=== PATIENT | female | born 1935 | race Hispanic/Latino ===

== ENCOUNTER 2017-01-28 17:11 | Inpatient (IN) | payer MEDICARE, BC ==
--- NOTE | 2017-01-28 17:25 | ED PDOC ---
Arrival/HPI - General Historian: Patient - History of Present Illness Time/Duration: Prior to Arrival Symptom Onset: Sudden Symptom Course: Unchanged Context: Home <Ramsey Najera - Last Filed: 01/28/17 18:55> <Chet Mercado - Last Filed: 01/29/17 00:44> - General Time Seen by Provider: 01/28/17 17:11 - History of Present Illness Narrative History of Present Illness (Text): 01/28/17 17:22 A 81 year old female, whose past medical history includes carotid stenosis and hypertension and copd, comes in with code stroke activated by EMS. Per family, patient was last seen normal at approximately 11:30. Patient at baseline mildly confused. Patient was found on the floor AMS and slurred speech by daughter just priot to arrival Also, it is mentioned patient has "had cold" for last few days. at bedside, pt mildly altered, oriented x 2, unable to provide further history, but denies any complaints of pain, cough. 01/28/17 17:52 (Ramsey Najera) Past Medical History - Provider Review Nursing Documentation Reviewed: Yes <Ramsey Najera - Last Filed: 01/28/17 18:55> Family/Social History - Physician Review Nursing Documentation Reviewed: Yes Family/Social History: No Known Family HX <Ramsey Najera - Last Filed: 01/28/17 18:55> Allergies/Home Meds <Ramsey Najera - Last Filed: 01/28/17 18:55> <Chet Mercado - Last Filed: 01/29/17 00:44> Allergies/Adverse Reactions: Allergies amoxicillin [From Augmentin] Allergy (Verified 01/28/17 17:35) VOMITING clavulanic acid [From Augmentin] Allergy (Verified 01/28/17 17:35) VOMITING methylprednisolone [From Medrol] Allergy (Verified 01/28/17 17:35) .unknown olmesartan [From Benicar] Allergy (Verified 01/28/17 17:35) .unknown Home Medications: Home Meds Medication Instructions Recorded Confirmed Ascorbate Calcium/B5/Quercetin 1 tab PO DAILY 01/28/17 01/28/17 [Anti-Allergy Formula Tablet] Ascorbic Acid [Vitamin C 500 mg 1 tab PO DAILY 01/28/17 01/28/17 Tab] Aspirin [Aspirin Chewable] 81 mg PO DAILY 01/28/17 01/28/17 Atorvastatin [Lipitor] 20 mg PO DAILY 01/28/17 01/28/17 Ecommerce Analyst Broom 470 mg PO DAILY 01/28/17 01/28/17 Calcium Carbonate/Vitamin D3 1 tab PO DAILY MDD 1200mg/1000IU 01/28/17 01/28/17 [Calcium 500-Vit D3 600 [place]] Cholecalciferol (Vitamin D3) 5,000 units PO DAILY 01/28/17 01/28/17 [Vitamin D3] Cinnamon Bark [Cinnamon] 1,000 mg PO DAILY 01/28/17 01/28/17 Clopidogrel [Plavix] 75 mg PO DAILY 01/28/17 01/28/17 Cyanocobalamin [Vitamin B12] 500 mcg PO DAILY 01/28/17 01/28/17 Diclofenac [Diclofenac] 75 mg PO DAILY 01/28/17 01/28/17 Fluticasone Nasal [Flonase] 1 spr IN DAILY 01/28/17 01/28/17 Fluticasone Propionate [Flovent 1 inh INH BID 01/28/17 01/28/17 Diskus] Folic Acid [Folic Acid] 400 mcg PO DAILY 01/28/17 01/28/17 Irbesartan [Irbesartan] 300 mg PO DAILY 01/28/17 01/28/17 Kyolic 600 mg PO DAILY 01/28/17 01/28/17 Magnesium Citrate [Magnesium 250 mg PO DAILY 01/28/17 01/28/17 Citrate] Multivitamin/Iron/Folic Acid 1 tab PO DAILY 01/28/17 01/28/17 [Centrum Adults Tablet] [place]-3 Fatty Acids/Fish Oil 1 tab PO DAILY 01/28/17 01/28/17 [[place] 3 Fish Oil Softgel] Pyridoxine [Vitamin B6 50 mg Tab] 1 tab PO DAILY 01/28/17 01/28/17 Tiotropium Br/Olodaterol HCl 2 inh INH DAILY 01/28/17 01/28/17 [Stiolto Respimat Inhal [place]] Ubidecarenone [Coenzyme Q-10] 100 mg PO DAILY 01/28/17 01/28/17 Vitamin E [Vitamin E] 100 units PO DAILY 01/28/17 01/28/17 Review of Systems - Review of Systems Systems not reviewed;Unavailable: Altered Mental Status Neurological: Other (slurred speech) <Ramsey Najera - Last Filed: 01/28/17 18:55> Physical Exam Temperature: Febrile Blood Pressure: Normal Pulse: Tachycardic Respiratory Rate: Normal Appearance: Positive for: Other (elderly female, awake, alert, oriented x 2, answering some questions appropriately, responds to commands) Pain Distress: None Mental Status: Positive for: Confused (oriented x 2, neg time) - Systems Exam Head: Present: Atraumatic, Normocephalic Pupils: Present: PERRL Extroacular Muscles: Present: EOMI Conjunctiva: Present: Normal Respiratory/Chest: Present: Clear to Auscultation, Decreased Breath Sounds (mild , symmetric) Cardiovascular: Present: Tachycardic Abdomen: No: Tenderness, Distention Lower Extremity: Present: Tenderness, Swelling ((+)ecchymosis, right lower leg) Neurological: Present: GCS=15, CN II-XII Intact, Other (moving all extremities, no pronator drift, 5/5 muscle strenght, normal sensation) <Ramsey Najera - Last Filed: 01/28/17 18:55> Vital Signs Temp Pulse Resp BP Pulse Ox 01/29/17 00:10 100.1 F H 137 H 28 H 151/86 H 96 01/28/17 23:08 103 H 20 108/74 97 01/28/17 22:02 97 H 18 95/44 L 93 L 01/28/17 20:07 107 H 20 122/56 L 94 L 01/28/17 19:44 95 H 16 104/53 L 95 01/28/17 19:34 99.1 F 01/28/17 18:54 100.4 F H 97 H 30 H 98/47 L 96 01/28/17 18:09 104.5 F H 94 H 26 H 90/45 L 99 01/28/17 17:57 104 F H 01/28/17 17:13 100.4 F H 96 H 25 H 112/46 L 100 Medical Decision Making <Ramsey Najera - Last Filed: 01/28/17 18:55> - Critical Care Critical Care Minutes: 45 minutes <Chet Mercado - Last Filed: 01/29/17 00:44> ED Course and Treatment: 01/28/17 17:27 Impression: 81 year old female with comes in with code stroke. pt with generalized ams. initially called code stroke, as unclear onset, however daughter later states last ssen normal at 1130. upon arrival pt found to be febile, suspect sepsis Differential Diagnosis included but are not limited to: stroke, sepsis, metabolic, intracranial. Plan: -- EKG -- Head CT -- Chest X-ray -- Labs -- Blood Gas -- Urinalysis -- Reassess and disposition Progress Notes: 01/28/2017 17:11 Code stroke called in the ER. 01/28/17 17:30 EKG: Ordered, reviewed, and independently interpreted the EKG. Rate : 121 BPM Rhythm : Sinus tachycardia Interpretation : No ST-segment elevations or depressions, no T-wave inversions, normal intervals. Comparison : No previous EKG for comparison. 01/28/2017 17:[address] FINDINGS: HEMORRHAGE: No intracranial hemorrhage. BRAIN: There are mild chronic microangiopathic changes. There is no mass, mass effect or abnormal extra-axial fluid collection. There is no territorial infarction.There are coarse atherosclerotic calcifications in the cavernous carotid and vertebral arteries. VENTRICLES: There is mild age-related global parenchymal volume loss and proportionate enlargement of the ventricles and cortical sulci. CALVARIUM: The skull base and calvarium are normal. PARANASAL SINUSES: Predominantly clear. MASTOID AIR CELLS: The right mastoid air cells are clear. There is complete opacification of the left mastoid air cells and soft tissue in the left middle ear cavity. OTHER FINDINGS: None. IMPRESSION: 1. No acute intracranial abnormality. If there is a persistent focal neurologic deficit and an ongoing clinical concern for acute infarction, an MRI of the brain without intravenous contrast would be a more sensitive modality for evaluation of hyperacute/acute ischemic infarction. 2. Mild age-related involutional changes. 3. Acute and/ chronic left mastoiditis and otitis media. Clinical follow-up is advised. Findings were discussed with Dr. Ramsey Najera on 01/28/2017 at 5:25 p.m.. Dictator: Tena Moralez MD 01/28/2017 17:31 Chest X-ray FINDINGS: LUNGS: The lungs are hyperinflated and there is peribronchial thickening with chronic changes in both lungs. No focal consolidation. PLEURA: No significant pleural effusion identified, no pneumothorax apparent. CARDIOVASCULAR: Normal. OSSEOUS STRUCTURES: No significant abnormalities. VISUALIZED UPPER ABDOMEN: Normal. OTHER FINDINGS: None. IMPRESSION: No active pulmonary disease. COPD. Dictator: Tena Moralez MD 01/28/17 17:[address] choi. as pt last seen normal 1130, with generalized AMS , not tpa candidate. case discussed with dr vela, pt pmd, advises pt can be admitted to medical service. 01/28/17 18:06 Code sepsis called for patient in the ER. 01/28/17 18:21 pt now reports she had "banged an ironing board agaist right leg", with noted ecchymosis. xr added. ct abd/pelvis also added as pt reports right flank pain. 01/28/17 18:35 pt less altered, now responding to questions appropriately. 01/28/17 18:55 icu paged, pending callback. case endorsed to [facility], pending icu eval, ct, xr imaging, and final dispo. (Ramsey Najera) CT Abdomen and Pelvis Without Intravenous Contrast IMPRESSION: Moderate right-sided hydroureteronephrosis secondary to a 5 mm stone in the distal right ureter. Dictated and Authenticated by: Apurva Dailey MD 01/28/2017 9:24 PM Eastern Time ([place] & Aide) 01/28/17 21:50 Case discussed with ICU [facility] urologist Dr. William for emergent ureteral stent. Patient is hemodynamically stable. Patient had received Lovenox for presumed nonstemi, however given the new findings we may need to reverse it. Discussed with Dr. Snyder as well. She was given protamine to reverse the Lovenox to minimize risk of bleeding while doing the procedure. She was taken the OR emergently at approxmiately 11pm given additional fluid bolus for a soft blood pressure. Dr. William did not want any further antibiotics at that time. She was sent to the ICU status post procedure the ICU attending was informed of the case 01/29/17 00:41 (Chet Mercado) - Critical Care Narrative Critical Care (Text): 01/28/17 20:50 A sepsis order was called and the patient by Dr. Gonzalez want any was given she was given antibiotics and fluid bolus resuscitation. A repeat EKG showed some mild but persistent ST depression in V3 V4 and V5 given that she has a slight troponin bump I'm concerned about underlying cardiac disease. We will give one dose of Lovenox as anticoagulation. She was evaluated by the ICU team and cleared for telemetry. She'll be admitted to Dr. Busch. After her CT scan of the abdomen and pelvis came back and showed a 5 mm stone in the right distal ureter with hydronephrosis. 01/29/17 00:40 (Chet Mercado) - Lab Interpretations Lab Results: 01/28/17 17:25 01/28/17 17:25 Lab Results 01/28/17 20:00: Blood Type Confirm O POSITIVE 01/28/17 19:00: Influenza Typ A,B (EIA) Negative for flu a/b 01/28/17 18:20: Urine Color Yellow, Urine Appearance Turbid, Urine pH 6.0, Ur Specific [place] 1.015, Urine Protein 100 H, Urine Glucose (UA) Negative, Urine Ketones 15 H, Urine Blood Moderate H, Urine Nitrate Positive H, Urine Bilirubin Negative, Urine Urobilinogen 0.2, Ur Leukocyte Esterase Trace H, Urine RBC 10 - 15, Urine WBC 5 - 10, Urine Bacteria Many 01/28/17 18:15: Blood Type O POSITIVE, Antibody Screen Negative, BBK History Checked No verified bt 01/28/17 17:25: Sodium 138, Chloride 103, Potassium 4.3, Carbon Dioxide 21, Anion Gap 18, BUN 28 H, Creatinine 1.2, Est GFR ( Amer) 52, Est GFR (Non- Af Amer) 43, Random Glucose 172 H, Calcium 9.4, Magnesium 1.7, Total Bilirubin 0.8, AST 69 H, ALT 41, Alkaline Phosphatase 156 H, Lactate Dehydrogenase 592, Total Creatine Kinase 854 H, CK-MB (CK-2) 2.2, CK-MB (CK-2) % Cancelled, Troponin I 0.25 H*, Total Protein 7.1, Albumin 4.1, Globulin 3.0, Albumin/ Globulin Ratio 1.4, Triglycerides 74, Cholesterol 138, LDL Cholesterol Direct 61 , HDL Cholesterol 50 01/28/17 17:25: PT 12.6 H, INR 1.17 H, APTT 28.0 01/28/17 17:25: WBC 5.2, RBC 4.45, Hgb 13.7, Hct 40.3, MCV 90.6, MCH 30.8, MCHC 34.0, RDW 14.8 H, Plt Count 170, MPV 9.0, Gran % 86.1 H, Lymph % (Auto) 8.3 L, Leon % (Auto) 2.9, Eos % (Auto) 0.2 L, Baso % (Auto) 2.5, Gran # 4.43, Lymph # 0.4 L, Leon # 0.2, Eos # 0.0, Baso # 0.13 01/28/17 17:25: pO2 157 H, VBG pH 7.44 H, VBG pCO2 32.0 L, VBG HCO3 21.7, VBG Total CO2 22.7, VBG O2 Sat (Calc) 100.0 H, VBG Base Excess -1.6 L, VBG Potassium 4.3, Sodium 136.0, Chloride 103.0, Glucose 183 H, Lactate 2.8 H, FiO2 21.0, Venous Blood Potassium 4.3 - RAD Interpretation Radiology Orders: 01/28/17 17:12 CHEST PORTABLE [RAD] Stat 01/28/17 17:13 HEAD W/O (CODE STROKE) [CT] Stat 01/28/17 18:18 ABDOMEN & PELVIS [ABD & PELVIS W/O PO OR IV CONT] [CT] Stat 01/28/17 18:19 ANKLE RIGHT 3 VIEWS ROUTINE [RAD] Stat TIBIA FIBULA RIGHT [RAD] Stat - Medication Orders Current Medication Orders: Acetaminophen (Tylenol 325mg Tab) 650 mg PO Q6H PRN PRN Reason: Fever >100.4 F Aspirin (Aspirin Chewable) 81 mg PO DAILY [facility] Atorvastatin Calcium (Lipitor) 20 mg PO DAILY [facility] Clopidogrel Bisulfate (Plavix) 75 mg PO DAILY [facility] Fentanyl (Fentanyl) 25 mcg IV Q5M PRN PRN Reason: Pain, moderate (4-7) Fluticasone Propionate (Flonase) 1 actuation NS DAILY [facility] Sodium Chloride (Sodium Chloride 0.9%) 1,000 mls @ 150 mls/hr IV .Q6H40M STA Stop: 01/29/17 02:29 Last Admin: 01/28/17 20:00 Dose: 150 mls/hr eMAR Start Stop Document 01/28/17 20:00 EKEOO (Rec: 01/28/17 22:28 CESILIA [email or web address]) Intravenous Solution Start Date 01/28/17 Start Time 20:00 Levofloxacin/Dextrose (Levaquin 750mg) 750 mg in 150 mls @ 100 mls/hr IVPB DAILY NO Meperidine HCl (Demerol) 12.5 mg IVP Q10M PRN PRN Reason: shivering Stop: 01/29/17 01:14 Metoprolol Succinate (Toprol Xl) 25 mg PO BRK NO Folic Acid [Folic Acid] 400 Mcg (Home Med) 400 mcg PO DAILY NO Tiotropium Br/Olodaterol Hcl [ Stiolto Respimat Inhal [place]] 2 In -- (Home Med) 2 inh INH DAILY NO Discontinued Medications Acetaminophen (Tylenol 325mg Tab) 60 mg PO STAT STA Stop: 01/28/17 22:10 Last Admin: 01/28/17 23:06 Dose: Aspirin (Aspirin) 325 mg PO STAT STA Stop: 01/28/17 18:29 Last Admin: 01/28/17 18:55 Dose: 325 mg Enoxaparin Sodium (Lovenox) 60 mg SC STAT STA PRN Reason: Protocol Stop: 01/28/17 20:53 Last Admin: 01/28/17 21:18 Dose: 60 mg Subcutaneous Administrations Document 01/28/17 21:18 CESILIA (Rec: 01/28/17 21:18 CESILIA [email or web address]) Injection Site MAR Injection Site Left Deltoid Charges for Administration # of Subcutaneous Administrations 1 Sodium Chloride (Sodium Chloride 0.9%) 1,000 mls @ 999 mls/hr IV .Q1H1M STA Stop: 01/28/17 18:39 Last Admin: 01/28/17 17:57 Dose: 999 mls/hr eMAR Start Stop Document 01/28/17 17:57 AB (Rec: 01/28/17 17:57 AB [id number]) Intravenous Solution Start Date 01/28/17 Start Time 17:57 End Date 01/28/17 End time 18:57 Total Infusion Time 60 Sodium Chloride (Sodium Chloride 0.9%) 1,000 mls @ 999 mls/hr IV .Q1H1M STA Stop: 01/28/17 18:39 Last Admin: 01/28/17 18:43 Dose: 999 mls/hr eMAR Start Stop Document 01/28/17 18:43 AB (Rec: 01/28/17 18:43 AB [id number]) Intravenous Solution Start Date 01/28/17 Start Time 18:43 End Date 01/28/17 End time 19:43 Total Infusion Time 60 Ciprofloxacin (Cipro 400mg/200ml Dsw) 400 mg in 200 mls @ 133.3 mls/hr IVPB STAT STA PRN Reason: Protocol Stop: 01/28/17 19:12 Last Admin: 01/28/17 21:18 Dose: 133.3 mls/hr eMAR Start Stop Document 01/28/17 21:18 EKEOO (Rec: 01/28/17 21:18 EKEPAO [id number]) Intravenous Solution Start Date 01/28/17 Start Time 21:18 Vancomycin HCl (Vancomycin 1gm) 1 gm in 250 mls @ 167 mls/hr IVPB STAT STA PRN Reason: Protocol Stop: 01/28/17 19:11 Last Admin: 01/28/17 18:41 Dose: 167 mls/hr eMAR Start Stop Document 01/28/17 18:41 AB (Rec: 01/28/17 18:42 AB [id number]) Intravenous Solution Start Date 01/28/17 Start Time 18:42 End Date 01/28/17 Levofloxacin/Dextrose (Levaquin 500mg) 500 mg in 100 mls @ 100 mls/hr IVPB ONCE ONE Stop: 01/29/17 10:59 Levofloxacin/Dextrose (Levaquin 750mg) 750 mg in 150 mls @ 100 mls/hr IVPB Q48H NO Ketorolac Tromethamine (Toradol) 30 mg IVP ONCE ONE Stop: 01/29/17 00:15 Morphine Sulfate (Morphine) 2 mg IVP STAT STA Stop: 01/28/17 23:05 Last Admin: 01/28/17 23:43 Dose: Protamine Sulfate (Protamine) 50 mg IV ONCE ONE Stop: 01/28/17 21:55 Last Admin: 01/28/17 23:05 Dose: Protamine Sulfate (Protamine) 10 mg IV ONCE ONE Stop: 01/28/17 22:08 Last Admin: 01/28/17 22:22 Dose: 10 mg eMAR Start Stop Document 01/28/17 22:22 EKEOO (Rec: 01/28/17 23:06 EKLEATHA [id number]) Intravenous Solution Start Date 01/28/17 Start Time 22:22 - Scribe Statement The provider has reviewed the documentation as recorded by the Scribe <Ramsey Najera - Last Filed: 01/28/17 18:55> <Chet Mercado - Last Filed: 01/29/17 00:44> - Scribe Statement Keely Dyer Provider Scribe Attestation: All medical record entries made by the Scribe were at my direction and personally dictated by me. I have reviewed the chart and agree that the record accurately reflects my personal performance of the history, physical exam, medical decision making, and the department course for this patient. I have also personally directed, reviewed, and agree with the discharge instructions and disposition. (Ramsey Najera) Disposition/Present on Arrival <Ramsey Najera - Last Filed: 01/28/17 18:55> - Present on Arrival Any Indicators Present on Arrival: No History of DVT/PE: No History of Uncontrolled Diabetes: No Urinary Catheter: No History of Decub. Ulcer: No - Disposition Have Diagnosis and Disposition been Completed?: Yes Disposition Time: 23:00 Patient Plan: ICU <Chet Mercado - Last Filed: 01/29/17 00:44> - Disposition Diagnosis: Sepsis, Ureteral calculus, right, NSTEMI (non-ST elevated myocardial infarction ) Disposition: HOSPITALIZED Condition: CRITICAL
--- NOTE | 2017-01-28 17:31 | CT ---
PROCEDURE: CT HEAD WITHOUT CONTRAST. HISTORY: Code Stroke COMPARISON: None available. TECHNIQUE: Axial computed tomography images were obtained through the head/brain without intravenous contrast. Radiation dose: Total exam DLP = 792.29 mGy-cm. This CT exam was performed using one or more of the following dose reduction techniques: Automated exposure control, adjustment of the mA and/or kV according to patient size, and/or use of iterative reconstruction technique. FINDINGS: HEMORRHAGE: No intracranial hemorrhage. BRAIN: There are mild chronic microangiopathic changes. There is no mass, mass effect or abnormal extra-axial fluid collection. There is no territorial infarction.There are coarse atherosclerotic calcifications in the cavernous carotid and vertebral arteries. VENTRICLES: There is mild age-related global parenchymal volume loss and proportionate enlargement of the ventricles and cortical sulci. CALVARIUM: The skull base and calvarium are normal. PARANASAL SINUSES: Predominantly clear. MASTOID AIR CELLS: The right mastoid air cells are clear. There is complete opacification of the left mastoid air cells and soft tissue in the left middle ear cavity. OTHER FINDINGS: None. IMPRESSION: 1. No acute intracranial abnormality. If there is a persistent focal neurologic deficit and an ongoing clinical concern for acute infarction, an MRI of the brain without intravenous contrast would be a more sensitive modality for evaluation of hyperacute/acute ischemic infarction. 2. Mild age-related involutional changes. 3. Acute and/ chronic left mastoiditis and otitis media. Clinical follow-up is advised. Findings were discussed with Dr. Ramsey Najera on 01/28/2017 at 5:25 p.m..
--- NOTE | 2017-01-28 17:32 | RAD ---
HISTORY: Code stroke COMPARISON: 07/05/2016. FINDINGS: LUNGS: The lungs are hyperinflated and there is peribronchial thickening with chronic changes in both lungs. No focal consolidation. PLEURA: No significant pleural effusion identified, no pneumothorax apparent. CARDIOVASCULAR: Normal. OSSEOUS STRUCTURES: No significant abnormalities. VISUALIZED UPPER ABDOMEN: Normal. OTHER FINDINGS: None. IMPRESSION: No active pulmonary disease. COPD.
[2017-01-28] MEDS ORDERED: Sodium Chloride 0.9% 1,000 ML IV STA ×3 (17:39→19:50)
[2017-01-28] MEDS ORDERED: Vancomycin 1gm in NS 250ml 1 GM/250 ML BAG IVPB STA (17:42)
[2017-01-28] MEDS ORDERED: Ciprofloxacin 400mg/200ml D5W 400 MG/200 ML BAG IVPB STA (17:42)
[2017-01-28 18:01] LABS: BASO # 0.13 K/mm3 (0.0-2.0); BASO % 2.5 % (0.0-3.0); EOS % 0.2 % (1.5-5.0); GRAN # 4.43 (1.4-6.5); GRAN % 86.1 % (50.0-68.0); HEMATOCRIT 40.3 % (36.0-48.0); LYMPH # 0.4 (1.2-3.4); LYMPH % 8.3 % (22.0-35.0); MEAN CELL VOLUME 90.6 fl (80.0-105.0); MEAN CORPUSCULAR HEMOGLOBIN 30.8 pg (25.0-35.0); MONO # 0.2 (0.1-0.6); MONO % 2.9 % (1.0-6.0); RED CELL DISTRIBUTION WIDTH 14.8 % (11.5-14.5); WHITE BLOOD COUNT 5.2 10^3/ul (4.5-11.0)
[2017-01-28 18:04] LABS: VENOUS BLOOD GAS BASE EXCESS -1.6 mmol/L (0.0-2.0); VENOUS BLOOD PH 7.44 (7.32-7.43)
[2017-01-28 18:08] LABS: ALB/GLOB RATIO 1.4 (1.1-1.8); BILIRUBIN,TOTAL 0.8 mg/dL (0.2-1.3); CALCIUM 9.4 mg/dL (8.4-10.5); INR 1.17 (0.93-1.08); MAGNESIUM 1.7 mg/dL (1.7-2.2); POTASSIUM 4.3 mmol/L (3.6-5.0); TOTAL PROTEIN 7.1 g/dL (5.8-8.3)
[2017-01-28 18:24] LABS: TROPONIN I 0.25 ng/mL
[2017-01-28 18:57] LABS: URINE BILIRUBIN NEGATIVE (NEGATIVE); URINE BLOOD MODERATE (NEGATIVE); URINE GLUCOSE (UA) NEGATIVE (NEGATIVE); URINE KETONE 15 mg/dL (NEGATIVE); URINE LEUKOCYTE ESTERASE TRACE Leu/uL (NEGATIVE); URINE PROTEIN 100 mg/dL (<30 mg/dL); URINE UROBILINOGEN 0.2 E.U./dL (<1 E.U./dL)
[2017-01-28 19:01] LABS: URINE APPEARANCE TURBID (CLEAR); URINE COLOR YELLOW (YELLOW)
[2017-01-28 19:04] LABS: URINE BACTERIA MANY (NEG)
[2017-01-28] MEDS ORDERED: Enoxaparin 60 mg Syringe SC STA (20:52)
--- NOTE | 2017-01-28 21:18 | CP.PCM.CON ---
<Nathanael Palomino - Last Filed: 01/29/17 01:03> History of Present Illness - History of Present Illness History of Present Illness: ICU Consult Note for Dr. 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 Patient was reported as altered on arrival, CODE STROKE was called, but head CT was negative for acute findings, and she was AAOx4 (self, location, year, president) at time of exam. Patient has no recall of the events leading to this admission. As per the patient, she was trying to put her ironing board away 2 days ago, but it fell down and struck the medial aspect of her right lower leg, superior to the medial maleolus. Since that time, she has been complaining of persisting pain at the site, as per family at bedside and per patient. Patient also admits to sensation of general malaise and aches x2 days, but thought she had come down with a cold. Family reports that patient called today and stated she was going to drive to her chiropracter to see if he could do anything to help her leg pain , around 1pm today. Last seen by a family member ambulating and yesterday evening at ~10pm. Family reports that patient's baseline is ambulatory at home without assistance, takes care of most IADLs/ADLs with some help from family, but they have noticed a mild general decline and intermittent confusion within the last few months. Family reports not having heard from patient after the 1pm call, so members living on the floor below her went up to check, and found her on her back on the ground, apparently having slipped down from the bed when attempting to stand, still holding her blanket from the bed. Family reported that she was found on her back, eyes wide open, mouthing words but not speaking and not initially responsive to patient. No tonic-clonic seizure activity, tongue biting, or bowel/bladder incontinence reported as per family. Patient rapidly became alert and responsive as per family, and then EMS was called and she was brought to the ED. Patient admits she has had minimal PO food and fluid intake in the last 48 hours , and as per family she has poor PO fluid intake at baseline. Also admits to prior orthostatic syncopal episode 2 years prior. Denies any current symptoms except for back pain and pain in left leg at site of bruising. Denies room- spinning, lightheadness, fevers/chills, shortness of breath, nausea/emesis, abd pain, constipation, dysuria, hematuria, focal weakness/parethesia, or acute vision changes. Admits to diarrhea 2 days prior, no episodes yesterday or today. All other ROS in 12-point system review negative. PMH: As above PSH: Denies any surgeries in past FHx: pt unsure SHx: Admits to prior tobacco use (cigarettes, 1ppd x 50 yrs, quit ~10 yrs prior) , denies alcohol/illicits/IVDA PMD: Dr. Corrales Review of Systems - Review of Systems All systems: reviewed and no additional remarkable complaints except (as per HPI ) Past Patient History - Past Social History Smoking Status: Former Smoker - CARDIAC Hx Cardiac Disorders: Yes Hx Hypercholesterolemia: Yes Hx Hypertension: Yes - PULMONARY Hx Respiratory Disorders: Yes Hx Chronic Obstructive Pulmonary Disease (COPD): Yes - NEUROLOGICAL Hx Neurological Disorder: No - HEENT Hx HEENT Problems: No - RENAL Hx Chronic Kidney Disease: No - ENDOCRINE/METABOLIC Hx Endocrine Disorders: No - HEMATOLOGICAL/ONCOLOGICAL Hx Blood Disorders: No - INTEGUMENTARY Hx Dermatological Problems: No - MUSCULOSKELETAL/RHEUMATOLOGICAL Hx Musculoskeletal Disorders: No - GASTROINTESTINAL Hx Gastrointestinal Disorders: No - GENITOURINARY/GYNECOLOGICAL Hx Genitourinary Disorders: No - PSYCHIATRIC Hx Psychophysiologic Disorder: No Hx Substance Use: No - SURGICAL HISTORY Hx Surgeries: Yes (ear surgery) Meds Allergies/Adverse Reactions: Allergies Allergy/AdvReac Type Severity Reaction Status Date / Time amoxicillin [From Augmentin] Allergy VOMITING Verified 01/28/17 17:35 clavulanic acid Allergy VOMITING Verified 01/28/17 17:35 [From Augmentin] methylprednisolone Allergy .unknown Verified 01/28/17 17:35 [From Medrol] olmesartan [From Benicar] Allergy .unknown Verified 01/28/17 17:35 - Medications Medications: Current Medications Sodium Chloride (Sodium Chloride 0.9%) 1,000 mls @ 150 mls/hr IV .Q6H40M STA Stop: 01/29/17 02:29 Physical Exam - Constitutional Appears: Well, Non-toxic, No Acute Distress - Head Exam Head Exam: ATRAUMATIC, NORMAL INSPECTION, NORMOCEPHALIC - Eye Exam Eye Exam: EOMI, Normal appearance, PERRL. absent: Conjunctival injection, Scleral icterus Pupil Exam: NORMAL ACCOMODATION, PERRL. absent: Fixed, Irregular, Unequal - ENT Exam ENT Exam: Mucous Membranes Dry - Neck Exam Neck exam: Positive for: Full Rom. Negative for: Lymphadenopathy, Thyromegaly - Respiratory Exam Respiratory Exam: Clear to Auscultation Bilateral, NORMAL BREATHING PATTERN. absent: Accessory Muscle Use, Chest Wall Tenderness, Decreased Breath Sounds, Prolonged Expiratory Phase, Rales, Rhonchi, Wheezes, Respiratory Distress, Stridor - Cardiovascular Exam Cardiovascular Exam: Tachycardia, REGULAR RHYTHM, +S1, +S2. absent: Bradycardia , Clicks, Diastolic murmur, Irregular Rhythm, JVD, +S4, Systolic Murmur - GI/Abdominal Exam GI & Abdominal Exam: Normal Bowel Sounds, Soft. absent: Diminished Bowel Sounds , Distended, Firm, Guarding, Hyperactive Bowel Sounds, Hypoactive Bowel Sounds, Rigid, Tenderness - Extremities Exam Extremities exam: Positive for: tenderness (tenderness at site of R medial lower leg bruise; bruising without surrounding erythema/edema/fluctuance, no ssx consistent with cellulitis at trauma site or hematoma), pedal pulses present (+2 radials and +1 dorsalis pedis bilaterally). Negative for: calf tenderness - Back Exam Back exam: vertebral tenderness (midline back pain, worse with palpation along lumbosacral region). absent: CVA tenderness (L), CVA tenderness (R) - Neurological Exam Neurological exam: Alert, CN II-XII Intact, Oriented x3 (oriented x4 (self, location, year, president)) - Psychiatric Exam Psychiatric exam: Normal Affect, Normal Mood - Skin Skin Exam: Dry, Intact, Normal Color (except as documented in extremities exam) , Warm Additional comments: large oval bruise along medial aspect of RLE superior to medial maleolus, ~ 3-4 cm diameter without overt breaks in skin/bleeding/oozing Results - Vital Signs Recent Vital Signs: Last Vital Signs Temp 99.1 F 01/28/17 19:34 Pulse 107 H 01/28/17 20:07 Resp 20 01/28/17 20:07 BP 122/56 L 01/28/17 20:07 Pulse Ox 94 L 01/28/17 20:07 - Labs Result Diagrams: 01/28/17 17:25 01/28/17 17:25 Labs: Laboratory Results - last 24 hr 01/28/17 01/28/17 01/28/17 17:25 17:25 17:25 WBC 5.2 RBC 4.45 Hgb 13.7 Hct 40.3 MCV 90.6 MCH 30.8 MCHC 34.0 RDW 14.8 H Plt Count 170 MPV 9.0 Gran % 86.1 H Lymph % (Auto) 8.3 L Winkler % (Auto) 2.9 Eos % (Auto) 0.2 L Baso % (Auto) 2.5 Gran # 4.43 Lymph # 0.4 L Winkler # 0.2 Eos # 0.0 Baso # 0.13 PT 12.6 H INR 1.17 H APTT 28.0 pO2 157 H VBG pH 7.44 H VBG pCO2 32.0 L VBG HCO3 21.7 VBG Total CO2 22.7 VBG O2 Sat (Calc) 100.0 H VBG Base Excess -1.6 L VBG Potassium 4.3 Sodium 136.0 Chloride 103.0 Glucose 183 H Lactate 2.8 H FiO2 21.0 Potassium Carbon Dioxide Anion Gap BUN Creatinine Est GFR ( Amer) Est GFR (Non-Af Amer) Random Glucose Calcium Magnesium Total Bilirubin AST ALT Alkaline Phosphatase Lactate Dehydrogenase Total Creatine Kinase CK-MB (CK-2) CK-MB (CK-2) % Troponin I Total Protein Albumin Globulin Albumin/Globulin Ratio Triglycerides Cholesterol LDL Cholesterol Direct HDL Cholesterol Venous Blood Potassium 4.3 Urine Color Urine Appearance Urine pH Ur Specific [place] Urine Protein Urine Glucose (UA) Urine Ketones Urine Blood Urine Nitrate Urine Bilirubin Urine Urobilinogen Ur Leukocyte Esterase Urine RBC Urine WBC Urine Bacteria Influenza Typ A,B (EIA) BBK History Checked 01/28/17 01/28/17 01/28/17 17:25 18:15 18:20 WBC RBC Hgb Hct MCV MCH MCHC RDW Plt Count MPV Gran % Lymph % (Auto) Winkler % (Auto) Eos % (Auto) Baso % (Auto) Gran # Lymph # Winkler # Eos # Baso # PT INR APTT pO2 VBG pH VBG pCO2 VBG HCO3 VBG Total CO2 VBG O2 Sat (Calc) VBG Base Excess VBG Potassium Sodium 138 Chloride 103 Glucose Lactate FiO2 Potassium 4.3 Carbon Dioxide 21 Anion Gap 18 BUN 28 H Creatinine 1.2 Est GFR ( Amer) 52 Est GFR (Non-Af Amer) 43 Random Glucose 172 H Calcium 9.4 Magnesium 1.7 Total Bilirubin 0.8 AST 69 H ALT 41 Alkaline Phosphatase 156 H Lactate Dehydrogenase 592 Total Creatine Kinase 854 H CK-MB (CK-2) 2.2 CK-MB (CK-2) % Cancelled Troponin I 0.25 H* Total Protein 7.1 Albumin 4.1 Globulin 3.0 Albumin/Globulin Ratio 1.4 Triglycerides 74 Cholesterol 138 LDL Cholesterol Direct 61 HDL Cholesterol 50 Venous Blood Potassium Urine Color Yellow Urine Appearance Turbid Urine pH 6.0 Ur Specific [place] 1.015 Urine Protein 100 H Urine Glucose (UA) Negative Urine Ketones 15 H Urine Blood Moderate H Urine Nitrate Positive H Urine Bilirubin Negative Urine Urobilinogen 0.2 Ur Leukocyte Esterase Trace H Urine RBC 10 - 15 Urine WBC 5 - 10 Urine Bacteria Many Influenza Typ A,B (EIA) BBK History Checked No verified bt 01/28/17 19:00 WBC RBC Hgb Hct MCV MCH MCHC RDW Plt Count MPV Gran % Lymph % (Auto) Winkler % (Auto) Eos % (Auto) Baso % (Auto) Gran # Lymph # Winkler # Eos # Baso # PT INR APTT pO2 VBG pH VBG pCO2 VBG HCO3 VBG Total CO2 VBG O2 Sat (Calc) VBG Base Excess VBG Potassium Sodium Chloride Glucose Lactate FiO2 Potassium Carbon Dioxide Anion Gap BUN Creatinine Est GFR ( Amer) Est GFR (Non-Af Amer) Random Glucose Calcium Magnesium Total Bilirubin AST ALT Alkaline Phosphatase Lactate Dehydrogenase Total Creatine Kinase CK-MB (CK-2) CK-MB (CK-2) % Troponin I Total Protein Albumin Globulin Albumin/Globulin Ratio Triglycerides Cholesterol LDL Cholesterol Direct HDL Cholesterol Venous Blood Potassium Urine Color Urine Appearance Urine pH Ur Specific [place] Urine Protein Urine Glucose (UA) Urine Ketones Urine Blood Urine Nitrate Urine Bilirubin Urine Urobilinogen Ur Leukocyte Esterase Urine RBC Urine WBC Urine Bacteria Influenza Typ A,B (EIA) Negative for flu a/b BBK History Checked Assessment & Plan - Assessment and Plan (Free Text) Assessment: This is an 81 yo F with PMH of HTN, HLD, 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 She was determined to be in urosepsis, and was found on CT abd to have a 5mm R-ureteral stone with R hydronephrosis. Urology consulted, aware, pt pending removal of stone by Urology. Plan: Neuro: -AAOx4, following all commands -no sided neurological deficit or sensory abnormality on exam, CT head negative for acute findings -maintain normothermia, Tmax in ED 104.5; Tylenol PRN for fevers, 99.1F on last check -Syncopal episode prior to presentation, likely 2/2 hypotension 2/2 urosepsis -High fall risk protocol Pulm: -Hx COPD, likely 2/2 prolonged tobacco abuse -Satting well in the ED on 2L NC, Maintain SaO2 > 90% for COPD pt, avoid persistently elevated SaO2 to prevent suppression of respiratory drive -Continue home Flovent and Tiotropium -CXR on admission negative for active pulmonary disease, only notable for COPD with hyperinflated lungs Cardio: -hemodynamically stable at time of exam, SBP 90's-120s after receiving 2L NS bolus, receiving 3rd at time of exam, continue aggressive fluid replacement and hold home antihypertensives -continue to monitor, target MAP >= 65, no pressor support indicated at this time -aggressive fluid rehydration in setting of sepsis, also patient likely dehydrated 2/2 sepsis and poor PO fluid intake as per family -NS 150cc/hr -Trop elevated at 0.25, mild ST depressions (~1mm) on intially EKG, but improved on repeat EKG after fluid rehydrated with 2L NS wide open, most likely demand ischemia from hypotensive episode 2/2 urosepsis, trend trops q8 x2 and f/ u -Continue home ASA/Plavix/Statin given hx of R ICA 100% stenosis/20-30% stenosis of L-ICA as per family and patient -Tachycardic on presentation, improved with fluid rehydration, supportive of suspicion that patient is dehydrated GI: -Heart-healthy, but currently NPO pending possible procedure by Urology -Protonix for GI ppx -CT abd negative for acute findings Renal: -Cr. 1.2, BUN 28 -likely ALEX 2/2 dehydration vs hypoperfusion 2/2 hypotension from urosepsis -CT pelvis notable for 5mm stone in R ureter with R hydroureteronephrosis -Urology consulted, patient to go to OR for stone removal -Monitor and replete electrolytes as necessary -Maintain euglycemia (BG 140-180), aggressive fluid repletion in setting of likely sepsis with ALEX -Received Vanco and Levoflox in the ED x1, now on Levofloxacin 750mg daily ID: -no leukocytosis, but febrile in ED; maintain normothermia, Tmax in ED 104.5; Tylenol PRN for fevers, 99.1F on last check -Received vanco and levofloxacin in the ED. Continue Levoflox for possible pyelonephritis Heme: -Hgb 13.7, f/u in AM -Continue to monitor Dispo: IN ED, pending OR with Urology for ureter stone removal, then to ICU for overnight eval and monitoring, IVF and IV abx FEN: NPO procedure, NS 150cc/hr Access: Peripheral IV Consults: Urology Ppx: Protonix for GI, Heparin SC q12 for DVT ppx when cleared by Urology ( holding AC now due to pending procedure, avoid SCDs due to RLE injury Patient seen, reviewed, and case discussed with attending, Dr. Mccann. <Robbie Mccann Q - Last Filed: 01/29/17 06:19> Meds - Medications Medications: Current Medications Acetaminophen (Tylenol 325mg Tab) 650 mg PO Q6H PRN PRN Reason: Fever >100.4 F Aspirin (Aspirin Chewable) 81 mg PO DAILY NO Atorvastatin Calcium (Lipitor) 20 mg PO DAILY NO Clopidogrel Bisulfate (Plavix) 75 mg PO DAILY NO Fentanyl (Fentanyl) 25 mcg IV Q5M PRN PRN Reason: Pain, moderate (4-7) Fluticasone Propionate (Flonase) 1 actuation NS DAILY NO Hydromorphone HCl (Dilaudid) 0.5 mg IVP Q3H PRN PRN Reason: Pain, moderate (4-7) Levofloxacin/Dextrose (Levaquin 750mg) 750 mg in 150 mls @ 100 mls/hr IVPB DAILY NO NOREPINEPHRINE BIT/0.9 % NACL (Levophed 4 Mg/ 250 Ml Ns Premixed) 4 mg in 250 mls @ 15 mls/hr IV .[id number] PRN; Protocol; 4 MCG/MIN PRN Reason: TITRATE PER MD ORDER Sodium Chloride (Sodium Chloride 0.9%) 1,000 mls @ 100 mls/hr IV .Q10H NO Last Admin: 01/29/17 04:30 Dose: 100 mls/hr Folic Acid [Folic Acid] 400 Mcg (Home Med) 400 mcg PO DAILY NO Tiotropium Br/Olodaterol Hcl [ Stiolto Respimat Inhal [place]] 2 In -- (Home Med) 2 inh INH DAILY NO Results - Vital Signs Recent Vital Signs: Last Vital Signs Temp 100.1 F H 01/29/17 01:24 Pulse 130 H 01/29/17 01:24 Resp 32 H 01/29/17 01:24 BP 134/96 H 01/29/17 01:24 Pulse Ox 93 L 01/29/17 01:20 - Labs Result Diagrams: 01/28/17 17:25 01/28/17 17:25 Labs: Laboratory Results - last 24 hr 01/28/17 01/29/17 01/29/17 22:00 01:34 05:30 pCO2 25 L pO2 42 45 62.0 L HCO3 12.0 L ABG pH 7.29 L ABG Total CO2 12.8 L ABG O2 Saturation 94.8 L ABG Base Excess -12.8 L ABG Potassium 3.4 L VBG pH 7.09 L* 7.21 L VBG pCO2 38.0 L 42.0 VBG HCO3 11.5 L 16.8 L VBG Total CO2 12.7 L 18.1 L VBG O2 Sat (Calc) 76.8 H 78.2 H VBG Base Excess -17.6 L -10.7 L VBG Potassium 2.0 L* 3.7 Sodium < 100.0 L* 138.0 139.0 Chloride 72.0 L 113.0 H 118.0 H Glucose > 750 H* D 103 100 Lactate 2.3 H 3.8 H 2.2 H FiO2 21.0 21.0 100.0 Arterial Blood Potassium 3.4 L Venous Blood Potassium 2.0 L* 3.7 Attending/Attestation - Attestation I have personally seen and examined this patient.: Yes I have fully participated in the care of the patient.: Yes I have reviewed all pertinent clinical information: Yes Notes (Text): 01/29/17 06:12 I agree with the above mentioned note and exam as mentioned above by the resident with the addition/exception of the followin81 y/o female with PMHx COPD, CAD, HTN, R carotid stenosis was brought in to the ED and found to have urosepsis initially. She was taken to the OR and had a cystoscopy with stone retrieval performed by Urology. Throughout the night the patient developed septic shock, failing to respond to approximately 5L IVF hydration. Right IJ Central line placed by the surgical instrument repair specialist (CXR reviewed showing proper placement, no Ptx) and she was started on Levophed. She also developed hypoxia, likely secondary to increased IVF administration, so she is now on High flow oxygen. Will diurese her to improve oxygenation. She appears comfortable and despite hypoxia on ABG, she is not offering any complaints of respiratory distress at this time. Septic shock secondary to pyelonephritis Case discussed at length with Dr. Mercado in the ED all labs and imaging available to myself thus far have been reviewed Total time of care: 50 minutes
--- NOTE | 2017-01-28 21:24 | CT ---
EXAM: CT Abdomen and Pelvis Without Intravenous Contrast CLINICAL HISTORY: 81 years old, female; Signs and symptoms; Fever and other: Sepsis; Additional info: Sepsis/fever TECHNIQUE: Axial computed tomography images of the abdomen and pelvis without intravenous contrast. All CT scans at this facility use one or more dose reduction techniques, viz.: automated exposure control; ma/kV adjustment per patient size (including targeted exams where dose is matched to indication; i.e. head); or iterative reconstruction technique. Coronal and sagittal reformatted images were created and reviewed. COMPARISON: No relevant prior studies available. FINDINGS: Lower thorax: Small bilateral pleural effusions, with adjacent compressive atelectasis. ABDOMEN: Liver: No acute findings Gallbladder and bile ducts: No acute finding. No calcified stones. No intra-extrahepatic biliary ductal dilation. Pancreas: Limited evaluation secondary to the lack of intravenous contrast. Spleen: No acute findings. Adrenals: No acute findings. Kidneys and ureters: Moderate right-sided hydroureteronephrosis extending to the distal right ureter where a 5 mm stone is identified. The left kidney is unremarkable. PELVIS: Bladder: Decompressed with a Rush catheter, limiting its evaluation. Reproductive: No acute findings. ABDOMEN and PELVIS: Stomach and bowel: No acute findings. Peritoneum: No acute findings. Lymph nodes: Limited evaluation without intravenous contrast. Vasculature: No aortic aneurysm. Calcified atherosclerotic disease. Bones: No acute fracture. IMPRESSION: Moderate right-sided hydroureteronephrosis secondary to a 5 mm stone in the distal right ureter.
[2017-01-28] MEDS ORDERED: Protamine 50mg/5mL Inj IV ONE ×4 (21:54→22:07)
[2017-01-28 22:12] LABS: VENOUS BLOOD GAS BASE EXCESS -17.6 mmol/L (0.0-2.0)
[2017-01-28 22:40] LABS: VENOUS BLOOD PH 7.09 (7.32-7.43)
[2017-01-28] MEDS: Morphine 2 mg/ml ISec IVP STA ×2 (23:12→23:43)
[2017-01-28] MEDS ORDERED: Lidocaine 2% Inj (20ml) ONE (23:42)
[2017-01-28] MEDS ORDERED: Etomidate 20 mg/10ml Inj IV ONE (23:42)
[2017-01-28] MEDS ORDERED: Iohexol 240 (50 ml) ONE (23:46)
[2017-01-28] MEDS ORDERED: Esmolol 100 mg/10ml Inj IV ONE (23:54)
[2017-01-29] MEDS ORDERED: Phenylephrine 10 mg/ml Inj ONE (00:01)
--- NOTE | 2017-01-29 00:18 | CARD ---
APPROVED REPORT EKG Measurement Heart [id number] [id number] <Conclusion> Sinus tachycardia with occasional premature ventricular complexes and fusion complexes Cannot rule out Anterior infarct, age undetermined Abnormal ECG
[2017-01-29] MEDS ORDERED: HYDROmorphone 0.5 mg/0.5 ml ISec IVP PRN (01:07)
--- NOTE | 2017-01-29 01:10 | PCM.SEPTIC ---
Sepsis Progress Note - Reassessment Type Date of Evaluation: 01/29/17 Time of Evaluation: 00:30 Reassessment Type: Non-invasive reassessment - Non Invasive Reassessment Were the most recent vital sign reviewed: Yes Vital Sign (Latest): Temp Pulse Resp BP Pulse Ox 100.1 F H 131 H 19 139/68 96 01/29/17 00:40 01/29/17 00:40 01/29/17 00:40 01/29/17 00:40 01/29/17 00:40 Cardiovascular: Yes: Chest Non Tender, Tachycardia (s/p Cysto for R-ureter stone removal). No: Regular Rate, Rhythm, JVD, Bradycardia, Irregularly Irregular Respiratory: Yes: Normal Breath Sounds. No: Decreased Breath Sounds, Crackles, Rales, Rhonchi, Wheezing Capillary Refill: Normal (Less than 2 sec) Pulses: Normal Radial, Decreased Dorsalis Pedis, Absent Posterior Tibialis ( unable to palpate) Skin: Normal Color, Warm, Dry
[2017-01-29 01:47] LABS: VENOUS BLOOD GAS BASE EXCESS -10.7 mmol/L (0.0-2.0); VENOUS BLOOD PH 7.21 (7.32-7.43)
[2017-01-29] MEDS ORDERED: Sodium Chloride 0.9% 1,000 ML IV STA ×2 (03:25→08:54)
[2017-01-29] MEDS ORDERED: Sodium Chloride 0.9% 1,000 ML IV SCH ×2 (03:30→05:01)
--- NOTE | 2017-01-29 04:22 | HP ---
HISTORY OF PRESENT ILLNESS: The patient is an 81-year-old female who is according to daughter, who is very independent. She usually drives. This morning, she went to see chiropractor for her back and knee and her sister spoke to her last around 1 o'clock when they came home after school. They found her on the floor and she was somewhat confused, so they called ambulance and she was brought to emergency room. According to daughter, Ashia, she was warm to touch and felt like she had high fever, so she was brought to emergency room for further evaluation. Denies any nausea or vomiting. Did have fever. No hemoptysis. No hematemesis. No cough. No congestion. She does admit some increase in frequency of urination. PAST MEDICAL HISTORY: Significant for: 1. Hypertension. 2. History of COPD. 3. Hyperlipidemia. 4. Recently diagnosed carotid stenosis. 5. History of heart attack in the remote past, but she never had angioplasty or cath done. PAST SURGICAL HISTORY: Significant for some cyst removed in her ear, but she is not sure, which procedure was done. ALLERGIES: SHE IS ALLERGIC TO AMOXYCILLIN, CLAVULANIC ACID, METHYLENPREDNISOLONE, AND OLMESARTAN. MEDICATIONS AT HOME: She is on bunch of multivitamins including calcium, folic acid, magnesium, fish oil, cinnamon bark, ascorbic acid, CoQ10, vitamin E, vitamin D, pyridoxine, and B12. She takes Avapro 300 daily and diclofenac 75 mg daily. She is on ipratropium and she takes Flovent, aspirin 81 daily, Plavix 75 daily, and Lipitor 10 mg daily. SOCIAL HISTORY: She lives with her daughter who lives upstairs and she lives downstairs. She used to be heavy smoker in the past. REVIEW OF SYSTEMS: When the patient was brought to the ER, she was somewhat confused, but seems to be doing lot better after she was given antibiotics and bolus of IV fluid. PHYSICAL EXAMINATION: GENERAL: She is awake and alert, able to communicate, able to answer simple questions. VITAL SIGNS: Upon arrival, her temperature was 104.5, pulse 94, respirations 26, and blood pressure 90/45. She was given Tylenol. Followup blood pressure around 7:30, temperature 99.1, pulse 95, respirations 16, and blood pressure 104/53. LUNGS: Bilateral fair airflow. No rhonchi or crackle. HEART: S1 and S2 audible. ABDOMEN: Soft and nontender. No rebound. No guarding. NEUROLOGIC: The patient is awake and alert and able to communicate. She has significant kyphoscoliosis and neurologically she is little forgetful, but awake and alert. No focal deficits. LABORATORY DATA: WBC is 5.2, hemoglobin 13.7, hematocrit 40.3, and platelets 170. PT 12.6 and INR 1.17. Chemistry: Sodium 138, potassium 4.3, chloride 103, CO2 of 21, BUN 28, creatinine 1.2, blood sugar of 172, AST 69, ALT 41, alkaline phosphatase is 156. CPK is 854, LDL is 592, troponin 0.25. LFTs are within normal limits. Urine shows positive nitrites and blood. She has a leukocyte and wbc is 5-10. Flu test is negative. CT scan of the abdomen and pelvis is pending. CT scan of the head, no acute intracranial abnormality, acute and chronic mastoiditis and otitis media. ASSESSMENT: 1. Altered mental status. 2. Probably urine resource. 3. Kyphoscoliosis. 4. Hypertension. 5. History of carotid stenosis. PLAN: The patient was given Cipro. We will continue her on Levaquin. Follow up her x-rays. Follow up CT scan of the abdomen and pelvis. ID evaluation by Dr. Dobbins will be requested. Follow up her serial troponin. Restart her on Plavix and aspirin. Follow up blood culture and urine culture and we will reevaluate the patient in a.m. Magali Snyder MD
[2017-01-29 04:49] VITALS: BMI 25.6
[2017-01-29] MEDS ORDERED: NOREPINEPHRINE BIT/0.9 % NACL 4 MG/250 ML BAG IV ONE (04:55)
[2017-01-29] MEDS ORDERED: NOREPINEPHRINE BIT/0.9 % NACL 4 MG/250 ML BAG IV PRN (05:00)
--- NOTE | 2017-01-29 05:14 | PCM.PROC ---
Procedures Attestation:: I certify that I have explained the specified Operation(s) or Procedure(s), risks, benefits and reasonable alternatives to the Patient and/or other person responsible. The opportunity was given to ask questions and all questions answered - Central Line Placement Right Internal Jugular Triple Lumen Catheter Aseptic technique was employed throughout the procedure: Full sterile barriers ( mask, hair cover, sterile gown, sterile gloves), Chloraprep Antiseptic: 30 second prep for IJ or SC sites CVP Time Out Performed: Yes Pt. Placed on Pulse Ox Monitor: Yes Central Line Prep: Chlorhexidine-Alcohol Combination Local Anesthesia Used: Lidocaine 1% Amount of Anesthesia Used (mls): 10 Ultrasound Used for Placement: Yes Central Line Lumen Inserted: triple Central Line Length: 20 cm Post Procedure: Sutured in Place, Good Blood Return, All Ports Aspirated, Flushed, Capped, Sterile Dressing Applied Secured by: Suture Post procedure dressing: Gauze, Clear vapor permeable, Chlorhexidine disc ( Biopatch) Post Procedure X-Ray: Yes Patient Tolerated Procedure: Well Immediate Complications: None
[2017-01-29 05:46] LABS: ARTERIAL BLOOD GAS PH 7.29 (7.35-7.45)
[2017-01-29 06:31] LABS: INR 1.42 (0.93-1.08); PARTIAL THROMBOPLASTIN TIME 37.3 Seconds (23.7-30.8)
[2017-01-29 06:34] LABS: BILIRUBIN,TOTAL 0.6 mg/dL (0.2-1.3); MAGNESIUM 1.6 mg/dL (1.7-2.2); PHOSPHOROUS 2.6 mg/dL (2.5-4.5); POTASSIUM 3.5 mmol/L (3.6-5.0)
[2017-01-29 06:44] LABS: BASO # 0.01 K/mm3 (0.0-2.0); BASO % 0.1 % (0.0-3.0); EOS % 0.1 % (1.5-5.0); GRAN # 12.92 (1.4-6.5); GRAN % 90.2 % (50.0-68.0); HEMATOCRIT 35.5 % (36.0-48.0); LYMPH # 0.7 (1.2-3.4); LYMPH % 4.5 % (22.0-35.0); MEAN CELL VOLUME 93.9 fl (80.0-105.0); MEAN CORPUSCULAR HEMOGLOBIN 30.2 pg (25.0-35.0); MEAN CORPUSCULAR HGB CONC 32.1 g/dl (31.0-37.0); MEAN PLATELET VOLUME 9.5 fl (7.0-11.0); MONO # 0.7 (0.1-0.6); MONO % 5.1 % (1.0-6.0); PLATELET COUNT 112 10^3/uL (120.0-450.0); RED CELL DISTRIBUTION WIDTH 15.5 % (11.5-14.5); WHITE BLOOD COUNT 14.3 10^3/ul (4.5-11.0)
[2017-01-29 06:48] LABS: FREE T4 1.77 ng/dL (0.78-2.19)
[2017-01-29 07:02] LABS: THYROID STIMULATING HORMONE 0.54 mIU/mL (0.46-4.68)
[2017-01-29 07:22] LABS: TROPONIN I 1.26 ng/mL
[2017-01-29] MEDS ORDERED: Albuterol-Ipratrop 3 mg / 0.5 (3 ml) UD IH PRN (07:22)
[2017-01-29] MEDS ORDERED: Propofol 10 mg/ml 1,000 MG/100 ML VIAL IV PRN (07:35)
[2017-01-29] MEDS ORDERED: Propofol 10 mg/ml Inj (20 ML) IVP ONE (07:35)
--- NOTE | 2017-01-29 07:37 | OP ---
PROCEDURE DATE: 01/28/2017 PREOPERATIVE DIAGNOSES: Obstructing right ureteral calculus and urosepsis. POSTOPERATIVE DIAGNOSES: Obstructing right ureteral calculus and urosepsis. PROCEDURES: Cystoscopy and insertion of a right ureteral stent. SURGEON: J Carlos William MD TYPE OF ANESTHESIA: General. COMPLICATIONS: There were none. SPECIMEN: None. DRAINS: A 6 x 24 right ureteral stent and a 16-Chilean Rush catheter. DESCRIPTION OF PROCEDURE: After informed consent was obtained, patient was taken to the operating room and placed supine on the operating table. Anesthesia was administered. The patient was placed in dorsal lithotomy position and prepped and draped in the usual sterile fashion. A 21-Chilean cystoscope was passed into the patient's bladder and a full survey inspection was performed. There were no stones, tumors or foreign bodies of the bladder noted. Both ureteral orifices were identified and appeared within normal limits. At this point, a 5-Chilean open-ended ureteral catheter was advanced into the cystoscope and guided into the right ureteral orifice. When inside the orifice, contrast was instilled into the system during real-time fluoroscopy. There appeared to be an obstructing filling defect in the distal ureter. The ureter above this point was markedly dilated. There was evidence of hydronephrosis. At this point, a sensor wire was obtained. The sensor wire was passed through the open-ended ureteral catheter into the ureter and advanced up to the ureter under fluoroscopic guidance until it coiled in the upper collecting system. The open-ended catheter was then removed and a 6 x 24 ureteral stent was obtained. This stent was passed over the guidewire through the cystoscope and into the right ureter. This stent was advanced proximally under direct and fluoroscopic guidance until it was in the appropriate position. When the stent was in proper position, the guidewire was removed. A coil was seen in renal pelvis on fluoroscopy. A coil was seen in the bladder on cystoscopy. There was large amount of concentrated, purulent-looking urine draining through and around the stent. At this point, the procedure was completed, the bladder was drained, cystoscope was removed. A 16-Chilean 2-way Rush catheter was passed and placed to straight bladder drainage. The patient tolerated the procedure well. She was taken to the recovery room awake and in stable condition. J Carlos William MD
[2017-01-29] MEDS ORDERED: Propofol 10 mg/ml Inj (20 ML) ONE (07:41)
[2017-01-29] MEDS ORDERED: Propofol 10 mg/ml 1,000 MG/100 ML VIAL ONE (07:42)
[2017-01-29] MEDS ORDERED: Metoprolol Succinate 25 mg XL Tab PO SCH (08:00)
[2017-01-29] MEDS: Budesonide 0.5 mg/2 ml Inhal Susp UD IH SCH ×2 (08:06→21:09)
[2017-01-29] MEDS: Albuterol-Ipratrop 3 mg / 0.5 (3 ml) UD IH SCH ×3 (08:06→21:09)
--- NOTE | 2017-01-29 08:55 | RAD ---
PROCEDURE: Retrograde pyelogram HISTORY: STONES COMPARISON: TECHNIQUE: Fluoroscopy was provided in the operating room. 23 seconds of fluoro time were used. Two images were submitted FINDINGS: The study shows placement of a right ureteral stent. The proximal pigtail is in the right renal pelvis. The distal portion was not visualize IMPRESSION: As above
--- NOTE | 2017-01-29 09:08 | RAD ---
HISTORY: ETT placement COMPARISON: Earlier same day FINDINGS: LUNGS: The endotracheal tube is in satisfactory position. PLEURA: All bilateral pleural effusions CARDIOVASCULAR: There is moderate vascular in interstitial congestion and bilateral pleural effusions OSSEOUS STRUCTURES: No significant abnormalities. VISUALIZED UPPER ABDOMEN: Normal. OTHER FINDINGS: None. IMPRESSION: Endotracheal tube in satisfactory position
--- NOTE | 2017-01-29 09:09 | RAD ---
HISTORY: TLC COMPARISON: 01/28/2017 FINDINGS: LUNGS: There is vascular and interstitial congestion consistent with CHF. There is a right internal jugular catheter that terminates in the right atrium. There is no pneumothorax PLEURA: No significant pleural effusion identified, no pneumothorax apparent. CARDIOVASCULAR: Normal. OSSEOUS STRUCTURES: No significant abnormalities. VISUALIZED UPPER ABDOMEN: Normal. OTHER FINDINGS: None. IMPRESSION: There is vascular and interstitial congestion consistent with CHF. There is a right internal jugular catheter that terminates in the right atrium. There is no pneumothorax
[2017-01-29] MEDS ORDERED: Fentanyl 1000mcg/100ml NS 1,000 MCG/100 ML BAG IV PRN (09:25)
[2017-01-29 09:35] LABS: ABG MECHANICAL RATE 26; ATERIAL BLOOD GAS PEEP 5
[2017-01-29 09:36] LABS: NEUTROPHIL 89 % (50.0-70.0)
[2017-01-29 09:37] LABS: ARTERIAL BLOOD GAS HCO3 7.8 mmol/L (21-28); ARTERIAL BLOOD GAS PH 7.16 (7.35-7.45)
[2017-01-29 09:37] LABS: ANISOCYTOSIS 1+; BAND 6 % (0-2); HYPOCHROMIA 1+; PLATELET ESTIMATE SL. DEC (NORMAL); TOXIC GRANULATION SLIGHT
[2017-01-29] MEDS: FOLIC ACID 400 MCG PO SCH (09:37)
[2017-01-29] MEDS: Fluticasone Nasal 50 mcg/Spray NS SCH (09:37)
[2017-01-29] MEDS ORDERED: Sodium Bicarbonate (8.4%) 50 Meq Syringe IVP STA (09:40)
[2017-01-29] MEDS ORDERED: Sodium Bicarbonate (8.4%) 50 Meq Syringe IVP ONE (09:41)
[2017-01-29] MEDS ORDERED: levoFLOXacin 500 mg in D5W 500 MG/100 ML BAG IVPB ONE (10:00)
[2017-01-29] MEDS ORDERED: FLUTICASONE PROPIONATE INH SCH (10:00)
[2017-01-29] MEDS ORDERED: TIOTROPIUM BR INH SCH (10:00)
[2017-01-29] MEDS ORDERED: OLODATEROL HCL INH SCH (10:00)
[2017-01-29] MEDS ORDERED: levoFLOXacin 750 mg in D5W 750 MG/150 ML BAG IVPB SCH (10:00)
[2017-01-29] MEDS ORDERED: Vancomycin 1gm in NS 250ml 1 GM/250 ML BAG IVPB SCH (10:00)
--- NOTE | 2017-01-29 10:09 | CP.CCUPN ---
CCU Subjective - Physician Review Events Since Last Encounter (Free Text): 01/29/17 10:02 81 y/o F w/ septic shock . Overnight became more hypoxic and this morning was intubated. CCU Objective - Vital Signs / Intake & Output Vital Signs (Last 4 hours): Vital Signs Pulse Resp BP Pulse Ox 01/29/17 08:46 103 H 01/29/17 08:35 35 H 100 01/29/17 07:49 90 24 45/31 L 65 L 01/29/17 07:48 87 29 H 30/17 L 87 L 01/29/17 07:45 90 20 130/73 75 L 01/29/17 07:40 105 H 35 H 94/31 L 86 L 01/29/17 07:35 107 H 34 H 105/56 L 92 L 01/29/17 07:32 110 H 39 H 01/29/17 07:31 109 H 18 01/29/17 07:30 97/61 L 01/29/17 07:29 109 H 38 H 01/29/17 07:28 107 H 36 H 01/29/17 07:27 106 H 38 H 102/60 01/29/17 07:26 105 H 37 H 01/29/17 07:20 82/52 L 01/29/17 07:19 102 H 34 H 93 L 01/29/17 07:17 107 H 36 H 01/29/17 07:16 108 H 35 H 01/29/17 07:14 109 H 37 H 01/29/17 07:11 109 H 28 H 01/29/17 07:10 28 H 113/59 L 01/29/17 07:09 109 H 38 H 89 L 01/29/17 07:05 111 H 38 H 118/49 L 87 L 01/29/17 07:00 108 H 36 H 88 L 01/29/17 06:56 111 H 78/44 L 75 L 01/29/17 06:51 114 H 27 H 01/29/17 06:50 113 H 33 H 156/104 H 76 L 01/29/17 06:47 113 H 17 01/29/17 06:46 113 H 133/76 86 L 01/29/17 06:45 112 H 29 H 01/29/17 06:44 114 H 36 H 01/29/17 06:21 28 H Intake and Output (Last 8hrs): Intake & Output 01/28/17 01/29/17 01/29/17 22:59 06:59 14:59 Intake Total 5800 50 Output Total 310 Balance 5490 50 Weight 149 lb 8 oz Intake: IV 5800 50 Left Wrist 0 Right Forearm 5800 Oral 0 Output: Urine 310 2-way Urethral 310 Other: Voiding Method Indwelling Catheter # Bowel Movements 0 - Physical Exam Physical Exam Limitations: Positive for: Altered Mental Status Head: Positive for: Atraumatic, Normocephalic Pupils: Positive for: PERRL Extroacular Muscles: Positive for: EOMI Conjunctiva: Positive for: Normal Mouth: Positive for: Moist Mucous Membranes, Other (ett) Pharnyx: Positive for: Normal Nose (Internal): Positive for: Normal Inspection Neck: Positive for: Normal Range of Motion Respiratory/Chest: Positive for: Clear to Auscultation, Respiratory Distress, Decreased Breath Sounds (mild, symmetric) Cardiovascular: Positive for: Tachycardic Abdomen: Negative for: Tenderness, Distention Upper Extremity: Positive for: Normal Inspection Lower Extremity: Positive for: Normal Inspection, Tenderness, Swelling ((+) ecchymosis, right lower leg) Neurological: Positive for: GCS=15, CN II-XII Intact, Other (moving all extremities, no pronator drift, 5/5 muscle strenght, normal sensation) Psychiatric: Positive for: Alert - Medications Active Medications: Active Medications Generic Name Dose Route Start Last Admin Trade Name Freq PRN Reason Stop Dose Admin Acetaminophen 650 mg 01/28/17 21:29 Tylenol 325mg Tab PO Q6H PRN Fever >100.4 F Albuterol/Ipratropium 3 ml 01/29/17 08:00 01/29/17 08:06 Duoneb 3 Mg/0.5 Mg (3 Ml) Ud IH 3 ml [id number] NO Administration Albuterol/Ipratropium 3 ml 01/29/17 07:22 Duoneb 3 Mg/0.5 Mg (3 Ml) Ud IH Q2H PRN Shortness of Breath Aspirin 81 mg 01/29/17 10:00 01/29/17 09:36 Aspirin Chewable PO Not Given DAILY NO Atorvastatin Calcium 20 mg 01/29/17 10:00 01/29/17 09:37 Lipitor PO Not Given DAILY NO Budesonide 0.5 mg 01/29/17 08:00 01/29/17 08:06 Pulmicort Respules IH 0.5 mg [id number] NO Administration Clopidogrel Bisulfate 75 mg 01/29/17 10:00 01/29/17 09:37 Plavix PO Not Given DAILY NO Fentanyl 100 mcg 01/29/17 08:20 01/29/17 08:31 Fentanyl IVP 100 mcg Q3 PRN Administration Pain, severe (8-10) Fluticasone Propionate 1 actuation 01/29/17 10:00 01/29/17 09:37 Flonase NS Not Given DAILY NO Levofloxacin/Dextrose 750 mg in 150 mls @ 100 mls/hr 01/29/17 10:00 01/29/17 09:40 Levaquin 750mg IVPB 100 mls/hr DAILY NO Administration NOREPINEPHRINE BIT/0.9 % NACL 4 mg in 250 mls @ 15 mls/hr 01/29/17 05:00 09/10 09:56 Levophed 4 Mg/ 250 Ml Ns Premixed IV 30 mcg/min .[id number] PRN 112.5 mls/hr TITRATE PER MD ORDER Titration Protocol 4 MCG/MIN Sodium Chloride 1,000 mls @ 100 mls/hr 01/29/17 05:01 01/29/17 04:30 Sodium Chloride 0.9% IV 100 mls/hr .Q10H NO Administration Propofol 1,000 mg in 100 mls @ 2.034 mls/hr 01/29/17 07:35 01/29/17 08:27 Diprivan IV 40 mcg/kg/min .Q24H PRN 16.275 mls/hr TITRATE PER MD ORDER Administration Protocol 5 MCG/KG/MIN Vancomycin HCl 1 gm in 250 mls @ 167 mls/hr 01/29/17 10:00 01/29/17 09:40 Vancomycin 1gm IVPB 167 mls/hr DAILY NO Administration Protocol Fentanyl Citrate 1,000 mcg in 100 mls @ 2 mls/hr 01/29/17 09:25 Fentanyl Citrate/Sodium Chloride 1 Mg/100 Ml IV .Q24H PRN TITRATE PER MD ORDER Protocol 20 MCG/HR Folic Acid [Folic 400 mcg 01/29/17 10:00 01/29/17 09:37 Acid] 400 Mcg (Home PO Not Given Med) DAILY NO - Patient Studies Lab Studies: Lab Studies 01/29/17 01/29/17 01/29/17 Range/Units 09:30 05:30 05:30 WBC (4.5-11.0) 10^3/ul RBC (3.5-6.1) 10^6/uL Hgb (12.0-16.0) g/dL Hct (36.0-48.0) % MCV (80.0-105.0) fl MCH (25.0-35.0) pg MCHC (31.0-37.0) g/dl RDW (11.5-14.5) % Plt Count (120.0-450.0) 10^3/uL MPV (7.0-11.0) fl Gran % (50.0-68.0) % Lymph % (Auto) (22.0-35.0) % [place] % (Auto) (1.0-6.0) % Eos % (Auto) (1.5-5.0) % Baso % (Auto) (0.0-3.0) % Gran # (1.4-6.5) Lymph # (1.2-3.4) [place] # (0.1-0.6) Eos # (0.0-0.7) Baso # (0.0-2.0) K/mm3 Neutrophils % (Manual) (50.0-70.0) % Band Neutrophils % (0-2) % Lymphocytes % (Manual) (22.0-35.0) % Monocytes % (Manual) (1.0-6.0) % Toxic Granulation Platelet Evaluation (NORMAL) Hypochromasia Anisocytosis (manual) PT 15.3 H (9.9-11.8) Seconds INR 1.42 H (0.93-1.08) APTT 37.3 H (23.7-30.8) Seconds pCO2 22 L (35-45) mm/Hg pO2 140.0 H (30-55) mm/Hg HCO3 7.8 L* (21-28) mmol/L ABG pH 7.16 L* (7.35-7.45) ABG Total CO2 8.5 L (22-28) mmol.L ABG O2 Saturation 100.2 H (95-98) % ABG Base Excess -19.0 L (-2.0-3.0) mmol/L ABG Potassium 2.4 L* (3.6-5.2) mmol/L VBG pH (7.32-7.43) VBG pCO2 (40-60) VBG HCO3 (21-28) mmol/l VBG Total CO2 (22-28) mmol.L VBG O2 Sat (Calc) (40-65) % VBG Base Excess (0.0-2.0) mmol/L VBG Potassium (3.6-5.2) mmol/L Sodium 148.0 (132-148) mmol/L Chloride 127.0 H (98-107) mmol/L Glucose 66 (65-105) mg/dl Lactate 1.7 (0.7-2.1) mmol/L Mechanical Rate 26 FiO2 100.0 % Tidal Volume 350 PEEP 5 Potassium (3.6-5.0) mmol/L Carbon Dioxide (21-33) mmol/L Anion Gap (10-20) BUN (7-21) mg/dL Creatinine (0.7-1.2) mg/dL Est GFR ( Amer) Est GFR (Non-Af Amer) Random Glucose (70-110) mg/dL Lactic Acid 3.9 H (0.7-2.1) mmol/L Calcium (8.4-10.5) mg/dL Phosphorus (2.5-4.5) mg/dL Magnesium (1.7-2.2) mg/dL Total Bilirubin (0.2-1.3) mg/dL AST (14-36) U/L ALT (7-56) U/L Alkaline Phosphatase (38-126) U/L Troponin I ng/mL Total Protein (5.8-8.3) g/dL Albumin (3.0-4.8) g/dL Globulin gm/dL Albumin/Globulin Ratio (1.1-1.8) Triglycerides (35-160) mg/dL Cholesterol (130-200) mg/dL LDL Cholesterol Direct (0-129) mg/dL HDL Cholesterol (29-60) mg/dL Lipase (23-300) U/L Free T4 (0.78-2.19) ng/dL TSH 3rd Generation (0.46-4.68) mIU/mL Arterial Blood Potassium 2.4 L* (3.6-5.2) mmol/L Venous Blood Potassium (3.6-5.2) mmol/L 01/29/17 01/29/17 01/29/17 Range/Units 05:30 05:30 05:30 WBC 14.3 H D (4.5-11.0) 10^3/ul RBC 3.78 (3.5-6.1) 10^6/uL Hgb 11.4 L D (12.0-16.0) g/dL Hct 35.5 L (36.0-48.0) % MCV 93.9 D (80.0-105.0) fl MCH 30.2 (25.0-35.0) pg MCHC 32.1 (31.0-37.0) g/dl RDW 15.5 H (11.5-14.5) % Plt Count 112 L (120.0-450.0) 10^3/uL MPV 9.5 (7.0-11.0) fl Gran % 90.2 H (50.0-68.0) % Lymph % (Auto) 4.5 L (22.0-35.0) % [place] % (Auto) 5.1 (1.0-6.0) % Eos % (Auto) 0.1 L (1.5-5.0) % Baso % (Auto) 0.1 (0.0-3.0) % Gran # 12.92 H (1.4-6.5) Lymph # 0.7 L (1.2-3.4) [place] # 0.7 H (0.1-0.6) Eos # 0.0 (0.0-0.7) Baso # 0.01 (0.0-2.0) K/mm3 Neutrophils % (Manual) 89 H (50.0-70.0) % Band Neutrophils % 6 H (0-2) % Lymphocytes % (Manual) 3 L (22.0-35.0) % Monocytes % (Manual) 2 (1.0-6.0) % Toxic Granulation Slight Platelet Evaluation Sl. dec (NORMAL) Hypochromasia 1+ Anisocytosis (manual) 1+ PT (9.9-11.8) Seconds INR (0.93-1.08) APTT (23.7-30.8) Seconds pCO2 25 L (35-45) mm/Hg pO2 62.0 L (30-55) mm/Hg HCO3 12.0 L (21-28) mmol/L ABG pH 7.29 L (7.35-7.45) ABG Total CO2 12.8 L (22-28) mmol.L ABG O2 Saturation 94.8 L (95-98) % ABG Base Excess -12.8 L (-2.0-3.0) mmol/L ABG Potassium 3.4 L (3.6-5.2) mmol/L VBG pH (7.32-7.43) VBG pCO2 (40-60) VBG HCO3 (21-28) mmol/l VBG Total CO2 (22-28) mmol.L VBG O2 Sat (Calc) (40-65) % VBG Base Excess (0.0-2.0) mmol/L VBG Potassium (3.6-5.2) mmol/L Sodium 139.0 142 (132-148) mmol/L Chloride 118.0 H 115 H (98-107) mmol/L Glucose 100 (65-105) mg/dl Lactate 2.2 H (0.7-2.1) mmol/L Mechanical Rate FiO2 100.0 % Tidal Volume PEEP Potassium 3.5 L (3.6-5.0) mmol/L Carbon Dioxide 16 L (21-33) mmol/L Anion Gap 15 (10-20) BUN 22 H (7-21) mg/dL Creatinine 1.2 (0.7-1.2) mg/dL Est GFR ( Amer) 52 Est GFR (Non-Af Amer) 43 Random Glucose 89 (70-110) mg/dL Lactic Acid (0.7-2.1) mmol/L Calcium 7.0 L (8.4-10.5) mg/dL Phosphorus 2.6 (2.5-4.5) mg/dL Magnesium 1.6 L (1.7-2.2) mg/dL Total Bilirubin 0.6 (0.2-1.3) mg/dL AST 134 H D (14-36) U/L ALT 57 H (7-56) U/L Alkaline Phosphatase 104 (38-126) U/L Troponin I 1.26 H* D ng/mL Total Protein 5.0 L (5.8-8.3) g/dL Albumin 2.6 L (3.0-4.8) g/dL Globulin 2.5 gm/dL Albumin/Globulin Ratio 1.0 L (1.1-1.8) Triglycerides 114 (35-160) mg/dL Cholesterol 76 L (130-200) mg/dL LDL Cholesterol Direct 30 (0-129) mg/dL HDL Cholesterol 30 (29-60) mg/dL Lipase 15 L (23-300) U/L Free T4 (0.78-2.19) ng/dL TSH 3rd Generation (0.46-4.68) mIU/mL Arterial Blood Potassium 3.4 L (3.6-5.2) mmol/L Venous Blood Potassium (3.6-5.2) mmol/L 01/29/17 01/29/17 01/28/17 Range/Units 05:30 01:34 22:00 WBC (4.5-11.0) 10^3/ul RBC (3.5-6.1) 10^6/uL Hgb (12.0-16.0) g/dL Hct (36.0-48.0) % MCV (80.0-105.0) fl MCH (25.0-35.0) pg MCHC (31.0-37.0) g/dl RDW (11.5-14.5) % Plt Count (120.0-450.0) 10^3/uL MPV (7.0-11.0) fl Gran % (50.0-68.0) % Lymph % (Auto) (22.0-35.0) % [place] % (Auto) (1.0-6.0) % Eos % (Auto) (1.5-5.0) % Baso % (Auto) (0.0-3.0) % Gran # (1.4-6.5) Lymph # (1.2-3.4) [place] # (0.1-0.6) Eos # (0.0-0.7) Baso # (0.0-2.0) K/mm3 Neutrophils % (Manual) (50.0-70.0) % Band Neutrophils % (0-2) % Lymphocytes % (Manual) (22.0-35.0) % Monocytes % (Manual) (1.0-6.0) % Toxic Granulation Platelet Evaluation (NORMAL) Hypochromasia Anisocytosis (manual) PT (9.9-11.8) Seconds INR (0.93-1.08) APTT (23.7-30.8) Seconds pCO2 (35-45) mm/Hg pO2 45 42 (30-55) mm/Hg HCO3 (21-28) mmol/L ABG pH (7.35-7.45) ABG Total CO2 (22-28) mmol.L ABG O2 Saturation (95-98) % ABG Base Excess (-2.0-3.0) mmol/L ABG Potassium (3.6-5.2) mmol/L VBG pH 7.21 L 7.09 L* (7.32-7.43) VBG pCO2 42.0 38.0 L (40-60) VBG HCO3 16.8 L 11.5 L (21-28) mmol/l VBG Total CO2 18.1 L 12.7 L (22-28) mmol.L VBG O2 Sat (Calc) 78.2 H 76.8 H (40-65) % VBG Base Excess -10.7 L -17.6 L (0.0-2.0) mmol/L VBG Potassium 3.7 2.0 L* (3.6-5.2) mmol/L Sodium 138.0 < 100.0 L* (132-148) mmol/L Chloride 113.0 H 72.0 L (98-107) mmol/L Glucose 103 > 750 H* D (65-105) mg/dl Lactate 3.8 H 2.3 H (0.7-2.1) mmol/L Mechanical Rate FiO2 21.0 21.0 % Tidal Volume PEEP Potassium (3.6-5.0) mmol/L Carbon Dioxide (21-33) mmol/L Anion Gap (10-20) BUN (7-21) mg/dL Creatinine (0.7-1.2) mg/dL Est GFR ( Amer) Est GFR (Non-Af Amer) Random Glucose (70-110) mg/dL Lactic Acid (0.7-2.1) mmol/L Calcium (8.4-10.5) mg/dL Phosphorus (2.5-4.5) mg/dL Magnesium (1.7-2.2) mg/dL Total Bilirubin (0.2-1.3) mg/dL AST (14-36) U/L ALT (7-56) U/L Alkaline Phosphatase (38-126) U/L Troponin I ng/mL Total Protein (5.8-8.3) g/dL Albumin (3.0-4.8) g/dL Globulin gm/dL Albumin/Globulin Ratio (1.1-1.8) Triglycerides (35-160) mg/dL Cholesterol (130-200) mg/dL LDL Cholesterol Direct (0-129) mg/dL HDL Cholesterol (29-60) mg/dL Lipase (23-300) U/L Free T4 1.77 (0.78-2.19) ng/dL TSH 3rd Generation 0.54 (0.46-4.68) mIU/mL Arterial Blood Potassium (3.6-5.2) mmol/L Venous Blood Potassium 3.7 2.0 L* (3.6-5.2) mmol/L Laboratory Results - last 24 hr 01/28/17 01/29/17 01/29/17 22:00 01:34 05:30 WBC RBC Hgb Hct MCV MCH MCHC RDW Plt Count MPV Gran % Lymph % (Auto) [place] % (Auto) Eos % (Auto) Baso % (Auto) Gran # Lymph # [place] # Eos # Baso # Neutrophils % (Manual) Band Neutrophils % Lymphocytes % (Manual) Monocytes % (Manual) Toxic Granulation Platelet Evaluation Hypochromasia Anisocytosis (manual) PT INR APTT pCO2 pO2 42 45 HCO3 ABG pH ABG Total CO2 ABG O2 Saturation ABG Base Excess ABG Potassium VBG pH 7.09 L* 7.21 L VBG pCO2 38.0 L 42.0 VBG HCO3 11.5 L 16.8 L VBG Total CO2 12.7 L 18.1 L VBG O2 Sat (Calc) 76.8 H 78.2 H VBG Base Excess -17.6 L -10.7 L VBG Potassium 2.0 L* 3.7 Sodium < 100.0 L* 138.0 Chloride 72.0 L 113.0 H Glucose > 750 H* D 103 Lactate 2.3 H 3.8 H Mechanical Rate FiO2 21.0 21.0 Tidal Volume PEEP Potassium Carbon Dioxide Anion Gap BUN Creatinine Est GFR ( Amer) Est GFR (Non-Af Amer) Random Glucose Lactic Acid Calcium Phosphorus Magnesium Total Bilirubin AST ALT Alkaline Phosphatase Troponin I Total Protein Albumin Globulin Albumin/Globulin Ratio Triglycerides Cholesterol LDL Cholesterol Direct HDL Cholesterol Lipase Free T4 1.77 TSH 3rd Generation 0.54 Arterial Blood Potassium Venous Blood Potassium 2.0 L* 3.7 01/29/17 01/29/17 01/29/17 05:30 05:30 05:30 WBC 14.3 H D RBC 3.78 Hgb 11.4 L D Hct 35.5 L MCV 93.9 D MCH 30.2 MCHC 32.1 RDW 15.5 H Plt Count 112 L MPV 9.5 Gran % 90.2 H Lymph % (Auto) 4.5 L [place] % (Auto) 5.1 Eos % (Auto) 0.1 L Baso % (Auto) 0.1 Gran # 12.92 H Lymph # 0.7 L [place] # 0.7 H Eos # 0.0 Baso # 0.01 Neutrophils % (Manual) 89 H Band Neutrophils % 6 H Lymphocytes % (Manual) 3 L Monocytes % (Manual) 2 Toxic Granulation Slight Platelet Evaluation Sl. dec Hypochromasia 1+ Anisocytosis (manual) 1+ PT INR APTT pCO2 25 L pO2 62.0 L HCO3 12.0 L ABG pH 7.29 L ABG Total CO2 12.8 L ABG O2 Saturation 94.8 L ABG Base Excess -12.8 L ABG Potassium 3.4 L VBG pH VBG pCO2 VBG HCO3 VBG Total CO2 VBG O2 Sat (Calc) VBG Base Excess VBG Potassium Sodium 142 139.0 Chloride 115 H 118.0 H Glucose 100 Lactate 2.2 H Mechanical Rate FiO2 100.0 Tidal Volume PEEP Potassium 3.5 L Carbon Dioxide 16 L Anion Gap 15 BUN 22 H Creatinine 1.2 Est GFR ( Amer) 52 Est GFR (Non-Af Amer) 43 Random Glucose 89 Lactic Acid Calcium 7.0 L Phosphorus 2.6 Magnesium 1.6 L Total Bilirubin 0.6 AST 134 H D ALT 57 H Alkaline Phosphatase 104 Troponin I 1.26 H* D Total Protein 5.0 L Albumin 2.6 L Globulin 2.5 Albumin/Globulin Ratio 1.0 L Triglycerides 114 Cholesterol 76 L LDL Cholesterol Direct 30 HDL Cholesterol 30 Lipase 15 L Free T4 TSH 3rd Generation Arterial Blood Potassium 3.4 L Venous Blood Potassium 01/29/17 01/29/17 01/29/17 05:30 05:30 09:30 WBC RBC Hgb Hct MCV MCH MCHC RDW Plt Count MPV Gran % Lymph % (Auto) [place] % (Auto) Eos % (Auto) Baso % (Auto) Gran # Lymph # [place] # Eos # Baso # Neutrophils % (Manual) Band Neutrophils % Lymphocytes % (Manual) Monocytes % (Manual) Toxic Granulation Platelet Evaluation Hypochromasia Anisocytosis (manual) PT 15.3 H INR 1.42 H APTT 37.3 H pCO2 22 L pO2 140.0 H HCO3 7.8 L* ABG pH 7.16 L* ABG Total CO2 8.5 L ABG O2 Saturation 100.2 H ABG Base Excess -19.0 L ABG Potassium 2.4 L* VBG pH VBG pCO2 VBG HCO3 VBG Total CO2 VBG O2 Sat (Calc) VBG Base Excess VBG Potassium Sodium 148.0 Chloride 127.0 H Glucose 66 Lactate 1.7 Mechanical Rate 26 FiO2 100.0 Tidal Volume 350 PEEP 5 Potassium Carbon Dioxide Anion Gap BUN Creatinine Est GFR ( Amer) Est GFR (Non-Af Amer) Random Glucose Lactic Acid 3.9 H Calcium Phosphorus Magnesium Total Bilirubin AST ALT Alkaline Phosphatase Troponin I Total Protein Albumin Globulin Albumin/Globulin Ratio Triglycerides Cholesterol LDL Cholesterol Direct HDL Cholesterol Lipase Free T4 TSH 3rd Generation Arterial Blood Potassium 2.4 L* Venous Blood Potassium Fingerstick Blood Sugar Results: 174 Review of Systems - Review of Systems Systems not reviewed;Unavailable: Altered Mental Status Critical Care Progress Note - Ventilator Checklist Head of Bed 30 Degrees: Yes Daily Sedation Vacation: Yes Daily Assessment of Readiness to Wean: Yes Daily Spontaneous Breathing Trial: Yes PUD Prophalyxis: Yes DVT Prophylaxis: Yes Oral Care with Chlorhexidine Gluconate {CHG}: Yes Assessment/Plan - Assessment and Plan (Free Text) Assessment: 81 y/o F admitted to the ICu w/ hypoxemic respiratory failure with Septic shock. Intubated on ac/vc . Keep PH> 7.3 , Pao2> 60. AG MEtabolic acidosis noted. Bicarbonate low, 2 amps bicarb given. Continue broad spectrum abx, likely urinary source. Blood cx x 2 ordered. Gram + cocci x bottle. Calculi noted, urology following s/p cystoscopy . High likelyhood for renal failure. On levophed to keep MAP > 60, IV fluids continued despite hypoxia. Sedation w/ propofol and Fentanyl drip. Electrolytes and cbc drawn q6 hrs. ECHo ordered for gram + cocci in blood. dvt P ppi cc time 75 min Intubation
[2017-01-29 10:23] LABS: BASO # 0.02 K/mm3 (0.0-2.0); BASO % 0.1 % (0.0-3.0); GRAN # 20.71 (1.4-6.5); GRAN % 90.7 % (50.0-68.0); HEMATOCRIT 33.5 % (36.0-48.0); LYMPH # 0.9 (1.2-3.4); MEAN CELL VOLUME 93.8 fl (80.0-105.0); MEAN CORPUSCULAR HEMOGLOBIN 30.5 pg (25.0-35.0); MEAN CORPUSCULAR HGB CONC 32.5 g/dl (31.0-37.0); MEAN PLATELET VOLUME 9.5 fl (7.0-11.0); MONO # 1.2 (0.1-0.6); MONO % 5.2 % (1.0-6.0); RED CELL DISTRIBUTION WIDTH 15.6 % (11.5-14.5); WHITE BLOOD COUNT 22.8 10^3/ul (4.5-11.0)
[2017-01-29 10:27] LABS: VENOUS BLOOD GAS BASE EXCESS -16.3 mmol/L (0.0-2.0); VENOUS BLOOD PH 7.17 (7.32-7.43)
[2017-01-29 10:31] LABS: BILIRUBIN,TOTAL 0.6 mg/dL (0.2-1.3); POTASSIUM 3.7 mmol/L (3.6-5.0); TOTAL PROTEIN 4.8 g/dL (5.8-8.3)
[2017-01-29] MEDS: Enoxaparin 60 mg Syringe SC SCH ×2 (10:32→21:39)
[2017-01-29 10:39] LABS: CALCIUM 6.1 mg/dL (8.4-10.5)
--- NOTE | 2017-01-29 11:05 | CON ---
PULMONARY CONSULTATION DATE: 01/29/2017 REFERRING PHYSICIAN: Magali Snyder MD REASON FOR CONSULTATION: Oxygen desaturation. HISTORY OF PRESENT ILLNESS: History is obtained via extensive discussion with the medical residents and nurse. I have also reviewed the chart at length, and discussed the case with the patient at length. The patient is an 81-year-old female, with past medical history significant for advanced chronic obstructive pulmonary disease, carotid stenosis, hypertension, who presented to [facility] yesterday - after the family found her confused at home. Apparently, she was found on the floor (by the daughter)-- confused and with slurred speech. The patient was then brought to [facility] for additional evaluation and treatment. In the emergency room, the patient was noted to be febrile. She was thus admitted for additional evaluation and treatment. Again, I did discuss the case with the night nurse at length. Apparently, earlier this morning, the patient began to experience shortness of breath with oxygen desaturation. The patient also states to a minimal cough with no sputum production. There is no history of chest pain, coughing up of blood, or chest pain - made worse with deep respirations. As above, the patient did present with fevers. No history of chills or infectious exposure. No history of night sweats, weight loss or appetite change prior to the above events. No history of calf pains. No history of syncope or diaphoresis. No history of recent travel or trauma. REVIEW OF SYSTEMS: There is a history of urinary frequency. No history of nausea, vomiting or diarrhea. No new musculoskeletal complaints. Rest of the review of systems is negative. ALLERGIES: AUGMENTIN AND MEDROL. SOCIAL HISTORY: Positive for tobacco and negative for alcohol. FAMILY HISTORY: No inheritable diseases. HOME MEDICATIONS: Include calcium, folate, omega-3 free fatty acids, Stiolto Respimat, aspirin, Flovent, Plavix, Lipitor, and Flonase. PHYSICAL EXAMINATION: GENERAL: The patient is moderately short of breath at the present time. She is not in acute distress. VITAL SIGNS: Less temperature recorded in the chart 100.1. Pulse on the monitor is 96, respiratory rate 24/26, last blood pressure recorded in the chart 134/96. Oxygen saturation on high-flow delivery is 94%. HEENT: Normocephalic, atraumatic. No JVD. CARDIOVASCULAR: Systolic ejection murmur at the lower left sternal border. Questionable S3 gallop. LUNGS: Crackles at both bases. Minimal bilateral rhonchi. No wheezing. EXTREMITIES: Mild edema. No cyanosis, no clubbing. Calves are nontender to palpation. GI: Abdomen is soft, nontender and nondistended. Bowel sounds are positive. SKIN: No acute rash. NEUROLOGIC: Exam limited at the present time. PERTINENT LABORATORY DATA: Chest x-ray was done this morning and reviewed. Compared to the film done yesterday, there is a significant increase in pulmonary venous congestion. There is also minimal atelectasis at the right base. An arterial blood gas was done on high-flow delivery. Results are: PH 7.29, pCO2 25, pO2 of 62. Complete metabolic profile: Potassium 3.5, chloride 115, carbon dioxide 16, BUN 22, calcium 7.0, magnesium 1.6, AST 134, ALT 57, troponin 1.26, total protein 5.0, albumin 2.6. Rest of the metabolic profile is within normal limits. Abdominal and pelvic CT scan was done yesterday. There is a moderate right hydronephrosis seen secondary to a 5 mm stone in the distal right ureter. IMPRESSION: 1. Urosepsis. 2. Status post ureteral stent for obstructive stone. 3. Volume overload. 4. Oxygen desaturation. 5. Chronic obstructive pulmonary disease. 6. Rule out non-ST elevation myocardial infarction. PLAN: Again, I did discuss the case with the medical residents and nurse at length. I have also reviewed the chart at length and discussed the case with the patient at length. The patient presented to [facility] yesterday with increasing confusion and fevers. Subsequent evaluation revealed probable urosepsis. As above, the CAT scan of the abdomen and pelvis revealed a right-sided hydronephrosis secondary to an obstructive stone. The patient did get a ureteral stent by Dr. William last night. Postoperatively, the patient was hypotensive and received over 5 liters of intravenous fluids. Her blood pressure is much more improved this morning. I did review the chest x-ray as above. The chest x-ray is consistent with acute volume overload. I have also reviewed the arterial blood gas. The arterial blood gases is consistent with a metabolic acidosis, with a significant alveolar-arterial gradient. The patient was given a stat dose of intravenous Lasix earlier this morning. I would continue with the antibiotic coverage as per infectious disease. Input by Dr. Dobbins is noted. The temperatures are decreasing. I would continue with the postoperative care as per Dr. William. Cardiology evaluation with Dr. Childers has been ordered. Again, the peak troponin over the past 24 hours is 1.26. The patient is critically ill at this point in time with very guarded prognosis. Depending on how the morning goes and her oxygenation status, the patient may need to be intubated. I will discuss the above with the entire ICU team in the next few moments. I will also discuss the above with Dr. Snyder later this morning. Thank you very much for this pulmonary consultation. Shalom Guerin MD MTDD
--- NOTE | 2017-01-29 11:29 | CON ---
REASON FOR CONSULTATION: Positive troponin, rule out non-STEMI, status post intubated, sepsis, hypotension. BRIEF CLINICAL HISTORY: An 81-year-old female morning was being seen yesterday by chiropractor for back pain, later on found to have history of renal colic, status post obstruction of right ureter, status post stent placed. Post stent, the patient became short of breath requiring this morning intubation, hypotension and troponin positive at 1.26 this morning, so cardiology consult was called. The patient is intubated, unable to give any history. Information obtained from the nursing staff taking care and also from the house staff taking care of the patient. The patient at home was found to be on the floor and possibly admitted with urosepsis. PAST MEDICAL HISTORY: Significant for COPD; hypertension; hyperlipidemia; history of [place], but no coronary stent in the past; history of peripheral arterial disease, status post right carotid artery occlusion. CURRENT MEDICATIONS: The patient at home was taking calcium, vitamin E, antihypertensive medication, diclofenac, aspirin, Plavix, atorvastatin. PREVIOUS CARDIAC WORKUP FOLLOWS: The patient had a myocardial perfusion study on 08/09/2014, showed normal myocardial perfusion study, ejection fraction 80%, done in [facility], dated 08/09/2014. EKG on 01/28/2017 showed normal sinus, significant ST-T changes. Repeat EKG showed normal sinus, resolution of ST-T changes noted. REVIEW OF SYSTEMS: As per HPI. PHYSICAL EXAMINATION: As follows. VITAL SIGNS: Temperature 100, heart rate 109, and blood pressure 97/61. HEENT: PERRLA, intact. NECK: Supple. No carotid bruits. No thyromegaly. CHEST: Clear to auscultation. HEART: S1 and S2, regular. ABDOMEN: Soft. EXTREMITIES: Clubbing and cyanosis negative. The patient is being intubated. LABORATORY DATA: WBC 14.3, hemoglobin 11.5, hematocrit 35.5, platelet count 112. Chemistry shows sodium 140, potassium of 3.5, chloride of 105, carbon dioxide 16, anion gap of 15, BUN 22, creatinine 1.2. Troponin first on admission was 0.25, repeat troponin was 1.26. The pH is 7.16, bicarb is 7.8. IMPRESSION: Acidosis, sepsis, urosepsis, status post stent in right ureter; history of coronary artery disease, history of myocardial infarction in the past; abnormal EKG, positive troponin and positive [id number] myocardial infarction; hypotension, blood pressure 70/60, on Levophed; acidotic, pH is 7.16; history of peripheral arterial disease; history of occlusion of right carotid artery; hypertension; hyperlipidemia. RECOMMENDATIONS: Cole culture, broad-spectrum antibiotic, vent management, IV fluid. Echo to asses LV function. We will give 1 dose of Lovenox and monitor the renal function closely, aggressively resuscitate with fluid as needed as well as vasopressors. Probably this positive troponin is secondary to underlying hemodynamic instability, pressure was 76 and urosepsis. We will follow closely, though the patient may have underlying coronary artery disease, significant because of occlusion of the right carotid artery and history of [place]. We will follow with you. Overall, the patient's condition is critical and prognosis is guarded. We will get lipid profile, TSH, hemoglobin A1c, get echo to assess LV function. We will start either rectal suppository or NG tube in general, put aspirin through the NG tube. We will follow with you. Thank you doctor for providing me the opportunity in taking care of the patient. Moraima Childers MD
[2017-01-29 11:50] LABS: TROPONIN I 1.21 ng/mL
[2017-01-29] MEDS ORDERED: Meropenem 1g/NS 100mL IVPB 1 GM/100 ML PIGGYBACK IVPB SCH (12:15)
[2017-01-29] MEDS: Fentanyl 1000mcg/100ml NS 1,000 MCG/100 ML BAG IV PRN ×2 (12:22→17:05)
[2017-01-29] MEDS: Dexmedetomidine HCl 4mcg/ml 400 MCG/100 ML BOTTLE IV PRN ×2 (12:28→20:08)
--- NOTE | 2017-01-29 14:44 | CP.PCM.CON ---
History of Present Illness - History of Present Illness History of Present Illness: Palliative consult requested by Dr Susanna Snyder ReasoN: Gaols of care/advance care palnning 81 year old female with history of HTN,COPD and carotid stenosis who had been to the chiropractor earlier in the day and was then later found on the floor by her daughter. Daughter states that patient was confused and felt warm to touch. She was febrile on protestation to ED. She also complained in frequency of urination. She denied nausea, vomiting,chills. Daughter reports that she has chronic low back pain. Chest xray negative for active disease, COPD. CT of head no acute findings. CT of abdomen showed moderate right sided hydroreteronephrosis secondary to a 5 mm stone in the distal right ureter. She was subsequently taken to OR for right ureteral stent placement. During the night she became hypoxic and was intubated. PMHx: HTN,COPD,DLD,carotid stenosis, [place],chronic low back pain. Social History: Former heavy smoker, no alcohol or drug misuse. Lives independently in the same home with her daughter. Family History: Non contributory Advance Care Planning: The patient does not have an Advanced Directive. Review of Systems: As per HPI, patient is intubated unable to obtain. Past Patient History - Past Social History Smoking Status: Former Smoker - CARDIAC Hx Cardiac Disorders: Yes Hx Hypercholesterolemia: Yes - PULMONARY Hx Respiratory Disorders: Yes Hx Chronic Obstructive Pulmonary Disease (COPD): Yes - NEUROLOGICAL Hx Dementia: Yes - HEENT Hx HEENT Problems: No - RENAL Hx Chronic Kidney Disease: No - ENDOCRINE/METABOLIC Hx Endocrine Disorders: No - HEMATOLOGICAL/ONCOLOGICAL Hx Blood Disorders: No - INTEGUMENTARY Hx Dermatological Problems: No - MUSCULOSKELETAL/RHEUMATOLOGICAL Hx Falls: Yes - GASTROINTESTINAL Hx Gastrointestinal Disorders: No - GENITOURINARY/GYNECOLOGICAL Hx Urinary Tract Infection: Yes - PSYCHIATRIC Hx Psychophysiologic Disorder: No Hx Substance Use: No - SURGICAL HISTORY Hx Surgeries: Yes Meds Allergies/Adverse Reactions: Allergies Allergy/AdvReac Type Severity Reaction Status Date / Time amoxicillin [From Augmentin] Allergy VOMITING Verified 01/28/17 17:35 clavulanic acid Allergy VOMITING Verified 01/28/17 17:35 [From Augmentin] methylprednisolone Allergy .unknown Verified 01/28/17 17:35 [From Medrol] olmesartan [From Benicar] Allergy .unknown Verified 01/28/17 17:35 - Medications Medications: Current Medications Acetaminophen (Tylenol 325mg Tab) 650 mg PO Q6H PRN PRN Reason: Fever >100.4 F Albuterol/Ipratropium (Duoneb 3 Mg/0.5 Mg (3 Ml) Ud) 3 ml IH [id number] [facility] Last Admin: 01/29/17 13:05 Dose: 3 ml Albuterol/Ipratropium (Duoneb 3 Mg/0.5 Mg (3 Ml) Ud) 3 ml IH Q2H PRN PRN Reason: Shortness of Breath Aspirin (Aspirin Chewable) 81 mg PO DAILY [facility] Last Admin: 01/29/17 09:36 Dose: Not Given Atorvastatin Calcium (Lipitor) 20 mg PO DAILY [facility] Last Admin: 01/29/17 09:37 Dose: Not Given Budesonide (Pulmicort Respules) 0.5 mg IH [id number] [facility] Last Admin: 01/29/17 08:06 Dose: 0.5 mg Clopidogrel Bisulfate (Plavix) 75 mg PO DAILY [facility] Last Admin: 01/29/17 09:37 Dose: Not Given Enoxaparin Sodium (Lovenox) 60 mg SC Q12H [facility] PRN Reason: Protocol Last Admin: 01/29/17 10:32 Dose: 60 mg Fluticasone Propionate (Flonase) 1 actuation NS DAILY [facility] Last Admin: 01/29/17 09:37 Dose: Not Given Sodium Chloride (Sodium Chloride 0.9%) 1,000 mls @ 100 mls/hr IV .Q10H [facility] Last Admin: 01/29/17 04:30 Dose: 100 mls/hr Propofol (Diprivan) 1,000 mg in 100 mls @ 2.034 mls/hr IV .Q24H PRN; Protocol; 5 MCG/KG/MIN PRN Reason: TITRATE PER MD ORDER Last Titration: 01/29/17 12:43 Dose: 0 mcg/kg/min, 0 mls/hr Vancomycin HCl (Vancomycin 1gm) 1 gm in 250 mls @ 167 mls/hr IVPB DAILY [facility] PRN Reason: Protocol Last Admin: 01/29/17 09:40 Dose: 167 mls/hr Fentanyl Citrate (Fentanyl Citrate/Sodium Chloride 1 Mg/100 Ml) 1,000 mcg in 100 mls @ 2 mls/hr IV .Q24H PRN; Protocol; 20 MCG/HR PRN Reason: TITRATE PER MD ORDER Last Titration: 01/29/17 12:35 Dose: 150 mcg/hr, 15 mls/hr Norepinephrine Bitartrate 8 mg (/ Sodium Chloride) 258 mls @ 77.4 mls/hr IV .Q3H20M NO; 40 MCG/MIN PRN Reason: Protocol Dexmedetomidine HCl (Precedex 4 Mcg/Ml (100 Ml)) 400 mcg in 100 mls @ 3.391 mls /hr IV .Q24H PRN; Protocol; 0.2 MCG/KG/HR PRN Reason: Anxiety Last Titration: 01/29/17 12:44 Dose: 0.4 mcg/kg/hr, 6.781 mls/hr Sodium Bicarbonate 100 meq/ (Sodium Chloride) 1,100 mls @ 100 mls/hr IV .Q11H NO Folic Acid [Folic Acid] 400 Mcg (Home Med) 400 mcg PO DAILY NO Last Admin: 01/29/17 09:37 Dose: Not Given Physical Exam - Constitutional Appears: No Acute Distress - Head Exam Head Exam: NORMOCEPHALIC - Eye Exam Eye Exam: Normal appearance, PERRL - ENT Exam ENT Exam: Mucous Membranes Moist - Respiratory Exam Respiratory Exam: Decreased Breath Sounds, NORMAL BREATHING PATTERN - Cardiovascular Exam Cardiovascular Exam: Tachycardia, +S1, +S2 - GI/Abdominal Exam GI & Abdominal Exam: Normal Bowel Sounds, Soft - Exam Additional comments: oliguria - Extremities Exam Extremities exam: Positive for: normal inspection, pedal pulses present Additional comments: ecchymotic area right lower extremity - Skin Skin Exam: Dry, Warm - Additional Findings Additional findings: Palliative performance scale rating 30% Results - Vital Signs Recent Vital Signs: Last Vital Signs Temp 98.6 F 01/29/17 06:00 Pulse 103 H 01/29/17 08:46 Resp 35 H 01/29/17 08:35 BP 45/31 L 01/29/17 07:49 Pulse Ox 100 01/29/17 08:35 - Labs Result Diagrams: 01/30/17 00:30 01/30/17 00:05 Labs: Laboratory Results - last 24 hr 01/28/17 01/29/17 01/29/17 22:00 01:34 05:30 WBC RBC Hgb Hct MCV MCH MCHC RDW Plt Count MPV Gran % Lymph % (Auto) [place] % (Auto) Eos % (Auto) Baso % (Auto) Gran # Lymph # [place] # Eos # Baso # Neutrophils % (Manual) Band Neutrophils % Lymphocytes % (Manual) Monocytes % (Manual) Toxic Granulation Platelet Evaluation Hypochromasia Anisocytosis (manual) PT INR APTT pCO2 pO2 42 45 HCO3 ABG pH ABG Total CO2 ABG O2 Saturation ABG Base Excess ABG Potassium VBG pH 7.09 L* 7.21 L VBG pCO2 38.0 L 42.0 VBG HCO3 11.5 L 16.8 L VBG Total CO2 12.7 L 18.1 L VBG O2 Sat (Calc) 76.8 H 78.2 H VBG Base Excess -17.6 L -10.7 L VBG Potassium 2.0 L* 3.7 Sodium < 100.0 L* 138.0 Chloride 72.0 L 113.0 H Glucose > 750 H* D 103 Lactate 2.3 H 3.8 H Mechanical Rate FiO2 21.0 21.0 Tidal Volume PEEP Potassium Carbon Dioxide Anion Gap BUN Creatinine Est GFR ( Amer) Est GFR (Non-Af Amer) Random Glucose Lactic Acid Calcium Phosphorus Magnesium Total Bilirubin AST ALT Alkaline Phosphatase Lactate Dehydrogenase Total Creatine Kinase CK-MB (CK-2) CK-MB (CK-2) % Troponin I Total Protein Albumin Globulin Albumin/Globulin Ratio Triglycerides Cholesterol LDL Cholesterol Direct HDL Cholesterol Lipase Free T4 1.77 TSH 3rd Generation 0.54 Arterial Blood Potassium Venous Blood Potassium 2.0 L* 3.7 01/29/17 01/29/17 01/29/17 05:30 05:30 05:30 WBC 14.3 H D RBC 3.78 Hgb 11.4 L D Hct 35.5 L MCV 93.9 D MCH 30.2 MCHC 32.1 RDW 15.5 H Plt Count 112 L MPV 9.5 Gran % 90.2 H Lymph % (Auto) 4.5 L [place] % (Auto) 5.1 Eos % (Auto) 0.1 L Baso % (Auto) 0.1 Gran # 12.92 H Lymph # 0.7 L [place] # 0.7 H Eos # 0.0 Baso # 0.01 Neutrophils % (Manual) 89 H Band Neutrophils % 6 H Lymphocytes % (Manual) 3 L Monocytes % (Manual) 2 Toxic Granulation Slight Platelet Evaluation Sl. dec Hypochromasia 1+ Anisocytosis (manual) 1+ PT INR APTT pCO2 25 L pO2 62.0 L HCO3 12.0 L ABG pH 7.29 L ABG Total CO2 12.8 L ABG O2 Saturation 94.8 L ABG Base Excess -12.8 L ABG Potassium 3.4 L VBG pH VBG pCO2 VBG HCO3 VBG Total CO2 VBG O2 Sat (Calc) VBG Base Excess VBG Potassium Sodium 142 139.0 Chloride 115 H 118.0 H Glucose 100 Lactate 2.2 H Mechanical Rate FiO2 100.0 Tidal Volume PEEP Potassium 3.5 L Carbon Dioxide 16 L Anion Gap 15 BUN 22 H Creatinine 1.2 Est GFR ( Amer) 52 Est GFR (Non-Af Amer) 43 Random Glucose 89 Lactic Acid Calcium 7.0 L Phosphorus 2.6 Magnesium 1.6 L Total Bilirubin 0.6 AST 134 H D ALT 57 H Alkaline Phosphatase 104 Lactate Dehydrogenase Total Creatine Kinase CK-MB (CK-2) CK-MB (CK-2) % Troponin I 1.26 H* D Total Protein 5.0 L Albumin 2.6 L Globulin 2.5 Albumin/Globulin Ratio 1.0 L Triglycerides 114 Cholesterol 76 L LDL Cholesterol Direct 30 HDL Cholesterol 30 Lipase 15 L Free T4 TSH 3rd Generation Arterial Blood Potassium 3.4 L Venous Blood Potassium 01/29/17 01/29/17 01/29/17 05:30 05:30 09:30 WBC RBC Hgb Hct MCV MCH MCHC RDW Plt Count MPV Gran % Lymph % (Auto) [place] % (Auto) Eos % (Auto) Baso % (Auto) Gran # Lymph # [place] # Eos # Baso # Neutrophils % (Manual) Band Neutrophils % Lymphocytes % (Manual) Monocytes % (Manual) Toxic Granulation Platelet Evaluation Hypochromasia Anisocytosis (manual) PT 15.3 H INR 1.42 H APTT 37.3 H pCO2 22 L pO2 140.0 H HCO3 7.8 L* ABG pH 7.16 L* ABG Total CO2 8.5 L ABG O2 Saturation 100.2 H ABG Base Excess -19.0 L ABG Potassium 2.4 L* VBG pH VBG pCO2 VBG HCO3 VBG Total CO2 VBG O2 Sat (Calc) VBG Base Excess VBG Potassium Sodium 148.0 Chloride 127.0 H Glucose 66 Lactate 1.7 Mechanical Rate 26 FiO2 100.0 Tidal Volume 350 PEEP 5 Potassium Carbon Dioxide Anion Gap BUN Creatinine Est GFR ( Amer) Est GFR (Non-Af Amer) Random Glucose Lactic Acid 3.9 H Calcium Phosphorus Magnesium Total Bilirubin AST ALT Alkaline Phosphatase Lactate Dehydrogenase Total Creatine Kinase CK-MB (CK-2) CK-MB (CK-2) % Troponin I Total Protein Albumin Globulin Albumin/Globulin Ratio Triglycerides Cholesterol LDL Cholesterol Direct HDL Cholesterol Lipase Free T4 TSH 3rd Generation Arterial Blood Potassium 2.4 L* Venous Blood Potassium 01/29/17 01/29/17 01/29/17 10:15 10:15 10:15 WBC 22.8 H D RBC 3.57 Hgb 10.9 L Hct 33.5 L MCV 93.8 MCH 30.5 MCHC 32.5 RDW 15.6 H Plt Count 118 L MPV 9.5 Gran % 90.7 H Lymph % (Auto) 4.0 L [place] % (Auto) 5.2 Eos % (Auto) 0.0 L Baso % (Auto) 0.1 Gran # 20.71 H Lymph # 0.9 L [place] # 1.2 H Eos # 0.0 Baso # 0.02 Neutrophils % (Manual) Band Neutrophils % Lymphocytes % (Manual) Monocytes % (Manual) Toxic Granulation Platelet Evaluation Hypochromasia Anisocytosis (manual) PT INR APTT pCO2 pO2 58 H HCO3 ABG pH ABG Total CO2 ABG O2 Saturation ABG Base Excess ABG Potassium VBG pH 7.17 L* VBG pCO2 30.0 L VBG HCO3 10.9 L VBG Total CO2 11.8 L VBG O2 Sat (Calc) 91.6 H VBG Base Excess -16.3 L VBG Potassium 3.7 Sodium 140.0 142 Chloride 116.0 H 118 H Glucose 99 Lactate 2.4 H Mechanical Rate FiO2 21.0 Tidal Volume PEEP Potassium 3.7 Carbon Dioxide 12 L Anion Gap 16 BUN 22 H Creatinine 1.3 H Est GFR ( Amer) 48 Est GFR (Non-Af Amer) 39 Random Glucose 96 Lactic Acid Calcium 6.1 L* Phosphorus Magnesium Total Bilirubin 0.6 AST 153 H ALT 69 H Alkaline Phosphatase 82 Lactate Dehydrogenase 898 H Total Creatine Kinase 6733 H CK-MB (CK-2) 15.1 H CK-MB (CK-2) % 0.2 L Troponin I 1.21 H* Total Protein 4.8 L Albumin 2.4 L Globulin 2.5 Albumin/Globulin Ratio 1.0 L Triglycerides Cholesterol LDL Cholesterol Direct HDL Cholesterol Lipase Free T4 TSH 3rd Generation Arterial Blood Potassium Venous Blood Potassium 3.7 Assessment & Plan - Assessment and Plan (Free Text) Assessment: 81 year old female with history of HTM COPD who was admitted with sepsis, ALEX, right urertal stone, hypoxia,hypotnension. The patient is intubated. The patients daughter at bedside. Palliative support services explained. Daughter understands that patients condition is critical and that it could continue to deteriorate despite medical interventions. When asked, daughter states that the patient does not have an advanced directive. Benefits and burdens of aggressive CPR/ intubation explained. Questions answered. Encouraged to discuss resuscitation status with her sister. Family considering DNR. Psychosocial support given. Time spent in goals of care discussion and counseling, 20 minutes Plan: Palliatives support , will assist family in establishing goals of care and advance care planning
[2017-01-29] MEDS ORDERED: DAPTOmycin 500 mg Inj (Cubicin) IV SCH (15:00)
--- NOTE | 2017-01-29 15:16 | PN ---
SUBJECTIVE: The patient is 81 years old who is very functional, drove yesterday to chiropractor, but when she came home according to daughter she was by herself. When they came home and they found her on the floor with altered mental status. They brought her to emergency room. She was found to have temperature of 104. She was treated for urosepsis. Her CT scan of the abdomen and pelvis was done that showed moderate right-sided hydronephrosis secondary to 5 mm stone in the distal right ureter, so Dr. William was consulted. The patient underwent stent placement last night. Since she was septic, she became hypotensive, tachycardiac and was hypoxic and short of breath, so she end up getting intubated this morning. PHYSICAL EXAMINATION GENERAL: She is sedated on vent. VITAL SIGNS: She is afebrile. Pulse 103, respiration 30, blood pressure 45/31. LUNGS: Bilateral fair airflow. HEART: S1 and S2 audible. Tachycardiac. ABDOMEN: Soft, nontender. No rebound, no guarding. NEUROLOGIC: She is sedated and not responding. EXTREMITIES: Bilateral leg no edema. LABORATORY DATA: WBC is 22.8, hemoglobin 10.9, hematocrit 33.5, and platelets of 118. Chemistry, sodium 142, potassium 3.7, chloride 118, CO2 of 12, BUN 22, and creatinine 1.3, blood sugar of 89, calcium 6.1. AST 153, ALT 69, LDH is 898. CPK is 6733. Her troponin is 1.21. ASSESSMENT: 1. Urosepsis. 2. Septic shock. 3. Respiratory failure. 4. History of hypertension. 5. Demand ischemia. 6. History of coronary artery disease, but the patient never had angioplasty in the past. 7. History of carotid stenosis. 8. Blood culture positive for Gram-positive cocci. PLAN: The patient is currently on vent support. She is getting nebulizer treatment. She is on Levaquin. Discussed with Dr. Dobbins. We will start the patient on meropenem since E. coli has some resistance to Levaquin as per Dr. Dobbins. Followup CBC, electrolyte in a.m. Magali Snyder MD
[2017-01-29] MEDS: Meropenem 1g/NS 100mL IVPB 1 GM/100 ML PIGGYBACK IVPB SCH (15:56)
[2017-01-29 16:03] LABS: ARTERIAL BLOOD GAS HCO3 10.3 mmol/L (21-28); ARTERIAL BLOOD GAS O2 CAPACITY 17.5 mL/dl (16-24); ARTERIAL BLOOD GAS O2 CONTENT 17.3 ML/dl (15-23); ARTERIAL BLOOD HGB O2 SAT 96.1 % (95.0-98.0); CARBOXYHEMOGLOBIN 1.7 % (0.5-1.5); HHB 1.1 % (0-5); METHEMOGLOBIN 1.1 % (0.0-3.0)
[2017-01-29] MEDS ORDERED: Dextrose 50% SYRINGE Inj (50 ml) IVP ONE ×2 (16:13→22:44)
[2017-01-29 16:18] LABS: ARTERIAL BLOOD GAS PH 7.16 (7.35-7.45)
--- NOTE | 2017-01-29 17:43 | CARD ---
APPROVED REPORT EXAM: Two-dimensional and M-mode echocardiogram with Doppler and color Doppler. INDICATION Non STEMI SEPSIS/LVFX 2D DIMENSIONS IVSd1.0 (0.7-1.1cm)LVDd4.0 (3.9-5.9cm) PWd1.0 (0.7-1.1cm) M-Mode DIMENSIONS Aortic Root2.90 (2.2-3.7cm)Aortic Cusp Exc.1.50 (1.5-2.0cm) Aortic Valve AoV Peak Noqjulth545.0cm/Bruce Peak GR.8mmHgLVOT Peak Foborfsq130.0cm/s LVOT VTI21.30cmAI P 1/2 [id number] Mitral Valve MV E Hgflvaqp39.6cm/sMV A Dtrzlfmi19.8cm/sE/A ratio1.3 TDI Lateral E' Peak V7.02cm/sMedial E' Peak V8.19cm/sE/Lateral E'10.3 E/Medial E'8.9 Pulmonary Valve PV Peak Bweamocp27.9cm/sPV Peak Grad.1mmHg Tricuspid Valve TR Peak Pwyhvbpu575iz/sRAP [id number] Peak Gr.49mmHg [id number] LEFT VENTRICLE The left ventricle is normal size. There is mild concentric left ventricular hypertrophy. The left ventricular function is normal. EF-55% There is mild hypokinesis in the basal inferolateral wall. Transmitral Doppler flow pattern is Grade II-pseudonormal filling dynamics. No left ventricle thrombus noted on this study. There is no ventricular septal defect visualized. There is no left ventricular aneurysm. There is no mass noted in the left ventricle. RIGHT VENTRICLE The right ventricle is moderately dilated. There is normal right ventricular wall thickness. Systolic function of RV is mildly to moderately reduced. ATRIA The left atrium is mildly dilated. The right atrium is mildly dilated. The interatrial septum is intact with no evidence for an atrial septal defect. AORTIC VALVE The aortic valve is thickened but opens well. There is trace to mild aortic regurgitation. There is no aortic valvular stenosis. There is no aortic valvular vegetation. MITRAL VALVE The mitral valve is thickened but opens well. Mitral regurgitation is mild to moderate. There is no mitral valve stenosis. There is no evidence of mitral valve prolapse. TRICUSPID VALVE The tricuspid valve leaflets are thickened , but open well. There is moderate to severe tricuspid regurgitation.RVSP-59 mmogf Hg. There is no tricuspid valve stenosis. There is no tricuspid valve prolapse or vegetation. PULMONIC VALVE The pulmonic valve is borderline thickened. There is trace pulmonic valvular regurgitation. There is no pulmonic valvular stenosis. GREAT VESSELS The aortic root is normal in size. The ascending aorta is normal in size. The pulmonary artery is normal. The IVC is normal in size and collapses >50% with inspiration. PERICARDIAL EFFUSION There is no pleural effusion. There is a trace pericardial effusion. <Conclusion> The left ventricle is normal size. There is mild concentric left ventricular hypertrophy. The left ventricular function is normal. EF-55% The right ventricle is moderately dilated. Systolic function of RV is mildly to moderately reduced. There is trace to mild aortic regurgitation. Mitral regurgitation is mild to moderate. There is moderate to severe tricuspid regurgitation.RVSP-59 mmogf Hg. There is a trace pericardial effusion. The IVC is normal in size and collapses >50% with inspirationNo Vegetation or thrombus noted TDS: Pt was supine and vented at the time of Echo.
--- NOTE | 2017-01-29 21:17 | CON ---
DATE: 01/29/2017 The patient is seen in TCU. The patient is in respiratory failure, intubated and on a ventilator x1 day. CHIEF COMPLAINT AND HISTORY OF PRESENT ILLNESS: This is an 81-year-old female with past medical history significant for chronic obstructive lung disease which is advanced and carotid stenosis, hypertension who was admitted to the emergency room with a diagnosis of urosepsis. The patient also had hyperlipidemia and coronary artery disease with history of myocardial infraction who was admitted and was taken to the OR yesterday, had a urological procedure and cystoscopy with insertion of a right ureteral stent with an obstructing right ureteral stone, and this morning, she is intubated on a ventilator and infectious disease consultation requested for antibiotics. REVIEW OF SYSTEMS: Reveals the patient did have a temperature up to 104 and now was intubated on the ventilator and no chest pain was noted. The patient was seen in the emergency room by Dr. Ramsey Najera, and the patient had complained a sudden onset of baseline confusion and was found on the floor with acute mental status and slurred speech by daughter. In the emergency room, the patient had a temperature of 104 and code stroke was called. PAST MEDICAL HISTORY: Significant for advanced chronic obstructive lung disease, carotid stenosis, hypertension, coronary artery disease, myocardial infraction and hyperlipidemia. PAST SURGICAL HISTORY: Noncontributory. ALLERGIES: THE PATIENT IS ALLERGIC TO AMOXICILLIN, CLAVULANIC ACID, METHYLPREDNISOLONE AND OLMESARTAN. PHYSICAL EXAMINATION GENERAL: The patient is in bed, intubated on the ventilator. He was seen in the ICU with a temperature of 100.1, T-max is 104, respiratory rate on a vent and a heart rate of 103, blood pressure is 130/70. The patient is on suppressors. HEENT: Reveals the E tube to be placed. NECK: Supple. LUNGS: Decreased breath sounds. HEART: Normal S1 and S2. ABDOMEN: Soft, nontender. LABORATORY DATA: Reveals the patient to have white count of 14,300, it has gone up to 22,00; hemoglobin of 10; platelets of 118. Coagulation is noted, and axis are reviewed. Chemistries reveals the BUN 22, creatinine 1.3, troponins are elevated at 1.26 and 1.22. Urinalysis reveals 5 to 10 wbc's, many bacteria and influenza is negative. Dr. Garcia's progress note is reviewed. The patient had a chest x-ray and the blood cultures are reported to be a gram-positive cocci. Repeat blood cultures are ordered. ASSESSMENT AND PLAN: This is an 81-year-old female with chronic obstructive lung disease, carotid disease, hypertension, coronary artery disease, myocardial infraction, hyperlipidemia, who was admitted now with septic shock, status post right ureteral stent, obstruction of a right ureteral stone and gram-positive cocci bacteremia, must rule out endocarditis. We will treat the patient vancomycin and meropenem. The patient does have a creatinine of 1.3 with renal insufficiency. We will give a dose of daptomycin at this time and also start meropenem 1 g q. 12. Repeat blood cultures x2. Check on the identification and sensitivity with a gram-positive cocci and a repeat urinalysis. I will make further recommendation. We will discontinue the Cipro. Should have an echo. The patient has already received the dose of vancomycin. A chest x-ray, congestion consistent with congestive heart failure. They will repeat a urinalysis and urine culture stat. We will make further recommendations. An echo has been ordered by Dr. Childers. We will follow with you. The patient's condition is poor. Richard Dobbins MD
--- NOTE | 2017-01-29 21:23 | PN ---
DATE: 01/29/2017 SUBJECTIVE: The patient is seen in her bed in the ICU. The patient has been intubated. The patient remains hypotensive and tachycardic. She is now on pressure support with Levophed. PHYSICAL EXAMINATION GENERAL: Rush catheter is in place. It is draining blood tinged urine. ASSESSMENT AND PLAN: Discussed the patient's care with the critical care attending. From a urologic standpoint, the patient appears to have urosepsis. She did have an obstructing ureteral stone and a stent was placed emergently. Her blood cultures did grow Gram-positive cocci. The patient appears to have persistent sepsis. She is being seen by ID who is managing her antibiotic coverage. Urologically, not much to add at this point. The patient is critically ill and requiring pressor support. She is ventilated and her condition is extremely grim at this point. Hopefully, the patient will respond to pressor support, antibiotics and continued medical treatment. If the patient continues to appear septic and not responding to antibiotics, I would consider a repeat CT scan of the abdomen and pelvis; however, the stent was in place and the kidney was draining well after the procedure and this all appears to be underlying vascular heart disease as well as sepsis on top of that. J Carlos William MD
--- NOTE | 2017-01-29 21:38 | CARD ---
APPROVED REPORT EKG Measurement Heart [id number] VT [id number] <Conclusion> Normal sinus rhythm Normal ECG
[2017-01-29] MEDS ORDERED: Meropenem 1g/NS 100mL IVPB 1 GM/100 ML PIGGYBACK IVPB STA (21:53)
[2017-01-30 00:35] LABS: MAGNESIUM 1.5 mg/dL (1.7-2.2); POTASSIUM 4.4 mmol/L (3.6-5.0)
[2017-01-30 00:50] LABS: CALCIUM 5.4 mg/dL (8.4-10.5)
[2017-01-30 00:51] LABS: TROPONIN I 1.59 ng/mL
[2017-01-30] MEDS ORDERED: Magnesium Sulfate 2 GM in Sodium Chloride 0.9% 100 ML IVPB ONE (00:58)
[2017-01-30 01:01] LABS: HEMATOCRIT 31.2 % (36.0-48.0); MEAN CELL VOLUME 92.9 fl (80.0-105.0); MEAN CORPUSCULAR HEMOGLOBIN 30.7 pg (25.0-35.0); WHITE BLOOD COUNT 21.5 10^3/ul (4.5-11.0)
[2017-01-30] MEDS: Albuterol-Ipratrop 3 mg / 0.5 (3 ml) UD IH SCH ×4 (01:37→20:20)
[2017-01-30] MEDS: Dexmedetomidine HCl 4mcg/ml 400 MCG/100 ML BOTTLE IV PRN ×3 (02:56→21:05)
[2017-01-30] MEDS ORDERED: Dextrose 50% SYRINGE Inj (50 ml) IVP ONE (04:13)
[2017-01-30] MEDS: Fentanyl 1000mcg/100ml NS 1,000 MCG/100 ML BAG IV PRN (05:12)
[2017-01-30 06:09] LABS: ARTERIAL BLOOD GAS HCO3 11.9 mmol/L (21-28); ARTERIAL BLOOD GAS O2 CAPACITY 17.1 mL/dl (16-24); ARTERIAL BLOOD GAS PH 7.27 (7.35-7.45); ARTERIAL BLOOD HGB O2 SAT 97.2 % (95.0-98.0); CARBOXYHEMOGLOBIN 1.4 % (0.5-1.5); HHB 0.3 % (0-5); METHEMOGLOBIN 1.2 % (0.0-3.0)
[2017-01-30 06:59] LABS: MAGNESIUM 2.1 mg/dL (1.7-2.2)
[2017-01-30] MEDS: Budesonide 0.5 mg/2 ml Inhal Susp UD IH SCH ×2 (07:04→20:20)
--- NOTE | 2017-01-30 08:05 | PN ---
DATE: 01/30/2017(600am--650am) PULMONARY PROGRESS NOTE SUBJECTIVE: The patient is currently on the ventilator. She is sedated. PHYSICAL EXAMINATION: VITAL SIGNS: Temperature is 98.0, pulse is 80, respiratory rate is 22/22, and blood pressure is 104/62. HEENT: Normocephalic and atraumatic. NECK: No JVD. CARDIOVASCULAR: Systolic ejection murmur at the lower left sternal border. Questionable S3 gallop. LUNGS: Crackles at both bases. Minimal bilateral rhonchi. No wheezing. EXTREMITIES: Mild edema. There is peripheral cyanosis. No clubbing. GASTROINTESTINAL: Abdomen is soft and nondistended. Bowel sounds are positive. SKIN: No acute rash. NEUROLOGIC: Exam is limited at the present time. PERTINENT LABORATORY DATA: Chest x-ray was done this morning and reviewed. The chest x-ray is mildly improved this morning --with decreased pulmonary venous congestion. There is a small right pleural effusion noted. Arterial blood gas was done on assist control 22, tidal volume 350, FIO2 of 80%, and PEEP of 8. Results are: PH of 7.27, pCO2 of 26, and pO2 of 131. IMPRESSION 1. Respiratory failure. 2. Urosepsis. 3. Status post ureteral stent for obstructive stone. 4. Volume overload. 5. Chronic obstructive pulmonary disease. 6. Non-ST elevation myocardial infarction. PLAN: The patient remains in the ICU. She is currently ventilated. I did discuss the case with the night nurse at length. I also discussed the case with the ICU team late yesterday morning. Apparently, as the morning went on, the patient's respiratory status decompensated further. She was then intubated for ventilation and oxygenation. I did review the chest x-ray as above. The x-ray is somewhat improved with decreased pulmonary vascular congestive changes. I have also reviewed the arterial blood gas. The arterial blood gas is also improved-- with a decrease in the acidosis and a decrease in the alveolar-arterial gradient. We probably can decrease the FIO2 further this morning. I will discuss that with the ICU team. I would continue with the antibiotic coverage as per infectious disease. Input by Dr. Dobbins is noted. I would continue with the cardiology evaluation. Input by Dr. Childers is noted. Peak troponin is 1.59. Additional a.m. laboratories are also pending. The patient remains critically ill with very guarded prognosis. I will discuss the above with the entire ICU team again this morning. I will discuss the above with the attending physician. Shalom Guerin MD MTDRufino
[2017-01-30 08:07] LABS: TROPONIN I 1.95 ng/mL
[2017-01-30 09:24] LABS: ARTERIAL BLOOD GAS HCO3 13.2 mmol/L (21-28); ARTERIAL BLOOD GAS O2 CAPACITY 13.8 mL/dl (16-24); ARTERIAL BLOOD GAS O2 CONTENT 13.7 ML/dl (15-23); ARTERIAL BLOOD GAS PH 7.28 (7.35-7.45); CARBOXYHEMOGLOBIN 1.8 % (0.5-1.5); HHB 0.5 % (0-5); METHEMOGLOBIN 1.7 % (0.0-3.0)
--- NOTE | 2017-01-30 09:29 | RAD ---
HISTORY: f/u COMPARISON: 01/29/2017 FINDINGS: LUNGS: Endotracheal tube in satisfactory position. Right internal jugular line in the right atrium. Chronic interstitial infiltrate PLEURA: Small right pleural effusion CARDIOVASCULAR: Normal. OSSEOUS STRUCTURES: No significant abnormalities. VISUALIZED UPPER ABDOMEN: Normal. OTHER FINDINGS: None. IMPRESSION: Endotracheal tube in satisfactory position. Right internal jugular line in the right atrium. Chronic interstitial infiltrate
[2017-01-30] MEDS ORDERED: levoFLOXacin 250 mg in D5W 250 MG/50 ML BAG IVPB SCH (10:00)
--- NOTE | 2017-01-30 10:01 | CP.PCM.PN ---
Subjective - Date & Time of Evaluation Date of Evaluation: 01/30/17 Time of Evaluation: 09:50 - Subjective Subjective: Continues to be on the ventilator, on vasopressors, still running low grade temperatures but not outright fever. On sedation as well. Objective - Vital Signs/Intake and Output Vital Signs (last 24 hours): Temp Pulse Resp BP Pulse Ox 98 F 80 29 H 104/62 99 01/30/17 04:00 01/30/17 06:09 01/30/17 07:18 01/30/17 05:00 01/30/17 07:18 Intake and Output: 01/30/17 01/30/17 06:59 18:59 Intake Total 3305 0 Output Total 600 Balance 2705 0 - Medications Medications: Current Medications Acetaminophen (Tylenol 325mg Tab) 650 mg PO Q6H PRN PRN Reason: Fever >100.4 F Albuterol/Ipratropium (Duoneb 3 Mg/0.5 Mg (3 Ml) Ud) 3 ml IH [id number] [facility] Last Admin: 01/30/17 07:04 Dose: 3 ml Albuterol/Ipratropium (Duoneb 3 Mg/0.5 Mg (3 Ml) Ud) 3 ml IH Q2H PRN PRN Reason: Shortness of Breath Aspirin (Aspirin Chewable) 81 mg PO DAILY [facility] Last Admin: 01/29/17 09:36 Dose: Not Given Atorvastatin Calcium (Lipitor) 20 mg PO DAILY [facility] Last Admin: 01/29/17 09:37 Dose: Not Given Budesonide (Pulmicort Respules) 0.5 mg IH [id number] [facility] Last Admin: 01/30/17 07:04 Dose: 0.5 mg Clopidogrel Bisulfate (Plavix) 75 mg PO DAILY [facility] Last Admin: 01/29/17 09:37 Dose: Not Given Enoxaparin Sodium (Lovenox) 60 mg SC Q12H [facility] PRN Reason: Protocol Last Admin: 01/29/17 21:39 Dose: 60 mg Fluticasone Propionate (Flonase) 1 actuation NS DAILY [facility] Last Admin: 01/29/17 09:37 Dose: Not Given Propofol (Diprivan) 1,000 mg in 100 mls @ 2.034 mls/hr IV .Q24H PRN; Protocol; 5 MCG/KG/MIN PRN Reason: TITRATE PER MD ORDER Last Titration: 01/29/17 12:43 Dose: 0 mcg/kg/min, 0 mls/hr Fentanyl Citrate (Fentanyl Citrate/Sodium Chloride 1 Mg/100 Ml) 1,000 mcg in 100 mls @ 2 mls/hr IV .Q24H PRN; Protocol; 20 MCG/HR PRN Reason: TITRATE PER MD ORDER Last Titration: 01/30/17 06:00 Dose: 60 mcg/hr, 6 mls/hr Norepinephrine Bitartrate 8 mg (/ Sodium Chloride) 258 mls @ 77.4 mls/hr IV .Q3H20M NO; 40 MCG/MIN PRN Reason: Protocol Last Titration: 01/30/17 07:57 Dose: 23 mcg/min, 44.5 mls/hr Dexmedetomidine HCl (Precedex 4 Mcg/Ml (100 Ml)) 400 mcg in 100 mls @ 3.391 mls /hr IV .Q24H PRN; Protocol; 0.2 MCG/KG/HR PRN Reason: Anxiety Last Admin: 01/30/17 02:56 Dose: 1 mcg/kg/hr, 16.953 mls/hr Sodium Bicarbonate 100 meq/ (Sodium Chloride) 1,100 mls @ 100 mls/hr IV .Q11H NO Last Admin: 01/30/17 02:05 Dose: 100 mls/hr Meropenem 1g/NS 100mL IVPB (Meropenem 1g/Ns 100ml Ivpb) 1 gm in 100 mls @ 100 mls/hr IVPB Q12 NO PRN Reason: Protocol Stop: 02/07/17 15:01 Last Admin: 01/29/17 15:56 Dose: Not Given Dextrose (Dextrose 10% In Water) 500 mls @ 30 mls/hr IV .[id number] NO Last Admin: 01/30/17 05:49 Dose: 30 mls/hr Vancomycin HCl 1.5 gm/ Sodium (Chloride) 250 mls @ 167 mls/hr IVPB ONCE ONE PRN Reason: Protocol Stop: 01/30/17 09:52 Folic Acid [Folic Acid] 400 Mcg (Home Med) 400 mcg PO DAILY NO Last Admin: 01/29/17 09:37 Dose: Not Given Pantoprazole Sodium (Protonix Inj) 40 mg IVP DAILY NO - Labs Labs: 01/30/17 00:30 01/30/17 00:05 PT 15.3 Seconds (9.9-11.8) H 01/29/17 05:30 INR 1.42 (0.93-1.08) H 01/29/17 05:30 APTT 37.3 Seconds (23.7-30.8) H 01/29/17 05:30 - Constitutional Appears: Other (intubated,sedated, on vasopressors) - Head Exam Head Exam: NORMAL INSPECTION - ENT Exam Additional comments: ET tube in place - Neck Exam Additional comments: right IJ central venous catheter in place - Respiratory Exam Respiratory Exam: Decreased Breath Sounds - Cardiovascular Exam Cardiovascular Exam: Tachycardia, +S1, +S2 - GI/Abdominal Exam GI & Abdominal Exam: Soft. absent: Tenderness Assessment and Plan - Assessment and Plan (Free Text) Plan: Assessment Severe sepsis / shock (septic or cardiogenic or both) with acute renal failure due to gram negative bacilli and gram positive cocci in clusters bacteremia, probably due to obstructing right ureteral stone with pyelonephritis S/P ureteral stent placement COPD CAD, consider acute coronary syndrome currently dyslipidemia carotid stenosis acute rhabdomyolysis Plan Continue Merrem and will give a dose of IV amikacin pending identification and sensitivities of the gram negative bacilli in the blood and urine; follow up identification and sensitivities of the gram positive in the blood - has been given a dose of IV Daptoymcin but we will discontinue since CK levels are more than 5000 - will give a dose of IV Vancomycin instead 2D echo does not show vegetations will repeat blood cx today will monitor clinically prognosis is poor
[2017-01-30] MEDS: Meropenem 1g/NS 100mL IVPB 1 GM/100 ML PIGGYBACK IVPB SCH ×2 (10:20→21:30)
[2017-01-30] MEDS: Enoxaparin 60 mg Syringe SC SCH ×2 (10:29→21:30)
[2017-01-30] MEDS: FOLIC ACID 400 MCG PO SCH (10:30)
[2017-01-30 10:35] LABS: BASO # 0.01 K/mm3 (0.0-2.0); GRAN # 19.96 (1.4-6.5); GRAN % 91.2 % (50.0-68.0); HEMATOCRIT 29.8 % (36.0-48.0); LYMPH # 1.1 (1.2-3.4); LYMPH % 5.2 % (22.0-35.0); MEAN CELL VOLUME 91.1 fl (80.0-105.0); MEAN CORPUSCULAR HEMOGLOBIN 30.6 pg (25.0-35.0); MEAN CORPUSCULAR HGB CONC 33.6 g/dl (31.0-37.0); MEAN PLATELET VOLUME 9.8 fl (7.0-11.0); MONO # 0.8 (0.1-0.6); MONO % 3.6 % (1.0-6.0); RED CELL DISTRIBUTION WIDTH 15.7 % (11.5-14.5); WHITE BLOOD COUNT 21.9 10^3/ul (4.5-11.0)
[2017-01-30 10:45] LABS: BILIRUBIN,TOTAL 0.6 mg/dL (0.2-1.3); TOTAL PROTEIN 4.5 g/dL (5.8-8.3)
[2017-01-30] MEDS: Fluticasone Nasal 50 mcg/Spray NS SCH (10:52)
[2017-01-30 11:01] LABS: CALCIUM 5.3 mg/dL (8.4-10.5)
[2017-01-30 12:39] LABS: URINE BILIRUBIN NEGATIVE (NEGATIVE); URINE BLOOD LARGE (NEGATIVE); URINE GLUCOSE (UA) NEGATIVE (NEGATIVE); URINE KETONE NEGATIVE (NEGATIVE); URINE LEUKOCYTE ESTERASE TRACE Leu/uL (NEGATIVE); URINE PROTEIN 100 mg/dL (<30 mg/dL)
[2017-01-30 12:40] LABS: URINE APPEARANCE CLOUDY (CLEAR); URINE COLOR LIGHT RED (YELLOW)
[2017-01-30 12:52] LABS: URINE BACTERIA FEW (NEG); URINE RBC TNTC /hpf (0-2)
--- NOTE | 2017-01-30 13:14 | PN ---
REASON FOR CONSULTATION: Follow up positive troponin, [id number] myocardial infarction, status post intubated, sepsis, hypotension, on maximum dose of Levophed. SUBJECTIVE: The patient intubated, sedated on vent, acidotic. OBJECTIVE: GENERAL: On Levophed, multiple drips, sedated on vent. VITAL SIGNS: Temperature is afebrile, heart rate of 80, blood pressure is 104/41, on 25 mcg of Levophed. HEENT: PERRLA, intact. NECK: Supple. No carotid bruits. No thyromegaly. CHEST: Clear to auscultation. Good air entry. ABDOMEN: Soft. EXTREMITIES: Clubbing and cyanosis negative. LABORATORY DATA: Blood workup as follows; WBC 21.5, hemoglobin 10.3, hematocrit 31.2, platelet count 85. Chemistry showed sodium 140, potassium 4.1, chloride 109, carbon dioxide 12, anion gap of 16, BUN 25, creatinine 1.2. Troponin 0.25, then 1.26 and 1.21 and now is 1.59 with CPK of 5541 and MB fraction 0.3. IMPRESSION: Acute rhabdomyolysis, positive troponin secondary to rhabdomyolysis, MB fraction was less, I doubt it is myocardial infarction, but cannot say for sure because of underlying coronary artery disease as well as hemodynamic instability; acidotic; sepsis; urosepsis; respiratory failure, intubated, septic shock; history of carotid artery stenosis; history of coronary artery disease, history of stent, history of percutaneous transluminal coronary angioplasty in the past as per old medical record, details not available; history of myocardial infarction, but no stent; sepsis, leukocytosis, thrombocytopenia. Last stress test of 08/09/2014 shows normal myocardial perfusion study, ejection fraction 80%, done in [facility], dated 08/09/2014. The patient yesterday underwent echocardiography, ejection fraction 55%; systolic function, RV is mild to moderately reduced; [id number] aortic regurgitation; tyes-av-ghqgrtyr mitral regurgitation; [id number]-yh-[id number] tricuspid regurgitation; RV systolic pressure of 59. RECOMMENDATION: Continue Levophed, wean off the vent as tolerated. Continue p.r.n. Lasix. Continue IV fluids. The patient has recurrent hypoglycemia, getting 10% glucose infusion. Continue Lovenox. Continue Plavix and aspirin. Overall, the patient's cardiac and long-term prognosis is extremely guarded, multiorgan dysfunction, though the patient had troponin positive, but most likely MB fraction is low. Interm, continue Lovenox and monitor platelet. If the platelet count goes below, we can hold the Lovenox. We will follow with you. Thank you doctor for providing me the opportunity in taking care of the patient. Moraima Childers MD
--- NOTE | 2017-01-30 13:36 | PN ---
DATE: SUBJECTIVE: The patient is 81 years old female, seen and examined. She remains intubated. Blood pressure is still fluctuating. Currently on Levophed. PHYSICAL EXAMINATION: VITAL SIGNS: She is afebrile, pulse is 79, respirations are 16 and blood pressure is 142/60. LUNGS: Bilateral fair airflow. HEART: S1 and S2 audible. ABDOMEN: Soft and nontender. No rebound. No guarding. NEUROLOGICAL: She is sedated on ventilator. LABORATORY DATA: WBC is 21.9, hemoglobin is 10, hematocrit is 29.8 and platelets of 60. Chemistry: Sodium of 146, potassium of 4.0, chloride of 116, CO2 of 16, BUN of 29, and creatinine of 1.3. Blood sugar of 113. ALT of 3083 and AST of 3343. ASSESSMENT AND PLAN: 1. Sepsis. 2. Respiratory failure. 3. Septic shock and hypotension. 4. Mild renal insufficiency. PLAN: She has episode of hypoglycemia, so she was given 50% of dextrose. She is receiving meropenem. She is on saline at 100 mL. We will increase the IV fluid to 125. Monitor her CBC and CMP in a.m. Magali Snyder MD
--- NOTE | 2017-01-30 18:35 | CP.CCUPN ---
CCU Subjective - Physician Review Events Since Last Encounter (Free Text): 01/30/17 18:23 81 y/o F w/ septic shock likely from urinary source. Remains intubated but BP improving. CCU Objective - Vital Signs / Intake & Output Vital Signs (Last 4 hours): Vital Signs Temp Pulse Pulse Ox 01/30/17 18:00 76 01/30/17 17:00 98.4 F 01/30/17 14:30 76 100 Intake and Output (Last 8hrs): Intake & Output 01/30/17 01/30/17 01/30/17 06:59 14:59 22:59 Intake Total 2957 140 5 Output Total 600 Balance 2357 140 5 Intake: IV 2957 140 5 Left Wrist 1800 Output: Urine 600 2-way Urethral 600 - Physical Exam Physical Exam Limitations: Positive for: Altered Mental Status Head: Positive for: Atraumatic, Normocephalic Pupils: Positive for: PERRL, Sluggish Extroacular Muscles: Positive for: EOMI Conjunctiva: Positive for: Normal Mouth: Positive for: Moist Mucous Membranes, Other (ett) Pharnyx: Positive for: Normal Nose (Internal): Positive for: Normal Inspection Neck: Positive for: Normal Range of Motion Respiratory/Chest: Positive for: Clear to Auscultation, Respiratory Distress, Decreased Breath Sounds (mild, symmetric) Cardiovascular: Positive for: Tachycardic Abdomen: Negative for: Tenderness, Distention Upper Extremity: Positive for: Normal Inspection Lower Extremity: Positive for: Normal Inspection, Tenderness, Swelling ((+) ecchymosis, right lower leg) Neurological: Positive for: GCS=15, CN II-XII Intact, Other (moving all extremities, no pronator drift, 5/5 muscle strenght, normal sensation) Psychiatric: Positive for: Alert - Medications Active Medications: Active Medications Generic Name Dose Route Start Last Admin Trade Name Freq PRN Reason Stop Dose Admin Acetaminophen 650 mg 01/28/17 21:29 Tylenol 325mg Tab PO Q6H PRN Fever >100.4 F Albuterol/Ipratropium 3 ml 01/29/17 08:00 01/30/17 13:17 Duoneb 3 Mg/0.5 Mg (3 Ml) Ud IH 3 ml [id number] NO Administration Albuterol/Ipratropium 3 ml 01/29/17 07:22 Duoneb 3 Mg/0.5 Mg (3 Ml) Ud IH Q2H PRN Shortness of Breath Aspirin 81 mg 01/29/17 10:00 01/30/17 10:30 Aspirin Chewable PO Not Given DAILY [facility] Atorvastatin Calcium 20 mg 01/29/17 10:00 01/30/17 10:30 Lipitor PO Not Given DAILY NO Budesonide 0.5 mg 01/29/17 08:00 01/30/17 07:04 Pulmicort Respules IH 0.5 mg [id number] NO Administration Chlorhexidine Gluconate 15 ml 01/30/17 15:30 Peridex PO Q4H [facility] Clopidogrel Bisulfate 75 mg 01/29/17 10:00 01/30/17 10:29 Plavix PO Not Given DAILY [facility] Enoxaparin Sodium 60 mg 01/29/17 10:15 01/30/17 10:29 Lovenox SC 60 mg Q12H NO Administration Protocol Fluticasone Propionate 1 actuation 01/29/17 10:00 01/30/17 10:52 Flonase NS Not Given DAILY [facility] Hydrocortisone Sodium Succinate 100 mg 01/30/17 09:30 01/30/17 14:20 Solu-Cortef IVP 100 mg Q8 [facility] Administration Propofol 1,000 mg in 100 mls @ 2.034 mls/hr 01/29/17 07:35 01/29/17 12:43 Diprivan IV 0 mcg/kg/min .Q24H PRN 0 mls/hr TITRATE PER MD ORDER Titration Protocol 5 MCG/KG/MIN Fentanyl Citrate 1,000 mcg in 100 mls @ 2 mls/hr 01/29/17 11:58 01/30/17 13: 37 Fentanyl Citrate/Sodium Chloride 1 Mg/100 Ml IV 40 mcg/hr .Q24H PRN 4 mls/hr TITRATE PER MD ORDER Titration Protocol 20 MCG/HR Norepinephrine Bitartrate 8 mg 258 mls @ 77.4 mls/hr 01/29/17 12:02 01/30/17 15:05 / Sodium Chloride IV 14 mcg/min .Q3H20M NO 27.09 mls/hr Protocol Titration 40 MCG/MIN Dexmedetomidine HCl 400 mcg in 100 mls @ 3.391 mls/hr 01/29/17 12:01 09:43 Precedex 4 Mcg/Ml (100 Ml) IV 1 mcg/kg/hr .Q24H PRN 16.953 mls/hr Anxiety Administration Protocol 0.2 MCG/KG/HR Meropenem 1g/NS 100mL IVPB 1 gm in 100 mls @ 100 mls/hr 01/29/17 15:00 10:20 Meropenem 1g/Ns 100ml Ivpb IVPB 02/07/17 15:01 100 mls/hr Q12 NO Administration Protocol Dextrose 500 mls @ 30 mls/hr 01/30/17 05:30 01/30/17 05:49 Dextrose 10% In Water IV 30 mls/hr .[id number] NO Administration Sodium Bicarbonate 100 meq/ 1,100 mls @ 150 mls/hr 01/30/17 12:44 Sodium Chloride IV .Q7H20M NO Folic Acid [Folic 400 mcg 01/29/17 10:00 01/30/17 10:30 Acid] 400 Mcg (Home PO Not Given Med) DAILY NO Pantoprazole Sodium 40 mg 01/30/17 10:00 01/30/17 10:23 Protonix Inj IVP 40 mg DAILY NO Administration - Patient Studies Lab Studies: Microbiology Studies 01/29/17 01:40 MRSA Culture (Admit) - Final Nose MRSA NOT DETECTED Lab Studies 01/30/17 01/30/17 01/30/17 Range/Units 15:48 13:44 12:35 WBC (4.5-11.0) 10^3/ul RBC (3.5-6.1) 10^6/uL Hgb (12.0-16.0) g/dL Hct (36.0-48.0) % MCV (80.0-105.0) fl MCH (25.0-35.0) pg MCHC (31.0-37.0) g/dl RDW (11.5-14.5) % Plt Count (120.0-450.0) 10^3/uL MPV (7.0-11.0) fl Gran % (50.0-68.0) % Lymph % (Auto) (22.0-35.0) % [place] % (Auto) (1.0-6.0) % Eos % (Auto) (1.5-5.0) % Baso % (Auto) (0.0-3.0) % Gran # (1.4-6.5) Lymph # (1.2-3.4) [place] # (0.1-0.6) Eos # (0.0-0.7) Baso # (0.0-2.0) K/mm3 pCO2 (35-45) mm/Hg pO2 (80-100) mm/Hg HCO3 (21-28) mmol/L ABG pH (7.35-7.45) ABG Total CO2 (22-28) mmol.L ABG O2 Saturation (95-98) % ABG O2 Content (15-23) ML/dl ABG Base Excess (-2.0-3.0) mmol/L ABG Hemoglobin (11.7-17.4) g/dL ABG Carboxyhemoglobin (0.5-1.5) % POC ABG HHb (Measured) (0-5) % ABG Methemoglobin (0.0-3.0) % ABG O2 Capacity (16-24) mL/dl Hgb O2 Saturation (95.0-98.0) % FiO2 % Sodium (132-148) mmol/L Potassium (3.6-5.0) mmol/L Chloride (98-107) mmol/L Carbon Dioxide (21-33) mmol/L Anion Gap (10-20) BUN (7-21) mg/dL Creatinine (0.7-1.2) mg/dL Est GFR ( Amer) Est GFR (Non-Af Amer) POC Glucose (mg/dL) 176 H 104 (65-110) mg/dL Random Glucose (70-110) mg/dL Lactic Acid (0.7-2.1) mmol/L Calcium (8.4-10.5) mg/dL Phosphorus (2.5-4.5) mg/dL Magnesium (1.7-2.2) mg/dL Total Bilirubin (0.2-1.3) mg/dL AST (14-36) U/L ALT (7-56) U/L Alkaline Phosphatase (38-126) U/L Lactate Dehydrogenase (333-699) U/L Total Creatine Kinase (35-230) U/L CK-MB (CK-2) (0.0-3.6) ng/mL CK-MB (CK-2) % (2.5-3.0) % Troponin I ng/mL Total Protein (5.8-8.3) g/dL Albumin (3.0-4.8) g/dL Globulin gm/dL Albumin/Globulin Ratio (1.1-1.8) Urine Color Light red (YELLOW) Urine Appearance Cloudy (CLEAR) Urine pH 5.0 (4.7-8.0) Ur Specific [place] 1.025 (1.005-1.035) Urine Protein 100 H (<30 mg/dL) mg/dL Urine Glucose (UA) Negative (NEGATIVE) mg/dL Urine Ketones Negative (NEGATIVE) mg/dL Urine Blood Large H (NEGATIVE) Urine Nitrate Negative (NEGATIVE) Urine Bilirubin Negative (NEGATIVE) Urine Urobilinogen 1.0 H (<1 E.U./dL) E.U./dL Ur Leukocyte Esterase Trace H (NEGATIVE) Taco/uL Urine RBC Tntc (0-2) /hpf Urine WBC 1 - 3 (0-6) /hpf Urine Bacteria Few (NEG) Coarse Granular Casts Trace H (0-2) /hpf 01/30/17 01/30/17 01/30/17 Range/Units 11:34 10:31 10:31 WBC 21.9 H (4.5-11.0) 10^3/ul RBC 3.27 L (3.5-6.1) 10^6/uL Hgb 10.0 L (12.0-16.0) g/dL Hct 29.8 L (36.0-48.0) % MCV 91.1 (80.0-105.0) fl MCH 30.6 (25.0-35.0) pg MCHC 33.6 (31.0-37.0) g/dl RDW 15.7 H (11.5-14.5) % Plt Count 60 L (120.0-450.0) 10^3/uL MPV 9.8 (7.0-11.0) fl Gran % 91.2 H (50.0-68.0) % Lymph % (Auto) 5.2 L (22.0-35.0) % Ralls % (Auto) 3.6 (1.0-6.0) % Eos % (Auto) 0.0 L (1.5-5.0) % Baso % (Auto) 0.0 (0.0-3.0) % Gran # 19.96 H (1.4-6.5) Lymph # 1.1 L (1.2-3.4) Ralls # 0.8 H (0.1-0.6) Eos # 0.0 (0.0-0.7) Baso # 0.01 (0.0-2.0) K/mm3 pCO2 (35-45) mm/Hg pO2 (80-100) mm/Hg HCO3 (21-28) mmol/L ABG pH (7.35-7.45) ABG Total CO2 (22-28) mmol.L ABG O2 Saturation (95-98) % ABG O2 Content (15-23) ML/dl ABG Base Excess (-2.0-3.0) mmol/L ABG Hemoglobin (11.7-17.4) g/dL ABG Carboxyhemoglobin (0.5-1.5) % POC ABG HHb (Measured) (0-5) % ABG Methemoglobin (0.0-3.0) % ABG O2 Capacity (16-24) mL/dl Hgb O2 Saturation (95.0-98.0) % FiO2 % Sodium 146 (132-148) mmol/L Potassium 4.0 (3.6-5.0) mmol/L Chloride 116 H (98-107) mmol/L Carbon Dioxide 16 L (21-33) mmol/L Anion Gap 18 (10-20) BUN 29 H (7-21) mg/dL Creatinine 1.3 H (0.7-1.2) mg/dL Est GFR ( Amer) 48 Est GFR (Non-Af Amer) 39 POC Glucose (mg/dL) 113 H (65-110) mg/dL Random Glucose 144 H (70-110) mg/dL Lactic Acid (0.7-2.1) mmol/L Calcium 5.3 L* (8.4-10.5) mg/dL Phosphorus (2.5-4.5) mg/dL Magnesium (1.7-2.2) mg/dL Total Bilirubin 0.6 (0.2-1.3) mg/dL AST 3343 H (14-36) U/L ALT 3083 H (7-56) U/L Alkaline Phosphatase 90 (38-126) U/L Lactate Dehydrogenase (333-699) U/L Total Creatine Kinase (35-230) U/L CK-MB (CK-2) (0.0-3.6) ng/mL CK-MB (CK-2) % (2.5-3.0) % Troponin I ng/mL Total Protein 4.5 L (5.8-8.3) g/dL Albumin 2.2 L (3.0-4.8) g/dL Globulin 2.3 gm/dL Albumin/Globulin Ratio 1.0 L (1.1-1.8) Urine Color (YELLOW) Urine Appearance (CLEAR) Urine pH (4.7-8.0) Ur Specific [place] (1.005-1.035) Urine Protein (<30 mg/dL) mg/dL Urine Glucose (UA) (NEGATIVE) mg/dL Urine Ketones (NEGATIVE) mg/dL Urine Blood (NEGATIVE) Urine Nitrate (NEGATIVE) Urine Bilirubin (NEGATIVE) Urine Urobilinogen (<1 E.U./dL) E.U./dL Ur Leukocyte Esterase (NEGATIVE) Taco/uL Urine RBC (0-2) /hpf Urine WBC (0-6) /hpf Urine Bacteria (NEG) Coarse Granular Casts (0-2) /hpf 01/30/17 01/30/17 01/30/17 Range/Units 10:31 09:42 09:20 WBC (4.5-11.0) 10^3/ul RBC (3.5-6.1) 10^6/uL Hgb (12.0-16.0) g/dL Hct (36.0-48.0) % MCV (80.0-105.0) fl MCH (25.0-35.0) pg MCHC (31.0-37.0) g/dl RDW (11.5-14.5) % Plt Count (120.0-450.0) 10^3/uL MPV (7.0-11.0) fl Gran % (50.0-68.0) % Lymph % (Auto) (22.0-35.0) % Ralls % (Auto) (1.0-6.0) % Eos % (Auto) (1.5-5.0) % Baso % (Auto) (0.0-3.0) % Gran # (1.4-6.5) Lymph # (1.2-3.4) Ralls # (0.1-0.6) Eos # (0.0-0.7) Baso # (0.0-2.0) K/mm3 pCO2 28 L (35-45) mm/Hg pO2 115.0 H (80-100) mm/Hg HCO3 13.2 L (21-28) mmol/L ABG pH 7.28 L (7.35-7.45) ABG Total CO2 14.1 L (22-28) mmol.L ABG O2 Saturation 99.5 H (95-98) % ABG O2 Content 13.7 L (15-23) ML/dl ABG Base Excess -12.2 L (-2.0-3.0) mmol/L ABG Hemoglobin 10.0 L (11.7-17.4) g/dL ABG Carboxyhemoglobin 1.8 H (0.5-1.5) % POC ABG HHb (Measured) 0.5 (0-5) % ABG Methemoglobin 1.7 (0.0-3.0) % ABG O2 Capacity 13.8 L (16-24) mL/dl Hgb O2 Saturation 96.0 (95.0-98.0) % FiO2 70.0 % Sodium (132-148) mmol/L Potassium (3.6-5.0) mmol/L Chloride (98-107) mmol/L Carbon Dioxide (21-33) mmol/L Anion Gap (10-20) BUN (7-21) mg/dL Creatinine (0.7-1.2) mg/dL Est GFR ( Amer) Est GFR (Non-Af Amer) POC Glucose (mg/dL) 61 L (65-110) mg/dL Random Glucose (70-110) mg/dL Lactic Acid 5.4 H* (0.7-2.1) mmol/L Calcium (8.4-10.5) mg/dL Phosphorus (2.5-4.5) mg/dL Magnesium (1.7-2.2) mg/dL Total Bilirubin (0.2-1.3) mg/dL AST (14-36) U/L ALT (7-56) U/L Alkaline Phosphatase (38-126) U/L Lactate Dehydrogenase (333-699) U/L Total Creatine Kinase (35-230) U/L CK-MB (CK-2) (0.0-3.6) ng/mL CK-MB (CK-2) % (2.5-3.0) % Troponin I ng/mL Total Protein (5.8-8.3) g/dL Albumin (3.0-4.8) g/dL Globulin gm/dL Albumin/Globulin Ratio (1.1-1.8) Urine Color (YELLOW) Urine Appearance (CLEAR) Urine pH (4.7-8.0) Ur Specific [place] (1.005-1.035) Urine Protein (<30 mg/dL) mg/dL Urine Glucose (UA) (NEGATIVE) mg/dL Urine Ketones (NEGATIVE) mg/dL Urine Blood (NEGATIVE) Urine Nitrate (NEGATIVE) Urine Bilirubin (NEGATIVE) Urine Urobilinogen (<1 E.U./dL) E.U./dL Ur Leukocyte Esterase (NEGATIVE) Taco/uL Urine RBC (0-2) /hpf Urine WBC (0-6) /hpf Urine Bacteria (NEG) Coarse Granular Casts (0-2) /hpf 01/30/17 01/30/17 01/30/17 Range/Units 08:01 06:05 05:52 WBC (4.5-11.0) 10^3/ul RBC (3.5-6.1) 10^6/uL Hgb (12.0-16.0) g/dL Hct (36.0-48.0) % MCV (80.0-105.0) fl MCH (25.0-35.0) pg MCHC (31.0-37.0) g/dl RDW (11.5-14.5) % Plt Count (120.0-450.0) 10^3/uL MPV (7.0-11.0) fl Gran % (50.0-68.0) % Lymph % (Auto) (22.0-35.0) % [place] % (Auto) (1.0-6.0) % Eos % (Auto) (1.5-5.0) % Baso % (Auto) (0.0-3.0) % Gran # (1.4-6.5) Lymph # (1.2-3.4) [place] # (0.1-0.6) Eos # (0.0-0.7) Baso # (0.0-2.0) K/mm3 pCO2 26 L (35-45) mm/Hg pO2 131.0 H (80-100) mm/Hg HCO3 11.9 L (21-28) mmol/L ABG pH 7.27 L (7.35-7.45) ABG Total CO2 12.7 L (22-28) mmol.L ABG O2 Saturation 99.7 H (95-98) % ABG O2 Content 17.0 (15-23) ML/dl ABG Base Excess -13.4 L (-2.0-3.0) mmol/L ABG Hemoglobin 12.3 (11.7-17.4) g/dL ABG Carboxyhemoglobin 1.4 (0.5-1.5) % POC ABG HHb (Measured) 0.3 (0-5) % ABG Methemoglobin 1.2 (0.0-3.0) % ABG O2 Capacity 17.1 (16-24) mL/dl Hgb O2 Saturation 97.2 (95.0-98.0) % FiO2 80.0 % Sodium (132-148) mmol/L Potassium (3.6-5.0) mmol/L Chloride (98-107) mmol/L Carbon Dioxide (21-33) mmol/L Anion Gap (10-20) BUN (7-21) mg/dL Creatinine (0.7-1.2) mg/dL Est GFR ( Amer) Est GFR (Non-Af Amer) POC Glucose (mg/dL) 56 L 163 H (65-110) mg/dL Random Glucose (70-110) mg/dL Lactic Acid (0.7-2.1) mmol/L Calcium (8.4-10.5) mg/dL Phosphorus (2.5-4.5) mg/dL Magnesium (1.7-2.2) mg/dL Total Bilirubin (0.2-1.3) mg/dL AST (14-36) U/L ALT (7-56) U/L Alkaline Phosphatase (38-126) U/L Lactate Dehydrogenase (333-699) U/L Total Creatine Kinase (35-230) U/L CK-MB (CK-2) (0.0-3.6) ng/mL CK-MB (CK-2) % (2.5-3.0) % Troponin I ng/mL Total Protein (5.8-8.3) g/dL Albumin (3.0-4.8) g/dL Globulin gm/dL Albumin/Globulin Ratio (1.1-1.8) Urine Color (YELLOW) Urine Appearance (CLEAR) Urine pH (4.7-8.0) Ur Specific [place] (1.005-1.035) Urine Protein (<30 mg/dL) mg/dL Urine Glucose (UA) (NEGATIVE) mg/dL Urine Ketones (NEGATIVE) mg/dL Urine Blood (NEGATIVE) Urine Nitrate (NEGATIVE) Urine Bilirubin (NEGATIVE) Urine Urobilinogen (<1 E.U./dL) E.U./dL Ur Leukocyte Esterase (NEGATIVE) Taco/uL Urine RBC (0-2) /hpf Urine WBC (0-6) /hpf Urine Bacteria (NEG) Coarse Granular Casts (0-2) /hpf 01/30/17 01/30/17 01/30/17 Range/Units 05:30 04:02 01:00 WBC (4.5-11.0) 10^3/ul RBC (3.5-6.1) 10^6/uL Hgb (12.0-16.0) g/dL Hct (36.0-48.0) % MCV (80.0-105.0) fl MCH (25.0-35.0) pg MCHC (31.0-37.0) g/dl RDW (11.5-14.5) % Plt Count (120.0-450.0) 10^3/uL MPV (7.0-11.0) fl Gran % (50.0-68.0) % Lymph % (Auto) (22.0-35.0) % [place] % (Auto) (1.0-6.0) % Eos % (Auto) (1.5-5.0) % Baso % (Auto) (0.0-3.0) % Gran # (1.4-6.5) Lymph # (1.2-3.4) [place] # (0.1-0.6) Eos # (0.0-0.7) Baso # (0.0-2.0) K/mm3 pCO2 (35-45) mm/Hg pO2 (80-100) mm/Hg HCO3 (21-28) mmol/L ABG pH (7.35-7.45) ABG Total CO2 (22-28) mmol.L ABG O2 Saturation (95-98) % ABG O2 Content (15-23) ML/dl ABG Base Excess (-2.0-3.0) mmol/L ABG Hemoglobin (11.7-17.4) g/dL ABG Carboxyhemoglobin (0.5-1.5) % POC ABG HHb (Measured) (0-5) % ABG Methemoglobin (0.0-3.0) % ABG O2 Capacity (16-24) mL/dl Hgb O2 Saturation (95.0-98.0) % FiO2 % Sodium (132-148) mmol/L Potassium (3.6-5.0) mmol/L Chloride (98-107) mmol/L Carbon Dioxide (21-33) mmol/L Anion Gap (10-20) BUN (7-21) mg/dL Creatinine (0.7-1.2) mg/dL Est GFR ( Amer) Est GFR (Non-Af Amer) POC Glucose (mg/dL) 42 L 97 (65-110) mg/dL Random Glucose (70-110) mg/dL Lactic Acid (0.7-2.1) mmol/L Calcium (8.4-10.5) mg/dL Phosphorus 4.0 (2.5-4.5) mg/dL Magnesium 2.1 (1.7-2.2) mg/dL Total Bilirubin (0.2-1.3) mg/dL AST (14-36) U/L ALT (7-56) U/L Alkaline Phosphatase (38-126) U/L Lactate Dehydrogenase 68510 H (333-699) U/L Total Creatine Kinase 5520 H (35-230) U/L CK-MB (CK-2) 15.4 H (0.0-3.6) ng/mL CK-MB (CK-2) % 0.3 L (2.5-3.0) % Troponin I 1.95 H* D ng/mL Total Protein (5.8-8.3) g/dL Albumin (3.0-4.8) g/dL Globulin gm/dL Albumin/Globulin Ratio (1.1-1.8) Urine Color (YELLOW) Urine Appearance (CLEAR) Urine pH (4.7-8.0) Ur Specific [place] (1.005-1.035) Urine Protein (<30 mg/dL) mg/dL Urine Glucose (UA) (NEGATIVE) mg/dL Urine Ketones (NEGATIVE) mg/dL Urine Blood (NEGATIVE) Urine Nitrate (NEGATIVE) Urine Bilirubin (NEGATIVE) Urine Urobilinogen (<1 E.U./dL) E.U./dL Ur Leukocyte Esterase (NEGATIVE) Taco/uL Urine RBC (0-2) /hpf Urine WBC (0-6) /hpf Urine Bacteria (NEG) Coarse Granular Casts (0-2) /hpf 01/30/17 01/30/17 01/29/17 Range/Units 00:30 00:05 22:42 WBC 21.5 H (4.5-11.0) 10^3/ul RBC 3.36 L (3.5-6.1) 10^6/uL Hgb 10.3 L (12.0-16.0) g/dL Hct 31.2 L (36.0-48.0) % MCV 92.9 (80.0-105.0) fl MCH 30.7 (25.0-35.0) pg MCHC 33.0 (31.0-37.0) g/dl RDW 16.0 H (11.5-14.5) % Plt Count 85 L (120.0-450.0) 10^3/uL MPV 10.0 (7.0-11.0) fl Gran % (50.0-68.0) % Lymph % (Auto) (22.0-35.0) % [place] % (Auto) (1.0-6.0) % Eos % (Auto) (1.5-5.0) % Baso % (Auto) (0.0-3.0) % Gran # (1.4-6.5) Lymph # (1.2-3.4) [place] # (0.1-0.6) Eos # (0.0-0.7) Baso # (0.0-2.0) K/mm3 pCO2 (35-45) mm/Hg pO2 (80-100) mm/Hg HCO3 (21-28) mmol/L ABG pH (7.35-7.45) ABG Total CO2 (22-28) mmol.L ABG O2 Saturation (95-98) % ABG O2 Content (15-23) ML/dl ABG Base Excess (-2.0-3.0) mmol/L ABG Hemoglobin (11.7-17.4) g/dL ABG Carboxyhemoglobin (0.5-1.5) % POC ABG HHb (Measured) (0-5) % ABG Methemoglobin (0.0-3.0) % ABG O2 Capacity (16-24) mL/dl Hgb O2 Saturation (95.0-98.0) % FiO2 % Sodium 143 (132-148) mmol/L Potassium 4.4 (3.6-5.0) mmol/L Chloride 119 H (98-107) mmol/L Carbon Dioxide 12 L (21-33) mmol/L Anion Gap 16 (10-20) BUN 25 H (7-21) mg/dL Creatinine 1.2 (0.7-1.2) mg/dL Est GFR ( Amer) 52 Est GFR (Non-Af Amer) 43 POC Glucose (mg/dL) 53 L (65-110) mg/dL Random Glucose 165 H (70-110) mg/dL Lactic Acid (0.7-2.1) mmol/L Calcium 5.4 L* (8.4-10.5) mg/dL Phosphorus (2.5-4.5) mg/dL Magnesium 1.5 L (1.7-2.2) mg/dL Total Bilirubin (0.2-1.3) mg/dL AST (14-36) U/L ALT (7-56) U/L Alkaline Phosphatase (38-126) U/L Lactate Dehydrogenase 5516 H (333-699) U/L Total Creatine Kinase 5544 H (35-230) U/L CK-MB (CK-2) 16.2 H (0.0-3.6) ng/mL CK-MB (CK-2) % 0.3 L (2.5-3.0) % Troponin I 1.59 H* D ng/mL Total Protein (5.8-8.3) g/dL Albumin (3.0-4.8) g/dL Globulin gm/dL Albumin/Globulin Ratio (1.1-1.8) Urine Color (YELLOW) Urine Appearance (CLEAR) Urine pH (4.7-8.0) Ur Specific [place] (1.005-1.035) Urine Protein (<30 mg/dL) mg/dL Urine Glucose (UA) (NEGATIVE) mg/dL Urine Ketones (NEGATIVE) mg/dL Urine Blood (NEGATIVE) Urine Nitrate (NEGATIVE) Urine Bilirubin (NEGATIVE) Urine Urobilinogen (<1 E.U./dL) E.U./dL Ur Leukocyte Esterase (NEGATIVE) Taco/uL Urine RBC (0-2) /hpf Urine WBC (0-6) /hpf Urine Bacteria (NEG) Coarse Granular Casts (0-2) /hpf 01/29/ Range/Units 21:55 WBC (4.5-11.0) 10^3/ul RBC (3.5-6.1) 10^6/uL Hgb (12.0-16.0) g/dL Hct (36.0-48.0) % MCV (80.0-105.0) fl MCH (25.0-35.0) pg MCHC (31.0-37.0) g/dl RDW (11.5-14.5) % Plt Count (120.0-450.0) 10^3/uL MPV (7.0-11.0) fl Gran % (50.0-68.0) % Lymph % (Auto) (22.0-35.0) % Ralls % (Auto) (1.0-6.0) % Eos % (Auto) (1.5-5.0) % Baso % (Auto) (0.0-3.0) % Gran # (1.4-6.5) Lymph # (1.2-3.4) Ralls # (0.1-0.6) Eos # (0.0-0.7) Baso # (0.0-2.0) K/mm3 pCO2 (35-45) mm/Hg pO2 (80-100) mm/Hg HCO3 (21-28) mmol/L ABG pH (7.35-7.45) ABG Total CO2 (22-28) mmol.L ABG O2 Saturation (95-98) % ABG O2 Content (15-23) ML/dl ABG Base Excess (-2.0-3.0) mmol/L ABG Hemoglobin (11.7-17.4) g/dL ABG Carboxyhemoglobin (0.5-1.5) % POC ABG HHb (Measured) (0-5) % ABG Methemoglobin (0.0-3.0) % ABG O2 Capacity (16-24) mL/dl Hgb O2 Saturation (95.0-98.0) % FiO2 % Sodium (132-148) mmol/L Potassium (3.6-5.0) mmol/L Chloride (98-107) mmol/L Carbon Dioxide (21-33) mmol/L Anion Gap (10-20) BUN (7-21) mg/dL Creatinine (0.7-1.2) mg/dL Est GFR ( Amer) Est GFR (Non-Af Amer) POC Glucose (mg/dL) 80 (65-110) mg/dL Random Glucose (70-110) mg/dL Lactic Acid (0.7-2.1) mmol/L Calcium (8.4-10.5) mg/dL Phosphorus (2.5-4.5) mg/dL Magnesium (1.7-2.2) mg/dL Total Bilirubin (0.2-1.3) mg/dL AST (14-36) U/L ALT (7-56) U/L Alkaline Phosphatase (38-126) U/L Lactate Dehydrogenase (333-699) U/L Total Creatine Kinase (35-230) U/L CK-MB (CK-2) (0.0-3.6) ng/mL CK-MB (CK-2) % (2.5-3.0) % Troponin I ng/mL Total Protein (5.8-8.3) g/dL Albumin (3.0-4.8) g/dL Globulin gm/dL Albumin/Globulin Ratio (1.1-1.8) Urine Color (YELLOW) Urine Appearance (CLEAR) Urine pH (4.7-8.0) Ur Specific [place] (1.005-1.035) Urine Protein (<30 mg/dL) mg/dL Urine Glucose (UA) (NEGATIVE) mg/dL Urine Ketones (NEGATIVE) mg/dL Urine Blood (NEGATIVE) Urine Nitrate (NEGATIVE) Urine Bilirubin (NEGATIVE) Urine Urobilinogen (<1 E.U./dL) E.U./dL Ur Leukocyte Esterase (NEGATIVE) Taco/uL Urine RBC (0-2) /hpf Urine WBC (0-6) /hpf Urine Bacteria (NEG) Coarse Granular Casts (0-2) /hpf Laboratory Results - last 24 hr 01/29/17 01/29/17 01/30/17 21:55 22:42 00:05 WBC RBC Hgb Hct MCV MCH MCHC RDW Plt Count MPV Gran % Lymph % (Auto) Ralls % (Auto) Eos % (Auto) Baso % (Auto) Gran # Lymph # Ralls # Eos # Baso # pCO2 pO2 HCO3 ABG pH ABG Total CO2 ABG O2 Saturation ABG O2 Content ABG Base Excess ABG Hemoglobin ABG Carboxyhemoglobin POC ABG HHb (Measured) ABG Methemoglobin ABG O2 Capacity Hgb O2 Saturation FiO2 Sodium 143 Potassium 4.4 Chloride 119 H Carbon Dioxide 12 L Anion Gap 16 BUN 25 H Creatinine 1.2 Est GFR ( Amer) 52 Est GFR (Non-Af Amer) 43 POC Glucose (mg/dL) 80 53 L Random Glucose 165 H Lactic Acid Calcium 5.4 L* Phosphorus Magnesium 1.5 L Total Bilirubin AST ALT Alkaline Phosphatase Lactate Dehydrogenase 5516 H Total Creatine Kinase 5544 H CK-MB (CK-2) 16.2 H CK-MB (CK-2) % 0.3 L Troponin I 1.59 H* D Total Protein Albumin Globulin Albumin/Globulin Ratio Urine Color Urine Appearance Urine pH Ur Specific [place] Urine Protein Urine Glucose (UA) Urine Ketones Urine Blood Urine Nitrate Urine Bilirubin Urine Urobilinogen Ur Leukocyte Esterase Urine RBC Urine WBC Urine Bacteria Coarse Granular Casts 01/30/17 01/30/17 01/30/17 00:30 01:00 04:02 WBC 21.5 H RBC 3.36 L Hgb 10.3 L Hct 31.2 L MCV 92.9 MCH 30.7 MCHC 33.0 RDW 16.0 H Plt Count 85 L MPV 10.0 Gran % Lymph % (Auto) Ralls % (Auto) Eos % (Auto) Baso % (Auto) Gran # Lymph # R[place] # Eos # Baso # pCO2 pO2 HCO3 ABG pH ABG Total CO2 ABG O2 Saturation ABG O2 Content ABG Base Excess ABG Hemoglobin ABG Carboxyhemoglobin POC ABG HHb (Measured) ABG Methemoglobin ABG O2 Capacity Hgb O2 Saturation FiO2 Sodium Potassium Chloride Carbon Dioxide Anion Gap BUN Creatinine Est GFR ( Amer) Est GFR (Non-Af Amer) POC Glucose (mg/dL) 97 42 L Random Glucose Lactic Acid Calcium Phosphorus Magnesium Total Bilirubin AST ALT Alkaline Phosphatase Lactate Dehydrogenase Total Creatine Kinase CK-MB (CK-2) CK-MB (CK-2) % Troponin I Total Protein Albumin Globulin Albumin/Globulin Ratio Urine Color Urine Appearance Urine pH Ur Specific [place] Urine Protein Urine Glucose (UA) Urine Ketones Urine Blood Urine Nitrate Urine Bilirubin Urine Urobilinogen Ur Leukocyte Esterase Urine RBC Urine WBC Urine Bacteria Coarse Granular Casts 01/30/17 01/30/17 01/30/17 05:30 05:52 06:05 WBC RBC Hgb Hct MCV MCH MCHC RDW Plt Count MPV Gran % Lymph % (Auto) R[place] % (Auto) Eos % (Auto) Baso % (Auto) Gran # Lymph # R[place] # Eos # Baso # pCO2 26 L pO2 131.0 H HCO3 11.9 L ABG pH 7.27 L ABG Total CO2 12.7 L ABG O2 Saturation 99.7 H ABG O2 Content 17.0 ABG Base Excess -13.4 L ABG Hemoglobin 12.3 ABG Carboxyhemoglobin 1.4 POC ABG HHb (Measured) 0.3 ABG Methemoglobin 1.2 ABG O2 Capacity 17.1 Hgb O2 Saturation 97.2 FiO2 80.0 Sodium Potassium Chloride Carbon Dioxide Anion Gap BUN Creatinine Est GFR ( Amer) Est GFR (Non-Af Amer) POC Glucose (mg/dL) 163 H Random Glucose Lactic Acid Calcium Phosphorus 4.0 Magnesium 2.1 Total Bilirubin AST ALT Alkaline Phosphatase Lactate Dehydrogenase 00921 H Total Creatine Kinase 5520 H CK-MB (CK-2) 15.4 H CK-MB (CK-2) % 0.3 L Troponin I 1.95 H* D Total Protein Albumin Globulin Albumin/Globulin Ratio Urine Color Urine Appearance Urine pH Ur Specific [place] Urine Protein Urine Glucose (UA) Urine Ketones Urine Blood Urine Nitrate Urine Bilirubin Urine Urobilinogen Ur Leukocyte Esterase Urine RBC Urine WBC Urine Bacteria Coarse Granular Casts 01/30/17 01/30/17 01/30/17 08:01 09:20 09:42 WBC RBC Hgb Hct MCV MCH MCHC RDW Plt Count MPV Gran % Lymph % (Auto) R[place] % (Auto) Eos % (Auto) Baso % (Auto) Gran # Lymph # [place] # Eos # Baso # pCO2 28 L pO2 115.0 H HCO3 13.2 L ABG pH 7.28 L ABG Total CO2 14.1 L ABG O2 Saturation 99.5 H ABG O2 Content 13.7 L ABG Base Excess -12.2 L ABG Hemoglobin 10.0 L ABG Carboxyhemoglobin 1.8 H POC ABG HHb (Measured) 0.5 ABG Methemoglobin 1.7 ABG O2 Capacity 13.8 L Hgb O2 Saturation 96.0 FiO2 70.0 Sodium Potassium Chloride Carbon Dioxide Anion Gap BUN Creatinine Est GFR ( Amer) Est GFR (Non-Af Amer) POC Glucose (mg/dL) 56 L 61 L Random Glucose Lactic Acid Calcium Phosphorus Magnesium Total Bilirubin AST ALT Alkaline Phosphatase Lactate Dehydrogenase Total Creatine Kinase CK-MB (CK-2) CK-MB (CK-2) % Troponin I Total Protein Albumin Globulin Albumin/Globulin Ratio Urine Color Urine Appearance Urine pH Ur Specific [place] Urine Protein Urine Glucose (UA) Urine Ketones Urine Blood Urine Nitrate Urine Bilirubin Urine Urobilinogen Ur Leukocyte Esterase Urine RBC Urine WBC Urine Bacteria Coarse Granular Casts 01/30/17 01/30/17 01/30/17 10:31 10:31 10:31 WBC 21.9 H RBC 3.27 L Hgb 10.0 L Hct 29.8 L MCV 91.1 MCH 30.6 MCHC 33.6 RDW 15.7 H Plt Count 60 L MPV 9.8 Gran % 91.2 H Lymph % (Auto) 5.2 L Ralls % (Auto) 3.6 Eos % (Auto) 0.0 L Baso % (Auto) 0.0 Gran # 19.96 H Lymph # 1.1 L Ralls # 0.8 H Eos # 0.0 Baso # 0.01 pCO2 pO2 HCO3 ABG pH ABG Total CO2 ABG O2 Saturation ABG O2 Content ABG Base Excess ABG Hemoglobin ABG Carboxyhemoglobin POC ABG HHb (Measured) ABG Methemoglobin ABG O2 Capacity Hgb O2 Saturation FiO2 Sodium 146 Potassium 4.0 Chloride 116 H Carbon Dioxide 16 L Anion Gap 18 BUN 29 H Creatinine 1.3 H Est GFR ( Amer) 48 Est GFR (Non-Af Amer) 39 POC Glucose (mg/dL) Random Glucose 144 H Lactic Acid 5.4 H* Calcium 5.3 L* Phosphorus Magnesium Total Bilirubin 0.6 AST 3343 H ALT 3083 H Alkaline Phosphatase 90 Lactate Dehydrogenase Total Creatine Kinase CK-MB (CK-2) CK-MB (CK-2) % Troponin I Total Protein 4.5 L Albumin 2.2 L Globulin 2.3 Albumin/Globulin Ratio 1.0 L Urine Color Urine Appearance Urine pH Ur Specific [place] Urine Protein Urine Glucose (UA) Urine Ketones Urine Blood Urine Nitrate Urine Bilirubin Urine Urobilinogen Ur Leukocyte Esterase Urine RBC Urine WBC Urine Bacteria Coarse Granular Casts 01/30/17 01/30/17 01/30/17 11:34 12:35 13:44 WBC RBC Hgb Hct MCV MCH MCHC RDW Plt Count MPV Gran % Lymph % (Auto) Ralls % (Auto) Eos % (Auto) Baso % (Auto) Gran # Lymph # Ralls # Eos # Baso # pCO2 pO2 HCO3 ABG pH ABG Total CO2 ABG O2 Saturation ABG O2 Content ABG Base Excess ABG Hemoglobin ABG Carboxyhemoglobin POC ABG HHb (Measured) ABG Methemoglobin ABG O2 Capacity Hgb O2 Saturation FiO2 Sodium Potassium Chloride Carbon Dioxide Anion Gap BUN Creatinine Est GFR ( Amer) Est GFR (Non-Af Amer) POC Glucose (mg/dL) 113 H 104 Random Glucose Lactic Acid Calcium Phosphorus Magnesium Total Bilirubin AST ALT Alkaline Phosphatase Lactate Dehydrogenase Total Creatine Kinase CK-MB (CK-2) CK-MB (CK-2) % Troponin I Total Protein Albumin Globulin Albumin/Globulin Ratio Urine Color Light red Urine Appearance Cloudy Urine pH 5.0 Ur Specific [place] 1.025 Urine Protein 100 H Urine Glucose (UA) Negative Urine Ketones Negative Urine Blood Large H Urine Nitrate Negative Urine Bilirubin Negative Urine Urobilinogen 1.0 H Ur Leukocyte Esterase Trace H Urine RBC Tntc Urine WBC 1 - 3 Urine Bacteria Few Coarse Granular Casts Trace H 01/30/17 15:48 WBC RBC Hgb Hct MCV MCH MCHC RDW Plt Count MPV Gran % Lymph % (Auto) Ralls % (Auto) Eos % (Auto) Baso % (Auto) Gran # Lymph # Ralls # Eos # Baso # pCO2 pO2 HCO3 ABG pH ABG Total CO2 ABG O2 Saturation ABG O2 Content ABG Base Excess ABG Hemoglobin ABG Carboxyhemoglobin POC ABG HHb (Measured) ABG Methemoglobin ABG O2 Capacity Hgb O2 Saturation FiO2 Sodium Potassium Chloride Carbon Dioxide Anion Gap BUN Creatinine Est GFR ( Amer) Est GFR (Non-Af Amer) POC Glucose (mg/dL) 176 H Random Glucose Lactic Acid Calcium Phosphorus Magnesium Total Bilirubin AST ALT Alkaline Phosphatase Lactate Dehydrogenase Total Creatine Kinase CK-MB (CK-2) CK-MB (CK-2) % Troponin I Total Protein Albumin Globulin Albumin/Globulin Ratio Urine Color Urine Appearance Urine pH Ur Specific [place] Urine Protein Urine Glucose (UA) Urine Ketones Urine Blood Urine Nitrate Urine Bilirubin Urine Urobilinogen Ur Leukocyte Esterase Urine RBC Urine WBC Urine Bacteria Coarse Granular Casts Fingerstick Blood Sugar Results: 61 Review of Systems - Review of Systems Systems not reviewed;Unavailable: Altered Mental Status Critical Care Progress Note - Ventilator Checklist Daily Assessment of Readiness to Wean: Yes Daily Spontaneous Breathing Trial: Yes PUD Prophalyxis: Yes DVT Prophylaxis: Yes Oral Care with Chlorhexidine Gluconate {CHG}: Yes Assessment/Plan - Assessment and Plan (Free Text) Assessment: 81 y/o F w/ Acute respiratory failure Intubated and sedated. ARDSnet protocol. Keep PH > 7.3 , PAO2. 60 . Septic shock on levophed 12-15mcg to keep MAP>60. On empiric abx cx pending. Resolving ards. PF ratio improving . Acute renal stone w/ Pyelonephritis . Urology following closely. Urine output not improving, may be a candidate for HD.Nephrology following closely . Family updated. dvt p cc time 45 min
[2017-01-30] MEDS: Chlorhexidine 0.12% Oral Sol 480 ml Bot PO SCH ×2 (19:30→23:46)
[2017-01-31] MEDS: Albuterol-Ipratrop 3 mg / 0.5 (3 ml) UD IH SCH ×4 (02:35→19:54)
[2017-01-31] MEDS: Dexmedetomidine HCl 4mcg/ml 400 MCG/100 ML BOTTLE IV PRN ×4 (03:19→22:57)
[2017-01-31] MEDS: Chlorhexidine 0.12% Oral Sol 480 ml Bot PO SCH ×5 (03:44→23:37)
[2017-01-31] MEDS: Fentanyl 1000mcg/100ml NS 1,000 MCG/100 ML BAG IV PRN (05:05)
[2017-01-31 06:06] LABS: BASO # 0.01 K/mm3 (0.0-2.0); GRAN # 25.15 (1.4-6.5); GRAN % 92.5 % (50.0-68.0); HEMATOCRIT 29.4 % (36.0-48.0); LYMPH % 3.6 % (22.0-35.0); MEAN CORPUSCULAR HEMOGLOBIN 30.2 pg (25.0-35.0); MEAN CORPUSCULAR HGB CONC 34.4 g/dl (31.0-37.0); MEAN PLATELET VOLUME 10.9 fl (7.0-11.0); MONO # 1.1 (0.1-0.6); MONO % 3.9 % (1.0-6.0); RED CELL DISTRIBUTION WIDTH 15.3 % (11.5-14.5)
[2017-01-31 06:13] LABS: ALKALINE PHOSPHATASE 138 U/L (38-126); BILIRUBIN,TOTAL 0.6 mg/dL (0.2-1.3); BLOOD UREA NITROGEN 32 mg/dL (7-21); CARBON DIOXIDE 22 mmol/L (21-33); CHLORIDE 114 mmol/L (98-107); GFR AFRICAN-AMERICAN > 60; GLUCOSE,RANDOM 205 mg/dL (70-110); POTASSIUM 3.3 mmol/L (3.6-5.0); SODIUM 146 mmol/L (132-148); TOTAL PROTEIN 4.7 g/dL (5.8-8.3)
[2017-01-31 06:20] LABS: ARTERIAL BLOOD GAS HCO3 19.9 mmol/L (21-28); ARTERIAL BLOOD GAS PH 7.43 (7.35-7.45); ARTERIAL BLOOD HGB O2 SAT 97.8 % (95.0-98.0); CARBOXYHEMOGLOBIN 1.4 % (0.5-1.5); HHB -0.1 % (0-5); METHEMOGLOBIN 0.9 % (0.0-3.0)
[2017-01-31 06:27] LABS: WHITE BLOOD COUNT 27.2 10^3/ul (4.5-11.0)
[2017-01-31 06:55] LABS: ALT/SGPT 3761 U/L (7-56); AST/SGOT 2595 U/L (14-36); CALCIUM 5.8 mg/dL (8.4-10.5); TROPONIN I 0.48 ng/mL
[2017-01-31] MEDS: Budesonide 0.5 mg/2 ml Inhal Susp UD IH SCH ×2 (07:51→19:54)
--- NOTE | 2017-01-31 09:46 | PN ---
DATE: 01/31/2017(640am--730am) PULMONARY NOTE SUBJECTIVE: The patient remains on the ventilator. She remains sedated. OBJECTIVE: VITAL SIGNS: Temperature is 98.0, pulse 76, respirations 22/22, blood pressure 148/81. HEENT: Normocephalic, atraumatic. NECK: No JVD. CARDIOVASCULAR: Systolic ejection murmur at the lower left sternal border. Questionable S3 gallop. LUNGS: Crackles at both bases. Less rhonchi. No wheezing. EXTREMITIES: Mild edema. Less peripheral cyanosis. No clubbing. GASTROINTESTINAL: Abdomen is soft, nondistended. Bowel sounds are positive. SKIN: No acute rash. NEUROLOGIC: Limited at the present time. PERTINENT LABORATORY DATA: Chest x-ray was done this morning and reviewed. The chest x-ray is significantly improved-- with decreased pulmonary vascular congestive changes, and decreased pleural effusions. Arterial blood gas was done on assist control 22, tidal volume 350, FIO2 of 60%, PEEP of 8. Results are: PH 7.43, pCO2 of 30, pO2 of 167. IMPRESSION: 1. Respiratory failure. 2. Urosepsis. 3. Status post ureteral stent for obstructive stone. 4. Volume overload. 5. Chronic obstructive pulmonary disease. 6. Non-ST elevation myocardial infarction. PLAN: The patient remains in the ICU. She remains on the ventilator and sedated. I did discuss the case with the night nurse at length. The night nurse stated that the patient is doing well overall. The Levophed dosage has been decreased significantly. The blood pressure is certainly improved. I did review the chest x-ray as above. The chest x-ray shows significant improvement - compared to the initial films. I have also reviewed the arterial blood gas. The arterial blood gas has also significantly improved - with normalization of the PH and a significant decrease in the alveolar-arterial gradient. I would continue weaning down the FIO2 and PEEP. On physical exam, there is certainly less bronchospasm noted. I will continue the current nebulizer treatments and inhaled steroids for now. Inputs by Cardiology and Infectious Disease are also noted. Clinical status of the patient remains very guarded, but is certainly improved compared to a few days ago. I will discuss the above with the entire ICU team in the next few moments. I will also discuss the above with the attending physician later this morning. Shalom Guerin MD [facility] # [id number] JAZMÍN
[2017-01-31] MEDS: FOLIC ACID 400 MCG PO SCH (10:00)
--- NOTE | 2017-01-31 10:27 | RAD ---
HISTORY: Follow-up. COMPARISON: Multiple serial examinations preceding the most recent study: January 30, 2017. FINDINGS: LUNGS: Improved aeration of the lungs. PLEURA: Decrease in pleural effusions particularly on the right. CARDIOVASCULAR: No radiographic findings to suggest acute or significant cardiovascular disease. OSSEOUS STRUCTURES: No significant abnormalities. VISUALIZED UPPER ABDOMEN: Normal. OTHER FINDINGS: Stable position of support apparatus including right IJ catheter and endotracheal tube. IMPRESSION: Decrease in pleural effusions, improved aeration of the lungs.
--- NOTE | 2017-01-31 11:46 | PN ---
DATE: 01/31/2017 [employer] NOTE SUBJECTIVE: The patient is on the ventilator, sedated, requiring Levophed for blood pressure support. The patient is being sedated with Precedex and fentanyl and requires a bicarb drip at this time as well. With the pressors and ventilator support with FiO2 of 60%, the patient's hemodynamics is stable. PHYSICAL EXAMINATION: VITAL SIGNS: Her temperature is 98. Her pulse is 76, respirations are 22 and BP is 148/81. SKIN: Warm and dry. HEENT: Head atraumatic and normocephalic. Eyes are reactive to light. Ears, nose and throat seemed to be within normal limits. NECK: Supple. No JVD. No thyroid enlargement. No lymph nodes. HEART: Has a regular rate and rhythm. Normal S1 and S2. LUNGS: Reveal mild rhonchi bilaterally. ABDOMEN: Soft. Decreased bowel sounds. GENITALIA: Deferred. RECTAL: Deferred. MUSCULOSKELETAL: No joint deformities. EXTREMITIES: Reveal trace lower extremity edema. NEUROLOGICAL: The patient is sedated on the ventilator. LABORATORY DATA: As far as her laboratories are concerned, her white count is 27.2, hemoglobin is 10.1, hematocrit 29.4 with platelets of 51,000. Arterial blood gas reveals pH of 7.43, pCO2 of 30, and pO2 of 167. Sodium is 146, potassium 3.3, chloride 114, CO2 of 22, BUN of 32, creatinine of 0.9, and glucose of 121. Note that the patient's troponin is 0.48, which is elevated. As far as her chest x-ray, it is pending. IMPRESSION: This patient has septic shock with renal stone with urosepsis. The patient also has acute renal failure. She has respiratory failure requiring ventilator support and a history of coronary artery disease and myocardial infarction. She has thrombocytopenia and a small right pleural effusion, anemia and chronic pulmonary infiltrates. PLAN: We will continue with ventilator support and decreased the FiO2 as tolerated. The patient will continue with antibiotics. She is on sodium bicarb drip for metabolic acidosis as well as fentanyl, Precedex and Levophed. The patient will continue to get pulmonary toilet and bronchodilators. We will follow closely and treat aggressively along with the other consultants and the primary care doctor. Robbie Ward MD [facility] # [id number]
--- NOTE | 2017-01-31 12:01 | CP.PCM.PN ---
Subjective - Date & Time of Evaluation Date of Evaluation: 01/31/17 Time of Evaluation: 10:30 - Subjective Subjective: Continues to be on ventilator support and vasopressor support. Minimally responsive. No fevers overnight. Objective - Vital Signs/Intake and Output Vital Signs (last 24 hours): Temp Pulse Resp BP Pulse Ox 98 F 76 22 148/81 99 01/31/17 04:00 01/31/17 06:00 01/31/17 04:00 01/31/17 06:00 01/31/17 05:00 Intake and Output: 01/31/17 01/31/17 06:59 18:59 Intake Total 2088 Output Total 400 Balance 1688 - Medications Medications: Current Medications Acetaminophen (Tylenol 325mg Tab) 650 mg PO Q6H PRN PRN Reason: Fever >100.4 F Albuterol/Ipratropium (Duoneb 3 Mg/0.5 Mg (3 Ml) Ud) 3 ml IH [id number] [facility] Last Admin: 01/31/17 02:35 Dose: 3 ml Albuterol/Ipratropium (Duoneb 3 Mg/0.5 Mg (3 Ml) Ud) 3 ml IH Q2H PRN PRN Reason: Shortness of Breath Aspirin (Aspirin Chewable) 81 mg PO DAILY [facility] Last Admin: 01/30/17 10:30 Dose: Not Given Atorvastatin Calcium (Lipitor) 20 mg PO DAILY [facility] Last Admin: 01/30/17 10:30 Dose: Not Given Budesonide (Pulmicort Respules) 0.5 mg IH [id number] [facility] Last Admin: 01/30/17 20:20 Dose: 0.5 mg Chlorhexidine Gluconate (Peridex) 15 ml PO Q4H [facility] Last Admin: 01/31/17 03:44 Dose: 1 applic Clopidogrel Bisulfate (Plavix) 75 mg PO DAILY [facility] Last Admin: 01/30/17 10:29 Dose: Not Given Enoxaparin Sodium (Lovenox) 60 mg SC Q12H NO PRN Reason: Protocol Last Admin: 01/30/17 21:30 Dose: 60 mg Fluticasone Propionate (Flonase) 1 actuation NS DAILY [facility] Last Admin: 01/30/17 10:52 Dose: Not Given Hydrocortisone Sodium Succinate (Solu-Cortef) 100 mg IVP Q8 [facility] Last Admin: 01/31/17 05:19 Dose: 100 mg Propofol (Diprivan) 1,000 mg in 100 mls @ 2.034 mls/hr IV .Q24H PRN; Protocol; 5 MCG/KG/MIN PRN Reason: TITRATE PER MD ORDER Last Titration: 01/29/17 12:43 Dose: 0 mcg/kg/min, 0 mls/hr Fentanyl Citrate (Fentanyl Citrate/Sodium Chloride 1 Mg/100 Ml) 1,000 mcg in 100 mls @ 2 mls/hr IV .Q24H PRN; Protocol; 20 MCG/HR PRN Reason: TITRATE PER MD ORDER Last Admin: 01/31/17 05:05 Dose: 40 mcg/hr, 4 mls/hr Norepinephrine Bitartrate 8 mg (/ Sodium Chloride) 258 mls @ 77.4 mls/hr IV .Q3H20M NO; 40 MCG/MIN PRN Reason: Protocol Last Titration: 01/31/17 06:43 Dose: 8 mcg/min, 15.48 mls/hr Dexmedetomidine HCl (Precedex 4 Mcg/Ml (100 Ml)) 400 mcg in 100 mls @ 3.391 mls /hr IV .Q24H PRN; Protocol; 0.2 MCG/KG/HR PRN Reason: Anxiety Last Admin: 01/31/17 03:19 Dose: 1 mcg/kg/hr, 16.953 mls/hr Dextrose (Dextrose 10% In Water) 500 mls @ 30 mls/hr IV .[id number] [facility] Last Admin: 01/30/17 21:29 Dose: 30 mls/hr Sodium Bicarbonate 100 meq/ (Sodium Chloride) 1,100 mls @ 150 mls/hr IV .Q7H20M [facility] Last Admin: 01/30/17 23:45 Dose: 150 mls/hr Meropenem 1g/NS 100mL IVPB (Meropenem 1g/Ns 100ml Ivpb) 1 gm in 100 mls @ 100 mls/hr IVPB Q8 NO PRN Reason: Protocol Stop: 02/09/17 14:01 Folic Acid [Folic Acid] 400 Mcg (Home Med) 400 mcg PO DAILY [facility] Last Admin: 01/30/17 10:30 Dose: Not Given Pantoprazole Sodium (Protonix Inj) 40 mg IVP DAILY [facility] Last Admin: 01/30/17 10:23 Dose: 40 mg - Labs Labs: 01/31/17 05:45 01/31/17 05:45 PT 15.3 Seconds (9.9-11.8) H 01/29/17 05:30 INR 1.42 (0.93-1.08) H 01/29/17 05:30 APTT 37.3 Seconds (23.7-30.8) H 01/29/17 05:30 - Constitutional Appears: Other (intubated, sedated, on vasopressors) - Head Exam Head Exam: NORMAL INSPECTION - ENT Exam Additional comments: ET tube in place - Neck Exam Neck Exam: absent: Meningismus - Respiratory Exam Respiratory Exam: Decreased Breath Sounds - Cardiovascular Exam Cardiovascular Exam: +S1, +S2 - GI/Abdominal Exam GI & Abdominal Exam: Soft. absent: Tenderness Assessment and Plan - Assessment and Plan (Free Text) Plan: Assessment Severe sepsis / shock (septic or cardiogenic or both) with acute renal failure and probable shock liver due to E. coli bacteremia probably due to obstructing right ureteral stone with pyelonephritis S/P ureteral stent placement - initially gram positive cocci in clusters was found but did not grow eventually COPD CAD, consider acute coronary syndrome currently dyslipidemia carotid stenosis acute rhabdomyolysis Plan Continue Merrem and we have given a dose of IV amikacin; corrected blood cx result now not showing gram positive cocci in the blood - has been given a dose of IV Daptoymcin but we have discontinued since CK levels are more than 5000 - we gave a dose of IV Vancomycin instead 2D echo does not show vegetations follow up repeat blood cx from yesterday will continue monitor clinically overall prognosis is poor
--- NOTE | 2017-01-31 12:36 | RAD ---
HISTORY: OGT PLACEMENT COMPARISON: Chest x-ray performed 01/31/17 at 501 hours TECHNIQUE: Chest, one view. FINDINGS: Orogastric tube extends expected location of the stomach. Right central venous catheter extends to the cavoatrial junction. Endotracheal tube terminates approximately 3.3 cm above the poorly visualized merry. LUNGS: Small to moderate right and trace left pleural effusions and associated atelectasis/infiltrates. The lung apices are excluded from view. No definite pneumothorax. Numerous external wires and leads obscure evaluation of the underlying parenchyma. CARDIOVASCULAR: Heart size appears within normal limits. OSSEOUS STRUCTURES: Degenerative changes. Osseous demineralization. VISUALIZED UPPER ABDOMEN: Partially imaged right ureteral stent. OTHER FINDINGS: None. IMPRESSION: Support lines and tubes as above. Small to moderate right and trace left pleural effusions and associated atelectasis/ infiltrates.
[2017-01-31] MEDS: Meropenem 1g/NS 100mL IVPB 1 GM/100 ML PIGGYBACK IVPB SCH ×2 (13:11→23:00)
[2017-01-31] MEDS: Fluticasone Nasal 50 mcg/Spray NS SCH (14:27)
--- NOTE | 2017-01-31 14:35 | PN ---
DATE: COVERING FOR: Dr. Childers. SUBJECTIVE: I was asked to reevaluate Ms. Rosenbaum because of worsening thrombocytopenia as well as elevated troponin. At this time, the patient is lethargic. She is hypotensive, on Levophed infusion. PHYSICAL EXAMINATION: VITAL SIGNS: Blood pressure 79/48, heart rate 80 and temperature 98. HEENT: Pale conjunctivae. CHEST: Diminished breath sounds. HEART: S1 and S2 regular. ABDOMEN: Soft. EXTREMITIES: 1+ pitting edema. LABORATORY DATA: Hemoglobin and hematocrit 10.1 and 29.4, white count 27.2 and platelet count 51,000 which is a decline of about 9000 compared to yesterday. SMA-7; sodium 146, potassium 3.3, chloride 114, CO2 22, glucose 105, BUN 32 and creatinine 0.9. Calcium is within normal limits, 5.8. Troponin today is 0.48 and 0.45. AST and ALT are 2595 and 3761 respectively. Alkaline phosphatase is 138. Chest x-ray; possible right lower lobe infiltrate and/or effusion. echocardiography study revealed normal left ventricular size with mild concentric LVH and normal ejection fraction, moderately dilated right ventricle with moderately reduced right ventricular systolic function, moderate to interior wall assembler tricuspid regurgitation and mild to moderate mitral insufficiency. Today's EKG revealed junctional rhythm at a rate of 80 and nonspecific intraventricular conduction delay. EKG done three days ago revealed normal sinus rhythm at a rate of 97. ASSESSMENT: 1. Hypotension, rule out underlying sepsis. 2. Borderline troponin elevation. 3. Rule out [id number] myocardial infarction. 4. Gram-negative bacteremia. 5. History of coronary artery disease, status post coronary balloon angioplasty in the past but no stent placement. 6. Moderate pulmonary hypertension and depressed right ventricular systolic pressure. RECOMMENDATIONS: Continue current Levophed infusion and IV meropenem. Optimize potassium replacement. Subcutaneous Lovenox was discontinued. Obtain venous Doppler of lower extremities at the bedside and if positive, proceed with CT angiography of the chest. Jani Ceron MD
--- NOTE | 2017-01-31 17:29 | PN ---
SUBJECTIVE: The patient is 81 years old, seen and examined, remain on vent, sedated, currently in the process of tapering down Levophed. She seems to be holding her blood pressure at current dose. Daughters were at the bedside. I had a long discussion with the patient's daughter, Ashia. PHYSICAL EXAMINATION: VITAL SIGNS: She is afebrile, pulse 80, respiration 20, blood pressure 79/48. LUNGS: Bilateral fair airflow. No rhonchi or crackle. HEART: S1 and S2 audible. ABDOMEN: Soft, nontender. No rebound, no guarding. NEUROLOGIC: She is sedated, unable to assess. EXTREMITIES: Bilateral leg, +2 edema. She has bruise on her right coffey according to daughter, she dropped the ironing board and had a bruise on that. LABORATORY DATA: WBC is 27.2, hemoglobin 10, hematocrit 29, platelet of 51. Chemistry: Sodium 146, potassium 3.3, chloride 114, CO2 of 22, BUN 32, creatinine 0.9, blood sugar of 186. AST 2595, ALT 3061, alk phos 131, LDH is 7340. Today, troponin is 0.45. X-ray chest shows increasing pleural effusion, improved aeration of the lungs. Echocardiogram shows left ventricle is normal in size, mild concentric LVH, ejection fraction is 55%. ASSESSMENT AND PLAN: 1. Sepsis secondary to urinary source. 2. Nephrolithiasis, status post stent placement. 3. Escherichia coli bacteremia. Repeat cultures are negative. 4. Septic shock, and currently, the patient is hypotensive and still on Levophed. 5. Non-ST elevation myocardial infarction. 6. Thrombocytopenia, rule out fits. PLAN: We will hold her Lovenox. We will continue to give her aspirin. She is currently on IV fluids at 150 mL/hour, we will continue that. She is on meropenem. We will continue to monitor her electrolyte and CBC. I will supplement her potassium. Discussed with the patient's daughter, Ashia, at length. They expect at least that her mother does not want to get CPR; however, she wants optimal medical treatment. She is already intubated. I discussed with them about possibility of extubating, but they do not want to extubate for now. They want to watch till Thursday or Thursday. If she continues to improve, they will keep her intubated, but if her condition decline, they might consider extubating her. We will have Dobhoff tube placed today and we will start feeding her with Ensure. We will start with 30 mL/hour. Magali Snyder MD
--- NOTE | 2017-01-31 22:05 | CARD ---
APPROVED REPORT EKG Measurement Heart [id number] <Conclusion> Jnctional rhythm Left axis deviation Left bundle branch block Abnormal ECG
[2017-02-01] MEDS: Albuterol-Ipratrop 3 mg / 0.5 (3 ml) UD IH SCH ×4 (01:30→20:00)
[2017-02-01] MEDS: Dexmedetomidine HCl 4mcg/ml 400 MCG/100 ML BOTTLE IV PRN ×4 (04:11→22:04)
[2017-02-01] MEDS: Chlorhexidine 0.12% Oral Sol 480 ml Bot PO SCH ×5 (04:30→21:30)
[2017-02-01 05:28] LABS: ARTERIAL BLOOD GAS HCO3 27.8 mmol/L (21-28); ARTERIAL BLOOD GAS O2 CAPACITY 15.3 mL/dl (16-24); ARTERIAL BLOOD GAS O2 CONTENT 15.3 ML/dl (15-23); ARTERIAL BLOOD GAS PH 7.52 (7.35-7.45); ARTERIAL BLOOD HGB O2 SAT 97.2 % (95.0-98.0); CARBOXYHEMOGLOBIN 1.7 % (0.5-1.5); HHB 0.2 % (0-5); METHEMOGLOBIN 0.8 % (0.0-3.0)
[2017-02-01 06:45] LABS: BASO # 0.03 K/mm3 (0.0-2.0); BASO % 0.1 % (0.0-3.0); GRAN # 20.67 (1.4-6.5); HEMATOCRIT 30.2 % (36.0-48.0); LYMPH # 1.1 (1.2-3.4); LYMPH % 4.8 % (22.0-35.0); MEAN CELL VOLUME 88.8 fl (80.0-105.0); MEAN CORPUSCULAR HGB CONC 33.8 g/dl (31.0-37.0); MONO # 1.7 (0.1-0.6); MONO % 7.1 % (1.0-6.0); PLATELET COUNT 55 10^3/uL (120.0-450.0); RED CELL DISTRIBUTION WIDTH 15.2 % (11.5-14.5); WHITE BLOOD COUNT 23.5 10^3/ul (4.5-11.0)
[2017-02-01] MEDS: Meropenem 1g/NS 100mL IVPB 1 GM/100 ML PIGGYBACK IVPB SCH ×3 (06:46→21:22)
[2017-02-01 07:24] LABS: ALKALINE PHOSPHATASE 119 U/L (38-126); BILIRUBIN,TOTAL 0.6 mg/dL (0.2-1.3); BLOOD UREA NITROGEN 33 mg/dL (7-21); CARBON DIOXIDE 32 mmol/L (21-33); CHLORIDE 109 mmol/L (98-107); GFR AFRICAN-AMERICAN > 60; GLUCOSE,RANDOM 204 mg/dL (70-110); MAGNESIUM 1.9 mg/dL (1.7-2.2); PHOSPHOROUS 1.5 mg/dL (2.5-4.5); POTASSIUM 3.7 mmol/L (3.6-5.0); SODIUM 144 mmol/L (132-148); TOTAL PROTEIN 4.5 g/dL (5.8-8.3)
[2017-02-01 07:30] LABS: AST/SGOT 1060 U/L (14-36)
[2017-02-01 07:35] LABS: ATYPICAL LYMPHOCYTE 1 % (0.0-0.0); NEUTROPHIL 88 % (50.0-70.0)
[2017-02-01 07:36] LABS: LARGE PLATELETS PRESENT; PLATELET ESTIMATE LOW (NORMAL)
[2017-02-01 07:46] LABS: ARTERIAL BLOOD GAS HCO3 29.1 mmol/L (21-28); ARTERIAL BLOOD GAS O2 CAPACITY 14.1 mL/dl (16-24); ARTERIAL BLOOD GAS O2 CONTENT 13.9 ML/dl (15-23); ARTERIAL BLOOD GAS PH 7.54 (7.35-7.45); ARTERIAL BLOOD HGB O2 SAT 95.5 % (95.0-98.0); HHB 1.2 % (0-5); METHEMOGLOBIN 1.4 % (0.0-3.0)
[2017-02-01] MEDS: Budesonide 0.5 mg/2 ml Inhal Susp UD IH SCH (07:50)
[2017-02-01] MEDS: Fentanyl 1000mcg/100ml NS 1,000 MCG/100 ML BAG IV PRN (08:01)
[2017-02-01 08:27] LABS: ALT/SGPT 2698 U/L (7-56)
[2017-02-01] MEDS ORDERED: SODIUM PHOSPHATE IV SCH (08:45)
[2017-02-01] MEDS ORDERED: SODIUM CHLORIDE IV SCH (08:45)
--- NOTE | 2017-02-01 09:23 | PN ---
DATE: 02/01/2017 SUBJECTIVE: The patient is intubated. PHYSICAL EXAMINATION: VITAL SIGNS: Temperature is 98.3, pulse is 78, blood pressure is 110/75 and respiration is 21. GENERAL: The patient is lying in bed, flat, comfortable. HEENT: No oral lesion. Anicteric sclerae. Moist mucosa. NECK: No JVD, adenopathy, or thyromegaly. CARDIOVASCULAR: S1 and S2, regular. No murmurs, rubs, or gallops. LUNGS: Clear to auscultation bilaterally. No wheeze, rales, or rhonchi. ABDOMEN: Bowel sounds are positive, soft, nontender and nondistended. EXTREMITIES: Lower extremities 1+ edema and in the upper extremity, there is 1+ edema. No cyanosis or clubbing. LABORATORY DATA: White count of 23.5, hemoglobin 10.2 and platelets of 55. ASSESSMENT: 1. Sepsis. 2. Right-sided nephrolithiasis, status post ureteral stent placement. 3. Septic shock. 4. [id number] myocardial infarction. 5. Thrombocytopenia. 6. Anemia, chronic. 7. Hypophosphatemia. 8. Respiratory failure, on ventilator. 9. Shock liver. 10. Anasarca. 11. Do not resuscitate. PLAN: The patient is currently critically ill and shock. The patient has thrombocytopenia. She is on aspirin. She is on Pulmicort inhaler. She is on Levophed for her shock. She is on hydrocortisone. I will replace her phosphorus. We will discontinue her D5W. She is on Lipitor for her dyslipidemia given that her liver functions are significantly elevated, possibly from a shock liver. We will discontinue the patient's Lipitor. Her urine output is decreased. She has a large amount of volume that was given to her, and she is about 6500 mL positive, that is why she has anasarca. OVERALL PROGNOSIS: Poor. Angel Chaidez MD
[2017-02-01] MEDS: FOLIC ACID 400 MCG PO SCH (09:28)
[2017-02-01] MEDS: Fluticasone Nasal 50 mcg/Spray NS SCH (09:29)
--- NOTE | 2017-02-01 09:33 | PN ---
PULMONARY NOTE DATE: 02/01/2017(625am--715am) SUBJECTIVE: The patient remains on the ventilator. She remains sedated. OBJECTIVE: VITAL SIGNS: Temperature is 98.5, pulse 83, respirations 22/22, and blood pressure 116/74. HEENT: Normocephalic and atraumatic. NECK: No JVD. CARDIOVASCULAR: Systolic ejection murmur at the lower left sternal border. Questionable S3 gallop. LUNGS: Crackles at both bases. Much less rhonchi. No wheezing. EXTREMITIES: Mild edema. Less peripheral cyanosis. No clubbing. GASTROINTESTINAL: Abdomen is soft and nondistended. Bowel sounds are positive. SKIN: No acute rash. NEUROLOGIC: Limited at the present time. PERTINENT LABORATORY DATA: Chest x-ray was done this morning and reviewed. The chest x-ray today shows no significant change from yesterday's film. Arterial blood gas was done on assist control 22, tidal volume 350, FIO2 of 60%, and PEEP of 8. Results are: PH of 7.52, pCO2 of 34, and pO2 of 107. IMPRESSION: 1. Respiratory failure. 2. Urosepsis. 3. Status post ureteral stent for obstructive stone. 4. Volume overload. 5. Chronic obstructive pulmonary disease. 6. Non-ST elevation myocardial infarction. PLAN: The patient remains in the ICU. She remains on the ventilator and sedated. I did discuss the case with the night nurse at length. The night nurse stated that the patient is doing well overall. The night nurse was also able to decrease the Levophed dosage. The patient is much more hemodynamically stable at this point in time. I did review the chest x-ray as above. The x-ray has not significantly changed from the previous film. I have also reviewed the arterial blood gas. The pH is now alkalotic. She remains with a moderate increase in the alveolar-arterial gradient. The plan will be to decrease the minute ventilation and FIO2 this morning. I have also ordered a repeat arterial blood gas to be done in 1 hour. I will be called with those results. On physical exam, her bronchospasm is certainly less. I will continue with the current nebulizer treatments and inhaled steroids for now. Inputs by Cardiology and Infectious Disease are noted. Repeat a.m. labs are pending. Clinical status of the patient is certainly improved - compared to a few days ago. However, again, the future status/prognosis for this elderly patient does remain very guarded. I will discuss the above with the entire ICU team in the next few moments. I will also discuss the above with the attending physician. Shalom Guerin MD MTDD
--- NOTE | 2017-02-01 10:07 | PN ---
DATE: 02/01/2017 STONE OPERATOR NOTE SUBJECTIVE: The patient is on a ventilator with a FiO2 of 50%, still requiring Levophed for blood pressure. She is on bicarb drip as well as fentanyl and with those medications she is managing to stay hemodynamically stable. PHYSICAL EXAMINATION: VITAL SIGNS: Reveals a temperature of 98.3, pulse is 78, respirations are 20, and BP is 116/74. SKIN: Warm and dry. HEENT: Head is atraumatic and normocephalic. Eyes are reactive to light. Ears, nose and throat seen to be within normal limits. NECK: Supple. No JVD. No thyroid enlargement. No lymph nodes. HEART: Regular rate and rhythm. Normal S1, S2. LUNGS: Reveal mild rhonchi bilaterally. ABDOMEN: Soft. Decrease bowel sounds. GENITALIA: Deferred. RECTAL: Deferred. MUSCULOSKELETAL: No joint deformities. EXTREMITIES: Reveal trace lower extremity edema. NEUROLOGICAL: The patient is sedated on a ventilator. LABORATORY DATA: As far as her laboratories are concerned; her white count is 23.5, hemoglobin is 10.2, hematocrit 30.2 with platelets of 55,000. Arterial blood gas reveals a pH of 7.45, pCO2 of 34, pO2 of 75. Sodium is 144, potassium 3.7, chloride 109, CO2 of 23 with a BUN of 33, creatinine of 0.8 and glucose of 204. Chest x-ray is pending. IMPRESSION: The patient has a septic shock with history of a renal stone and urosepsis. The patient has acute renal failure, respiratory failure requiring ventilator support. Also, has history of coronary artery disease, myocardial infarction, thrombocytopenia, maybe secondary to anticoagulants. The patient has a small right pleural effusion and chronic pulmonary infiltrates. PLAN: As far as our plan, we will continue with ventilator support and decrease the FiO2 as tolerated. The patient is on antibiotics as well as bicarb drip and continues to require fentanyl as well as Levophed and Precedex. We will continue with pulmonary toilet and bronchodilators and follow the chest x-ray and arterial blood gas closely. We will continue to treat aggressively along with the other consultants and primary care doctor. Robbie Ward MD
--- NOTE | 2017-02-01 11:16 | RAD ---
HISTORY: Follow-up. COMPARISON: Multiple serial examinations preceding the most recent study: January 31, 2017. FINDINGS: LUNGS: Stable pulmonary infiltrates PLEURA: Stable pleural effusions CARDIOVASCULAR: No significant interval change compared to the prior examination(s). OSSEOUS STRUCTURES: No significant abnormalities. VISUALIZED UPPER ABDOMEN: Normal. OTHER FINDINGS: Stable, satisfactory position ventilatory, vascular and nasogastric apparatus. IMPRESSION: No significant interval change compared to the prior examination(s).
--- NOTE | 2017-02-01 14:24 | CP.PCM.PN ---
Subjective - Date & Time of Evaluation Date of Evaluation: 02/01/17 Time of Evaluation: 10:10 - Subjective Subjective: Continues to be intubated, grimaces with painful stimuli, no fevers overnight, still on vasopressor support. Objective - Vital Signs/Intake and Output Vital Signs (last 24 hours): Temp Pulse Resp BP Pulse Ox 98.5 F 83 21 116/74 99 01/31/17 20:00 02/01/17 04:30 02/01/17 00:00 02/01/17 04:00 02/01/17 04:30 Intake and Output: 02/01/17 02/01/17 06:59 18:59 Intake Total 200 Balance 200 - Medications Medications: Current Medications Acetaminophen (Tylenol 325mg Tab) 650 mg PO Q6H PRN PRN Reason: Fever >100.4 F Albuterol/Ipratropium (Duoneb 3 Mg/0.5 Mg (3 Ml) Ud) 3 ml IH [id number] [facility] Last Admin: 02/01/17 01:30 Dose: 3 ml Albuterol/Ipratropium (Duoneb 3 Mg/0.5 Mg (3 Ml) Ud) 3 ml IH Q2H PRN PRN Reason: Shortness of Breath Aspirin (Aspirin Chewable) 81 mg PO DAILY [facility] Last Admin: 01/31/17 09:57 Dose: 81 mg Atorvastatin Calcium (Lipitor) 20 mg PO DAILY [facility] Last Admin: 01/31/17 09:57 Dose: 20 mg Budesonide (Pulmicort Respules) 0.5 mg IH [id number] [facility] Last Admin: 01/31/17 19:54 Dose: 0.5 mg Chlorhexidine Gluconate (Peridex) 15 ml PO Q4H [facility] Last Admin: 02/01/17 04:30 Dose: 1 applic Clopidogrel Bisulfate (Plavix) 75 mg PO DAILY [facility] Last Admin: 01/31/17 09:57 Dose: 75 mg Fluticasone Propionate (Flonase) 1 actuation NS DAILY [facility] Last Admin: 01/31/17 14:27 Dose: Not Given Hydrocortisone Sodium Succinate (Solu-Cortef) 100 mg IVP Q8 [facility] Last Admin: 02/01/17 06:47 Dose: 100 mg Propofol (Diprivan) 1,000 mg in 100 mls @ 2.034 mls/hr IV .Q24H PRN; Protocol; 5 MCG/KG/MIN PRN Reason: TITRATE PER MD ORDER Last Titration: 01/29/17 12:43 Dose: 0 mcg/kg/min, 0 mls/hr Fentanyl Citrate (Fentanyl Citrate/Sodium Chloride 1 Mg/100 Ml) 1,000 mcg in 100 mls @ 2 mls/hr IV .Q24H PRN; Protocol; 20 MCG/HR PRN Reason: TITRATE PER MD ORDER Last Admin: 01/31/17 05:05 Dose: 40 mcg/hr, 4 mls/hr Norepinephrine Bitartrate 8 mg (/ Sodium Chloride) 258 mls @ 77.4 mls/hr IV .Q3H20M NO; 40 MCG/MIN PRN Reason: Protocol Last Titration: 01/31/17 17:30 Dose: 6 mcg/min, 11.61 mls/hr Dexmedetomidine HCl (Precedex 4 Mcg/Ml (100 Ml)) 400 mcg in 100 mls @ 3.391 mls /hr IV .Q24H PRN; Protocol; 0.2 MCG/KG/HR PRN Reason: Anxiety Last Admin: 02/01/17 04:11 Dose: 1 mcg/kg/hr, 16.953 mls/hr Dextrose (Dextrose 10% In Water) 500 mls @ 30 mls/hr IV .[id number] NO Last Admin: 01/31/17 14:10 Dose: 30 mls/hr Sodium Bicarbonate 100 meq/ (Sodium Chloride) 1,100 mls @ 150 mls/hr IV .Q7H20M [facility] Last Admin: 02/01/17 00:20 Dose: 150 mls/hr Meropenem 1g/NS 100mL IVPB (Meropenem 1g/Ns 100ml Ivpb) 1 gm in 100 mls @ 100 mls/hr IVPB Q8 NO PRN Reason: Protocol Stop: 02/09/17 14:01 Last Admin: 02/01/17 06:46 Dose: 100 mls/hr Folic Acid [Folic Acid] 400 Mcg (Home Med) 400 mcg PO DAILY NO Pantoprazole Sodium (Protonix Inj) 40 mg IVP DAILY NO Last Admin: 01/31/17 09:57 Dose: 40 mg - Labs Labs: 02/01/17 06:30 02/01/17 06:30 PT 15.3 Seconds (9.9-11.8) H 01/29/17 05:30 INR 1.42 (0.93-1.08) H 01/29/17 05:30 APTT 37.3 Seconds (23.7-30.8) H 01/29/17 05:30 - Constitutional Appears: Other (intubated) - Head Exam Head Exam: NORMAL INSPECTION - ENT Exam Additional comments: ET tube in place - Neck Exam Neck Exam: absent: Meningismus - Respiratory Exam Respiratory Exam: Decreased Breath Sounds - Cardiovascular Exam Cardiovascular Exam: +S1, +S2 - GI/Abdominal Exam GI & Abdominal Exam: Soft. absent: Tenderness Assessment and Plan - Assessment and Plan (Free Text) Plan: Assessment Severe sepsis / shock (septic or cardiogenic or both) with acute renal failure ( resolved renal failure) and probable shock liver due to E. coli bacteremia probably due to obstructing right ureteral stone with pyelonephritis S/P ureteral stent placement - initially gram positive cocci in clusters was found but did not grow eventually COPD CAD, consider acute coronary syndrome currently dyslipidemia carotid stenosis acute rhabdomyolysis Plan Continue Merrem and we have given a dose of IV amikacin repeat blood cx from 01/30 are negative will continue monitor clinically overall prognosis is poor
--- NOTE | 2017-02-01 15:04 | PN ---
DATE: SUBJECTIVE: The patient is currently on ventilator. She is on Levophed at 4 mcg per minute. PHYSICAL EXAMINATION: VITAL SIGNS: Blood pressure 115/58, heart rate 76, and temperature 98.3. HEENT: Pale conjunctivae. CHEST: Bilateral rhonchi. HEART: S1 and S2 regular. EXTREMITIES: No edema. LABORATORY DATA: Hemoglobin and hematocrit 10.2 and 30.2, white count 23.5, and platelet count is 65,000. Today's SMA-7; sodium 144, potassium 3.7, chloride 109, CO2 is 32, glucose 204, BUN 33, and creatinine 0.8. Calcium has been normal at 6.0. AST and ALT are 1060 and 2698 respectively. Alkaline phosphatase is within normal limits. Venous Doppler of lower extremity was performed, however, the reports are still pending. Chest x-ray, no significant interval changes. ASSESSMENT: 1. Sepsis and hypertension. 2. Borderline troponin elevation. 3. Gram negative bacteremia. 4. History of coronary artery disease, status post balloon angioplasty in the past. 5. Moderate pulmonary hypertension. 6. Depressed right ventricular systolic function. RECOMMENDATIONS: Continue current aspirin 81 mg once a day, IV meropenem at 1 g q. 8 hours, continue Levophed at 4 mcg per minute, and Plavix 75 mg once a day. The patient is not a suitable candidate for beta-blockers. I will follow the venous Doppler of the lower extremity report once it is available. Jani Ceron MD
[2017-02-01] MEDS ORDERED: ARGATROBAN IV SCH (17:00)
[2017-02-01] MEDS ORDERED: DEXTROSE 5% IV SCH (17:00)
[2017-02-01] MEDS ORDERED: WATER IV SCH (17:00)
--- NOTE | 2017-02-01 18:07 | CON ---
DATE: 02/01/2017 HISTORY OF PRESENT ILLNESS: Ms. Rosenbaum is 81-year-old female admitted to the hospital with altered mental status. She was found to have urosepsis. She has history of renal stone. Currently, she is on ventilator and pressor support with Levophed. She has respiratory failure. She presented with acute renal failure, now with fluid overload. She is sedated . PAST MEDICAL HISTORY: Hypertension, COPD, hyperlipidemia, carotid artery stenosis and history of myocardial infarction in the remote past. PAST SURGICAL HISTORY: Cyst removal from the ear. ALLERGIES: AMOXICILLIN, AUGMENTIN, METHYLPREDNISOLONE, OLMESARTAN. FAMILY HISTORY: Noncontributory. SOCIAL HISTORY: Lives with her daughter. PERSONAL HISTORY: Heavy smoker in the past. REVIEW OF SYSTEMS: Intubated, sedated. Rest of the 12-point review of systems could not be reviewed. PHYSICAL EXAMINATION GENERAL: Comfortable in bed, in no acute distress, intubated, sedated, on pressor support. VITAL SIGNS: Heart rate is 74, blood pressure 115/65, on Levophed, respiratory rate 18 per minute, oxygen saturation 100% on 50% FiO2. HEENT: Normal, sedated, intubated. Oral mucosa dry. CARDIOVASCULAR: S1 and S2 normal. No murmur, no gallop. CHEST: Air entry present and equal bilaterally. ABDOMEN: Subcutaneous edema present. Nontender. No rebound tenderness. EXTREMITIES: Bilateral edema present. SKIN: Multiple petechiae on the arms. Subcutaneous edema present on the arms. GUARD CAPTAIN: Sedated, intubated. Moving all the limbs. No focal motor deficit. LABORATORY DATA: White count 23,000, hemoglobin 10.2, hematocrit 30.2, platelets 55. On admission, platelet count was 112. Sodium 144, potassium 3.7, creatinine 0.8, calcium 6, phosphorus 1.5, magnesium 1.9. INR 1.4, PTT 37, PT 15.3, . Blood culture showed E. coli. Urine culture E. coli. Blood culture 01/30/2017 negative. MEDICATIONS: Tylenol 650 q. 6 hours p.r.n., DuoNeb, aspirin 81 mg daily, Plavix 75 mg daily, Precedex drip, fentanyl drip, Solu-Cortef 100 mg q. 8, meropenem, folic acid, norepinephrine, Protonix 40 mg daily, propofol drip, bicarb. ASSESSMENT: 1. Urosepsis, Gram-negative with Escherichia coli. 2. Respiratory failure. 3. Non-ST elevation myocardial infarction. 4. Thrombocytopenia, possible heparin induced. PLAN: Platelet count dropped from 112,000 to 55,000. She got Lovenox b.i.d. for few days. She might have heparin-induced thrombocytopenia. HIT assay is pending. I will send serotonin assay that is more specific for heparin-induced thrombocytopenia. I will start the argatroban drip, spoke to the pharmacist at [facility], to monitor as per protocol. Discussed with the staff nurse regarding the drip. Heparin-induced thrombocytopenia cause hypercoagulable state and risk for extensive thrombosis and embolism. She also has leukocytosis, likely related to urosepsis. WC declined to 23,000, today it was 27,000. Hemodynamically : circulatory failure, on pressor support. Respiratory failure, intubated on ventilatory support. Renal insufficiency, fluid overload, renal function improved. Urosepsis, Gram-negative on IV antibiotic, ID following. Case Discussed with the ICU MD, discussed with the staff nurse, discussed with the pharmacy at [facility]. Thank you Dr. Snyder for allowing us to participate in Ms. Rosenbaum's care. We will continue to follow. Jeanette Tariq MD JAZMÍN
[2017-02-01] MEDS ORDERED: Morphine 4 mg/ml ISec IVP ONE (23:45)
[2017-02-01] MEDS ORDERED: Morphine 2 mg/ml ISec IVP ONE (23:49)
[2017-02-01] MEDS ORDERED: Metoprolol 1 mg/ml Inj IVP ONE (23:50)
[2017-02-02] MEDS ORDERED: Amiodarone 150 mg/D5W 100 ml 150 MG/100 ML BAG IVPB ONE (00:08)
[2017-02-02] MEDS: Chlorhexidine 0.12% Oral Sol 480 ml Bot PO SCH ×6 (00:10→19:30)
[2017-02-02] MEDS ORDERED: Amiodarone 150 mg/D5W 100 ml 150 MG/100 ML BAG ONE (00:14)
[2017-02-02] MEDS ORDERED: Magnesium Sulfate 2 GM in Sodium Chloride 0.9% 100 ML IVPB ONE (00:18)
[2017-02-02] MEDS: Amiodarone 360 mg/D5W 200 ml 360 MG/200 ML BAG IV SCH ×2 (00:33→12:17)
[2017-02-02] MEDS: Dexmedetomidine HCl 4mcg/ml 400 MCG/100 ML BOTTLE IV PRN ×2 (01:23→07:55)
[2017-02-02] MEDS: Albuterol-Ipratrop 3 mg / 0.5 (3 ml) UD IH SCH ×4 (01:55→21:05)
[2017-02-02 05:28] LABS: ARTERIAL BLOOD GAS HCO3 31.5 mmol/L (21-28); ARTERIAL BLOOD GAS O2 CAPACITY 17.4 mL/dl (16-24); ARTERIAL BLOOD GAS O2 CONTENT 16.7 ML/dl (15-23); ARTERIAL BLOOD GAS PH 7.55 (7.35-7.45); ARTERIAL BLOOD HGB O2 SAT 92.9 % (95.0-98.0); CARBOXYHEMOGLOBIN 2.1 % (0.5-1.5); HHB 3.9 % (0-5); METHEMOGLOBIN 1.1 % (0.0-3.0)
[2017-02-02 06:01] LABS: BASO # 0.02 K/mm3 (0.0-2.0); BASO % 0.1 % (0.0-3.0); EOS % 0.1 % (1.5-5.0); GRAN # 17.02 (1.4-6.5); GRAN % 85.3 % (50.0-68.0); HEMATOCRIT 31.3 % (36.0-48.0); LYMPH # 1.1 (1.2-3.4); LYMPH % 5.7 % (22.0-35.0); MEAN CELL VOLUME 90.2 fl (80.0-105.0); MEAN CORPUSCULAR HGB CONC 33.2 g/dl (31.0-37.0); MEAN PLATELET VOLUME 11.1 fl (7.0-11.0); MONO # 1.8 (0.1-0.6); MONO % 8.8 % (1.0-6.0); RED CELL DISTRIBUTION WIDTH 15.5 % (11.5-14.5); WHITE BLOOD COUNT 19.9 10^3/ul (4.5-11.0)
[2017-02-02] MEDS: Meropenem 1g/NS 100mL IVPB 1 GM/100 ML PIGGYBACK IVPB SCH ×3 (06:17→21:06)
[2017-02-02 06:38] LABS: ALKALINE PHOSPHATASE 110 U/L (38-126); AST/SGOT 689 U/L (14-36); BILIRUBIN,TOTAL 0.6 mg/dL (0.2-1.3); BLOOD UREA NITROGEN 41 mg/dL (7-21); CARBON DIOXIDE 36 mmol/L (21-33); CHLORIDE 105 mmol/L (95-110); GFR AFRICAN-AMERICAN > 60; GLUCOSE,RANDOM 209 mg/dL (70-110); MAGNESIUM 2.2 mg/dL (1.7-2.2); PHOSPHOROUS 2.4 mg/dL (2.5-4.5); POTASSIUM 3.4 mmol/L (3.6-5.0); SODIUM 147 mmol/L (132-148); TOTAL PROTEIN 4.4 g/dL (5.8-8.3)
[2017-02-02 07:10] LABS: ALT/SGPT 1904 U/L (7-56)
[2017-02-02 07:14] LABS: CALCIUM 5.5 mg/dL (8.4-10.5)
--- NOTE | 2017-02-02 07:57 | CP.PCM.PN ---
Subjective - Date & Time of Evaluation Date of Evaluation: 02/01/17 Time of Evaluation: 23:00 - Subjective Subjective: Overnight Events: -Pt developed A-fib with RVR overnight and therefore Amiodarone drip was started (with subsequent control of rate) -Pt already on anticoagulation (Agatroban) for NSTEMI -CXR this AM (02/02) show signifincant increase in vascular congestion; Thus, Lasix 40mg IV Q daily initiated Objective - Vital Signs/Intake and Output Vital Signs (last 24 hours): Temp Pulse Resp BP Pulse Ox 99.6 F 68 21 105/52 L 95 02/01/17 22:44 02/02/17 04:30 02/01/17 00:00 02/02/17 06:51 02/02/17 04:30 Intake and Output: 02/02/17 02/02/17 06:59 18:59 Intake Total 228 13 Balance 228 13 - Medications Medications: Current Medications Acetaminophen (Tylenol 325mg Tab) 650 mg PO Q6H PRN PRN Reason: Fever >100.4 F Last Admin: 02/01/17 22:44 Dose: 650 mg Albuterol/Ipratropium (Duoneb 3 Mg/0.5 Mg (3 Ml) Ud) 3 ml IH [id number] [facility] Last Admin: 02/02/17 01:55 Dose: 3 ml Albuterol/Ipratropium (Duoneb 3 Mg/0.5 Mg (3 Ml) Ud) 3 ml IH Q2H PRN PRN Reason: Shortness of Breath Aspirin (Aspirin Chewable) 81 mg PO DAILY [facility] Last Admin: 02/01/17 09:28 Dose: 81 mg Budesonide (Pulmicort Respules) 0.5 mg IH [id number] [facility] Last Admin: 02/01/17 07:50 Dose: 0.5 mg Chlorhexidine Gluconate (Peridex) 15 ml PO Q4H [facility] Last Admin: 02/02/17 03:54 Dose: 1 applic Clopidogrel Bisulfate (Plavix) 75 mg PO DAILY [facility] Last Admin: 01/31/17 09:57 Dose: 75 mg Fluticasone Propionate (Flonase) 1 actuation NS DAILY [facility] Last Admin: 02/01/17 09:29 Dose: Not Given Furosemide (Lasix) 40 mg IVP DAILY NO Last Admin: 02/02/17 06:51 Dose: 40 mg Hydrocortisone Sodium Succinate (Solu-Cortef) 100 mg IVP Q8 NO Last Admin: 02/02/17 06:17 Dose: 100 mg Propofol (Diprivan) 1,000 mg in 100 mls @ 2.034 mls/hr IV .Q24H PRN; Protocol; 5 MCG/KG/MIN PRN Reason: TITRATE PER MD ORDER Last Titration: 01/29/17 12:43 Dose: 0 mcg/kg/min, 0 mls/hr Fentanyl Citrate (Fentanyl Citrate/Sodium Chloride 1 Mg/100 Ml) 1,000 mcg in 100 mls @ 2 mls/hr IV .Q24H PRN; Protocol; 20 MCG/HR PRN Reason: TITRATE PER MD ORDER Last Admin: 02/01/17 08:01 Dose: 40 mcg/hr, 4 mls/hr Norepinephrine Bitartrate 8 mg (/ Sodium Chloride) 258 mls @ 77.4 mls/hr IV .Q3H20M NO; 40 MCG/MIN PRN Reason: Protocol Last Admin: 02/01/17 18:34 Dose: 2.5 mcg/min, 4.83 mls/hr Dexmedetomidine HCl (Precedex 4 Mcg/Ml (100 Ml)) 400 mcg in 100 mls @ 3.391 mls /hr IV .Q24H PRN; Protocol; 0.2 MCG/KG/HR PRN Reason: Anxiety Last Admin: 02/02/17 01:23 Dose: 1 mcg/kg/hr, 16.953 mls/hr Sodium Bicarbonate 100 meq/ (Sodium Chloride) 1,100 mls @ 150 mls/hr IV .Q7H20M NO Last Admin: 02/01/17 22:33 Dose: 150 mls/hr Meropenem 1g/NS 100mL IVPB (Meropenem 1g/Ns 100ml Ivpb) 1 gm in 100 mls @ 100 mls/hr IVPB Q8 NO PRN Reason: Protocol Stop: 02/09/17 14:01 Last Admin: 02/02/17 06:17 Dose: 100 mls/hr Argatroban 250 mg/ Sodium (Chloride) 250 mls @ 2.4 mls/hr IV .Q24H NO; 0.5 MCG /KG/MIN PRN Reason: Protocol Last Titration: 02/02/17 07:31 Dose: 0.89 mcg/kg/min, 4.28 mls/hr Amiodarone HCl/Dextrose (Nexterone 360 Mg In D5w 200 Ml (Premix)) 360 mg in 200 mls @ 16.667 mls/hr IV .Q12H NO; 0.5 MG/MIN PRN Reason: Protocol Last Admin: 02/02/17 00:33 Dose: 16.667 mls/hr Calcium Gluconate 1,000 mg/ (Sodium Chloride) 110 mls @ 110 mls/hr IVPB ONCE ONE Stop: 02/02/17 08:14 Folic Acid [Folic Acid] 400 Mcg (Home Med) 400 mcg PO DAILY NO Last Admin: 02/01/17 09:28 Dose: 400 mcg Pantoprazole Sodium (Protonix Inj) 40 mg IVP DAILY NO Last Admin: 02/01/17 09:28 Dose: 40 mg - Labs Labs: 02/02/17 05:35 02/02/17 05:35 PT 15.3 Seconds (9.9-11.8) H 01/29/17 05:30 INR 1.42 (0.93-1.08) H 01/29/17 05:30 APTT 42.9 Seconds (23.7-30.8) H 02/02/17 06:52
[2017-02-02] MEDS: Budesonide 0.5 mg/2 ml Inhal Susp UD IH SCH ×2 (08:10→21:28)
--- NOTE | 2017-02-02 08:14 | PN ---
PULMONARY NOTE DATE: 02/02/2017(620am--710am) SUBJECTIVE: The patient remains on the ventilator. She is sedated. PHYSICAL EXAMINATION: VITAL SIGNS: Temperature is 99.6, pulse 68, respirations 18/16, blood pressure 105/52. HEENT: Normocephalic, atraumatic. No JVD. CARDIOVASCULAR: Systolic ejection murmur at the lower left sternal border. Questionable S3 gallop. LUNGS: Crackles at both bases. Minimal bilateral rhonchi. No wheezing. EXTREMITIES: Mild edema. Less peripheral cyanosis. No clubbing. GI: Abdomen is soft, nondistended. Bowel sounds are positive. SKIN: No acute rash. NEUROLOGIC: Exam limited at the present time. PERTINENT LABORATORY DATA: Chest x-ray was done this morning and reviewed. There are definite signs of worsening volume overload, with recurrence of the bilateral pleural effusions. Arterial blood gas was done on assist control 16, tidal volume 300, FiO2 of 50%, PEEP of 8. Results are: PH 7.55, pCO2 of 36, pO2 of 63. IMPRESSION: 1. Respiratory failure. 2. Urosepsis. 3. Status post ureteral stent for obstructive stone. 4. Volume overload. 5. Chronic obstructive pulmonary disease. 6. Non-ST elevation myocardial infarction. PLAN: The patient remains in the ICU. She remains on the ventilator and sedated. I did discuss the case with the night nurse at length. I have also discussed the case with the biomedical engineering aide and Dr. Green (Paper Plate Machine Tender) at length. We did discuss the chest x-ray and fluid status. Apparently, the patient is significantly positive over the past 2 days. The patient was given Lasix this morning. Intravenous input will be decreased. On physical exam, there is only mild bronchospasm noted. I will continue the current nebulizer treatments and inhaled steroids for now. I would continue with the antibiotic coverage as per infectious disease. Leukocytosis is decreased. I would continue with the Hematology and Cardiology evaluations. Inputs are noted. Additional repeat a.m. labs are pending. The patient remains critically ill with very guarded prognosis. I will discuss the above with today's ICU team in the next few moments. I will discuss the above with the attending physician later this morning. Shalom Guerin MD [facility] # [id number] JAZMÍN
[2017-02-02] MEDS: Fentanyl 1000mcg/100ml NS 1,000 MCG/100 ML BAG IV PRN (08:30)
[2017-02-02] MEDS: Fluticasone Nasal 50 mcg/Spray NS SCH (09:25)
[2017-02-02] MEDS: FOLIC ACID 400 MCG PO SCH (09:29)
--- NOTE | 2017-02-02 09:46 | RAD ---
HISTORY: intubated, f/u COMPARISON: 02/01/2017 FINDINGS: The endotracheal tube terminates 2 cm proximal to the merry. The right IJV line terminates at the cavoatrial junction. The nasogastric tube extends below the diaphragm, the tip is not visualized the LUNGS: There is pulmonary venous congestion and chronic changes in both lungs. PLEURA: There are small pleural effusions, no pneumothorax apparent. CARDIOVASCULAR: Normal. OSSEOUS STRUCTURES: No significant abnormalities. VISUALIZED UPPER ABDOMEN: Normal. OTHER FINDINGS: None. IMPRESSION: Persistent pulmonary venous congestion and small pleural effusions. Stable position of support lines and tubes.
--- NOTE | 2017-02-02 09:52 | US ---
HISTORY: Leg pain and swelling. Evaluate for DVT PHYSICIAN(S): Charly Rangel MD. TECHNIQUE: Duplex sonography and color-flow Doppler with graded compression were used to evaluate the deep venous systems of both lower extremities. The exam is limited by edema FINDINGS: The visualized deep venous systems of both lower extremities are sonographically normal and compressible. Normal wave forms and augmentation are seen. There is no sonographic evidence for deep venous thrombosis in the visualized segments of both lower extremities. IMPRESSION: No sonographic evidence for deep venous thrombosis in the visualized segments of both lower extremities. Limited study.
--- NOTE | 2017-02-02 10:09 | CP.PCM.PN ---
Subjective - Date & Time of Evaluation Date of Evaluation: 02/02/17 Time of Evaluation: 09:20 - Subjective Subjective: Continues to be on the ventilator, no fevers, still on vasopressors. Objective - Vital Signs/Intake and Output Vital Signs (last 24 hours): Temp Pulse Resp BP Pulse Ox 99.6 F 68 21 105/52 L 95 02/01/17 22:44 02/02/17 04:30 02/01/17 00:00 02/02/17 06:51 02/02/17 04:30 Intake and Output: 02/02/17 02/02/17 06:59 18:59 Intake Total 228 113 Balance 228 113 - Medications Medications: Current Medications Acetaminophen (Tylenol 325mg Tab) 650 mg PO Q6H PRN PRN Reason: Fever >100.4 F Last Admin: 02/01/17 22:44 Dose: 650 mg Albuterol/Ipratropium (Duoneb 3 Mg/0.5 Mg (3 Ml) Ud) 3 ml IH [id number] [facility] Last Admin: 02/02/17 08:08 Dose: 3 ml Albuterol/Ipratropium (Duoneb 3 Mg/0.5 Mg (3 Ml) Ud) 3 ml IH Q2H PRN PRN Reason: Shortness of Breath Aspirin (Aspirin Chewable) 81 mg PO DAILY [facility] Last Admin: 02/01/17 09:28 Dose: 81 mg Budesonide (Pulmicort Respules) 0.5 mg IH [id number] [facility] Last Admin: 02/02/17 08:10 Dose: 0.5 mg Chlorhexidine Gluconate (Peridex) 15 ml PO Q4H [facility] Last Admin: 02/02/17 03:54 Dose: 1 applic Clopidogrel Bisulfate (Plavix) 75 mg PO DAILY [facility] Last Admin: 01/31/17 09:57 Dose: 75 mg Fluticasone Propionate (Flonase) 1 actuation NS DAILY [facility] Last Admin: 02/01/17 09:29 Dose: Not Given Furosemide (Lasix) 40 mg IVP DAILY [facility] Last Admin: 02/02/17 06:51 Dose: 40 mg Hydrocortisone Sodium Succinate (Solu-Cortef) 100 mg IVP Q8 [facility] Last Admin: 02/02/17 06:17 Dose: 100 mg Propofol (Diprivan) 1,000 mg in 100 mls @ 2.034 mls/hr IV .Q24H PRN; Protocol; 5 MCG/KG/MIN PRN Reason: TITRATE PER MD ORDER Last Titration: 01/29/17 12:43 Dose: 0 mcg/kg/min, 0 mls/hr Fentanyl Citrate (Fentanyl Citrate/Sodium Chloride 1 Mg/100 Ml) 1,000 mcg in 100 mls @ 2 mls/hr IV .Q24H PRN; Protocol; 20 MCG/HR PRN Reason: TITRATE PER MD ORDER Last Admin: 02/02/17 08:30 Dose: 40 mcg/hr, 4 mls/hr Norepinephrine Bitartrate 8 mg (/ Sodium Chloride) 258 mls @ 77.4 mls/hr IV .Q3H20M NO; 40 MCG/MIN PRN Reason: Protocol Last Admin: 02/01/17 18:34 Dose: 2.5 mcg/min, 4.83 mls/hr Dexmedetomidine HCl (Precedex 4 Mcg/Ml (100 Ml)) 400 mcg in 100 mls @ 3.391 mls /hr IV .Q24H PRN; Protocol; 0.2 MCG/KG/HR PRN Reason: Anxiety Last Admin: 02/02/17 01:23 Dose: 1 mcg/kg/hr, 16.953 mls/hr Meropenem 1g/NS 100mL IVPB (Meropenem 1g/Ns 100ml Ivpb) 1 gm in 100 mls @ 100 mls/hr IVPB Q8 NO PRN Reason: Protocol Stop: 02/09/17 14:01 Last Admin: 02/02/17 06:17 Dose: 100 mls/hr Argatroban 250 mg/ Sodium (Chloride) 250 mls @ 2.4 mls/hr IV .Q24H NO; 0.5 MCG /KG/MIN PRN Reason: Protocol Last Titration: 02/02/17 07:31 Dose: 0.89 mcg/kg/min, 4.28 mls/hr Amiodarone HCl/Dextrose (Nexterone 360 Mg In D5w 200 Ml (Premix)) 360 mg in 200 mls @ 16.667 mls/hr IV .Q12H NO; 0.5 MG/MIN PRN Reason: Protocol Last Admin: 02/02/17 00:33 Dose: 16.667 mls/hr Potassium Chloride (Potassium Chloride 20 Meq/100 Ml) 20 meq in 100 mls @ 50 mls/hr IVPB Q2H NO Stop: 02/02/17 12:29 Folic Acid [Folic Acid] 400 Mcg (Home Med) 400 mcg PO DAILY NO Last Admin: 02/01/17 09:28 Dose: 400 mcg Pantoprazole Sodium (Protonix Inj) 40 mg IVP DAILY [facility] Last Admin: 02/01/17 09:28 Dose: 40 mg - Labs Labs: 02/02/17 05:35 02/02/17 05:35 PT 15.3 Seconds (9.9-11.8) H 01/29/17 05:30 INR 1.42 (0.93-1.08) H 01/29/17 05:30 APTT 42.9 Seconds (23.7-30.8) H 02/02/17 06:52 - Constitutional Appears: Other (intubated, sedated, grimaces and moves extremities to painful stimuli) - ENT Exam Additional comments: ET tube in place - Respiratory Exam Respiratory Exam: Decreased Breath Sounds. absent: Rales - Cardiovascular Exam Cardiovascular Exam: +S1, +S2 - GI/Abdominal Exam GI & Abdominal Exam: Soft. absent: Tenderness Assessment and Plan - Assessment and Plan (Free Text) Plan: Assessment Severe sepsis / shock (probably both septic and cardiogenic with acute renal failure (resolved renal failure) and probable shock liver due to E. coli bacteremia probably due to obstructing right ureteral stone with pyelonephritis S/P ureteral stent placement - initially gram positive cocci in clusters was found but did not grow eventually COPD CAD, consider acute coronary syndrome currently dyslipidemia carotid stenosis acute rhabdomyolysis Plan Continue Merrem for the E. coli septicemia; we previously gave a dose of IV amikacin repeat blood cx from 01/30 are negative will continue monitor clinically, trend liver enzymes (slowly trending downwards ) overall prognosis is poor
--- NOTE | 2017-02-02 10:50 | PQF CHF ---
This form is a permanent part of the medical record Clarification of your documentation is requested to better reflect the severity of illness and intensity of treatment of your patient. Indicators present Admission CXR- consistent w/ CHF, Please specify type & acuity POA. [x] Diagnosis of CHF and/or history of CHF [] BNP > 200 [x] Imaging Finding of Pulmonary Edema /Pleural Effusions [x] Fluid/Volume Overload [] Pitting edema [] Ejection Fraction < 40% (Indicative of Systolic Heart Failure) [x] Ejection Fraction > 40% (Indicative of Diastolic Heart Failure) [x] Dyspnea / Orthopenea / Paroxysmal Nocturnal Dyspnea [] Other: Location in the medical record that reflects the above clinical findings: [] ECHO- The left ventricular function is normal. EF-55% The right ventricle is moderately &dilated. Systolic function of RV is mildly to moderately &reduced. 02/02 CXR- Persistent pulmonary venous congestion and small pleural effusions. Treatment Provided: [x] IV Lasix PHYSICIAN'S RESPONSE Based on your medical judgment of the clinical indicators outlined above, are you treating this patient for a known or suspected: [] Acute CHF [] Systolic [] Diastolic [] Combined [] Chronic CHF [] Systolic [] Diastolic [] Combined [] Acute on Chronic CHF []Systolic [] Diastolic [] Combined [] CHF due hypertension [] Acute systolic []Chronic systolic [] Acute/ chronic systolic [x] Other, please indicate: [x]fluid overload [] If Unable to Determine, please check the box, sign and date. Present On Admission (POA) Indicator: [] Present at the time of admission [x] Not present at the time of admission [] Clinically Undetermined In responding to this query, please exercise your independent professional judgment. The fact that a question is asked does not imply that any particular answer is desired or expected. Thank you for your clarification on this documentation. If you have any questions please call:[ ][phone] * Thank you, [ ]Matilde Dixon RN [employer] song plugger JAZMÍN
[2017-02-02] MEDS ORDERED: Potassium Chloride 10 mEq 100 ML IVPB SCH (12:15)
--- NOTE | 2017-02-02 13:10 | CP.PCM.PN ---
Subjective - Date & Time of Evaluation Date of Evaluation: 02/02/17 Time of Evaluation: 08:10 - Subjective Subjective: Patient seen and examined, remains intubated and sedated, Levophed requirements decreasing, WBC downtrending. Patient is currently awake, alert, following commands. Objective - Vital Signs/Intake and Output Vital Signs (last 24 hours): Temp Pulse Resp BP Pulse Ox 98.8 F 67 30 H 105/52 L 94 L 02/02/17 04:00 02/02/17 08:30 02/02/17 08:10 02/02/17 06:51 02/02/17 08:30 Intake and Output: 02/02/17 02/02/17 06:59 18:59 Intake Total 2557 228 Output Total 350 Balance 2207 228 - Medications Medications: Current Medications Acetaminophen (Tylenol 325mg Tab) 650 mg PO Q6H PRN PRN Reason: Fever >100.4 F Last Admin: 02/01/17 22:44 Dose: 650 mg Albuterol/Ipratropium (Duoneb 3 Mg/0.5 Mg (3 Ml) Ud) 3 ml IH [id number] [facility] Last Admin: 02/02/17 08:08 Dose: 3 ml Albuterol/Ipratropium (Duoneb 3 Mg/0.5 Mg (3 Ml) Ud) 3 ml IH Q2H PRN PRN Reason: Shortness of Breath Aspirin (Aspirin Chewable) 81 mg PO DAILY [facility] Last Admin: 02/02/17 09:24 Dose: 81 mg Budesonide (Pulmicort Respules) 0.5 mg IH [id number] [facility] Last Admin: 02/02/17 08:10 Dose: 0.5 mg Chlorhexidine Gluconate (Peridex) 15 ml PO Q4H [facility] Last Admin: 02/02/17 11:41 Dose: 1 applic Clopidogrel Bisulfate (Plavix) 75 mg PO DAILY [facility] Last Admin: 01/31/17 09:57 Dose: 75 mg Fluticasone Propionate (Flonase) 1 actuation NS DAILY [facility] Last Admin: 02/02/17 09:25 Dose: Not Given Furosemide (Lasix) 40 mg IVP DAILY [facility] Last Admin: 02/02/17 09:26 Dose: Not Given Propofol (Diprivan) 1,000 mg in 100 mls @ 2.034 mls/hr IV .Q24H PRN; Protocol; 5 MCG/KG/MIN PRN Reason: TITRATE PER MD ORDER Last Titration: 01/29/17 12:43 Dose: 0 mcg/kg/min, 0 mls/hr Norepinephrine Bitartrate 8 mg (/ Sodium Chloride) 258 mls @ 77.4 mls/hr IV .Q3H20M NO; 40 MCG/MIN PRN Reason: Protocol Last Admin: 02/01/17 18:34 Dose: 2.5 mcg/min, 4.83 mls/hr Dexmedetomidine HCl (Precedex 4 Mcg/Ml (100 Ml)) 400 mcg in 100 mls @ 3.391 mls /hr IV .Q24H PRN; Protocol; 0.2 MCG/KG/HR PRN Reason: Anxiety Last Admin: 02/02/17 07:55 Dose: 1 mcg/kg/hr, 16.953 mls/hr Meropenem 1g/NS 100mL IVPB (Meropenem 1g/Ns 100ml Ivpb) 1 gm in 100 mls @ 100 mls/hr IVPB Q8 NO PRN Reason: Protocol Stop: 02/09/17 14:01 Last Admin: 02/02/17 06:17 Dose: 100 mls/hr Argatroban 250 mg/ Sodium (Chloride) 250 mls @ 2.4 mls/hr IV .Q24H NO; 0.5 MCG /KG/MIN PRN Reason: Protocol Last Titration: 02/02/17 11:11 Dose: 0.99 mcg/kg/min, 4.76 mls/hr Amiodarone HCl/Dextrose (Nexterone 360 Mg In D5w 200 Ml (Premix)) 360 mg in 200 mls @ 16.667 mls/hr IV .Q12H NO; 0.5 MG/MIN PRN Reason: Protocol Last Admin: 02/02/17 12:17 Dose: 16.667 mls/hr Potassium Chloride (Potassium Chloride 10 Meq/100 Ml) 10 meq in 100 mls @ 100 mls/hr IVPB Q2H NO Stop: 02/02/17 15:14 Folic Acid [Folic Acid] 400 Mcg (Home Med) 400 mcg PO DAILY NO Last Admin: 02/02/17 09:29 Dose: 400 mcg Pantoprazole Sodium (Protonix Inj) 40 mg IVP DAILY NO Last Admin: 02/02/17 09:24 Dose: 40 mg - Labs Labs: 02/02/17 05:35 02/02/17 05:35 PT 15.3 Seconds (9.9-11.8) H 01/29/17 05:30 INR 1.42 (0.93-1.08) H 01/29/17 05:30 APTT 43.9 Seconds (23.7-30.8) H 02/02/17 10:00 - Constitutional Appears: Well, Non-toxic - Head Exam Head Exam: ATRAUMATIC - Eye Exam Eye Exam: Normal appearance - ENT Exam ENT Exam: Mucous Membranes Moist - Neck Exam Additional comments: R IJ - Respiratory Exam Respiratory Exam: Clear to Ausculation Bilateral, NORMAL BREATHING PATTERN - Cardiovascular Exam Cardiovascular Exam: Irregular Rhythm, +S1, +S2 - GI/Abdominal Exam GI & Abdominal Exam: Soft, Normal Bowel Sounds - Back Exam Back Exam: NORMAL INSPECTION - Neurological Exam Additional comments: awake, alert, following commands Assessment and Plan - Assessment and Plan (Free Text) Assessment: 81yo female a/w septic shock 2/2 gram neg bacteremia, with acute renal failure due to probably due to obstructing right ureteral stone with pyelonephritis S/P ureteral stent placement Septic Shock Gram Negative Bacteremia Renal Failure Volume overload Afib ?HIT - currently afebrile, HD stable, off pressors, MAP ranging 70-95 - titrating off Precedex, patient awake, alert, following commands, likely can be extubated, doing well on CPAP trial - on Argatroban drip - on Amiodarone drip Recommend: - cont with pressure support trial - wean off Precedex - If passes pressure support trial, extubate - cont with broad spectrum abx as per ID - follow up ID - titrated off pressorss - Decrease SoluCortef dose 50mg q8hr IV - cont with Argatroban - follow up HIT panel, PAUL - follow up heme onc - follow up cardiology - replete Calcium - keep NPO for possible extubation - GI ppx - DVT ppx - patient remains critical - patient is DNR critical care time 35 minutes
--- NOTE | 2017-02-02 13:32 | CP.PCM.PN ---
Subjective - Date & Time of Evaluation Date of Evaluation: 02/02/17 Time of Evaluation: 11:00 - Subjective Subjective: Awake, able to follow simple commands. No acute findings Objective - Vital Signs/Intake and Output Vital Signs (last 24 hours): Temp Pulse Resp BP Pulse Ox 98.8 F 67 30 H 105/52 L 94 L 02/02/17 04:00 02/02/17 08:30 02/02/17 08:10 02/02/17 06:51 02/02/17 08:30 Intake and Output: 02/02/17 02/02/17 06:59 18:59 Intake Total 2557 228 Output Total 350 Balance 2207 228 - Medications Medications: Current Medications Acetaminophen (Tylenol 325mg Tab) 650 mg PO Q6H PRN PRN Reason: Fever >100.4 F Last Admin: 02/01/17 22:44 Dose: 650 mg Albuterol/Ipratropium (Duoneb 3 Mg/0.5 Mg (3 Ml) Ud) 3 ml IH [id number] [facility] Last Admin: 02/02/17 08:08 Dose: 3 ml Albuterol/Ipratropium (Duoneb 3 Mg/0.5 Mg (3 Ml) Ud) 3 ml IH Q2H PRN PRN Reason: Shortness of Breath Aspirin (Aspirin Chewable) 81 mg PO DAILY [facility] Last Admin: 02/02/17 09:24 Dose: 81 mg Budesonide (Pulmicort Respules) 0.5 mg IH [id number] [facility] Last Admin: 02/02/17 08:10 Dose: 0.5 mg Chlorhexidine Gluconate (Peridex) 15 ml PO Q4H [facility] Last Admin: 02/02/17 11:41 Dose: 1 applic Clopidogrel Bisulfate (Plavix) 75 mg PO DAILY [facility] Last Admin: 01/31/17 09:57 Dose: 75 mg Fluticasone Propionate (Flonase) 1 actuation NS DAILY [facility] Last Admin: 02/02/17 09:25 Dose: Not Given Furosemide (Lasix) 40 mg IVP DAILY [facility] Last Admin: 02/02/17 09:26 Dose: Not Given Hydrocortisone Sodium Succinate (Solu-Cortef) 50 mg IVP Q8 [facility] Propofol (Diprivan) 1,000 mg in 100 mls @ 2.034 mls/hr IV .Q24H PRN; Protocol; 5 MCG/KG/MIN PRN Reason: TITRATE PER MD ORDER Last Titration: 01/29/17 12:43 Dose: 0 mcg/kg/min, 0 mls/hr Norepinephrine Bitartrate 8 mg (/ Sodium Chloride) 258 mls @ 77.4 mls/hr IV .Q3H20M NO; 40 MCG/MIN PRN Reason: Protocol Last Admin: 02/01/17 18:34 Dose: 2.5 mcg/min, 4.83 mls/hr Dexmedetomidine HCl (Precedex 4 Mcg/Ml (100 Ml)) 400 mcg in 100 mls @ 3.391 mls /hr IV .Q24H PRN; Protocol; 0.2 MCG/KG/HR PRN Reason: Anxiety Last Admin: 02/02/17 07:55 Dose: 1 mcg/kg/hr, 16.953 mls/hr Meropenem 1g/NS 100mL IVPB (Meropenem 1g/Ns 100ml Ivpb) 1 gm in 100 mls @ 100 mls/hr IVPB Q8 NO PRN Reason: Protocol Stop: 02/09/17 14:01 Last Admin: 02/02/17 06:17 Dose: 100 mls/hr Argatroban 250 mg/ Sodium (Chloride) 250 mls @ 2.4 mls/hr IV .Q24H NO; 0.5 MCG /KG/MIN PRN Reason: Protocol Last Titration: 02/02/17 11:11 Dose: 0.99 mcg/kg/min, 4.76 mls/hr Amiodarone HCl/Dextrose (Nexterone 360 Mg In D5w 200 Ml (Premix)) 360 mg in 200 mls @ 16.667 mls/hr IV .Q12H NO; 0.5 MG/MIN PRN Reason: Protocol Last Admin: 02/02/17 12:17 Dose: 16.667 mls/hr Potassium Chloride (Potassium Chloride 10 Meq/100 Ml) 10 meq in 100 mls @ 100 mls/hr IVPB Q2H NO Stop: 02/02/17 15:14 Folic Acid [Folic Acid] 400 Mcg (Home Med) 400 mcg PO DAILY NO Last Admin: 02/02/17 09:29 Dose: 400 mcg Pantoprazole Sodium (Protonix Inj) 40 mg IVP DAILY NO Last Admin: 02/02/17 09:24 Dose: 40 mg - Labs Labs: 02/02/17 05:35 02/02/17 05:35 PT 15.3 Seconds (9.9-11.8) H 01/29/17 05:30 INR 1.42 (0.93-1.08) H 01/29/17 05:30 APTT 43.9 Seconds (23.7-30.8) H 02/02/17 10:00 - Constitutional Appears: No Acute Distress, Chronically Ill - Head Exam Head Exam: NORMOCEPHALIC - Eye Exam Eye Exam: Normal appearance, PERRL - ENT Exam ENT Exam: Mucous Membranes Moist - Respiratory Exam Respiratory Exam: Decreased Breath Sounds, NORMAL BREATHING PATTERN - Cardiovascular Exam Cardiovascular Exam: REGULAR RHYTHM, +S1, +S2 - GI/Abdominal Exam GI & Abdominal Exam: Soft, Diminished Bowel Sounds - Neurological Exam Neurological Exam: Alert - Skin Skin Exam: Dry, Pallor Additional comments: anasarca Assessment and Plan - Assessment and Plan (Free Text) Assessment: 81 year old female with history of HTN, COPD who was admitted with gram negative bacteremia,septic shock, ALEX, right ureteral stone,s/p ureteral stent and pyelonephritis. She is afreberile,off pressors, titrating off sedation, intent to extubate today. Patient daughters at bedside. They are hopeful that mother will be extuabted. Cautioned them that although she is improving, there is still a significant path to recovery ahead. Family states they understand this, but feel their mother is a " fighter" . Family agreed not to intubate again. Reassured that all other supportive care will continue.Psychosocial support given. Time spent in goals of care discussion with family, 30 minutes Plan: Palliative support, goals of care.
[2017-02-02 14:24] LABS: CALCIUM 5.8 mg/dL (8.4-10.5)
--- NOTE | 2017-02-02 15:05 | PN ---
DATE: 02/02/2017 SUBJECTIVE: The patient is 81 years old, who was admitted with urosepsis with the E. coli in the urine and the blood. The patient was taken to OR, had stent placed, went into septic shock, was hypotensive and tachycardiac, was intubated during this course. She has been on pressors. Last night episode of SVT noted and the patient was given adenosine and currently on amiodarone. The patient was seen and examined and remains on vent. Plan for possible extubation later on today. PHYSICAL EXAMINATION: VITAL SIGNS: She is afebrile, pulse 67, respirations 30, and blood pressure 105/52. LUNGS: Bilateral fair airflow decreased at bases. HEART: S1 and S2 audible. ABDOMEN: Soft and nontender. No rebound. No guarding. NEUROLOGIC: The patient is sedated. LABORATORY DATA: WBC is 19.9, hemoglobin 10.5, hematocrit 31.3, and platelets of 85. Chemistry: Sodium 147, potassium 3.4, chloride 105, CO2 36, BUN 41, creatinine 0.7, blood sugar of 256. Blood culture positive for E. coli. Repeat one on 01/31/2017 are negative. X-ray chest, positive for persistent pulmonary venous congestion and small pleural effusion. ASSESSMENT: 1. Urosepsis. 2. Status post hydronephrosis and stent placement. 3. Respiratory failure. 4. Venous congestion. 5. Episode of supraventricular tachycardia last night. 6. Thrombocytopenia, rule out heparin-induced thrombocytopenia with thrombosis. 7. Leukocytosis, improving. 8. Non-ST elevation, myocardial infarction. PLAN: We will supplement potassium later on and if the patient remains stable, possible extubation later on. Magali Snyder MD
--- NOTE | 2017-02-02 15:25 | CARD ---
APPROVED REPORT EKG Measurement Heart [id number] <Conclusion> Atrial fibrillation with rapid ventricular response Low voltage QRS Poor R Progression V1-V4.
[2017-02-02] MEDS ORDERED: ACETAMINOPHEN 500 MG/50 ML IVPB ONE (15:51)
[2017-02-02] MEDS ORDERED: Metoprolol 1 mg/ml Inj IVP ONE (16:46)
--- NOTE | 2017-02-02 17:57 | PN ---
02/02/2017REASON FOR CONSULTATION: Positive troponin, [id number] myocardial infarction, status post intubated respiratory failure, septic shock. SUBJECTIVE: The patient is still intubated on Levophed 30 mcg, acidotic. PHYSICAL EXAMINATION: GENERAL: Being intubated. VITAL SIGNS: Heart rate of 67, blood pressure is 105/52. HEENT: PERRLA intact. NECK: Supple. No carotid bruits. No thyromegaly. CHEST: Clear to auscultation. HEART: S1 and S2 regular. ABDOMEN: Soft. EXTREMITIES: Clubbing and cyanosis negative. LABORATORY DATA: Blood workup as follows; WBC 19.9, hemoglobin 10.4, hematocrit 31.3, platelet count 85. Chemistry showed sodium 147, potassium 3.4, chloride 109, carbon dioxide 36, anion gap of 9, BUN 41, creatinine 0.7. AST 639, ALT is 1904. Troponin 1.59 1.95, trended down, now is 0.45. IMPRESSION: An 81-year-old female, history of percutaneous coronary intervention in the past, no stent; admitted with urinary tract infection, intubated, sepsis, septic shock, rhabdomyolysis, positive troponin, initial troponin positive but MB fraction was 1%, not suggestive of MB, doubt it is MB, currently on multiple drips, Levophed being intubated. Rule-out non-ST segment myocardial infarction, history of coronary artery disease in the past probably balloon. RECOMMENDATION: Continue Levophed. Continue broad-spectrum antibiotic. Continue vent management. Overall, the patient's condition is critical. Long-term prognosis is guarded. Thank you Dr. Snyder for providing me the opportunity in taking care of the patient. No plan for cardiac catheterization because the patient most likely is not in acute DE secondary to rhabdomyolysis. We will follow with you. Moraima Childers MD
--- NOTE | 2017-02-02 23:16 | CP.PCM.PN ---
Subjective - Date & Time of Evaluation Date of Evaluation: 02/02/17 Time of Evaluation: 08:00 - Subjective Subjective: She remains in critical condition. Had episode of SVT over night. Currently on amiodarone drip. Intubated, sedated. Urosepsis, gram negative. respiratory failure. Circulatory failure. On pressor support. On agrgatroban drip for possible HIT. platelet count improved to 85k form 50 k. No bleeding. Objective - Vital Signs/Intake and Output Vital Signs (last 24 hours): Temp Pulse Resp BP Pulse Ox 98.2 F 61 11 L 96/40 L 91 L 02/02/17 16:00 02/02/17 18:01 02/02/17 18:01 02/02/17 18:01 02/02/17 18:01 Intake and Output: 02/02/17 02/03/17 18:59 06:59 Intake Total 1580 66 Output Total 2000 Balance -420 66 - Medications Medications: Current Medications Acetaminophen (Tylenol 325mg Tab) 650 mg PO Q6H PRN PRN Reason: Fever >100.4 F Last Admin: 02/01/17 22:44 Dose: 650 mg Albuterol/Ipratropium (Duoneb 3 Mg/0.5 Mg (3 Ml) Ud) 3 ml IH [id number] [facility] Last Admin: 02/02/17 21:05 Dose: 3 ml Albuterol/Ipratropium (Duoneb 3 Mg/0.5 Mg (3 Ml) Ud) 3 ml IH Q2H PRN PRN Reason: Shortness of Breath Aspirin (Aspirin Chewable) 81 mg PO DAILY [facility] Last Admin: 02/02/17 09:24 Dose: 81 mg Budesonide (Pulmicort Respules) 0.5 mg IH [id number] [facility] Last Admin: 02/02/17 21:28 Dose: 0.5 mg Chlorhexidine Gluconate (Peridex) 15 ml PO Q4H [facility] Last Admin: 02/02/17 19:30 Dose: Not Given Clopidogrel Bisulfate (Plavix) 75 mg PO DAILY [facility] Last Admin: 01/31/17 09:57 Dose: 75 mg Fluticasone Propionate (Flonase) 1 actuation NS DAILY [facility] Last Admin: 02/02/17 09:25 Dose: Not Given Furosemide (Lasix) 40 mg IVP DAILY [facility] Last Admin: 02/02/17 09:26 Dose: Not Given Hydrocortisone Sodium Succinate (Solu-Cortef) 50 mg IVP Q8 NO Last Admin: 02/02/17 21:05 Dose: 50 mg Propofol (Diprivan) 1,000 mg in 100 mls @ 2.034 mls/hr IV .Q24H PRN; Protocol; 5 MCG/KG/MIN PRN Reason: TITRATE PER MD ORDER Last Titration: 01/29/17 12:43 Dose: 0 mcg/kg/min, 0 mls/hr Norepinephrine Bitartrate 8 mg (/ Sodium Chloride) 258 mls @ 77.4 mls/hr IV .Q3H20M NO; 40 MCG/MIN PRN Reason: Protocol Last Titration: 02/02/17 21:31 Dose: 3.5 mcg/min, 6.77 mls/hr Dexmedetomidine HCl (Precedex 4 Mcg/Ml (100 Ml)) 400 mcg in 100 mls @ 3.391 mls /hr IV .Q24H PRN; Protocol; 0.2 MCG/KG/HR PRN Reason: Anxiety Last Titration: 02/02/17 14:30 Dose: 0 mcg/kg/hr, 0 mls/hr Meropenem 1g/NS 100mL IVPB (Meropenem 1g/Ns 100ml Ivpb) 1 gm in 100 mls @ 100 mls/hr IVPB Q8 NO PRN Reason: Protocol Stop: 02/09/17 14:01 Last Admin: 02/02/17 21:06 Dose: 100 mls/hr Argatroban 250 mg/ Sodium (Chloride) 250 mls @ 2.4 mls/hr IV .Q24H NO; 0.5 MCG /KG/MIN PRN Reason: Protocol Last Titration: 02/02/17 19:43 Dose: 1.2 mcg/kg/min, 5.78 mls/hr Amiodarone HCl/Dextrose (Nexterone 360 Mg In D5w 200 Ml (Premix)) 360 mg in 200 mls @ 16.667 mls/hr IV .Q12H NO; 0.5 MG/MIN PRN Reason: Protocol Last Admin: 02/02/17 12:17 Dose: 16.667 mls/hr Folic Acid [Folic Acid] 400 Mcg (Home Med) 400 mcg PO DAILY NO Last Admin: 02/02/17 09:29 Dose: 400 mcg Pantoprazole Sodium (Protonix Inj) 40 mg IVP DAILY [facility] Last Admin: 02/02/17 09:24 Dose: 40 mg - Labs Labs: 02/02/17 05:35 02/02/17 13:50 PT 15.3 Seconds (9.9-11.8) H 01/29/17 05:30 INR 1.42 (0.93-1.08) H 01/29/17 05:30 APTT 47.6 Seconds (23.7-30.8) H 02/02/17 20:54 - Constitutional Appears: Toxic - Head Exam Head Exam: ATRAUMATIC, NORMAL INSPECTION, NORMOCEPHALIC - Eye Exam Eye Exam: Normal appearance - ENT Exam ENT Exam: Mucous Membranes Dry - Neck Exam Neck Exam: Normal Inspection - Respiratory Exam Additional comments: intubated, on vent - Cardiovascular Exam Cardiovascular Exam: Tachycardia, REGULAR RHYTHM - GI/Abdominal Exam GI & Abdominal Exam: Soft, Normal Bowel Sounds - Extremities Exam Extremities Exam: Pedal Edema - Back Exam Back Exam: NORMAL INSPECTION - Neurological Exam Additional comments: sedated. - Skin Skin Exam: Pallor, Rash Assessment and Plan - Assessment and Plan (Free Text) Assessment: 1. Thrombocytopenia : possible HIT. assay pending. Continue Argatroban drip. Platelet count improved. No bleeding. 2. respiratory failure : intubated, on vent. 3. Circulatory failure : on pressor support. 4. Sepsis : gram negative, on IV antibiotics as per ID. poor prognosis. thank you Dr. Snyder for allowing us to participate in her care.
[2017-02-03] MEDS: Amiodarone 360 mg/D5W 200 ml 360 MG/200 ML BAG IV SCH ×2 (00:25→14:18)
[2017-02-03] MEDS: Chlorhexidine 0.12% Oral Sol 480 ml Bot PO SCH ×5 (00:28→17:21)
[2017-02-03] MEDS: Albuterol-Ipratrop 3 mg / 0.5 (3 ml) UD IH SCH ×3 (02:46→20:39)
[2017-02-03] MEDS ORDERED: Amiodarone 150 mg/D5W 100 ml 150 MG/100 ML BAG IVPB ONE (05:17)
[2017-02-03] MEDS: Meropenem 1g/NS 100mL IVPB 1 GM/100 ML PIGGYBACK IVPB SCH ×3 (05:35→21:42)
[2017-02-03 06:55] LABS: ARTERIAL BLOOD GAS HCO3 33.2 mmol/L (21-28); ARTERIAL BLOOD GAS O2 CAPACITY 15.9 mL/dl (16-24); ARTERIAL BLOOD GAS O2 CONTENT 14.6 ML/dl (15-23); ARTERIAL BLOOD HGB O2 SAT 88.9 % (95.0-98.0); CARBOXYHEMOGLOBIN 2.2 % (0.5-1.5); HHB 7.8 % (0-5); METHEMOGLOBIN 1.1 % (0.0-3.0)
[2017-02-03] MEDS: Budesonide 0.5 mg/2 ml Inhal Susp UD IH SCH ×2 (07:00→20:39)
[2017-02-03 07:42] LABS: ARTERIAL BLOOD GAS PH 7.61 (7.35-7.45)
[2017-02-03] MEDS ORDERED: Metoprolol 1 mg/ml Inj IVP ONE ×2 (07:45→07:47)
[2017-02-03 08:24] LABS: HEMATOCRIT 33.9 % (36.0-48.0); MEAN CELL VOLUME 89.2 fl (80.0-105.0); MEAN CORPUSCULAR HEMOGLOBIN 30.3 pg (25.0-35.0); MEAN CORPUSCULAR HGB CONC 33.9 g/dl (31.0-37.0); MEAN PLATELET VOLUME 10.3 fl (7.0-11.0); PLATELET COUNT 142 10^3/uL (120.0-450.0); RED CELL DISTRIBUTION WIDTH 15.3 % (11.5-14.5)
--- NOTE | 2017-02-03 08:29 | PN ---
PULMONARY NOTE DATE: 02/03/2017(630am--720am) SUBJECTIVE: The patient is now extubated. She is moderately short of breath, but in no acute distress. PHYSICAL EXAMINATION: VITAL SIGNS: Temperature is 98.2, pulse on the monitor is 94, respiratory rate 24/26, blood pressure 130/62. Oxygen saturation on Venti mask is 91%. HEENT: Normocephalic, atraumatic. No JVD. CARDIOVASCULAR: Systolic ejection murmur at the lower left sternal border. Questionable S3 gallop. LUNGS: Crackles at both bases. Minimal bilateral rhonchi. No wheezing. EXTREMITIES: Mild edema. No cyanosis. No clubbing. Calves are nontender to palpation. GI: Abdomen is soft, nontender and nondistended. Bowel sounds are positive. SKIN: No acute rash. NEUROLOGIC: Exam limited at the present time. PERTINENT LABORATORY DATA: Chest x-ray was done this morning and reviewed. The x-ray remains with significant pulmonary edema and bilateral pleural effusions. Arterial blood gas was ordered for this morning. The results are not in the computer at this time. IMPRESSION: 1. Respiratory failure. 2. Urosepsis. 3. Status post ureteral stent for obstructive stone. 4. Volume overload. 5. Chronic obstructive pulmonary disease. 6. Non-ST elevation myocardial infarction. PLAN: The patient remains in the ICU. She is now extubated. She is moderately short of breath, but in no acute distress. I did discuss the case with the night nurses at length. Apparently, the patient was extubated late yesterday. I did review the chest x-ray as above. The chest x-ray remains with significant pulmonary edema and bilateral pleural effusions. I would advise a close watch of the input and output data, and would also continue with the intravenous Lasix for now. The Levophed has been weaned. The patient is much more hemodynamically stable. Inputs by Cardiology and Infectious Disease are noted. Clinical status of the patient is certainly improved - compared to a few days ago. However, again, the future status/prognosis for this patient remains very guarded. I will discuss the above with the entire ICU team in the next few moments. I will also discuss the above with the attending physician. Shalom Guerin MD [facility] # [id number] JAZMÍN
[2017-02-03 08:30] LABS: WHITE BLOOD COUNT 28.7 10^3/ul (4.5-11.0)
[2017-02-03 08:49] LABS: ALKALINE PHOSPHATASE 124 U/L (38-126); AST/SGOT 274 U/L (14-36); BILIRUBIN,TOTAL 0.9 mg/dL (0.2-1.3); BLOOD UREA NITROGEN 40 mg/dL (7-21); CARBON DIOXIDE 34 mmol/L (21-33); CHLORIDE 107 mmol/L (98-107); GFR AFRICAN-AMERICAN > 60; GLUCOSE,RANDOM 167 mg/dL (70-110); MAGNESIUM 1.8 mg/dL (1.7-2.2); SODIUM 149 mmol/L (132-148); TOTAL PROTEIN 4.7 g/dL (5.8-8.3)
--- NOTE | 2017-02-03 08:55 | RAD ---
HISTORY: f/u COMPARISON: 02/02/2017 FINDINGS: The right IJV line terminates at the cavoatrial junction. LUNGS: Again seen is severe pulmonary venous congestion with pulmonary redistribution. PLEURA: There are layering pleural effusions, no pneumothorax apparent. CARDIOVASCULAR: Stable in appearance. OSSEOUS STRUCTURES: No significant abnormalities. VISUALIZED UPPER ABDOMEN: Normal. OTHER FINDINGS: None. IMPRESSION: Severe pulmonary venous congestion and layering pleural effusions most compatible with congestive heart failure.
[2017-02-03] MEDS ORDERED: Magnesium Sulfate 1 gm in D5W 1 GM/100 ML BAG IVPB ONE (09:08)
[2017-02-03 09:16] LABS: CALCIUM 6.4 mg/dL (8.4-10.5)
[2017-02-03 09:25] LABS: ALT/SGPT 1302 U/L (7-56)
[2017-02-03 09:26] LABS: NEUTROPHIL 90 % (50.0-70.0)
[2017-02-03 09:27] LABS: ANISOCYTOSIS 1+; ATYPICAL LYMPHOCYTE 1 % (0.0-0.0); BAND 3 % (0-2); HYPOCHROMIA SLIGHT; NUCLEATED RED BLOOD CELL 2 %; PLATELET ESTIMATE NORMAL (NORMAL)
[2017-02-03] MEDS: FOLIC ACID 400 MCG PO SCH (10:33)
[2017-02-03 11:01] LABS: ARTERIAL BLOOD GAS HCO3 33.9 mmol/L (21-28); ARTERIAL BLOOD GAS O2 CAPACITY 17.3 mL/dl (16-24); ARTERIAL BLOOD GAS O2 CONTENT 16.2 ML/dl (15-23); ARTERIAL BLOOD HGB O2 SAT 90.1 % (95.0-98.0); CARBOXYHEMOGLOBIN 2.4 % (0.5-1.5); HHB 6.1 % (0-5); METHEMOGLOBIN 1.4 % (0.0-3.0)
[2017-02-03 11:21] LABS: ARTERIAL BLOOD GAS PH 7.62 (7.35-7.45)
--- NOTE | 2017-02-03 11:38 | CARD ---
APPROVED REPORT EKG Measurement Heart [id number] ND [id number] <Conclusion> Normal sinus rhythm Low voltage QRS Possible Anterolateral infarct, age undetermined Base line arteface please repeat
[2017-02-03] MEDS: Vancomycin 1gm in NS 250ml 1 GM/250 ML BAG IVPB SCH (12:22)
--- NOTE | 2017-02-03 13:24 | PN ---
SUBJECTIVE: The patient is in bed, in no acute distress, nontoxic. PHYSICAL EXAMINATION: VITAL SIGNS: On exam, temperature is 98, blood pressure is 140/80, respiratory rate of 18 and heart rate of, on the vent. HEENT: The patient is now extubated. NECK: Supple. LUNGS: Decreased breath sounds. HEART: Normal S1 and S2. ABDOMEN: Soft. LABORATORY DATA: As noted, the patient's chest x-ray has a pulmonary vascular congestion. Microbiology reveals E. coli in the blood, E. coli in the urine. Blood cultures initially were positive. Urine cultures were positive. ASSESSMENT AND PLAN: This is an 81-year-old female with severe sepsis and shock, both septic and cardiogenic and acute renal failure, resolved renal failure with Escherichia coli bacteriemia and Escherichia coli in the urine and due to obstructing right ureteral stone with pyelonephritis and currently on meropenem. Review of the sensitivity reveals it to be a bacon-sensitive Escherichia coli. THE PATIENT HAS MULTIPLE ALLERGIES INCLUDING AMOXICILLIN and the Escherichia coli in the urine also bacon sensitive, including quinolone sensitive. Matilde Caballero's progress note is reviewed. Dr. Guerin's note from this morning is reviewed. This patient with severe sepsis and now extubated, appears to be comfortable on meropenem due to multiple allergies. We will continue the present course. Overall prognosis is poor. Richard Dobbins MD
[2017-02-03] MEDS: Fluticasone Nasal 50 mcg/Spray NS SCH (13:38)
--- NOTE | 2017-02-03 14:32 | PN ---
SUBJECTIVE: The patient is an 81-year-old seen and examined, was extubated yesterday, seem to be confused, disoriented, repeating herself. Daughter was at bedside. PHYSICAL EXAMINATION: VITAL SIGNS: She is afebrile. Pulse 92, respirations 26 and blood pressure 130/62. She is on high-flow oxygen. HEAD AND NECK: She has nonicteric sclerae. [place] conjunctivae. No lymphadenopathy. No thyromegaly. LUNGS: Bilateral few soft crackle. HEART: S1 and S2 audible. ABDOMEN: Soft, nontender. No rebound, no guarding. NEUROLOGICAL: The patient is awake and alert, but confused, disoriented. EXTREMITIES: Bilateral leg +2 edema. LABORATORY DATA: WBC is 28.7, hemoglobin 11.5, hematocrit 33.9 and platelet 142. PTT is 46. Chemistry: Sodium 149, potassium 3.0, chloride 107, CO2 of 34, BUN 40, creatinine 0.6, blood sugar 167, calcium 6.4, phosphorus is 2.0. AST 274, seems to be improving; ALT 1302. She grew E. coli in the blood and the urine, repeat cultures are negative. X-ray of the chest done this morning shows severe pulmonary venous congestion and layering of pleural effusion, congestive heart failure. ASSESSMENT: 1. Status post respiratory failure, still has respiratory insufficiency and hypoxia. 2. Leukocytosis, rule out Clostridium difficile. 3. Status post Escherichia coli urosepsis. 4. Status post supraventricular tachycardia. 5. Metabolic encephalopathy. 6. Hypokalemia. 7. Pulmonary venous congestion. PLAN: The patient is currently on amiodarone. She is on argatroban, aspirin 81 daily. She has been taken off of Lovenox because of thrombocytopenia. She is getting nebulizer treatment. Discussed with ICU attending. We will give extra dose of Lasix. Send stool for C. diff. Currently, she is on meropenem. Will be given one dose of vanco. Discuss with the patient's daughter, who is at the bedside. Magali Snyder MD
--- NOTE | 2017-02-03 15:18 | CON ---
DATE: 02/03/2017 INDICATIONS: Second opinion requested by daughter. HISTORY OF PRESENT ILLNESS: This is an 81-year-old woman admitted on the after a fall at home. She was found on the floor, brought to the emergency room, apparently found to have urosepsis with a right ureteral stone. She underwent uro. evaluation and stent placement by Dr. William on the . Subsequently, she became septic and developed respiratory distress. She was intubated. She has been on a ventilator until today when she was extubated. During this period, she has been noted to have positive troponins, initially attributed to rhabdomyolysis. She has also developed atrial fibrillation with rapid ventricular response. 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 She is currently getting argatroban, followed by hematology. She is on amiodarone drip. She has been followed by Dr. Childers. At this point, she is lying in bed, not responding appropriately. She is mumbling numbers, but not answering questions. She is currently in sinus rhythm at 92 beats per minute. She is afebrile. Last blood pressure is 143/84, although she has been hypotensive. O2 sat is 91%. Respirations 26. PAST MEDICAL HISTORY: Notable for remote myocardial infarction, details unavailable. Hypertension. COPD, she is a former smoker. 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 She has hyperlipidemia and peripheral vascular disease. At the time of admission, her medications were aspirin, calcium with vitamin D, multivitamins, several nutraceuticals, Flonase, Flovent, folic acid, irbesartan, Lipitor, magnesium citrate, omega-3 fish oils, Plavix, Stiolto, vitamin B12, vitamin B6, vitamin C, and vitamin E. CURRENT MEDICATIONS: Include amiodarone drip, aspirin, albuterol/ipratropium, folic acid, Lasix, metoprolol, magnesium, meropenem, Plavix, potassium, Protonix, budesonide. ALLERGIES: SHE NOTES ALLERGIES TO SEVERAL MEDICATIONS, INCLUDING AMOXICILLIN, CLAVULANIC ACID, METHYLPREDNISOLONE, OLMESARTAN. SOCIAL HISTORY: She lives at home with family. She was ambulatory. She is a former smoker. She does not drink alcohol significantly. REVIEW OF SYSTEMS: A 10-point review of systems is unavailable because of her mental status. PHYSICAL EXAMINATION: GENERAL: She is an elderly woman, lying in bed in the intensive care unit, no acute distress with supplemental O2. VITAL SIGNS: Noted above. HEENT: Reveals no neck vein distention, thyromegaly, or carotid bruits. Mucous membranes are moist. Conjunctivae pink. NECK: Supple. LUNGS: Lung brady; scattered rhonchi. No wheezing. HEART: Reveals normal first and second heart sounds. There is a systolic murmur along the left sternal border. ABDOMEN: Soft. Bowel sounds are present. No mass or organomegaly appreciated. No palpable abnormal aortic aneurysm appreciated. EXTREMITIES: No cyanosis, clubbing, or edema. NEUROLOGIC: She is moaning in bed. She does not answer questions appropriately. SKIN: Warm and dry. Arms are edematous and ecchymotic from prior IVs. REPORT: Today's chest x-ray reveals severe pulmonary venous congestion, layering pleural effusions compatible with CHF. EKG demonstrates sinus rhythm, right ventricular conduction delay, poor R wave progression, ST-T wave changes. The extremity ultrasound on January 31, which is a limited study, no DVT noted. LABORATORY DATA: White count 28,700, hemoglobin 11.5, hematocrit 33.9, platelet count 142,000. PTT is 44.3. Blood gases noted. Sodium 149, potassium 3.0, chloride 107, BUN 11, creatinine 0.6, blood sugar 167, calcium low at 6.4, magnesium 1.8. Elevated LFTs noted. Positive troponins noted. Elevated CK is noted. Last troponin 0.45 on the with a CK of 4013. Urinalysis noted. Blood and urine cultures initially positive for E. coli. Subsequently 2 blood cultures, no growth at 4 days. IMPRESSION: The patient is an 81-year-old woman who developed urosepsis from a right ureteral stone, presenting as a fall at home, altered mental status. A stent has been placed in the ureter. She developed respiratory failure accompanied by paroxysmal atrial fibrillation and heparin-induced thrombocytopenia due to Lovenox. She is subsequently extubated. She is on antibiotics. She is on argatroban and amiodarone drips. She is on metoprolol IV. She has been giving IV Lasix. She is followed by hematology, urology, cardiology, ID, pulmonary. PLAN: I would continue IV metoprolol and IV amiodarone to control paroxysmal atrial fibrillation. She is getting treatment for HIT. Platelet counts have stabilized. She is getting antibiotics. An echocardiogram is noted that demonstrated normal left ventricular function with [id number] mitral regurgitation, [id number] tricuspid regurgitation. I will discuss my findings with her daughter and ascertain whether or not she would like us to continue assisting in the management of this challenging case. In the meantime, I's and O's are being monitored, labs are being monitored, sats are being monitored. The question whether or not there has been a nontransmural myocardial infarction is open to question since troponins were elevated and her course has been stormy. I do not see an EKG showing ST elevations, but she does have T wave inversions across the precordium. The echocardiogram on the is said to show a normal left ventricular function. Once she recovers, a nuclear stress test would be appropriate to further delineate the degree of likely coronary artery disease. Jose Maria Fleming MD MTDD
--- NOTE | 2017-02-03 15:42 | PN ---
DATE: 02/03/2017 REASON FOR CONSULTATION: Followup non-ST segment myocardial infarction, sepsis, septic shock, status post respiratory failure, intubated, due to patient being intubated, on Levophed, and tachycardic, on amiodarone. SUBJECTIVE: Still being intubated, on Levophed. OBJECTIVE: VITAL SIGNS: Heart rate 150, blood pressure 143/84. HEENT: PERRLA intact. NECK: Supple. No carotid bruit or thyromegaly. CHEST: Clear to auscultation. HEART: S1 and S2 regular. ABDOMEN: Soft. EXTREMITIES: Clubbing and cyanosis negative. LABORATORY DATA: Blood workup as follows: WBC 28%, hemoglobin 11.0, hematocrit 33.9 and platelet count 142. Chemistry shows sodium 140, potassium 3, chloride 107, carbon dioxide 34, anion gap of 11, BUN of 14 and creatinine 0.6. Total protein 4.7, albumin 2.4, albumin globulin ratio 1. IMPRESSION: Atrial fibrillation with rapid ventricular rate, sepsis, septic shock, intubated, urinary tract infection, rhabdomyolysis, positive troponin with MB 1%, so doubt it is an myocardial infarction, history of coronary artery disease, possibly percutaneous transluminal coronary angioplasty with balloon and no stent. RECOMMENDATION: Wean off Levophed as tolerated. We will start IV Lopressor 5 mg q.6 hours in standard dose, patient is n.p.o. and patient is on argatroban as per Heme/Onc. Continue verapamil 2.5 q.6 p.r.n. for faster heart rate, sepsis, septic shock. Blood culture initially with Gram-negative blood as was in the urine Escherichia coli. Now repeat blood culture is negative. Thank you Dr. Snyder for providing me the opportunity in taking care of Ronna Rosenbaum. 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 Moraima Childers MD
[2017-02-03] MEDS: Metoprolol 1 mg/ml Inj IVP SCH ×2 (16:23→21:39)
--- NOTE | 2017-02-03 17:13 | CP.CCUPN ---
CCU Subjective - Physician Review Events Since Last Encounter (Free Text): 02/03/17 16:58 Extubated 24 hrs ago. Continues to have trouble breathing and hypoxia. Placed on HFNC to keep o2 sat> 90%. CCU Objective - Vital Signs / Intake & Output Vital Signs (Last 4 hours): Vital Signs Pulse Resp BP Pulse Ox 02/03/17 16:52 24 02/03/17 16:23 134 H 148/111 H 02/03/17 15:40 144 H 116/70 02/03/17 13:00 97 H 33 H 122/66 92 L Intake and Output (Last 8hrs): Intake & Output 02/03/17 02/03/17 02/03/17 06:59 14:59 22:59 Intake Total 640 98 Output Total 720 Balance -80 98 Weight 252 lb 3.341 oz Intake: IV 640 98 Right Internal Jugular 555 Output: Urine 720 2-way Urethral 720 - Physical Exam Physical Exam Limitations: Positive for: Altered Mental Status Head: Positive for: Atraumatic, Normocephalic Pupils: Positive for: PERRL, Sluggish Extroacular Muscles: Positive for: EOMI Conjunctiva: Positive for: Normal Mouth: Positive for: Moist Mucous Membranes, Other (ett) Pharnyx: Positive for: Normal Nose (Internal): Positive for: Normal Inspection Neck: Positive for: Normal Range of Motion Respiratory/Chest: Positive for: Clear to Auscultation, Respiratory Distress, Decreased Breath Sounds (mild, symmetric) Cardiovascular: Positive for: Tachycardic Abdomen: Negative for: Tenderness, Distention Upper Extremity: Positive for: Normal Inspection Lower Extremity: Positive for: Normal Inspection, Tenderness, Swelling ((+) ecchymosis, right lower leg) Neurological: Positive for: GCS=15, CN II-XII Intact, Other (moving all extremities, no pronator drift, 5/5 muscle strenght, normal sensation) Psychiatric: Positive for: Alert - Medications Active Medications: Active Medications Generic Name Dose Route Start Last Admin Trade Name Freq PRN Reason Stop Dose Admin Acetaminophen 650 mg 01/28/17 21:29 02/01/17 22:44 Tylenol 325mg Tab PO 650 mg Q6H PRN Administration Fever >100.4 F Albuterol/Ipratropium 3 ml 01/29/17 08:00 02/03/17 07:00 Duoneb 3 Mg/0.5 Mg (3 Ml) Ud IH 3 ml [id number] NO Administration Albuterol/Ipratropium 3 ml 01/29/17 07:22 Duoneb 3 Mg/0.5 Mg (3 Ml) Ud IH Q2H PRN Shortness of Breath Aspirin 81 mg 01/29/17 10:00 02/03/17 10:32 Aspirin Chewable PO Not Given DAILY NO Budesonide 0.5 mg 01/29/17 08:00 02/03/17 07:00 Pulmicort Respules IH 0.5 mg [id number] NO Administration Chlorhexidine Gluconate 15 ml 01/30/17 15:30 02/03/17 14:21 Peridex PO 1 applic Q4H NO Administration Clopidogrel Bisulfate 75 mg 01/29/17 10:00 01/31/17 09:57 Plavix PO 75 mg DAILY NO Administration Fluticasone Propionate 1 actuation 01/29/17 10:00 02/03/17 13:38 Flonase NS Not Given DAILY NO Furosemide 40 mg 02/02/17 06:40 02/03/17 11:14 Lasix IVP 40 mg DAILY NO Administration Dexmedetomidine HCl 400 mcg in 100 mls @ 3.391 mls/hr 01/29/17 12:01 14:30 Precedex 4 Mcg/Ml (100 Ml) IV 0 mcg/kg/hr .Q24H PRN 0 mls/hr Anxiety Titration Protocol 0.2 MCG/KG/HR Meropenem 1g/NS 100mL IVPB 1 gm in 100 mls @ 100 mls/hr 01/31/17 14:00 14:18 Meropenem 1g/Ns 100ml Ivpb IVPB 02/09/17 14:01 100 mls/hr Q8 NO Administration Protocol Argatroban 250 mg/ Sodium 250 mls @ 2.4 mls/hr 02/01/17 17:00 02/03/17 10:27 Chloride IV 1.7 mcg/kg/min .Q24H NO 8.2 mls/hr Protocol Administration 0.5 MCG/KG/MIN Amiodarone HCl/Dextrose 360 mg in 200 mls @ 16.667 mls/hr 02/02/17 00:15 02/10 14:18 Nexterone 360 Mg In D5w 200 Ml (Premix) IV 16.667 mls/hr .Q12H NO Administration Protocol 0.5 MG/MIN Vancomycin HCl 1 gm in 250 mls @ 167 mls/hr 02/03/17 11:15 02/03/17 12:22 Vancomycin 1gm IVPB 167 mls/hr Q12H NO Administration Protocol Metoprolol Tartrate 5 mg 02/03/17 11:00 02/03/17 16:23 Lopressor IVP 5 mg Q6H NO Administration Folic Acid [Folic 400 mcg 01/31/17 14:19 02/03/17 10:33 Acid] 400 Mcg (Home PO Not Given Med) DAILY NO Pantoprazole Sodium 40 mg 01/30/17 10:00 02/03/17 10:35 Protonix Inj IVP 40 mg DAILY NO Administration Verapamil HCl 2.5 mg 02/03/17 10:48 02/03/17 15:40 Verapamil Inj IVP 2.5 mg Q6H PRN Administration for herat rate >140 - Patient Studies Lab Studies: Microbiology Studies 01/30/17 09:20 Blood Culture - Preliminary Blood-Venous NO GROWTH AFTER 4 DAYS 01/30/17 09:18 Blood Culture - Preliminary Blood-Venous NO GROWTH AFTER 4 DAYS Lab Studies 02/03/17 02/03/17 02/03/17 Range/Units 15:39 13:30 10:50 WBC (4.5-11.0) 10^3/ul RBC (3.5-6.1) 10^6/uL Hgb (12.0-16.0) g/dL Hct (36.0-48.0) % MCV (80.0-105.0) fl MCH (25.0-35.0) pg MCHC (31.0-37.0) g/dl RDW (11.5-14.5) % Plt Count (120.0-450.0) 10^3/uL MPV (7.0-11.0) fl Neutrophils % (Manual) (50.0-70.0) % Band Neutrophils % (0-2) % Lymphocytes % (Manual) (22.0-35.0) % Atypical Lymphs % (0.0-0.0) % Monocytes % (Manual) (1.0-6.0) % Nucleated RBC % % Platelet Evaluation (NORMAL) Hypochromasia Anisocytosis (manual) APTT 49.5 H (23.7-30.8) Seconds pCO2 33 L (35-45) mm/Hg pO2 52.0 L (80-100) mm/Hg HCO3 33.9 H (21-28) mmol/L ABG pH 7.62 H* (7.35-7.45) ABG Total CO2 34.9 H (22-28) mmol.L ABG O2 Saturation 93.7 L (95-98) % ABG O2 Content 16.2 (15-23) ML/dl ABG Base Excess 12.2 H (-2.0-3.0) mmol/L ABG Hemoglobin 12.8 (11.7-17.4) g/dL ABG Carboxyhemoglobin 2.4 H (0.5-1.5) % POC ABG HHb (Measured) 6.1 H (0-5) % ABG Methemoglobin 1.4 (0.0-3.0) % ABG O2 Capacity 17.3 (16-24) mL/dl Hgb O2 Saturation 90.1 L (95.0-98.0) % FiO2 80.0 % Sodium (132-148) mmol/L Potassium (3.6-5.0) mmol/L Chloride (98-107) mmol/L Carbon Dioxide (21-33) mmol/L Anion Gap (10-20) BUN (7-21) mg/dL Creatinine (0.7-1.2) mg/dL Est GFR ( Amer) Est GFR (Non-Af Amer) POC Glucose (mg/dL) 160 H (65-110) mg/dL Random Glucose (70-110) mg/dL Calcium (8.4-10.5) mg/dL Phosphorus (2.5-4.5) mg/dL Magnesium (1.7-2.2) mg/dL Total Bilirubin (0.2-1.3) mg/dL AST (14-36) U/L ALT (7-56) U/L Alkaline Phosphatase (38-126) U/L Total Protein (5.8-8.3) g/dL Albumin (3.0-4.8) g/dL Globulin gm/dL Albumin/Globulin Ratio (1.1-1.8) 10/10/17 10/10/17 10/10/17 Range/Units 09:30 08:15 08:15 WBC 28.7 H* D (4.5-11.0) 10^3/ul RBC 3.80 (3.5-6.1) 10^6/uL Hgb 11.5 L (12.0-16.0) g/dL Hct 33.9 L (36.0-48.0) % MCV 89.2 (80.0-105.0) fl MCH 30.3 (25.0-35.0) pg MCHC 33.9 (31.0-37.0) g/dl RDW 15.3 H (11.5-14.5) % Plt Count 142 (120.0-450.0) 10^3/uL MPV 10.3 (7.0-11.0) fl Neutrophils % (Manual) 90 H (50.0-70.0) % Band Neutrophils % 3 H (0-2) % Lymphocytes % (Manual) 2 L (22.0-35.0) % Atypical Lymphs % 1 H (0.0-0.0) % Monocytes % (Manual) 4 (1.0-6.0) % Nucleated RBC % 2 % Platelet Evaluation Normal (NORMAL) Hypochromasia Slight Anisocytosis (manual) 1+ APTT 46.0 H (23.7-30.8) Seconds pCO2 (35-45) mm/Hg pO2 (80-100) mm/Hg HCO3 (21-28) mmol/L ABG pH (7.35-7.45) ABG Total CO2 (22-28) mmol.L ABG O2 Saturation (95-98) % ABG O2 Content (15-23) ML/dl ABG Base Excess (-2.0-3.0) mmol/L ABG Hemoglobin (11.7-17.4) g/dL ABG Carboxyhemoglobin (0.5-1.5) % POC ABG HHb (Measured) (0-5) % ABG Methemoglobin (0.0-3.0) % ABG O2 Capacity (16-24) mL/dl Hgb O2 Saturation (95.0-98.0) % FiO2 % Sodium 149 H (132-148) mmol/L Potassium 3.0 L (3.6-5.0) mmol/L Chloride 107 (98-107) mmol/L Carbon Dioxide 34 H (21-33) mmol/L Anion Gap 11 (10-20) BUN 40 H (7-21) mg/dL Creatinine 0.6 L (0.7-1.2) mg/dL Est GFR ( Amer) > 60 Est GFR (Non-Af Amer) > 60 POC Glucose (mg/dL) (65-110) mg/dL Random Glucose 167 H (70-110) mg/dL Calcium 6.4 L* (8.4-10.5) mg/dL Phosphorus 2.0 L (2.5-4.5) mg/dL Magnesium 1.8 (1.7-2.2) mg/dL Total Bilirubin 0.9 (0.2-1.3) mg/dL AST 274 H D (14-36) U/L ALT 1302 H (7-56) U/L Alkaline Phosphatase 124 (38-126) U/L Total Protein 4.7 L (5.8-8.3) g/dL Albumin 2.4 L (3.0-4.8) g/dL Globulin 2.3 gm/dL Albumin/Globulin Ratio 1.0 L (1.1-1.8) 02/03/17 02/03/17 02/03/17 Range/Units 07:02 06:53 04:07 WBC (4.5-11.0) 10^3/ul RBC (3.5-6.1) 10^6/uL Hgb (12.0-16.0) g/dL Hct (36.0-48.0) % MCV (80.0-105.0) fl MCH (25.0-35.0) pg MCHC (31.0-37.0) g/dl RDW (11.5-14.5) % Plt Count (120.0-450.0) 10^3/uL MPV (7.0-11.0) fl Neutrophils % (Manual) (50.0-70.0) % Band Neutrophils % (0-2) % Lymphocytes % (Manual) (22.0-35.0) % Atypical Lymphs % (0.0-0.0) % Monocytes % (Manual) (1.0-6.0) % Nucleated RBC % % Platelet Evaluation (NORMAL) Hypochromasia Anisocytosis (manual) APTT 44.3 H (23.7-30.8) Seconds pCO2 33 L (35-45) mm/Hg pO2 49.0 L (80-100) mm/Hg HCO3 33.2 H (21-28) mmol/L ABG pH 7.61 H* (7.35-7.45) ABG Total CO2 34.2 H (22-28) mmol.L ABG O2 Saturation 91.9 L (95-98) % ABG O2 Content 14.6 L (15-23) ML/dl ABG Base Excess 11.3 H (-2.0-3.0) mmol/L ABG Hemoglobin 11.7 (11.7-17.4) g/dL ABG Carboxyhemoglobin 2.2 H (0.5-1.5) % POC ABG HHb (Measured) 7.8 H (0-5) % ABG Methemoglobin 1.1 (0.0-3.0) % ABG O2 Capacity 15.9 L (16-24) mL/dl Hgb O2 Saturation 88.9 L (95.0-98.0) % FiO2 50.0 % Sodium (132-148) mmol/L Potassium (3.6-5.0) mmol/L Chloride (98-107) mmol/L Carbon Dioxide (21-33) mmol/L Anion Gap (10-20) BUN (7-21) mg/dL Creatinine (0.7-1.2) mg/dL Est GFR ( Amer) Est GFR (Non-Af Amer) POC Glucose (mg/dL) 204 H (65-110) mg/dL Random Glucose (70-110) mg/dL Calcium (8.4-10.5) mg/dL Phosphorus (2.5-4.5) mg/dL Magnesium (1.7-2.2) mg/dL Total Bilirubin (0.2-1.3) mg/dL AST (14-36) U/L ALT (7-56) U/L Alkaline Phosphatase (38-126) U/L Total Protein (5.8-8.3) g/dL Albumin (3.0-4.8) g/dL Globulin gm/dL Albumin/Globulin Ratio (1.1-1.8) 02/03/17 02/02/17 02/02/17 Range/Units 03:30 23:45 23:30 WBC (4.5-11.0) 10^3/ul RBC (3.5-6.1) 10^6/uL Hgb (12.0-16.0) g/dL Hct (36.0-48.0) % MCV (80.0-105.0) fl MCH (25.0-35.0) pg MCHC (31.0-37.0) g/dl RDW (11.5-14.5) % Plt Count (120.0-450.0) 10^3/uL MPV (7.0-11.0) fl Neutrophils % (Manual) (50.0-70.0) % Band Neutrophils % (0-2) % Lymphocytes % (Manual) (22.0-35.0) % Atypical Lymphs % (0.0-0.0) % Monocytes % (Manual) (1.0-6.0) % Nucleated RBC % % Platelet Evaluation (NORMAL) Hypochromasia Anisocytosis (manual) APTT 46.8 H 46.1 H (23.7-30.8) Seconds pCO2 (35-45) mm/Hg pO2 (80-100) mm/Hg HCO3 (21-28) mmol/L ABG pH (7.35-7.45) ABG Total CO2 (22-28) mmol.L ABG O2 Saturation (95-98) % ABG O2 Content (15-23) ML/dl ABG Base Excess (-2.0-3.0) mmol/L ABG Hemoglobin (11.7-17.4) g/dL ABG Carboxyhemoglobin (0.5-1.5) % POC ABG HHb (Measured) (0-5) % ABG Methemoglobin (0.0-3.0) % ABG O2 Capacity (16-24) mL/dl Hgb O2 Saturation (95.0-98.0) % FiO2 % Sodium (132-148) mmol/L Potassium (3.6-5.0) mmol/L Chloride (98-107) mmol/L Carbon Dioxide (21-33) mmol/L Anion Gap (10-20) BUN (7-21) mg/dL Creatinine (0.7-1.2) mg/dL Est GFR ( Amer) Est GFR (Non-Af Amer) POC Glucose (mg/dL) 182 H (65-110) mg/dL Random Glucose (70-110) mg/dL Calcium (8.4-10.5) mg/dL Phosphorus (2.5-4.5) mg/dL Magnesium (1.7-2.2) mg/dL Total Bilirubin (0.2-1.3) mg/dL AST (14-36) U/L ALT (7-56) U/L Alkaline Phosphatase (38-126) U/L Total Protein (5.8-8.3) g/dL Albumin (3.0-4.8) g/dL Globulin gm/dL Albumin/Globulin Ratio (1.1-1.8) 02/02/17 02/02/17 02/02/17 Range/Units 20:54 19:42 18:29 WBC (4.5-11.0) 10^3/ul RBC (3.5-6.1) 10^6/uL Hgb (12.0-16.0) g/dL Hct (36.0-48.0) % MCV (80.0-105.0) fl MCH (25.0-35.0) pg MCHC (31.0-37.0) g/dl RDW (11.5-14.5) % Plt Count (120.0-450.0) 10^3/uL MPV (7.0-11.0) fl Neutrophils % (Manual) (50.0-70.0) % Band Neutrophils % (0-2) % Lymphocytes % (Manual) (22.0-35.0) % Atypical Lymphs % (0.0-0.0) % Monocytes % (Manual) (1.0-6.0) % Nucleated RBC % % Platelet Evaluation (NORMAL) Hypochromasia Anisocytosis (manual) APTT 47.6 H 47.0 H (23.7-30.8) Seconds pCO2 (35-45) mm/Hg pO2 (80-100) mm/Hg HCO3 (21-28) mmol/L ABG pH (7.35-7.45) ABG Total CO2 (22-28) mmol.L ABG O2 Saturation (95-98) % ABG O2 Content (15-23) ML/dl ABG Base Excess (-2.0-3.0) mmol/L ABG Hemoglobin (11.7-17.4) g/dL ABG Carboxyhemoglobin (0.5-1.5) % POC ABG HHb (Measured) (0-5) % ABG Methemoglobin (0.0-3.0) % ABG O2 Capacity (16-24) mL/dl Hgb O2 Saturation (95.0-98.0) % FiO2 % Sodium (132-148) mmol/L Potassium (3.6-5.0) mmol/L Chloride (98-107) mmol/L Carbon Dioxide (21-33) mmol/L Anion Gap (10-20) BUN (7-21) mg/dL Creatinine (0.7-1.2) mg/dL Est GFR ( Amer) Est GFR (Non-Af Amer) POC Glucose (mg/dL) 233 H (65-110) mg/dL Random Glucose (70-110) mg/dL Calcium (8.4-10.5) mg/dL Phosphorus (2.5-4.5) mg/dL Magnesium (1.7-2.2) mg/dL Total Bilirubin (0.2-1.3) mg/dL AST (14-36) U/L ALT (7-56) U/L Alkaline Phosphatase (38-126) U/L Total Protein (5.8-8.3) g/dL Albumin (3.0-4.8) g/dL Globulin gm/dL Albumin/Globulin Ratio (1.1-1.8) Laboratory Results - last 24 hr 02/02/17 02/02/17 02/02/17 18:29 19:42 20:54 WBC RBC Hgb Hct MCV MCH MCHC RDW Plt Count MPV Neutrophils % (Manual) Band Neutrophils % Lymphocytes % (Manual) Atypical Lymphs % Monocytes % (Manual) Nucleated RBC % Platelet Evaluation Hypochromasia Anisocytosis (manual) APTT 47.0 H 47.6 H pCO2 pO2 HCO3 ABG pH ABG Total CO2 ABG O2 Saturation ABG O2 Content ABG Base Excess ABG Hemoglobin ABG Carboxyhemoglobin POC ABG HHb (Measured) ABG Methemoglobin ABG O2 Capacity Hgb O2 Saturation FiO2 Sodium Potassium Chloride Carbon Dioxide Anion Gap BUN Creatinine Est GFR ( Amer) Est GFR (Non-Af Amer) POC Glucose (mg/dL) 233 H Random Glucose Calcium Phosphorus Magnesium Total Bilirubin AST ALT Alkaline Phosphatase Total Protein Albumin Globulin Albumin/Globulin Ratio 02/02/17 02/02/17 02/03/17 23:30 23:45 03:30 WBC RBC Hgb Hct MCV MCH MCHC RDW Plt Count MPV Neutrophils % (Manual) Band Neutrophils % Lymphocytes % (Manual) Atypical Lymphs % Monocytes % (Manual) Nucleated RBC % Platelet Evaluation Hypochromasia Anisocytosis (manual) APTT 46.1 H 46.8 H pCO2 pO2 HCO3 ABG pH ABG Total CO2 ABG O2 Saturation ABG O2 Content ABG Base Excess ABG Hemoglobin ABG Carboxyhemoglobin POC ABG HHb (Measured) ABG Methemoglobin ABG O2 Capacity Hgb O2 Saturation FiO2 Sodium Potassium Chloride Carbon Dioxide Anion Gap BUN Creatinine Est GFR ( Amer) Est GFR (Non-Af Amer) POC Glucose (mg/dL) 182 H Random Glucose Calcium Phosphorus Magnesium Total Bilirubin AST ALT Alkaline Phosphatase Total Protein Albumin Globulin Albumin/Globulin Ratio 02/03/17 02/03/17 02/03/17 04:07 06:53 07:02 WBC RBC Hgb Hct MCV MCH MCHC RDW Plt Count MPV Neutrophils % (Manual) Band Neutrophils % Lymphocytes % (Manual) Atypical Lymphs % Monocytes % (Manual) Nucleated RBC % Platelet Evaluation Hypochromasia Anisocytosis (manual) APTT 44.3 H pCO2 33 L pO2 49.0 L HCO3 33.2 H ABG pH 7.61 H* ABG Total CO2 34.2 H ABG O2 Saturation 91.9 L ABG O2 Content 14.6 L ABG Base Excess 11.3 H ABG Hemoglobin 11.7 ABG Carboxyhemoglobin 2.2 H POC ABG HHb (Measured) 7.8 H ABG Methemoglobin 1.1 ABG O2 Capacity 15.9 L Hgb O2 Saturation 88.9 L FiO2 50.0 Sodium Potassium Chloride Carbon Dioxide Anion Gap BUN Creatinine Est GFR ( Amer) Est GFR (Non-Af Amer) POC Glucose (mg/dL) 204 H Random Glucose Calcium Phosphorus Magnesium Total Bilirubin AST ALT Alkaline Phosphatase Total Protein Albumin Globulin Albumin/Globulin Ratio 02/03/17 02/03/17 02/03/17 08:15 08:15 09:30 WBC 28.7 H* D RBC 3.80 Hgb 11.5 L Hct 33.9 L MCV 89.2 MCH 30.3 MCHC 33.9 RDW 15.3 H Plt Count 142 MPV 10.3 Neutrophils % (Manual) 90 H Band Neutrophils % 3 H Lymphocytes % (Manual) 2 L Atypical Lymphs % 1 H Monocytes % (Manual) 4 Nucleated RBC % 2 Platelet Evaluation Normal Hypochromasia Slight Anisocytosis (manual) 1+ APTT 46.0 H pCO2 pO2 HCO3 ABG pH ABG Total CO2 ABG O2 Saturation ABG O2 Content ABG Base Excess ABG Hemoglobin ABG Carboxyhemoglobin POC ABG HHb (Measured) ABG Methemoglobin ABG O2 Capacity Hgb O2 Saturation FiO2 Sodium 149 H Potassium 3.0 L Chloride 107 Carbon Dioxide 34 H Anion Gap 11 BUN 40 H Creatinine 0.6 L Est GFR ( Amer) > 60 Est GFR (Non-Af Amer) > 60 POC Glucose (mg/dL) Random Glucose 167 H Calcium 6.4 L* Phosphorus 2.0 L Magnesium 1.8 Total Bilirubin 0.9 AST 274 H D ALT 1302 H Alkaline Phosphatase 124 Total Protein 4.7 L Albumin 2.4 L Globulin 2.3 Albumin/Globulin Ratio 1.0 L 02/03/17 02/03/17 02/03/17 10:50 13:30 15:39 WBC RBC Hgb Hct MCV MCH MCHC RDW Plt Count MPV Neutrophils % (Manual) Band Neutrophils % Lymphocytes % (Manual) Atypical Lymphs % Monocytes % (Manual) Nucleated RBC % Platelet Evaluation Hypochromasia Anisocytosis (manual) APTT 49.5 H pCO2 33 L pO2 52.0 L HCO3 33.9 H ABG pH 7.62 H* ABG Total CO2 34.9 H ABG O2 Saturation 93.7 L ABG O2 Content 16.2 ABG Base Excess 12.2 H ABG Hemoglobin 12.8 ABG Carboxyhemoglobin 2.4 H POC ABG HHb (Measured) 6.1 H ABG Methemoglobin 1.4 ABG O2 Capacity 17.3 Hgb O2 Saturation 90.1 L FiO2 80.0 Sodium Potassium Chloride Carbon Dioxide Anion Gap BUN Creatinine Est GFR ( Amer) Est GFR (Non-Af Amer) POC Glucose (mg/dL) 160 H Random Glucose Calcium Phosphorus Magnesium Total Bilirubin AST ALT Alkaline Phosphatase Total Protein Albumin Globulin Albumin/Globulin Ratio EKG/Cardiology Studies: Cardiology / EKG Studies 02/03/17 07:53 EKG [ELECTROCARDIOGRAM] Stat Comment: Reason For Exam: Rapid afib PRE OP:: N Does Patient Have a Pacemaker?: No Fingerstick Blood Sugar Results: 216 Review of Systems - Review of Systems Systems not reviewed;Unavailable: Altered Mental Status Critical Care Progress Note - Ventilator Checklist Daily Assessment of Readiness to Wean: Yes Daily Spontaneous Breathing Trial: Yes PUD Prophalyxis: Yes DVT Prophylaxis: Yes Oral Care with Chlorhexidine Gluconate {CHG}: Yes - Nutrition Nutrition: Nutrition Category Date Time Status NPO Diet [DIET] Diets 02/01/17 Breakfast Ordered Assessment/Plan - Assessment and Plan (Free Text) Assessment: 81 y/o F s/p acute respiratory failure , ARDS and septic shock. Extubated and continues to be hypoxic. Now placed on HFNC to keep her o2 sat> 90 % . Plan to diurese w/ lasix to keep net negative urine output. Urosepsis on treatment with ABX to treat E COli blood and urine cx. CXR reviewed , shows increased PVC. Nebs to be continued q4hrs rn. Chest PT. AMS, prn anxiolytics. dvt p ppi cc time 65
[2017-02-03 18:31] LABS: MAGNESIUM 1.8 mg/dL (1.7-2.2)
[2017-02-03 18:33] LABS: POTASSIUM 2.9 mmol/L (3.6-5.0)
[2017-02-03 18:34] LABS: CALCIUM 6.8 mg/dL (8.4-10.5)
[2017-02-04] MEDS: Vancomycin 1gm in NS 250ml 1 GM/250 ML BAG IVPB SCH ×3 (00:15→22:22)
[2017-02-04 00:23] LABS: HEPARIN-IND PLATELET AB Negative (Negative); RESULT Negative (Negative)
[2017-02-04] MEDS: Albuterol-Ipratrop 3 mg / 0.5 (3 ml) UD IH SCH ×2 (03:49→07:46)
--- NOTE | 2017-02-04 06:36 | CP.CCUPN ---
<Nathanael Palomino - Last Filed: 02/04/17 13:49> CCU Subjective - Physician Review Subjective (Free Text): 02/04/17 06:31 Patient seen and evaluated at bedside in the ICU. S/p Extubation day 2. Remains confused/delirious, not following commands, minimally verbal this AM, with nonsensical speech, but is tracking staff through room. Persistently intermittently tachycardic to 140-160's, initially relieved with 5mg Lopressor push, but recurred, requiring Cardizem drip, titrated up to 10, still on Amio drip at 0.5 as per Cardio. CCU Objective - Vital Signs / Intake & Output Intake and Output (Last 8hrs): Intake & Output 02/03/17 02/03/17 02/04/17 14:59 22:59 06:59 Intake Total 98 300 Output Total 3600 Balance 98 -3300 Weight 114.4 kg Intake: IV 98 300 Oral 0 Tube Feeding 0 Output: Urine 3600 2-way Urethral 3600 Stool 0 - Physical Exam Physical Exam Limitations: Positive for: Other (Not following most commands) Head: Positive for: Atraumatic, Normocephalic Pupils: Positive for: PERRL, Sluggish Extroacular Muscles: Positive for: EOMI (not following commands for EOMI testing , but moves eyes to track staff throughout room, and moves eyes) Conjunctiva: Positive for: Normal Mouth: Positive for: Moist Mucous Membranes, Normal Lips, Normal Tounge. Negative for: Drooling Nose (External): Positive for: Atraumatic. Negative for: Abrasion, Contusion, Laceration Neck: Negative for: Normal Range of Motion (able to move head minimally to track throughout room, not actively moving head otherwise, passive ROM appears to be intact and appropriate) Respiratory/Chest: Positive for: Clear to Auscultation, Decreased Breath Sounds (mild-moderate decreased breath sounds in all auscultated brady), Rhonchi ( diffuse monderate ronchi in all brady) Cardiovascular: Positive for: Other (Fluctuates between AFib RVR up to 140's on to 70's-80's NSR, intially irreg irreg on exam but rapidly corrected to NSR after IV lopressor push) Abdomen: Negative for: Tenderness, Distention Upper Extremity: Positive for: Edema (non pitting but grossly edematous in bilateral hands extending to upper forearm), Swelling, Temperature Abnormalties (hands cool to palpation). Negative for: Cyanosis (bruising from diffuse swelling and blood draws, dusky-appearing hands, but not grossly cyanotic), NORMAL PULSES (weakly palpable radial pulses likely 2/2 edema), Erythema (no erythema, scatter echymoses likely 2/2 being on anticoagulant), Deformity Lower Extremity: Positive for: Edema (+2 pitting edema in bilateral feet and ankles, +1 from top of SCDs to knees, no joint swelling), Tenderness, Swelling ( (+)ecchymosis, right lower leg), Temperature Abnormalties (feet/ankles cold to palpation). Negative for: NORMAL PULSES (unable to palpate bilateral dorsalis pedis or posterior tibials), Cyanosis, Erythema, Deformity Neurological: Positive for: Speech Normal (confused/repetitive speech, but speech itself intact and comparable to speech at time of admission), Other ( spontaneous movement of hands and feet, but minimal (moving toes, twitching fingers), no gross motor activity noted). Negative for: GCS=15 (GCS 12 (E4 V4 M4)), CN II-XII Intact (unable to fully assess due to not following commands, occular CN appear intact, CN VII appears intact), Motor Func Grossly Intact ( minimal voluntary or spontaneous motions by patient) Skin: Positive for: Warm (except at distal extremities, as noted in extremities exam), Dry, Normal Color (except as noted in upper extremities exam) Psychiatric: Positive for: Other (awake and intermittently alert, no apparent orientation, repetitively counting down numbers, not following most commands; likely delirious) - Medications Active Medications: Active Medications Generic Name Dose Route Start Last Admin Trade Name Freq PRN Reason Stop Dose Admin Acetaminophen 650 mg 01/28/17 21:29 02/01/17 22:44 Tylenol 325mg Tab PO 650 mg Q6H PRN Administration Fever >100.4 F Albuterol/Ipratropium 3 ml 01/29/17 08:00 02/04/17 03:49 Duoneb 3 Mg/0.5 Mg (3 Ml) Ud IH 3 ml [id number] NO Administration Albuterol/Ipratropium 3 ml 01/29/17 07:22 Duoneb 3 Mg/0.5 Mg (3 Ml) Ud IH Q2H PRN Shortness of Breath Aspirin 81 mg 01/29/17 10:00 02/03/17 10:32 Aspirin Chewable PO Not Given DAILY NO Budesonide 0.5 mg 01/29/17 08:00 02/03/17 20:39 Pulmicort Respules IH 0.5 mg [id number] NO Administration Chlorhexidine Gluconate 15 ml 01/30/17 15:30 02/03/17 17:21 Peridex PO 1 applic Q4H NO Administration Clopidogrel Bisulfate 75 mg 01/29/17 10:00 01/31/17 09:57 Plavix PO 75 mg DAILY NO Administration Fluticasone Propionate 1 actuation 01/29/17 10:00 02/03/17 13:38 Flonase NS Not Given DAILY NO Furosemide 40 mg 02/02/17 06:40 02/03/17 11:14 Lasix IVP 40 mg DAILY NO Administration Dexmedetomidine HCl 400 mcg in 100 mls @ 3.391 mls/hr 01/29/17 12:01 14:30 Precedex 4 Mcg/Ml (100 Ml) IV 0 mcg/kg/hr .Q24H PRN 0 mls/hr Anxiety Titration Protocol 0.2 MCG/KG/HR Meropenem 1g/NS 100mL IVPB 1 gm in 100 mls @ 100 mls/hr 01/31/17 14:00 21:42 Meropenem 1g/Ns 100ml Ivpb IVPB 02/09/17 14:01 100 mls/hr Q8 NO Administration Protocol Argatroban 250 mg/ Sodium 250 mls @ 2.4 mls/hr 02/01/17 17:00 02/03/17 19:14 Chloride IV 0.1 mcg/kg/min .Q24H NO 0.48 mls/hr Protocol Titration 0.5 MCG/KG/MIN Amiodarone HCl/Dextrose 360 mg in 200 mls @ 16.667 mls/hr 02/02/17 00:15 02/10 14:18 Nexterone 360 Mg In D5w 200 Ml (Premix) IV 16.667 mls/hr .Q12H NO Administration Protocol 0.5 MG/MIN Vancomycin HCl 1 gm in 250 mls @ 167 mls/hr 02/03/17 11:15 02/04/17 00:15 Vancomycin 1gm IVPB 167 mls/hr Q12H NO Administration Protocol Metoprolol Tartrate 5 mg 02/03/17 11:00 02/04/17 00:00 Lopressor IVP 5 mg Q6H NO Administration Folic Acid [Folic 400 mcg 01/31/17 14:19 02/03/17 10:33 Acid] 400 Mcg (Home PO Not Given Med) DAILY NO Pantoprazole Sodium 40 mg 01/30/17 10:00 02/03/17 10:35 Protonix Inj IVP 40 mg DAILY NO Administration Verapamil HCl 2.5 mg 02/03/17 10:48 02/03/17 21:40 Verapamil Inj IVP 2.5 mg Q6H PRN Administration for herat rate >140 - Patient Studies Lab Studies: Microbiology Studies 01/30/17 09:20 Blood Culture - Preliminary Blood-Venous NO GROWTH AFTER 4 DAYS 01/30/17 09:18 Blood Culture - Preliminary Blood-Venous NO GROWTH AFTER 4 DAYS Lab Studies 02/04/17 02/04/17 02/04/17 Range/Units 04:04 01:22 01:22 WBC (4.5-11.0) 10^3/ul RBC (3.5-6.1) 10^6/uL Hgb (12.0-16.0) g/dL Hct (36.0-48.0) % MCV (80.0-105.0) fl MCH (25.0-35.0) pg MCHC (31.0-37.0) g/dl RDW (11.5-14.5) % Plt Count (120.0-450.0) 10^3/uL MPV (7.0-11.0) fl Neutrophils % (Manual) (50.0-70.0) % Band Neutrophils % (0-2) % Lymphocytes % (Manual) (22.0-35.0) % Atypical Lymphs % (0.0-0.0) % Monocytes % (Manual) (1.0-6.0) % Nucleated RBC % % Platelet Evaluation (NORMAL) Hypochromasia Anisocytosis (manual) APTT 51.6 H (23.7-30.8) Seconds Hep-Arlen Thrombocytopen (Negative) pCO2 (35-45) mm/Hg pO2 (80-100) mm/Hg HCO3 (21-28) mmol/L ABG pH (7.35-7.45) ABG Total CO2 (22-28) mmol.L ABG O2 Saturation (95-98) % ABG O2 Content (15-23) ML/dl ABG Base Excess (-2.0-3.0) mmol/L ABG Hemoglobin (11.7-17.4) g/dL ABG Carboxyhemoglobin (0.5-1.5) % POC ABG HHb (Measured) (0-5) % ABG Methemoglobin (0.0-3.0) % ABG O2 Capacity (16-24) mL/dl Hgb O2 Saturation (95.0-98.0) % FiO2 % Sodium (132-148) mmol/L Potassium 3.5 L (3.6-5.0) mmol/L Chloride (98-107) mmol/L Carbon Dioxide (21-33) mmol/L Anion Gap (10-20) BUN (7-21) mg/dL Creatinine (0.7-1.2) mg/dL Est GFR ( Amer) Est GFR (Non-Af Amer) POC Glucose (mg/dL) 165 H (65-110) mg/dL Random Glucose (70-110) mg/dL Calcium (8.4-10.5) mg/dL Phosphorus (2.5-4.5) mg/dL Magnesium (1.7-2.2) mg/dL Total Bilirubin (0.2-1.3) mg/dL AST (14-36) U/L ALT (7-56) U/L Alkaline Phosphatase (38-126) U/L Total Protein (5.8-8.3) g/dL Albumin (3.0-4.8) g/dL Globulin gm/dL Albumin/Globulin Ratio (1.1-1.8) Heparin-induced Plt Ab (Negative) 02/03/17 02/03/17 02/03/17 Range/Units 23:31 21:39 19:33 WBC (4.5-11.0) 10^3/ul RBC (3.5-6.1) 10^6/uL Hgb (12.0-16.0) g/dL Hct (36.0-48.0) % MCV (80.0-105.0) fl MCH (25.0-35.0) pg MCHC (31.0-37.0) g/dl RDW (11.5-14.5) % Plt Count (120.0-450.0) 10^3/uL MPV (7.0-11.0) fl Neutrophils % (Manual) (50.0-70.0) % Band Neutrophils % (0-2) % Lymphocytes % (Manual) (22.0-35.0) % Atypical Lymphs % (0.0-0.0) % Monocytes % (Manual) (1.0-6.0) % Nucleated RBC % % Platelet Evaluation (NORMAL) Hypochromasia Anisocytosis (manual) APTT 44.4 H (23.7-30.8) Seconds Hep-Arlen Thrombocytopen (Negative) pCO2 (35-45) mm/Hg pO2 (80-100) mm/Hg HCO3 (21-28) mmol/L ABG pH (7.35-7.45) ABG Total CO2 (22-28) mmol.L ABG O2 Saturation (95-98) % ABG O2 Content (15-23) ML/dl ABG Base Excess (-2.0-3.0) mmol/L ABG Hemoglobin (11.7-17.4) g/dL ABG Carboxyhemoglobin (0.5-1.5) % POC ABG HHb (Measured) (0-5) % ABG Methemoglobin (0.0-3.0) % ABG O2 Capacity (16-24) mL/dl Hgb O2 Saturation (95.0-98.0) % FiO2 % Sodium (132-148) mmol/L Potassium (3.6-5.0) mmol/L Chloride (98-107) mmol/L Carbon Dioxide (21-33) mmol/L Anion Gap (10-20) BUN (7-21) mg/dL Creatinine (0.7-1.2) mg/dL Est GFR ( Amer) Est GFR (Non-Af Amer) POC Glucose (mg/dL) 161 H 195 H (65-110) mg/dL Random Glucose (70-110) mg/dL Calcium (8.4-10.5) mg/dL Phosphorus (2.5-4.5) mg/dL Magnesium (1.7-2.2) mg/dL Total Bilirubin (0.2-1.3) mg/dL AST (14-36) U/L ALT (7-56) U/L Alkaline Phosphatase (38-126) U/L Total Protein (5.8-8.3) g/dL Albumin (3.0-4.8) g/dL Globulin gm/dL Albumin/Globulin Ratio (1.1-1.8) Heparin-induced Plt Ab (Negative) 02/03/17 02/03/17 02/03/17 Range/Units 18:00 18:00 15:39 WBC (4.5-11.0) 10^3/ul RBC (3.5-6.1) 10^6/uL Hgb (12.0-16.0) g/dL Hct (36.0-48.0) % MCV (80.0-105.0) fl MCH (25.0-35.0) pg MCHC (31.0-37.0) g/dl RDW (11.5-14.5) % Plt Count (120.0-450.0) 10^3/uL MPV (7.0-11.0) fl Neutrophils % (Manual) (50.0-70.0) % Band Neutrophils % (0-2) % Lymphocytes % (Manual) (22.0-35.0) % Atypical Lymphs % (0.0-0.0) % Monocytes % (Manual) (1.0-6.0) % Nucleated RBC % % Platelet Evaluation (NORMAL) Hypochromasia Anisocytosis (manual) APTT 46.0 H (23.7-30.8) Seconds Hep-Arlen Thrombocytopen (Negative) pCO2 (35-45) mm/Hg pO2 (80-100) mm/Hg HCO3 (21-28) mmol/L ABG pH (7.35-7.45) ABG Total CO2 (22-28) mmol.L ABG O2 Saturation (95-98) % ABG O2 Content (15-23) ML/dl ABG Base Excess (-2.0-3.0) mmol/L ABG Hemoglobin (11.7-17.4) g/dL ABG Carboxyhemoglobin (0.5-1.5) % POC ABG HHb (Measured) (0-5) % ABG Methemoglobin (0.0-3.0) % ABG O2 Capacity (16-24) mL/dl Hgb O2 Saturation (95.0-98.0) % FiO2 % Sodium (132-148) mmol/L Potassium 2.9 L* (3.6-5.0) mmol/L Chloride (98-107) mmol/L Carbon Dioxide (21-33) mmol/L Anion Gap (10-20) BUN (7-21) mg/dL Creatinine (0.7-1.2) mg/dL Est GFR ( Amer) Est GFR (Non-Af Amer) POC Glucose (mg/dL) 160 H (65-110) mg/dL Random Glucose (70-110) mg/dL Calcium 6.8 L* (8.4-10.5) mg/dL Phosphorus (2.5-4.5) mg/dL Magnesium 1.8 (1.7-2.2) mg/dL Total Bilirubin (0.2-1.3) mg/dL AST (14-36) U/L ALT (7-56) U/L Alkaline Phosphatase (38-126) U/L Total Protein (5.8-8.3) g/dL Albumin (3.0-4.8) g/dL Globulin gm/dL Albumin/Globulin Ratio (1.1-1.8) Heparin-induced Plt Ab (Negative) 02/03/17 02/03/17 02/03/17 Range/Units 13:30 11:38 10:50 WBC (4.5-11.0) 10^3/ul RBC (3.5-6.1) 10^6/uL Hgb (12.0-16.0) g/dL Hct (36.0-48.0) % MCV (80.0-105.0) fl MCH (25.0-35.0) pg MCHC (31.0-37.0) g/dl RDW (11.5-14.5) % Plt Count (120.0-450.0) 10^3/uL MPV (7.0-11.0) fl Neutrophils % (Manual) (50.0-70.0) % Band Neutrophils % (0-2) % Lymphocytes % (Manual) (22.0-35.0) % Atypical Lymphs % (0.0-0.0) % Monocytes % (Manual) (1.0-6.0) % Nucleated RBC % % Platelet Evaluation (NORMAL) Hypochromasia Anisocytosis (manual) APTT 49.5 H (23.7-30.8) Seconds Hep-Arlen Thrombocytopen (Negative) pCO2 33 L (35-45) mm/Hg pO2 52.0 L (80-100) mm/Hg HCO3 33.9 H (21-28) mmol/L ABG pH 7.62 H* (7.35-7.45) ABG Total CO2 34.9 H (22-28) mmol.L ABG O2 Saturation 93.7 L (95-98) % ABG O2 Content 16.2 (15-23) ML/dl ABG Base Excess 12.2 H (-2.0-3.0) mmol/L ABG Hemoglobin 12.8 (11.7-17.4) g/dL ABG Carboxyhemoglobin 2.4 H (0.5-1.5) % POC ABG HHb (Measured) 6.1 H (0-5) % ABG Methemoglobin 1.4 (0.0-3.0) % ABG O2 Capacity 17.3 (16-24) mL/dl Hgb O2 Saturation 90.1 L (95.0-98.0) % FiO2 80.0 % Sodium (132-148) mmol/L Potassium (3.6-5.0) mmol/L Chloride (98-107) mmol/L Carbon Dioxide (21-33) mmol/L Anion Gap (10-20) BUN (7-21) mg/dL Creatinine (0.7-1.2) mg/dL Est GFR ( Amer) Est GFR (Non-Af Amer) POC Glucose (mg/dL) 168 H (65-110) mg/dL Random Glucose (70-110) mg/dL Calcium (8.4-10.5) mg/dL Phosphorus (2.5-4.5) mg/dL Magnesium (1.7-2.2) mg/dL Total Bilirubin (0.2-1.3) mg/dL AST (14-36) U/L ALT (7-56) U/L Alkaline Phosphatase (38-126) U/L Total Protein (5.8-8.3) g/dL Albumin (3.0-4.8) g/dL Globulin gm/dL Albumin/Globulin Ratio (1.1-1.8) Heparin-induced Plt Ab (Negative) 02/03/17 02/03/17 02/03/17 Range/Units 09:30 08:15 08:15 WBC 28.7 H* D (4.5-11.0) 10^3/ul RBC 3.80 (3.5-6.1) 10^6/uL Hgb 11.5 L (12.0-16.0) g/dL Hct 33.9 L (36.0-48.0) % MCV 89.2 (80.0-105.0) fl MCH 30.3 (25.0-35.0) pg MCHC 33.9 (31.0-37.0) g/dl RDW 15.3 H (11.5-14.5) % Plt Count 142 (120.0-450.0) 10^3/uL MPV 10.3 (7.0-11.0) fl Neutrophils % (Manual) 90 H (50.0-70.0) % Band Neutrophils % 3 H (0-2) % Lymphocytes % (Manual) 2 L (22.0-35.0) % Atypical Lymphs % 1 H (0.0-0.0) % Monocytes % (Manual) 4 (1.0-6.0) % Nucleated RBC % 2 % Platelet Evaluation Normal (NORMAL) Hypochromasia Slight Anisocytosis (manual) 1+ APTT 46.0 H (23.7-30.8) Seconds Hep-Arlen Thrombocytopen (Negative) pCO2 (35-45) mm/Hg pO2 (80-100) mm/Hg HCO3 (21-28) mmol/L ABG pH (7.35-7.45) ABG Total CO2 (22-28) mmol.L ABG O2 Saturation (95-98) % ABG O2 Content (15-23) ML/dl ABG Base Excess (-2.0-3.0) mmol/L ABG Hemoglobin (11.7-17.4) g/dL ABG Carboxyhemoglobin (0.5-1.5) % POC ABG HHb (Measured) (0-5) % ABG Methemoglobin (0.0-3.0) % ABG O2 Capacity (16-24) mL/dl Hgb O2 Saturation (95.0-98.0) % FiO2 % Sodium 149 H (132-148) mmol/L Potassium 3.0 L (3.6-5.0) mmol/L Chloride 107 (98-107) mmol/L Carbon Dioxide 34 H (21-33) mmol/L Anion Gap 11 (10-20) BUN 40 H (7-21) mg/dL Creatinine 0.6 L (0.7-1.2) mg/dL Est GFR ( Amer) > 60 Est GFR (Non-Af Amer) > 60 POC Glucose (mg/dL) (65-110) mg/dL Random Glucose 167 H (70-110) mg/dL Calcium 6.4 L* (8.4-10.5) mg/dL Phosphorus 2.0 L (2.5-4.5) mg/dL Magnesium 1.8 (1.7-2.2) mg/dL Total Bilirubin 0.9 (0.2-1.3) mg/dL AST 274 H D (14-36) U/L ALT 1302 H (7-56) U/L Alkaline Phosphatase 124 (38-126) U/L Total Protein 4.7 L (5.8-8.3) g/dL Albumin 2.4 L (3.0-4.8) g/dL Globulin 2.3 gm/dL Albumin/Globulin Ratio 1.0 L (1.1-1.8) Heparin-induced Plt Ab (Negative) 02/03/17 02/03/17 02/01/17 Range/Units 07:02 06:53 06:30 WBC (4.5-11.0) 10^3/ul RBC (3.5-6.1) 10^6/uL Hgb (12.0-16.0) g/dL Hct (36.0-48.0) % MCV (80.0-105.0) fl MCH (25.0-35.0) pg MCHC (31.0-37.0) g/dl RDW (11.5-14.5) % Plt Count (120.0-450.0) 10^3/uL MPV (7.0-11.0) fl Neutrophils % (Manual) (50.0-70.0) % Band Neutrophils % (0-2) % Lymphocytes % (Manual) (22.0-35.0) % Atypical Lymphs % (0.0-0.0) % Monocytes % (Manual) (1.0-6.0) % Nucleated RBC % % Platelet Evaluation (NORMAL) Hypochromasia Anisocytosis (manual) APTT 44.3 H (23.7-30.8) Seconds Hep-Arlen Thrombocytopen Negative (Negative) pCO2 33 L (35-45) mm/Hg pO2 49.0 L (80-100) mm/Hg HCO3 33.2 H (21-28) mmol/L ABG pH 7.61 H* (7.35-7.45) ABG Total CO2 34.2 H (22-28) mmol.L ABG O2 Saturation 91.9 L (95-98) % ABG O2 Content 14.6 L (15-23) ML/dl ABG Base Excess 11.3 H (-2.0-3.0) mmol/L ABG Hemoglobin 11.7 (11.7-17.4) g/dL ABG Carboxyhemoglobin 2.2 H (0.5-1.5) % POC ABG HHb (Measured) 7.8 H (0-5) % ABG Methemoglobin 1.1 (0.0-3.0) % ABG O2 Capacity 15.9 L (16-24) mL/dl Hgb O2 Saturation 88.9 L (95.0-98.0) % FiO2 50.0 % Sodium (132-148) mmol/L Potassium (3.6-5.0) mmol/L Chloride (98-107) mmol/L Carbon Dioxide (21-33) mmol/L Anion Gap (10-20) BUN (7-21) mg/dL Creatinine (0.7-1.2) mg/dL Est GFR ( Amer) Est GFR (Non-Af Amer) POC Glucose (mg/dL) (65-110) mg/dL Random Glucose (70-110) mg/dL Calcium (8.4-10.5) mg/dL Phosphorus (2.5-4.5) mg/dL Magnesium (1.7-2.2) mg/dL Total Bilirubin (0.2-1.3) mg/dL AST (14-36) U/L ALT (7-56) U/L Alkaline Phosphatase (38-126) U/L Total Protein (5.8-8.3) g/dL Albumin (3.0-4.8) g/dL Globulin gm/dL Albumin/Globulin Ratio (1.1-1.8) Heparin-induced Plt Ab (Negative) 02/01/17 Range/Units 06:30 WBC (4.5-11.0) 10^3/ul RBC (3.5-6.1) 10^6/uL Hgb (12.0-16.0) g/dL Hct (36.0-48.0) % MCV (80.0-105.0) fl MCH (25.0-35.0) pg MCHC (31.0-37.0) g/dl RDW (11.5-14.5) % Plt Count (120.0-450.0) 10^3/uL MPV (7.0-11.0) fl Neutrophils % (Manual) (50.0-70.0) % Band Neutrophils % (0-2) % Lymphocytes % (Manual) (22.0-35.0) % Atypical Lymphs % (0.0-0.0) % Monocytes % (Manual) (1.0-6.0) % Nucleated RBC % % Platelet Evaluation (NORMAL) Hypochromasia Anisocytosis (manual) APTT (23.7-30.8) Seconds Hep-Arlen Thrombocytopen (Negative) pCO2 (35-45) mm/Hg pO2 (80-100) mm/Hg HCO3 (21-28) mmol/L ABG pH (7.35-7.45) ABG Total CO2 (22-28) mmol.L ABG O2 Saturation (95-98) % ABG O2 Content (15-23) ML/dl ABG Base Excess (-2.0-3.0) mmol/L ABG Hemoglobin (11.7-17.4) g/dL ABG Carboxyhemoglobin (0.5-1.5) % POC ABG HHb (Measured) (0-5) % ABG Methemoglobin (0.0-3.0) % ABG O2 Capacity (16-24) mL/dl Hgb O2 Saturation (95.0-98.0) % FiO2 % Sodium (132-148) mmol/L Potassium (3.6-5.0) mmol/L Chloride (98-107) mmol/L Carbon Dioxide (21-33) mmol/L Anion Gap (10-20) BUN (7-21) mg/dL Creatinine (0.7-1.2) mg/dL Est GFR ( Amer) Est GFR (Non-Af Amer) POC Glucose (mg/dL) (65-110) mg/dL Random Glucose (70-110) mg/dL Calcium (8.4-10.5) mg/dL Phosphorus (2.5-4.5) mg/dL Magnesium (1.7-2.2) mg/dL Total Bilirubin (0.2-1.3) mg/dL AST (14-36) U/L ALT (7-56) U/L Alkaline Phosphatase (38-126) U/L Total Protein (5.8-8.3) g/dL Albumin (3.0-4.8) g/dL Globulin gm/dL Albumin/Globulin Ratio (1.1-1.8) Heparin-induced Plt Ab Negative (Negative) Laboratory Results - last 24 hr 02/01/17 02/01/17 02/03/17 06:30 06:30 06:53 WBC RBC Hgb Hct MCV MCH MCHC RDW Plt Count MPV Neutrophils % (Manual) Band Neutrophils % Lymphocytes % (Manual) Atypical Lymphs % Monocytes % (Manual) Nucleated RBC % Platelet Evaluation Hypochromasia Anisocytosis (manual) APTT Hep-Arlen Thrombocytopen Negative pCO2 33 L pO2 49.0 L HCO3 33.2 H ABG pH 7.61 H* ABG Total CO2 34.2 H ABG O2 Saturation 91.9 L ABG O2 Content 14.6 L ABG Base Excess 11.3 H ABG Hemoglobin 11.7 ABG Carboxyhemoglobin 2.2 H POC ABG HHb (Measured) 7.8 H ABG Methemoglobin 1.1 ABG O2 Capacity 15.9 L Hgb O2 Saturation 88.9 L FiO2 50.0 Sodium Potassium Chloride Carbon Dioxide Anion Gap BUN Creatinine Est GFR ( Amer) Est GFR (Non-Af Amer) POC Glucose (mg/dL) Random Glucose Calcium Phosphorus Magnesium Total Bilirubin AST ALT Alkaline Phosphatase Total Protein Albumin Globulin Albumin/Globulin Ratio Heparin-induced Plt Ab Negative 02/03/17 02/03/17 02/03/17 07:02 08:15 08:15 WBC 28.7 H* D RBC 3.80 Hgb 11.5 L Hct 33.9 L MCV 89.2 MCH 30.3 MCHC 33.9 RDW 15.3 H Plt Count 142 MPV 10.3 Neutrophils % (Manual) 90 H Band Neutrophils % 3 H Lymphocytes % (Manual) 2 L Atypical Lymphs % 1 H Monocytes % (Manual) 4 Nucleated RBC % 2 Platelet Evaluation Normal Hypochromasia Slight Anisocytosis (manual) 1+ APTT 44.3 H Hep-Arlen Thrombocytopen pCO2 pO2 HCO3 ABG pH ABG Total CO2 ABG O2 Saturation ABG O2 Content ABG Base Excess ABG Hemoglobin ABG Carboxyhemoglobin POC ABG HHb (Measured) ABG Methemoglobin ABG O2 Capacity Hgb O2 Saturation FiO2 Sodium 149 H Potassium 3.0 L Chloride 107 Carbon Dioxide 34 H Anion Gap 11 BUN 40 H Creatinine 0.6 L Est GFR ( Amer) > 60 Est GFR (Non-Af Amer) > 60 POC Glucose (mg/dL) Random Glucose 167 H Calcium 6.4 L* Phosphorus 2.0 L Magnesium 1.8 Total Bilirubin 0.9 AST 274 H D ALT 1302 H Alkaline Phosphatase 124 Total Protein 4.7 L Albumin 2.4 L Globulin 2.3 Albumin/Globulin Ratio 1.0 L Heparin-induced Plt Ab 02/03/17 02/03/17 02/03/17 09:30 10:50 11:38 WBC RBC Hgb Hct MCV MCH MCHC RDW Plt Count MPV Neutrophils % (Manual) Band Neutrophils % Lymphocytes % (Manual) Atypical Lymphs % Monocytes % (Manual) Nucleated RBC % Platelet Evaluation Hypochromasia Anisocytosis (manual) APTT 46.0 H Hep-Arlen Thrombocytopen pCO2 33 L pO2 52.0 L HCO3 33.9 H ABG pH 7.62 H* ABG Total CO2 34.9 H ABG O2 Saturation 93.7 L ABG O2 Content 16.2 ABG Base Excess 12.2 H ABG Hemoglobin 12.8 ABG Carboxyhemoglobin 2.4 H POC ABG HHb (Measured) 6.1 H ABG Methemoglobin 1.4 ABG O2 Capacity 17.3 Hgb O2 Saturation 90.1 L FiO2 80.0 Sodium Potassium Chloride Carbon Dioxide Anion Gap BUN Creatinine Est GFR ( Amer) Est GFR (Non-Af Amer) POC Glucose (mg/dL) 168 H Random Glucose Calcium Phosphorus Magnesium Total Bilirubin AST ALT Alkaline Phosphatase Total Protein Albumin Globulin Albumin/Globulin Ratio Heparin-induced Plt Ab 02/03/17 02/03/17 02/03/17 13:30 15:39 18:00 WBC RBC Hgb Hct MCV MCH MCHC RDW Plt Count MPV Neutrophils % (Manual) Band Neutrophils % Lymphocytes % (Manual) Atypical Lymphs % Monocytes % (Manual) Nucleated RBC % Platelet Evaluation Hypochromasia Anisocytosis (manual) APTT 49.5 H Hep-Arlen Thrombocytopen pCO2 pO2 HCO3 ABG pH ABG Total CO2 ABG O2 Saturation ABG O2 Content ABG Base Excess ABG Hemoglobin ABG Carboxyhemoglobin POC ABG HHb (Measured) ABG Methemoglobin ABG O2 Capacity Hgb O2 Saturation FiO2 Sodium Potassium 2.9 L* Chloride Carbon Dioxide Anion Gap BUN Creatinine Est GFR ( Amer) Est GFR (Non-Af Amer) POC Glucose (mg/dL) 160 H Random Glucose Calcium 6.8 L* Phosphorus Magnesium 1.8 Total Bilirubin AST ALT Alkaline Phosphatase Total Protein Albumin Globulin Albumin/Globulin Ratio Heparin-induced Plt Ab 02/03/17 02/03/17 02/03/17 18:00 19:33 21:39 WBC RBC Hgb Hct MCV MCH MCHC RDW Plt Count MPV Neutrophils % (Manual) Band Neutrophils % Lymphocytes % (Manual) Atypical Lymphs % Monocytes % (Manual) Nucleated RBC % Platelet Evaluation Hypochromasia Anisocytosis (manual) APTT 46.0 H 44.4 H Hep-Arlen Thrombocytopen pCO2 pO2 HCO3 ABG pH ABG Total CO2 ABG O2 Saturation ABG O2 Content ABG Base Excess ABG Hemoglobin ABG Carboxyhemoglobin POC ABG HHb (Measured) ABG Methemoglobin ABG O2 Capacity Hgb O2 Saturation FiO2 Sodium Potassium Chloride Carbon Dioxide Anion Gap BUN Creatinine Est GFR ( Amer) Est GFR (Non-Af Amer) POC Glucose (mg/dL) 195 H Random Glucose Calcium Phosphorus Magnesium Total Bilirubin AST ALT Alkaline Phosphatase Total Protein Albumin Globulin Albumin/Globulin Ratio Heparin-induced Plt Ab 02/03/17 02/04/17 02/04/17 23:31 01:22 01:22 WBC RBC Hgb Hct MCV MCH MCHC RDW Plt Count MPV Neutrophils % (Manual) Band Neutrophils % Lymphocytes % (Manual) Atypical Lymphs % Monocytes % (Manual) Nucleated RBC % Platelet Evaluation Hypochromasia Anisocytosis (manual) APTT 51.6 H Hep-Arlen Thrombocytopen pCO2 pO2 HCO3 ABG pH ABG Total CO2 ABG O2 Saturation ABG O2 Content ABG Base Excess ABG Hemoglobin ABG Carboxyhemoglobin POC ABG HHb (Measured) ABG Methemoglobin ABG O2 Capacity Hgb O2 Saturation FiO2 Sodium Potassium 3.5 L Chloride Carbon Dioxide Anion Gap BUN Creatinine Est GFR ( Amer) Est GFR (Non-Af Amer) POC Glucose (mg/dL) 161 H Random Glucose Calcium Phosphorus Magnesium Total Bilirubin AST ALT Alkaline Phosphatase Total Protein Albumin Globulin Albumin/Globulin Ratio Heparin-induced Plt Ab 02/04/17 04:04 WBC RBC Hgb Hct MCV MCH MCHC RDW Plt Count MPV Neutrophils % (Manual) Band Neutrophils % Lymphocytes % (Manual) Atypical Lymphs % Monocytes % (Manual) Nucleated RBC % Platelet Evaluation Hypochromasia Anisocytosis (manual) APTT Hep-Arlen Thrombocytopen pCO2 pO2 HCO3 ABG pH ABG Total CO2 ABG O2 Saturation ABG O2 Content ABG Base Excess ABG Hemoglobin ABG Carboxyhemoglobin POC ABG HHb (Measured) ABG Methemoglobin ABG O2 Capacity Hgb O2 Saturation FiO2 Sodium Potassium Chloride Carbon Dioxide Anion Gap BUN Creatinine Est GFR ( Amer) Est GFR (Non-Af Amer) POC Glucose (mg/dL) 165 H Random Glucose Calcium Phosphorus Magnesium Total Bilirubin AST ALT Alkaline Phosphatase Total Protein Albumin Globulin Albumin/Globulin Ratio Heparin-induced Plt Ab EKG/Cardiology Studies: Cardiology / EKG Studies 02/03/17 07:53 EKG [ELECTROCARDIOGRAM] Stat Comment: Reason For Exam: Rapid afib PRE OP:: N Does Patient Have a Pacemaker?: No Fingerstick Blood Sugar Results: 216 Review of Systems - Review of Systems Systems not reviewed;Unavailable: Altered Mental Status Critical Care Progress Note - Nutrition Nutrition: Nutrition Category Date Time Status NPO Diet [DIET] Diets 02/01/17 Breakfast Ordered Assessment/Plan - Assessment and Plan (Free Text) Assessment: This is an 81 yo F with PMH of HTN, HLD, 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 She was determined to be in urosepsis, and was found on CT abd to have a 5mm R-ureteral stone with R hydronephrosis. S/p R ureter stenting and pus drainage, then went into Septic shock requiring pressor support and hypoxic respiratory failure/ARDS requiring intubation. S/p extubation 2 days prior, off vasopressor support yesterday. Plan: Neuro: -AAOx4 on admission, became confused/obtunded 2/2 septic shock and respiratory failure; delirious since extubation -no sided neurological deficit or sensory abnormality on exam on initial exam, CT head negative for acute findings -maintain normothermia, Tmax 104.5F, no reported fevers overnight; Tylenol PRN for fevers -Syncopal episode prior to presentation, likely 2/2 hypotension from urosepsis Pulm: -Hx COPD, likely 2/2 prolonged tobacco abuse (~80 pack years) -s/p extubation 2 days prior, intubated initially for hypoxic respiratory failure and airway protection 2/2 worsening mental status -AM ABG reviewed, slightly improved metabolic alkalosis; at risk for worsening metabolic alkalosis due to contraction alkalosis from diuresis, continue to monitor; if worsening, could consider diamox -Continue Mucomyst, Budesonide, and Xopenex -initial CXR this AM notable for white-out in L-field, concurrent with desats, concerning for possible mucous plug, s/p Chest PT by RT, sats improved and repeat CXR read as Interval improved aeration left mid to upper lung zone, decreased left pleural effusion, re-expanded atelectasis, Left pleural effusion improved but still present -Pulm (Dr. Guerin) following, appreciate all recs Cardio: -resolving septic shock, now off all pressors -continue to monitor, target MAP >= 65 -still appears fluid overloads on CXR, but given hypotensive pressures this AM, no Lasix given -NSR but intermittently becomes afib with RVR up to 160's, now on Amio drip 0.5mg and Cardizem drip 15mg; becomes hypotensive when in AFib RVR, continue -Was on agatrobran drip for elevated trop (peaked at 1.95, last was 0.45) and dropping platelets in setting over Lovenox use concerning for HIT; HIT panel and SFA assay negative, agatroban stopped -hx of R ICA 100% stenosis/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 Childers) following, appreciate all recs GI: -Heart-healthy, but currently NPO pending possible procedure by Urology -Protonix for GI ppx -CT abd negative for acute findings Renal: -Cr. 0.7, BUN 41 -ALEX improving, likely 2/2 dehydration vs hypoperfusion 2/2 urosepsis with shock -CT pelvis notable for 5mm stone in R ureter with R hydroureteronephrosis; as per Urology stent placed and pus drained, but unable to remove stone -Monitor and replete electrolytes as necessary -Maintain euglycemia (BG 140-180) -repeat UA on 01/30 notable for trace leuk esterase (unchanged), TNTC RBCs and Large blood (worse by comparison), 1-3 WBCs (improved), Few bacteria (improved) , and trace granular casts (new finding) -Appears fluid overloaded, so actively diuresing as BP will tolerate, received IV Lasix 80mg yesterday and put out ~3100cc ID: -worsening leukocytosis, may be secondary to stress from coming off sedation/ extubation vs worsening/new infection vs 2/2 stress dose steroids -afebrile since admission, Tmax 104.5F in ED -On Vanco and Merrem -ID following, appreciate all recs Heme: -Hgb 11.0, was 11.5 -acute drop in platelets while on Lovenox, from 171 to 51, concerning for HIT; stopped lovenox, started on Agatroban drip as per Heme-onc, HIT panel and Serrotonin assay negative, so Agatroban drip stopped -SCDs for DVT ppx Dispo: ICU, s/p extubation 2 days prior, on Amio and Cardizem drips for persistent recurring AFib with RVR causing hypotension, on HF NC for O2 supplemental FEN: NPO Access: Peripheral IV, TLC R neck, R-femoral Arterial Line Consults: Urology, Cardio x2 (Alvarado initially, Hansel for 2nd opinion), Heme- onc, Pulm, Nephro, ID, Palliative Ppx: Protonix for GI, Heparin SC q12 for DVT ppx when cleared by Urology ( holding AC now due to pending procedure, avoid SCDs due to RLE injury Patient seen, reviewed, and case discussed with attending, Dr. Garcia. <Jose VELASQUEZ,Inamul H - Last Filed: 02/04/17 14:59> CCU Objective - Vital Signs / Intake & Output Vital Signs (Last 4 hours): Vital Signs Temp Pulse Resp BP Pulse Ox 02/04/17 14:00 86 37 H 80 L 02/04/17 13:00 83 78 L 02/04/17 12:00 97.9 F 82 39 H 75 L 02/04/17 11:30 97.9 F 02/04/17 11:14 127/57 L 02/04/17 11:00 83 41 H 68 L Intake and Output (Last 8hrs): Intake & Output 02/03/17 02/04/17 02/04/17 22:59 06:59 14:59 Intake Total 300 750 40 Output Total 3600 1300 Balance -3300 -550 40 Weight 260 lb Intake: IV 300 750 40 Right Internal Jugular 750 Oral 0 0 Tube Feeding 0 0 Output: Urine 3600 1300 2-way Urethral 3600 1300 Stool 0 0 Emesis 0 Oral Regurgitation 0 Other 0 - Medications Active Medications: Active Medications Generic Name Dose Route Start Last Admin Trade Name Freq PRN Reason Stop Dose Admin Acetaminophen 650 mg 01/28/17 21:29 02/01/17 22:44 Tylenol 325mg Tab PO 650 mg Q6H PRN Administration Fever >100.4 F Acetylcysteine 4 ml 02/04/17 08:00 02/04/17 13:26 Acetylcysteine 20% IH Not Given [id number] Aspirin 81 mg 01/29/17 10:00 02/04/17 09:52 Aspirin Chewable PO Not Given DAILY NO Budesonide 0.5 mg 01/29/17 08:00 02/04/17 07:46 Pulmicort Respules IH 0.5 mg [id number] NO Administration Clopidogrel Bisulfate 75 mg 01/29/17 10:00 01/31/17 09:57 Plavix PO 75 mg DAILY NO Administration Fluticasone Propionate 1 actuation 01/29/17 10:00 02/04/17 09:55 Flonase NS Not Given DAILY NO Furosemide 40 mg 02/02/17 06:40 02/04/17 10:56 Lasix IVP Not Given DAILY NO Dexmedetomidine HCl 400 mcg in 100 mls @ 3.391 mls/hr 01/29/17 12:01 14:30 Precedex 4 Mcg/Ml (100 Ml) IV 0 mcg/kg/hr .Q24H PRN 0 mls/hr Anxiety Titration Protocol 0.2 MCG/KG/HR Meropenem 1g/NS 100mL IVPB 1 gm in 100 mls @ 100 mls/hr 01/31/17 14:00 06:50 Meropenem 1g/Ns 100ml Ivpb IVPB 02/09/17 14:01 100 mls/hr Q8 NO Administration Protocol Amiodarone HCl/Dextrose 360 mg in 200 mls @ 16.667 mls/hr 02/02/17 00:15 03/13 10:45 Nexterone 360 Mg In D5w 200 Ml (Premix) IV 16.667 mls/hr .Q12H NO Administration Protocol 0.5 MG/MIN Vancomycin HCl 1 gm in 250 mls @ 167 mls/hr 02/03/17 11:15 02/04/17 10:18 Vancomycin 1gm IVPB 167 mls/hr Q12H NO Administration Protocol diltiaZEM IVPB 100mg in NS 100 mls @ 5 mls/hr 02/04/17 09:35 02/04/17 12:58 Cardizem 100mg In Ns IV 15 mg/hr .Q20H PRN 15 mls/hr TITRATE PER MD ORDER Titration Protocol 5 MG/HR Levalbuterol HCl 0.63 mg 02/04/17 14:00 02/04/17 13:18 Xopenex IH 0.63 mg [id number] NO Administration Levalbuterol HCl 0.63 mg 02/04/17 08:21 Xopenex IH Q2H PRN Shortness of Breath Metoprolol Tartrate 5 mg 02/03/17 11:00 02/04/17 11:21 Lopressor IVP Not Given Q6H NO Folic Acid [Folic 400 mcg 01/31/17 14:19 02/04/17 09:55 Acid] 400 Mcg (Home PO Not Given Med) DAILY NO Pantoprazole Sodium 40 mg 01/30/17 10:00 02/04/17 09:59 Protonix Inj IVP 40 mg DAILY NO Administration Verapamil HCl 2.5 mg 02/03/17 10:48 02/03/17 21:40 Verapamil Inj IVP 2.5 mg Q6H PRN Administration for herat rate >140 Vitamin A 1 ea 02/04/17 11:44 Vitamin A & D Oint Ud Foilpak TOP Q8H PRN Dry skin - Patient Studies Lab Studies: Microbiology Studies 01/30/17 09:20 Blood Culture - Final Blood-Venous NO GROWTH AFTER 5 DAYS Gram Stain - Final TEST NOT PERFORMED 01/30/17 09:18 Blood Culture - Final Blood-Venous NO GROWTH AFTER 5 DAYS Gram Stain - Final TEST NOT PERFORMED Lab Studies 02/04/17 02/04/17 02/04/17 Range/Units 06:49 06:49 06:49 WBC 35.3 H* D (4.5-11.0) 10^3/ul RBC 3.66 (3.5-6.1) 10^6/uL Hgb 11.0 L (12.0-16.0) g/dL Hct 33.7 L (36.0-48.0) % MCV 92.1 (80.0-105.0) fl MCH 30.1 (25.0-35.0) pg MCHC 32.6 (31.0-37.0) g/dl RDW 15.8 H (11.5-14.5) % Plt Count 223 (120.0-450.0) 10^3/uL MPV 10.7 (7.0-11.0) fl Gran % 89.9 H (50.0-68.0) % Lymph % (Auto) 4.7 L (22.0-35.0) % Brewster % (Auto) 5.2 (1.0-6.0) % Eos % (Auto) 0.0 L (1.5-5.0) % Baso % (Auto) 0.2 (0.0-3.0) % Gran # 31.74 H (1.4-6.5) Lymph # 1.7 (1.2-3.4) Brewster # 1.9 H (0.1-0.6) Eos # 0.0 (0.0-0.7) Baso # 0.08 (0.0-2.0) K/mm3 APTT 54.5 H (23.7-30.8) Seconds Hep-Arlen Thrombocytopen (Negative) pCO2 (35-45) mm/Hg pO2 (80-100) mm/Hg HCO3 (21-28) mmol/L ABG pH (7.35-7.45) ABG Total CO2 (22-28) mmol.L ABG O2 Saturation (95-98) % ABG O2 Content (15-23) ML/dl ABG Base Excess (-2.0-3.0) mmol/L ABG Hemoglobin (11.7-17.4) g/dL ABG Carboxyhemoglobin (0.5-1.5) % POC ABG HHb (Measured) (0-5) % ABG Methemoglobin (0.0-3.0) % ABG O2 Capacity (16-24) mL/dl Hgb O2 Saturation (95.0-98.0) % FiO2 % Sodium 149 H (132-148) mmol/L Potassium 3.7 (3.6-5.0) mmol/L Chloride 108 H (98-107) mmol/L Carbon Dioxide 36 H (21-33) mmol/L Anion Gap 9 L (10-20) BUN 41 H (7-21) mg/dL Creatinine 0.7 (0.7-1.2) mg/dL Est GFR ( Amer) > 60 Est GFR (Non-Af Amer) > 60 POC Glucose (mg/dL) (65-110) mg/dL Random Glucose 145 H (70-110) mg/dL Calcium 6.8 L* (8.4-10.5) mg/dL Phosphorus 2.3 L (2.5-4.5) mg/dL Magnesium 1.8 (1.7-2.2) mg/dL Total Bilirubin 0.9 (0.2-1.3) mg/dL AST 137 H D (14-36) U/L ALT 758 H (7-56) U/L Alkaline Phosphatase 113 (38-126) U/L Total Protein 4.4 L (5.8-8.3) g/dL Albumin 2.2 L (3.0-4.8) g/dL Globulin 2.2 gm/dL Albumin/Globulin Ratio 1.0 L (1.1-1.8) Heparin-induced Plt Ab (Negative) PAUL UFH Low Dose 0.1 % Release PAUL UFH Low Dose 0.5 % Release PAUL UFH High Dose 100 % Release 02/04/17 02/04/17 02/04/17 Range/Units 06:45 04:04 01:22 WBC (4.5-11.0) 10^3/ul RBC (3.5-6.1) 10^6/uL Hgb (12.0-16.0) g/dL Hct (36.0-48.0) % MCV (80.0-105.0) fl MCH (25.0-35.0) pg MCHC (31.0-37.0) g/dl RDW (11.5-14.5) % Plt Count (120.0-450.0) 10^3/uL MPV (7.0-11.0) fl Gran % (50.0-68.0) % Lymph % (Auto) (22.0-35.0) % Brewster % (Auto) (1.0-6.0) % Eos % (Auto) (1.5-5.0) % Baso % (Auto) (0.0-3.0) % Gran # (1.4-6.5) Lymph # (1.2-3.4) Brewster # (0.1-0.6) Eos # (0.0-0.7) Baso # (0.0-2.0) K/mm3 APTT 51.6 H (23.7-30.8) Seconds Hep-Arlen Thrombocytopen (Negative) pCO2 35 (35-45) mm/Hg pO2 35.0 L* (80-100) mm/Hg HCO3 33.6 H (21-28) mmol/L ABG pH 7.59 H (7.35-7.45) ABG Total CO2 34.7 H (22-28) mmol.L ABG O2 Saturation 74.7 L (95-98) % ABG O2 Content 15.2 (15-23) ML/dl ABG Base Excess 11.3 H (-2.0-3.0) mmol/L ABG Hemoglobin 14.9 (11.7-17.4) g/dL ABG Carboxyhemoglobin 2.0 H (0.5-1.5) % POC ABG HHb (Measured) 24.6 H (0-5) % ABG Methemoglobin 0.6 (0.0-3.0) % ABG O2 Capacity 20.3 (16-24) mL/dl Hgb O2 Saturation 72.8 L (95.0-98.0) % FiO2 99.0 % Sodium (132-148) mmol/L Potassium (3.6-5.0) mmol/L Chloride (98-107) mmol/L Carbon Dioxide (21-33) mmol/L Anion Gap (10-20) BUN (7-21) mg/dL Creatinine (0.7-1.2) mg/dL Est GFR ( Amer) Est GFR (Non-Af Amer) POC Glucose (mg/dL) 165 H (65-110) mg/dL Random Glucose (70-110) mg/dL Calcium (8.4-10.5) mg/dL Phosphorus (2.5-4.5) mg/dL Magnesium (1.7-2.2) mg/dL Total Bilirubin (0.2-1.3) mg/dL AST (14-36) U/L ALT (7-56) U/L Alkaline Phosphatase (38-126) U/L Total Protein (5.8-8.3) g/dL Albumin (3.0-4.8) g/dL Globulin gm/dL Albumin/Globulin Ratio (1.1-1.8) Heparin-induced Plt Ab (Negative) PAUL UFH Low Dose 0.1 % Release PAUL UFH Low Dose 0.5 % Release PAUL UFH High Dose 100 % Release 02/04/17 02/03/17 02/03/17 Range/Units 01:22 23:31 21:39 WBC (4.5-11.0) 10^3/ul RBC (3.5-6.1) 10^6/uL Hgb (12.0-16.0) g/dL Hct (36.0-48.0) % MCV (80.0-105.0) fl MCH (25.0-35.0) pg MCHC (31.0-37.0) g/dl RDW (11.5-14.5) % Plt Count (120.0-450.0) 10^3/uL MPV (7.0-11.0) fl Gran % (50.0-68.0) % Lymph % (Auto) (22.0-35.0) % Brewster % (Auto) (1.0-6.0) % Eos % (Auto) (1.5-5.0) % Baso % (Auto) (0.0-3.0) % Gran # (1.4-6.5) Lymph # (1.2-3.4) Brewster # (0.1-0.6) Eos # (0.0-0.7) Baso # (0.0-2.0) K/mm3 APTT 44.4 H (23.7-30.8) Seconds Hep-Arlen Thrombocytopen (Negative) pCO2 (35-45) mm/Hg pO2 (80-100) mm/Hg HCO3 (21-28) mmol/L ABG pH (7.35-7.45) ABG Total CO2 (22-28) mmol.L ABG O2 Saturation (95-98) % ABG O2 Content (15-23) ML/dl ABG Base Excess (-2.0-3.0) mmol/L ABG Hemoglobin (11.7-17.4) g/dL ABG Carboxyhemoglobin (0.5-1.5) % POC ABG HHb (Measured) (0-5) % ABG Methemoglobin (0.0-3.0) % ABG O2 Capacity (16-24) mL/dl Hgb O2 Saturation (95.0-98.0) % FiO2 % Sodium (132-148) mmol/L Potassium 3.5 L (3.6-5.0) mmol/L Chloride (98-107) mmol/L Carbon Dioxide (21-33) mmol/L Anion Gap (10-20) BUN (7-21) mg/dL Creatinine (0.7-1.2) mg/dL Est GFR ( Amer) Est GFR (Non-Af Amer) POC Glucose (mg/dL) 161 H (65-110) mg/dL Random Glucose (70-110) mg/dL Calcium (8.4-10.5) mg/dL Phosphorus (2.5-4.5) mg/dL Magnesium (1.7-2.2) mg/dL Total Bilirubin (0.2-1.3) mg/dL AST (14-36) U/L ALT (7-56) U/L Alkaline Phosphatase (38-126) U/L Total Protein (5.8-8.3) g/dL Albumin (3.0-4.8) g/dL Globulin gm/dL Albumin/Globulin Ratio (1.1-1.8) Heparin-induced Plt Ab (Negative) PAUL UFH Low Dose 0.1 % Release PAUL UFH Low Dose 0.5 % Release PAUL UFH High Dose 100 % Release 02/03/17 02/03/17 02/03/17 Range/Units 19:33 18:00 18:00 WBC (4.5-11.0) 10^3/ul RBC (3.5-6.1) 10^6/uL Hgb (12.0-16.0) g/dL Hct (36.0-48.0) % MCV (80.0-105.0) fl MCH (25.0-35.0) pg MCHC (31.0-37.0) g/dl RDW (11.5-14.5) % Plt Count (120.0-450.0) 10^3/uL MPV (7.0-11.0) fl Gran % (50.0-68.0) % Lymph % (Auto) (22.0-35.0) % Brewster % (Auto) (1.0-6.0) % Eos % (Auto) (1.5-5.0) % Baso % (Auto) (0.0-3.0) % Gran # (1.4-6.5) Lymph # (1.2-3.4) Brewster # (0.1-0.6) Eos # (0.0-0.7) Baso # (0.0-2.0) K/mm3 APTT 46.0 H (23.7-30.8) Seconds Hep-Arlen Thrombocytopen (Negative) pCO2 (35-45) mm/Hg pO2 (80-100) mm/Hg HCO3 (21-28) mmol/L ABG pH (7.35-7.45) ABG Total CO2 (22-28) mmol.L ABG O2 Saturation (95-98) % ABG O2 Content (15-23) ML/dl ABG Base Excess (-2.0-3.0) mmol/L ABG Hemoglobin (11.7-17.4) g/dL ABG Carboxyhemoglobin (0.5-1.5) % POC ABG HHb (Measured) (0-5) % ABG Methemoglobin (0.0-3.0) % ABG O2 Capacity (16-24) mL/dl Hgb O2 Saturation (95.0-98.0) % FiO2 % Sodium (132-148) mmol/L Potassium 2.9 L* (3.6-5.0) mmol/L Chloride (98-107) mmol/L Carbon Dioxide (21-33) mmol/L Anion Gap (10-20) BUN (7-21) mg/dL Creatinine (0.7-1.2) mg/dL Est GFR ( Amer) Est GFR (Non-Af Amer) POC Glucose (mg/dL) 195 H (65-110) mg/dL Random Glucose (70-110) mg/dL Calcium 6.8 L* (8.4-10.5) mg/dL Phosphorus (2.5-4.5) mg/dL Magnesium 1.8 (1.7-2.2) mg/dL Total Bilirubin (0.2-1.3) mg/dL AST (14-36) U/L ALT (7-56) U/L Alkaline Phosphatase (38-126) U/L Total Protein (5.8-8.3) g/dL Albumin (3.0-4.8) g/dL Globulin gm/dL Albumin/Globulin Ratio (1.1-1.8) Heparin-induced Plt Ab (Negative) PAUL UFH Low Dose 0.1 % Release PAUL UFH Low Dose 0.5 % Release PAUL UFH High Dose 100 % Release 02/03/17 02/03/17 02/03/17 Range/Units 15:39 13:30 11:38 WBC (4.5-11.0) 10^3/ul RBC (3.5-6.1) 10^6/uL Hgb (12.0-16.0) g/dL Hct (36.0-48.0) % MCV (80.0-105.0) fl MCH (25.0-35.0) pg MCHC (31.0-37.0) g/dl RDW (11.5-14.5) % Plt Count (120.0-450.0) 10^3/uL MPV (7.0-11.0) fl Gran % (50.0-68.0) % Lymph % (Auto) (22.0-35.0) % Brewster % (Auto) (1.0-6.0) % Eos % (Auto) (1.5-5.0) % Baso % (Auto) (0.0-3.0) % Gran # (1.4-6.5) Lymph # (1.2-3.4) Brewster # (0.1-0.6) Eos # (0.0-0.7) Baso # (0.0-2.0) K/mm3 APTT 49.5 H (23.7-30.8) Seconds Hep-Arlen Thrombocytopen (Negative) pCO2 (35-45) mm/Hg pO2 (80-100) mm/Hg HCO3 (21-28) mmol/L ABG pH (7.35-7.45) ABG Total CO2 (22-28) mmol.L ABG O2 Saturation (95-98) % ABG O2 Content (15-23) ML/dl ABG Base Excess (-2.0-3.0) mmol/L ABG Hemoglobin (11.7-17.4) g/dL ABG Carboxyhemoglobin (0.5-1.5) % POC ABG HHb (Measured) (0-5) % ABG Methemoglobin (0.0-3.0) % ABG O2 Capacity (16-24) mL/dl Hgb O2 Saturation (95.0-98.0) % FiO2 % Sodium (132-148) mmol/L Potassium (3.6-5.0) mmol/L Chloride (98-107) mmol/L Carbon Dioxide (21-33) mmol/L Anion Gap (10-20) BUN (7-21) mg/dL Creatinine (0.7-1.2) mg/dL Est GFR ( Amer) Est GFR (Non-Af Amer) POC Glucose (mg/dL) 160 H 168 H (65-110) mg/dL Random Glucose (70-110) mg/dL Calcium (8.4-10.5) mg/dL Phosphorus (2.5-4.5) mg/dL Magnesium (1.7-2.2) mg/dL Total Bilirubin (0.2-1.3) mg/dL AST (14-36) U/L ALT (7-56) U/L Alkaline Phosphatase (38-126) U/L Total Protein (5.8-8.3) g/dL Albumin (3.0-4.8) g/dL Globulin gm/dL Albumin/Globulin Ratio (1.1-1.8) Heparin-induced Plt Ab (Negative) PAUL UFH Low Dose 0.1 % Release PAUL UFH Low Dose 0.5 % Release PAUL UFH High Dose 100 % Release 02/01/17 02/01/17 Range/Units 06:30 06:30 WBC (4.5-11.0) 10^3/ul RBC (3.5-6.1) 10^6/uL Hgb (12.0-16.0) g/dL Hct (36.0-48.0) % MCV (80.0-105.0) fl MCH (25.0-35.0) pg MCHC (31.0-37.0) g/dl RDW (11.5-14.5) % Plt Count (120.0-450.0) 10^3/uL MPV (7.0-11.0) fl Gran % (50.0-68.0) % Lymph % (Auto) (22.0-35.0) % Brewster % (Auto) (1.0-6.0) % Eos % (Auto) (1.5-5.0) % Baso % (Auto) (0.0-3.0) % Gran # (1.4-6.5) Lymph # (1.2-3.4) Brewster # (0.1-0.6) Eos # (0.0-0.7) Baso # (0.0-2.0) K/mm3 APTT (23.7-30.8) Seconds Hep-Arlen Thrombocytopen Negative (Negative) pCO2 (35-45) mm/Hg pO2 (80-100) mm/Hg HCO3 (21-28) mmol/L ABG pH (7.35-7.45) ABG Total CO2 (22-28) mmol.L ABG O2 Saturation (95-98) % ABG O2 Content (15-23) ML/dl ABG Base Excess (-2.0-3.0) mmol/L ABG Hemoglobin (11.7-17.4) g/dL ABG Carboxyhemoglobin (0.5-1.5) % POC ABG HHb (Measured) (0-5) % ABG Methemoglobin (0.0-3.0) % ABG O2 Capacity (16-24) mL/dl Hgb O2 Saturation (95.0-98.0) % FiO2 % Sodium (132-148) mmol/L Potassium (3.6-5.0) mmol/L Chloride (98-107) mmol/L Carbon Dioxide (21-33) mmol/L Anion Gap (10-20) BUN (7-21) mg/dL Creatinine (0.7-1.2) mg/dL Est GFR ( Amer) Est GFR (Non-Af Amer) POC Glucose (mg/dL) (65-110) mg/dL Random Glucose (70-110) mg/dL Calcium (8.4-10.5) mg/dL Phosphorus (2.5-4.5) mg/dL Magnesium (1.7-2.2) mg/dL Total Bilirubin (0.2-1.3) mg/dL AST (14-36) U/L ALT (7-56) U/L Alkaline Phosphatase (38-126) U/L Total Protein (5.8-8.3) g/dL Albumin (3.0-4.8) g/dL Globulin gm/dL Albumin/Globulin Ratio (1.1-1.8) Heparin-induced Plt Ab Negative (Negative) PAUL UFH Low Dose 0.1 0 % Release PAUL UFH Low Dose 0.5 0 % Release PAUL UFH High Dose 100 0 % Release Laboratory Results - last 24 hr 02/01/17 02/01/17 02/03/17 06:30 06:30 11:38 WBC RBC Hgb Hct MCV MCH MCHC RDW Plt Count MPV Gran % Lymph % (Auto) Brewster % (Auto) Eos % (Auto) Baso % (Auto) Gran # Lymph # Brewster # Eos # Baso # APTT Hep-Arlen Thrombocytopen Negative pCO2 pO2 HCO3 ABG pH ABG Total CO2 ABG O2 Saturation ABG O2 Content ABG Base Excess ABG Hemoglobin ABG Carboxyhemoglobin POC ABG HHb (Measured) ABG Methemoglobin ABG O2 Capacity Hgb O2 Saturation FiO2 Sodium Potassium Chloride Carbon Dioxide Anion Gap BUN Creatinine Est GFR ( Amer) Est GFR (Non-Af Amer) POC Glucose (mg/dL) 168 H Random Glucose Calcium Phosphorus Magnesium Total Bilirubin AST ALT Alkaline Phosphatase Total Protein Albumin Globulin Albumin/Globulin Ratio Heparin-induced Plt Ab Negative PAUL UFH Low Dose 0.1 0 PAUL UFH Low Dose 0.5 0 PAUL UFH High Dose 100 0 02/03/17 02/03/17 02/03/17 13:30 15:39 18:00 WBC RBC Hgb Hct MCV MCH MCHC RDW Plt Count MPV Gran % Lymph % (Auto) [place] % (Auto) Eos % (Auto) Baso % (Auto) Gran # Lymph # Brewster # Eos # Baso # APTT 49.5 H Hep-Arlen Thrombocytopen pCO2 pO2 HCO3 ABG pH ABG Total CO2 ABG O2 Saturation ABG O2 Content ABG Base Excess ABG Hemoglobin ABG Carboxyhemoglobin POC ABG HHb (Measured) ABG Methemoglobin ABG O2 Capacity Hgb O2 Saturation FiO2 Sodium Potassium 2.9 L* Chloride Carbon Dioxide Anion Gap BUN Creatinine Est GFR ( Amer) Est GFR (Non-Af Amer) POC Glucose (mg/dL) 160 H Random Glucose Calcium 6.8 L* Phosphorus Magnesium 1.8 Total Bilirubin AST ALT Alkaline Phosphatase Total Protein Albumin Globulin Albumin/Globulin Ratio Heparin-induced Plt Ab PAUL UFH Low Dose 0.1 PAUL UFH Low Dose 0.5 PAUL UFH High Dose 100 02/03/17 02/03/17 02/03/17 18:00 19:33 21:39 WBC RBC Hgb Hct MCV MCH MCHC RDW Plt Count MPV Gran % Lymph % (Auto) [place] % (Auto) Eos % (Auto) Baso % (Auto) Gran # Lymph # [place] # Eos # Baso # APTT 46.0 H 44.4 H Hep-Arlen Thrombocytopen pCO2 pO2 HCO3 ABG pH ABG Total CO2 ABG O2 Saturation ABG O2 Content ABG Base Excess ABG Hemoglobin ABG Carboxyhemoglobin POC ABG HHb (Measured) ABG Methemoglobin ABG O2 Capacity Hgb O2 Saturation FiO2 Sodium Potassium Chloride Carbon Dioxide Anion Gap BUN Creatinine Est GFR ( Amer) Est GFR (Non-Af Amer) POC Glucose (mg/dL) 195 H Random Glucose Calcium Phosphorus Magnesium Total Bilirubin AST ALT Alkaline Phosphatase Total Protein Albumin Globulin Albumin/Globulin Ratio Heparin-induced Plt Ab PAUL UFH Low Dose 0.1 PAUL UFH Low Dose 0.5 PAUL UFH High Dose 100 02/03/17 02/04/17 02/04/17 23:31 01:22 01:22 WBC RBC Hgb Hct MCV MCH MCHC RDW Plt Count MPV Gran % Lymph % (Auto) [place] % (Auto) Eos % (Auto) Baso % (Auto) Gran # Lymph # [place] # Eos # Baso # APTT 51.6 H Hep-Arlen Thrombocytopen pCO2 pO2 HCO3 ABG pH ABG Total CO2 ABG O2 Saturation ABG O2 Content ABG Base Excess ABG Hemoglobin ABG Carboxyhemoglobin POC ABG HHb (Measured) ABG Methemoglobin ABG O2 Capacity Hgb O2 Saturation FiO2 Sodium Potassium 3.5 L Chloride Carbon Dioxide Anion Gap BUN Creatinine Est GFR ( Amer) Est GFR (Non-Af Amer) POC Glucose (mg/dL) 161 H Random Glucose Calcium Phosphorus Magnesium Total Bilirubin AST ALT Alkaline Phosphatase Total Protein Albumin Globulin Albumin/Globulin Ratio Heparin-induced Plt Ab PAUL UFH Low Dose 0.1 PAUL UFH Low Dose 0.5 PAUL UFH High Dose 100 02/04/17 02/04/17 02/04/17 04:04 06:45 06:49 WBC 35.3 H* D RBC 3.66 Hgb 11.0 L Hct 33.7 L MCV 92.1 MCH 30.1 MCHC 32.6 RDW 15.8 H Plt Count 223 MPV 10.7 Gran % 89.9 H Lymph % (Auto) 4.7 L [place] % (Auto) 5.2 Eos % (Auto) 0.0 L Baso % (Auto) 0.2 Gran # 31.74 H Lymph # 1.7 Brewster # 1.9 H Eos # 0.0 Baso # 0.08 APTT Hep-Arlen Thrombocytopen pCO2 35 pO2 35.0 L* HCO3 33.6 H ABG pH 7.59 H ABG Total CO2 34.7 H ABG O2 Saturation 74.7 L ABG O2 Content 15.2 ABG Base Excess 11.3 H ABG Hemoglobin 14.9 ABG Carboxyhemoglobin 2.0 H POC ABG HHb (Measured) 24.6 H ABG Methemoglobin 0.6 ABG O2 Capacity 20.3 Hgb O2 Saturation 72.8 L FiO2 99.0 Sodium Potassium Chloride Carbon Dioxide Anion Gap BUN Creatinine Est GFR ( Amer) Est GFR (Non-Af Amer) POC Glucose (mg/dL) 165 H Random Glucose Calcium Phosphorus Magnesium Total Bilirubin AST ALT Alkaline Phosphatase Total Protein Albumin Globulin Albumin/Globulin Ratio Heparin-induced Plt Ab PAUL UFH Low Dose 0.1 PAUL UFH Low Dose 0.5 PAUL UFH High Dose 100 02/04/17 02/04/17 06:49 06:49 WBC RBC Hgb Hct MCV MCH MCHC RDW Plt Count MPV Gran % Lymph % (Auto) [place] % (Auto) Eos % (Auto) Baso % (Auto) Gran # Lymph # [place] # Eos # Baso # APTT 54.5 H Hep-Arlen Thrombocytopen pCO2 pO2 HCO3 ABG pH ABG Total CO2 ABG O2 Saturation ABG O2 Content ABG Base Excess ABG Hemoglobin ABG Carboxyhemoglobin POC ABG HHb (Measured) ABG Methemoglobin ABG O2 Capacity Hgb O2 Saturation FiO2 Sodium 149 H Potassium 3.7 Chloride 108 H Carbon Dioxide 36 H Anion Gap 9 L BUN 41 H Creatinine 0.7 Est GFR ( Amer) > 60 Est GFR (Non-Af Amer) > 60 POC Glucose (mg/dL) Random Glucose 145 H Calcium 6.8 L* Phosphorus 2.3 L Magnesium 1.8 Total Bilirubin 0.9 AST 137 H D ALT 758 H Alkaline Phosphatase 113 Total Protein 4.4 L Albumin 2.2 L Globulin 2.2 Albumin/Globulin Ratio 1.0 L Heparin-induced Plt Ab PAUL UFH Low Dose 0.1 PAUL UFH Low Dose 0.5 PAUL UFH High Dose 100 Critical Care Progress Note - Nutrition Nutrition: Nutrition Category Date Time Status NPO Diet [DIET] Diets 02/01/17 Breakfast Ordered Attending/Attestation - Attestation I have personally seen and examined this patient.: Yes I have fully participated in the care of the patient.: Yes I have reviewed all pertinent clinical information: Yes Notes (Text): 02/04/17 14:56 81 y/o F w/ resolving shock and respiratory failure Resp failure s/p extubation #3 . Hypoxic with poor cough. Noted to have L lung atelectasis with mucous plug. Chest PT/ Mucomyst Nebs w, some improvement on repeat CXR. Increasing WBC, source unknonw. Currently being treated for uro sepsis w/ E Coli in blood and Urine. C.Diff sent. Began treatment with Flagyl empircally . AMS, not fully resolving since ICU admission. A.FIb/ FLutter. ON cardizem drip w/ Amiodarone .5. Hr 110-130's. Cardiology following along as well. DVTP ppi cc time 65 min Palliative care following due to poor prognosis. DNR/DNI
[2017-02-04] MEDS: Metoprolol 1 mg/ml Inj IVP SCH ×4 (06:48→18:31)
[2017-02-04] MEDS: Meropenem 1g/NS 100mL IVPB 1 GM/100 ML PIGGYBACK IVPB SCH ×3 (06:50→22:17)
[2017-02-04 06:52] LABS: ARTERIAL BLOOD GAS HCO3 33.6 mmol/L (21-28); ARTERIAL BLOOD GAS O2 CAPACITY 20.3 mL/dl (16-24); ARTERIAL BLOOD GAS O2 CONTENT 15.2 ML/dl (15-23); ARTERIAL BLOOD GAS PH 7.59 (7.35-7.45); ARTERIAL BLOOD HGB O2 SAT 72.8 % (95.0-98.0); HHB 24.6 % (0-5); METHEMOGLOBIN 0.6 % (0.0-3.0)
[2017-02-04 07:00] LABS: BASO # 0.08 K/mm3 (0.0-2.0); BASO % 0.2 % (0.0-3.0); GRAN # 31.74 (1.4-6.5); GRAN % 89.9 % (50.0-68.0); HEMATOCRIT 33.7 % (36.0-48.0); LYMPH # 1.7 (1.2-3.4); LYMPH % 4.7 % (22.0-35.0); MEAN CELL VOLUME 92.1 fl (80.0-105.0); MEAN CORPUSCULAR HEMOGLOBIN 30.1 pg (25.0-35.0); MEAN CORPUSCULAR HGB CONC 32.6 g/dl (31.0-37.0); MEAN PLATELET VOLUME 10.7 fl (7.0-11.0); MONO # 1.9 (0.1-0.6); MONO % 5.2 % (1.0-6.0); RED CELL DISTRIBUTION WIDTH 15.8 % (11.5-14.5)
[2017-02-04 07:34] LABS: ALKALINE PHOSPHATASE 113 U/L (38-126); ALT/SGPT 758 U/L (7-56); AST/SGOT 137 U/L (14-36); BILIRUBIN,TOTAL 0.9 mg/dL (0.2-1.3); BLOOD UREA NITROGEN 41 mg/dL (7-21); CARBON DIOXIDE 36 mmol/L (21-33); CHLORIDE 108 mmol/L (98-107); GFR AFRICAN-AMERICAN > 60; GLUCOSE,RANDOM 145 mg/dL (70-110); MAGNESIUM 1.8 mg/dL (1.7-2.2); PHOSPHOROUS 2.3 mg/dL (2.5-4.5); POTASSIUM 3.7 mmol/L (3.6-5.0); SODIUM 149 mmol/L (132-148); TOTAL PROTEIN 4.4 g/dL (5.8-8.3)
[2017-02-04 07:45] LABS: CALCIUM 6.8 mg/dL (8.4-10.5)
[2017-02-04] MEDS: Acetylcysteine 20% Inhal Soln (4ml) IH SCH ×3 (07:45→20:50)
[2017-02-04] MEDS: Budesonide 0.5 mg/2 ml Inhal Susp UD IH SCH ×2 (07:46→20:50)
[2017-02-04 07:51] LABS: WHITE BLOOD COUNT 35.3 10^3/ul (4.5-11.0)
[2017-02-04] MEDS ORDERED: Acetylcysteine 20% Inhal Soln (4ml) IH SCH (08:00)
[2017-02-04] MEDS ORDERED: metroNIDAZOLE IV 500 mg/100 ml 500 MG/100 ML BAG IVPB STA (08:04)
[2017-02-04] MEDS ORDERED: Levalbuterol 0.63 MG/3 ML Inhal Soln UD IH PRN (08:21)
[2017-02-04] MEDS ORDERED: Metoprolol 1 mg/ml Inj IVP ONE (09:07)
[2017-02-04 09:16] LABS: UFH SRA RESULT Negative (Negative)
[2017-02-04] MEDS: diltiaZEM IVPB 100mg in NS 100 ML IV PRN ×3 (09:42→22:18)
--- NOTE | 2017-02-04 09:44 | RAD ---
HISTORY: decr L breath sounds, possible plug with atelectas COMPARISON: No prior. FINDINGS: LUNGS: Pulmonary venous congestion similar and right vicente thorax. Prior left hemithorax opacification now improved in aeration. Here pulmonary venous congestion present. PLEURA: Bilateral pleural effusions left much smaller than before. No pneumothorax CARDIOVASCULAR: Normal. OSSEOUS STRUCTURES: No significant abnormalities. VISUALIZED UPPER ABDOMEN: Normal. OTHER FINDINGS: The right IJV line terminates at the right atrium . IMPRESSION: Interval improved aeration left mid to upper lung zone -inferred decreased left pleural effusion and re-expanded atelectasis Persistent bilateral pulmonary venous congestion. Persistent pleural effusions that on the left however is less than before
[2017-02-04] MEDS: FOLIC ACID 400 MCG PO SCH (09:55)
[2017-02-04] MEDS: Fluticasone Nasal 50 mcg/Spray NS SCH (09:55)
--- NOTE | 2017-02-04 10:20 | CP.PCM.PN ---
Subjective - Date & Time of Evaluation Date of Evaluation: 02/04/17 Time of Evaluation: 10:00 - Subjective Subjective: Awake, confused, unable to follow command Objective - Vital Signs/Intake and Output Vital Signs (last 24 hours): Temp Pulse Resp BP Pulse Ox 98 F 152 H 36 H 118/56 L 68 L 02/04/17 04:00 02/04/17 09:18 02/04/17 01:00 02/04/17 00:00 02/04/17 01:00 Intake and Output: 02/04/17 02/04/17 06:59 18:59 Intake Total 850 Output Total 1300 Balance -450 - Medications Medications: Current Medications Acetaminophen (Tylenol 325mg Tab) 650 mg PO Q6H PRN PRN Reason: Fever >100.4 F Last Admin: 02/01/17 22:44 Dose: 650 mg Acetylcysteine (Acetylcysteine 20%) 4 ml IH [id number] [facility] Last Admin: 02/04/17 07:45 Dose: 4 ml Aspirin (Aspirin Chewable) 81 mg PO DAILY [facility] Last Admin: 02/04/17 09:52 Dose: Not Given Budesonide (Pulmicort Respules) 0.5 mg IH [id number] [facility] Last Admin: 02/04/17 07:46 Dose: 0.5 mg Clopidogrel Bisulfate (Plavix) 75 mg PO DAILY [facility] Last Admin: 01/31/17 09:57 Dose: 75 mg Fluticasone Propionate (Flonase) 1 actuation NS DAILY [facility] Last Admin: 02/04/17 09:55 Dose: Not Given Furosemide (Lasix) 40 mg IVP DAILY [facility] Last Admin: 02/03/17 11:14 Dose: 40 mg Dexmedetomidine HCl (Precedex 4 Mcg/Ml (100 Ml)) 400 mcg in 100 mls @ 3.391 mls /hr IV .Q24H PRN; Protocol; 0.2 MCG/KG/HR PRN Reason: Anxiety Last Titration: 02/02/17 14:30 Dose: 0 mcg/kg/hr, 0 mls/hr Meropenem 1g/NS 100mL IVPB (Meropenem 1g/Ns 100ml Ivpb) 1 gm in 100 mls @ 100 mls/hr IVPB Q8 NO PRN Reason: Protocol Stop: 02/09/17 14:01 Last Admin: 02/04/17 06:50 Dose: 100 mls/hr Argatroban 250 mg/ Sodium (Chloride) 250 mls @ 2.4 mls/hr IV .Q24H NO; 0.5 MCG /KG/MIN PRN Reason: Protocol Last Titration: 02/03/17 19:14 Dose: 0.1 mcg/kg/min, 0.48 mls/hr Amiodarone HCl/Dextrose (Nexterone 360 Mg In D5w 200 Ml (Premix)) 360 mg in 200 mls @ 16.667 mls/hr IV .Q12H NO; 0.5 MG/MIN PRN Reason: Protocol Last Admin: 02/03/17 14:18 Dose: 16.667 mls/hr Vancomycin HCl (Vancomycin 1gm) 1 gm in 250 mls @ 167 mls/hr IVPB Q12H NO PRN Reason: Protocol Last Admin: 02/04/17 00:15 Dose: 167 mls/hr diltiaZEM IVPB 100mg in NS (Cardizem 100mg In Ns) 100 mls @ 5 mls/hr IV .Q20H PRN; Protocol; 5 MG/HR PRN Reason: TITRATE PER MD ORDER Last Admin: 02/04/17 09:42 Dose: 5 mg/hr, 5 mls/hr Levalbuterol HCl (Xopenex) 0.63 mg IH [id number] NO Levalbuterol HCl (Xopenex) 0.63 mg IH Q2H PRN PRN Reason: Shortness of Breath Metoprolol Tartrate (Lopressor) 5 mg IVP Q6H NO Last Admin: 02/04/17 06:48 Dose: Not Given Folic Acid [Folic Acid] 400 Mcg (Home Med) 400 mcg PO DAILY [facility] Last Admin: 02/04/17 09:55 Dose: Not Given Pantoprazole Sodium (Protonix Inj) 40 mg IVP DAILY NO Last Admin: 02/04/17 09:59 Dose: 40 mg Verapamil HCl (Verapamil Inj) 2.5 mg IVP Q6H PRN PRN Reason: for herat rate >140 Last Admin: 02/03/17 21:40 Dose: 2.5 mg - Labs Labs: 02/04/17 06:49 02/04/17 06:49 PT 15.3 Seconds (9.9-11.8) H 01/29/17 05:30 INR 1.42 (0.93-1.08) H 01/29/17 05:30 APTT 54.5 Seconds (23.7-30.8) H 02/04/17 06:49 - Constitutional Appears: Chronically Ill - Head Exam Head Exam: NORMOCEPHALIC - Eye Exam Eye Exam: Normal appearance, PERRL - ENT Exam ENT Exam: Mucous Membranes Moist - Respiratory Exam Respiratory Exam: Decreased Breath Sounds, Rhonchi - Cardiovascular Exam Cardiovascular Exam: Irregular Rhythm, +S1, +S2 - GI/Abdominal Exam GI & Abdominal Exam: Soft, Diminished Bowel Sounds - Extremities Exam Extremities Exam: Normal Capillary Refill - Back Exam Back Exam: NORMAL INSPECTION - Neurological Exam Neurological Exam: Altered - Psychiatric Exam Psychiatric exam: Anxious - Skin Skin Exam: Dry, Pallor Additional comments: anasarca Assessment and Plan - Assessment and Plan (Free Text) Assessment: 81 year old female with history of HTN, COPD who was admitted with ureteral stone, sepsis,bacteremia, pyelonephritis,respiratory failure s/p intubation, urosepsis,ALEX,delirium. Patient's family agreed to DNR/ DNI status on Thursday, s/p intubation. Discussed families understanding of patients medical situation. Family understands that her prognosis is guarded to poor. Family feels the patient is a "fighter". Burdens of medical treatment explained. Option for comfort care offered.Family wants to continue all medical treatment at this time Time spent with family in goals of care discussion, 30 minutes. Plan: Palliative support, will assist with establishing goals of care.
--- NOTE | 2017-02-04 10:20 | PN ---
DATE:(55m--72m) SUBJECTIVE: The patient is more short of breath this morning. She is poorly responsive. PHYSICAL EXAMINATION: VITALS: Last temperature recorded is 97.9, pulse is 142, respiratory rate 35, blood pressure 118/56. Oxygen saturation on 100% delivery - 88%. HEENT: Normocephalic, atraumatic. NECK: No JVD. CARDIOVASCULAR: Systolic ejection murmur at the lower left sternal border. Questionable S3 gallop. LUNGS: Decreased breath sounds - left lower lobe. Bilateral rhonchi. No wheezing. EXTREMITIES: Mild edema. No cyanosis, no clubbing. GI: Abdomen is soft, nondistended. Bowel sounds are positive. SKIN: No acute rash. NEUROLOGIC: Limited at the present time. CURRENT LABORATORY DATA: Chest x-ray was done this morning and reviewed. It is a poor, rotated portable film. It appears to show increasing opacification of the left lung. Arterial blood gas was done on 100% oxygen. Results are: pH 7.59, pCO2 of 35, pO2 of 35. IMPRESSION: 1. Respiratory failure. 2. Urosepsis. 3. Status post ureteral stent for obstructive stone. 4. Volume overload. 5. Chronic obstructive pulmonary disease. 6. Non-ST elevation myocardial infarction. 7. Cardiac arrhythmias. 8. Probable atelectasis - left lung. PLAN: The patient remains in the ICU. She is certainly more short of breath today than she was yesterday. She is poorly responsive to questions. Her heart rate is currently in the 140s. I did discuss the case with the night nurse at length. The night nurse confirmed that the patient is not doing well overall. The amiodarone drip was shut off secondary to hypotension. Dr. Mccann(ICU) was in evaluating the patient at the same time I was. His plan is to restart the amiodarone drip. I did review the chest x-ray as above. The chest x-ray is a poor rotated portable film, but appears to show increasing opacification in the left lung. I do question whether this is consistent with atelectasis. I will add Mucomyst (inhaled) to the nebulizer treatments. If she gets more stable, I will also add chest percussion therapy and suctioning. I will discuss the tentative plan with the respiratory therapist. I have also reviewed the arterial blood gas. Severe hypoxemia is noted. The patient is currently a DNR/DNI status. Overall, the outlook/prognosis remains very poor. Again, I am awaiting a repeat chest x-ray(ordered). I will discuss the above with the entire ICU team in the next few moments. I will also discuss the above with the attending physician later this morning. Shalom Guerin MD MTDD
[2017-02-04] MEDS: Amiodarone 360 mg/D5W 200 ml 360 MG/200 ML BAG IV SCH (10:45)
[2017-02-04] MEDS ORDERED: Vitamin A/D oint 60G TP PRN (11:20)
[2017-02-04] MEDS ORDERED: Vitamins A & D Oint UD Foilpak TOP PRN (11:44)
[2017-02-04] MEDS ORDERED: Vitamins A & D Oint UD Foilpak TOP SCH (11:45)
--- NOTE | 2017-02-04 11:49 | CP.PCM.CON ---
Past Patient History - Past Social History Smoking Status: Former Smoker - CARDIAC Hx Cardiac Disorders: Yes Hx Hypercholesterolemia: Yes - PULMONARY Hx Respiratory Disorders: Yes Hx Chronic Obstructive Pulmonary Disease (COPD): Yes - NEUROLOGICAL Hx Dementia: Yes - HEENT Hx HEENT Problems: No - RENAL Hx Chronic Kidney Disease: No - ENDOCRINE/METABOLIC Hx Endocrine Disorders: No - HEMATOLOGICAL/ONCOLOGICAL Hx Blood Disorders: No - INTEGUMENTARY Hx Dermatological Problems: No - MUSCULOSKELETAL/RHEUMATOLOGICAL Hx Falls: Yes - GASTROINTESTINAL Hx Gastrointestinal Disorders: No - GENITOURINARY/GYNECOLOGICAL Hx Urinary Tract Infection: Yes - PSYCHIATRIC Hx Psychophysiologic Disorder: No Hx Substance Use: No - SURGICAL HISTORY Hx Surgeries: Yes Meds Allergies/Adverse Reactions: Allergies Allergy/AdvReac Type Severity Reaction Status Date / Time amoxicillin [From Augmentin] Allergy VOMITING Verified 01/28/17 17:35 clavulanic acid Allergy VOMITING Verified 01/28/17 17:35 [From Augmentin] methylprednisolone Allergy .unknown Verified 01/28/17 17:35 [From Medrol] olmesartan [From Benicar] Allergy .unknown Verified 01/28/17 17:35 - Medications Medications: Current Medications Acetaminophen (Tylenol 325mg Tab) 650 mg PO Q6H PRN PRN Reason: Fever >100.4 F Last Admin: 02/01/17 22:44 Dose: 650 mg Acetylcysteine (Acetylcysteine 20%) 4 ml IH [id number] [facility] Last Admin: 02/04/17 07:45 Dose: 4 ml Aspirin (Aspirin Chewable) 81 mg PO DAILY [facility] Last Admin: 02/04/17 09:52 Dose: Not Given Budesonide (Pulmicort Respules) 0.5 mg IH [id number] [facility] Last Admin: 02/04/17 07:46 Dose: 0.5 mg Clopidogrel Bisulfate (Plavix) 75 mg PO DAILY [facility] Last Admin: 01/31/17 09:57 Dose: 75 mg Fluticasone Propionate (Flonase) 1 actuation NS DAILY [facility] Last Admin: 02/04/17 09:55 Dose: Not Given Furosemide (Lasix) 40 mg IVP DAILY [facility] Last Admin: 02/04/17 10:56 Dose: Not Given Dexmedetomidine HCl (Precedex 4 Mcg/Ml (100 Ml)) 400 mcg in 100 mls @ 3.391 mls /hr IV .Q24H PRN; Protocol; 0.2 MCG/KG/HR PRN Reason: Anxiety Last Titration: 02/02/17 14:30 Dose: 0 mcg/kg/hr, 0 mls/hr Meropenem 1g/NS 100mL IVPB (Meropenem 1g/Ns 100ml Ivpb) 1 gm in 100 mls @ 100 mls/hr IVPB Q8 NO PRN Reason: Protocol Stop: 02/09/17 14:01 Last Admin: 02/04/17 06:50 Dose: 100 mls/hr Amiodarone HCl/Dextrose (Nexterone 360 Mg In D5w 200 Ml (Premix)) 360 mg in 200 mls @ 16.667 mls/hr IV .Q12H NO; 0.5 MG/MIN PRN Reason: Protocol Last Admin: 02/04/17 10:45 Dose: 16.667 mls/hr Vancomycin HCl (Vancomycin 1gm) 1 gm in 250 mls @ 167 mls/hr IVPB Q12H NO PRN Reason: Protocol Last Admin: 02/04/17 10:18 Dose: 167 mls/hr diltiaZEM IVPB 100mg in NS (Cardizem 100mg In Ns) 100 mls @ 5 mls/hr IV .Q20H PRN; Protocol; 5 MG/HR PRN Reason: TITRATE PER MD ORDER Last Titration: 02/04/17 11:20 Dose: 10 mg/hr, 10 mls/hr Levalbuterol HCl (Xopenex) 0.63 mg IH [id number] NO Levalbuterol HCl (Xopenex) 0.63 mg IH Q2H PRN PRN Reason: Shortness of Breath Metoprolol Tartrate (Lopressor) 5 mg IVP Q6H NO Last Admin: 02/04/17 11:21 Dose: Not Given Folic Acid [Folic Acid] 400 Mcg (Home Med) 400 mcg PO DAILY NO Last Admin: 02/04/17 09:55 Dose: Not Given Pantoprazole Sodium (Protonix Inj) 40 mg IVP DAILY [facility] Last Admin: 02/04/17 09:59 Dose: 40 mg Verapamil HCl (Verapamil Inj) 2.5 mg IVP Q6H PRN PRN Reason: for herat rate >140 Last Admin: 02/03/17 21:40 Dose: 2.5 mg Vitamin A (Vitamin A & D Oint Ud Foilpak) 1 ea [facility] Q8H NO Results - Vital Signs Recent Vital Signs: Last Vital Signs Temp 98 F 02/04/17 04:00 Pulse 83 02/04/17 11:00 Resp 41 H 02/04/17 11:00 BP 96/42 L 02/04/17 10:02 Pulse Ox 68 L 02/04/17 11:00 - Labs Result Diagrams: 02/04/17 06:49 02/04/17 06:49 Labs: Laboratory Results - last 24 hr 02/01/17 02/01/17 02/03/17 06:30 06:30 11:38 WBC RBC Hgb Hct MCV MCH MCHC RDW Plt Count MPV Gran % Lymph % (Auto) [place] % (Auto) Eos % (Auto) Baso % (Auto) Gran # Lymph # [place] # Eos # Baso # APTT Hep-Arlen Thrombocytopen Negative pCO2 pO2 HCO3 ABG pH ABG Total CO2 ABG O2 Saturation ABG O2 Content ABG Base Excess ABG Hemoglobin ABG Carboxyhemoglobin POC ABG HHb (Measured) ABG Methemoglobin ABG O2 Capacity Hgb O2 Saturation FiO2 Sodium Potassium Chloride Carbon Dioxide Anion Gap BUN Creatinine Est GFR ( Amer) Est GFR (Non-Af Amer) POC Glucose (mg/dL) 168 H Random Glucose Calcium Phosphorus Magnesium Total Bilirubin AST ALT Alkaline Phosphatase Total Protein Albumin Globulin Albumin/Globulin Ratio Heparin-induced Plt Ab Negative PAUL UFH Low Dose 0.1 0 PAUL UFH Low Dose 0.5 0 PAUL UFH High Dose 100 0 02/03/17 02/03/17 02/03/17 13:30 15:39 18:00 WBC RBC Hgb Hct MCV MCH MCHC RDW Plt Count MPV Gran % Lymph % (Auto) [place] % (Auto) Eos % (Auto) Baso % (Auto) Gran # Lymph # [place] # Eos # Baso # APTT 49.5 H Hep-Arlen Thrombocytopen pCO2 pO2 HCO3 ABG pH ABG Total CO2 ABG O2 Saturation ABG O2 Content ABG Base Excess ABG Hemoglobin ABG Carboxyhemoglobin POC ABG HHb (Measured) ABG Methemoglobin ABG O2 Capacity Hgb O2 Saturation FiO2 Sodium Potassium 2.9 L* Chloride Carbon Dioxide Anion Gap BUN Creatinine Est GFR ( Amer) Est GFR (Non-Af Amer) POC Glucose (mg/dL) 160 H Random Glucose Calcium 6.8 L* Phosphorus Magnesium 1.8 Total Bilirubin AST ALT Alkaline Phosphatase Total Protein Albumin Globulin Albumin/Globulin Ratio Heparin-induced Plt Ab PAUL UFH Low Dose 0.1 PAUL UFH Low Dose 0.5 PAUL UFH High Dose 100 02/03/17 02/03/17 02/03/17 18:00 19:33 21:39 WBC RBC Hgb Hct MCV MCH MCHC RDW Plt Count MPV Gran % Lymph % (Auto) [place] % (Auto) Eos % (Auto) Baso % (Auto) Gran # Lymph # [place] # Eos # Baso # APTT 46.0 H 44.4 H Hep-Arlen Thrombocytopen pCO2 pO2 HCO3 ABG pH ABG Total CO2 ABG O2 Saturation ABG O2 Content ABG Base Excess ABG Hemoglobin ABG Carboxyhemoglobin POC ABG HHb (Measured) ABG Methemoglobin ABG O2 Capacity Hgb O2 Saturation FiO2 Sodium Potassium Chloride Carbon Dioxide Anion Gap BUN Creatinine Est GFR ( Amer) Est GFR (Non-Af Amer) POC Glucose (mg/dL) 195 H Random Glucose Calcium Phosphorus Magnesium Total Bilirubin AST ALT Alkaline Phosphatase Total Protein Albumin Globulin Albumin/Globulin Ratio Heparin-induced Plt Ab PAUL UFH Low Dose 0.1 PAUL UFH Low Dose 0.5 PAUL UFH High Dose 100 02/03/17 02/04/17 02/04/17 23:31 01:22 01:22 WBC RBC Hgb Hct MCV MCH MCHC RDW Plt Count MPV Gran % Lymph % (Auto) [place] % (Auto) Eos % (Auto) Baso % (Auto) Gran # Lymph # [place] # Eos # Baso # APTT 51.6 H Hep-Arlen Thrombocytopen pCO2 pO2 HCO3 ABG pH ABG Total CO2 ABG O2 Saturation ABG O2 Content ABG Base Excess ABG Hemoglobin ABG Carboxyhemoglobin POC ABG HHb (Measured) ABG Methemoglobin ABG O2 Capacity Hgb O2 Saturation FiO2 Sodium Potassium 3.5 L Chloride Carbon Dioxide Anion Gap BUN Creatinine Est GFR ( Amer) Est GFR (Non-Af Amer) POC Glucose (mg/dL) 161 H Random Glucose Calcium Phosphorus Magnesium Total Bilirubin AST ALT Alkaline Phosphatase Total Protein Albumin Globulin Albumin/Globulin Ratio Heparin-induced Plt Ab PAUL UFH Low Dose 0.1 PAUL UFH Low Dose 0.5 PAUL UFH High Dose 100 02/04/17 02/04/17 02/04/17 04:04 06:45 06:49 WBC 35.3 H* D RBC 3.66 Hgb 11.0 L Hct 33.7 L MCV 92.1 MCH 30.1 MCHC 32.6 RDW 15.8 H Plt Count 223 MPV 10.7 Gran % 89.9 H Lymph % (Auto) 4.7 L [place] % (Auto) 5.2 Eos % (Auto) 0.0 L Baso % (Auto) 0.2 Gran # 31.74 H Lymph # 1.7 [place] # 1.9 H Eos # 0.0 Baso # 0.08 APTT Hep-Arlen Thrombocytopen pCO2 35 pO2 35.0 L* HCO3 33.6 H ABG pH 7.59 H ABG Total CO2 34.7 H ABG O2 Saturation 74.7 L ABG O2 Content 15.2 ABG Base Excess 11.3 H ABG Hemoglobin 14.9 ABG Carboxyhemoglobin 2.0 H POC ABG HHb (Measured) 24.6 H ABG Methemoglobin 0.6 ABG O2 Capacity 20.3 Hgb O2 Saturation 72.8 L FiO2 99.0 Sodium Potassium Chloride Carbon Dioxide Anion Gap BUN Creatinine Est GFR ( Amer) Est GFR (Non-Af Amer) POC Glucose (mg/dL) 165 H Random Glucose Calcium Phosphorus Magnesium Total Bilirubin AST ALT Alkaline Phosphatase Total Protein Albumin Globulin Albumin/Globulin Ratio Heparin-induced Plt Ab PAUL UFH Low Dose 0.1 PAUL UFH Low Dose 0.5 PAUL UFH High Dose 100 02/04/17 02/04/17 06:49 06:49 WBC RBC Hgb Hct MCV MCH MCHC RDW Plt Count MPV Gran % Lymph % (Auto) [place] % (Auto) Eos % (Auto) Baso % (Auto) Gran # Lymph # [place] # Eos # Baso # APTT 54.5 H Hep-Arlen Thrombocytopen pCO2 pO2 HCO3 ABG pH ABG Total CO2 ABG O2 Saturation ABG O2 Content ABG Base Excess ABG Hemoglobin ABG Carboxyhemoglobin POC ABG HHb (Measured) ABG Methemoglobin ABG O2 Capacity Hgb O2 Saturation FiO2 Sodium 149 H Potassium 3.7 Chloride 108 H Carbon Dioxide 36 H Anion Gap 9 L BUN 41 H Creatinine 0.7 Est GFR ( Amer) > 60 Est GFR (Non-Af Amer) > 60 POC Glucose (mg/dL) Random Glucose 145 H Calcium 6.8 L* Phosphorus 2.3 L Magnesium 1.8 Total Bilirubin 0.9 AST 137 H D ALT 758 H Alkaline Phosphatase 113 Total Protein 4.4 L Albumin 2.2 L Globulin 2.2 Albumin/Globulin Ratio 1.0 L Heparin-induced Plt Ab PAUL UFH Low Dose 0.1 PAUL UFH Low Dose 0.5 PAUL UFH High Dose 100 Assessment & Plan (1) Metabolic alkalosis Assessment and Plan: pH ~7.60, with evidence of volume contraction in the setting of loop diuretics; also with superimposed respiratory alkalosis; agree with need to reduce pulmonary vascular congestion in the setting of hypoxemic resp failure; -recommend to give dose of acetazolamide 250 mg once BP stabilizes, can repeat another dose this evening; need to closely watch for ensuing hypokalemia; -resume loop diuretics once pH improves; need to avoid worsening alkalosis for now; Status: Acute (2) Acute hypoxemic respiratory failure Assessment and Plan: Persistent need for high flow O2 in the setting of pulmonary vascular congestion /acute decompensated diastolic CHF; diuretics as above; Status: Acute (3) Sepsis Assessment and Plan: E coli sepsis in setting of urologic procedure; repeat cultures negative; on meropenem and restarted on vanco due to hypotension; check vanco trough tonight before 4th dose; Status: Acute (4) Ureteral calculus, right Assessment and Plan: s/p R ureteral stent placement; renal function overall preserved; continue to monitor; Status: Acute
[2017-02-04] MEDS: Levalbuterol 0.63 MG/3 ML Inhal Soln UD IH SCH ×2 (13:18→20:50)
--- NOTE | 2017-02-04 14:05 | RAD ---
HISTORY: f/u COMPARISON: 02/03/2017 FINDINGS: LUNGS: There is new opacification of the left lung. There is shift of the mediastinum to the left. Findings are consistent with atelectasis. This is most likely due to a mucus plug. PLEURA: Small pleural effusions CARDIOVASCULAR: Normal. OSSEOUS STRUCTURES: No significant abnormalities. VISUALIZED UPPER ABDOMEN: Normal. OTHER FINDINGS: None. IMPRESSION: There is new opacification of the left lung. There is shift of the mediastinum to the left. Findings are consistent with atelectasis. This is most likely due to a mucus plug.
--- NOTE | 2017-02-04 14:06 | RAD ---
HISTORY: sob, unresponsive COMPARISON: Earlier same day FINDINGS: LUNGS: No change in left lung opacification. Mediastinal shift to the left. PLEURA: No significant pleural effusion identified, no pneumothorax apparent. CARDIOVASCULAR: Normal. OSSEOUS STRUCTURES: No significant abnormalities. VISUALIZED UPPER ABDOMEN: Normal. OTHER FINDINGS: None. IMPRESSION: No change in left lung opacification. Mediastinal shift to the left.
--- NOTE | 2017-02-04 15:39 | PN ---
DATE: 02/04/2017 SUBJECTIVE: The patient is in bed, in no acute distress, and nontoxic. OBJECTIVE: VITAL SIGNS: Temperature is 97, blood pressure is 120/50, and respiratory rate of 18. HEENT: Unremarkable. NECK: Supple. LUNGS: Have decreased breath sounds. HEART: Normal S1 and S2. ABDOMEN: Soft and nontender. LABORATORY DATA: Reveals a white count of 35,000 and hemoglobin of 11. Chemistries are BUN of 41 and creatinine of 0.7. Influenza is negative. Blood cultures initially E. coli in the blood and urine. Repeat blood cultures are negative. Review of orders reveals the patient currently on meropenem. ASSESSMENT AND PLAN: He is an 81-year-old female seen early this morning 129, bed 3 who appears weak and cachectic and end stage and with severe sepsis and septic shock and cardiogenic shock and acute renal failure and Escherichia coli bacteremia and Escherichia coli in the urine, obstructing right ureteral stone, pyelonephritis, and currently on meropenem with multiple allergies. 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 Matilde Caballero's note is reviewed and the patient's family agreed to DNR/DNI considering multiorgan failure. The patient is now extubated and Dr. Jackson's consultation is reviewed. The patient also had a chest x-ray today, results are reviewed with pulmonary congestion. Dr. Guerin's note is reviewed from today and overall the patient's prognosis is quite poor. Richard Dobbins MD
--- NOTE | 2017-02-04 17:01 | PN ---
DATE: 02/04/2017 SUBJECTIVE: The patient is seen lying in bed in the CCU. She is arousable, but does not answer questions appropriately. She appears to be in no distress. CURRENT MEDICATIONS: Include Mucomyst, aspirin, IV diltiazem at 5 mg per hour, Flonase, folic acid, Lasix 40 mg daily, metoprolol 5 mg IV q. 6 hours, meropenem, amiodarone 1 mg per minute, Precedex p.r.n., Protonix 40 mg daily, Pulmicort inhaler, vancomycin 1 g q. 12 hours, verapamil p.r.n., and Xopenex. OBJECTIVE GENERAL: She is an elderly woman who appears moderately ill. VITAL SIGNS: Her blood pressure is 100/60 with a pulse of 78, in sinus, respirations are 22. She is afebrile. HEENT: No JVD. CHEST: Bilateral scattered rhonchi heard. HEART: PMI is displaced laterally with a systolic murmur at the left sternal border and apex. ABDOMEN: The abdomen is soft and nontender. Normoactive bowel sounds. EXTREMITIES: No edema. DIAGNOSTIC DATA: Sodium is 149, potassium 3.7, BUN and creatinine are 41 and 0.7. White count is 35.3, hemoglobin and hematocrit 11 and 33.7, platelet count of 223,000. Recent arterial blood gas showed a pH of 7.59,pCO2 of 34, and pO2 of 35. This appears to be venous blood gas. AST and ALT are 137 and 758 respectively. Intake and output were reportedly 750 and 1300 respectively. Chest x-ray reveals enlarged cardiac silhouette with bilateral pleural effusions, which appeared mildly improved compared to prior tracings. IMPRESSION: 1. Paroxysmal atrial fibrillation, currently in sinus rhythm. 2. Respiratory insufficiency. 3. Apparent urosepsis. 4. Rest of problems as noted. 5. Recent heparin-induced thrombocytopenia, currently on argatroban. RECOMMENDATIONS: At this time, IV amiodarone will be reduced to 0.5 mg infusion rate. IV diltiazem will be continued for now and if there is no further evidence of atrial fibrillation, this can be discontinued. Oral amiodarone loading will be planned once feasible. Continue negative fluid balance is advised. Continue antibiotic therapy is planned as well. Her overall prognosis remains guarded at this time. DVT and GI prophylaxis should continue. She remains on argatroban. We will continue to follow and make further recommendations as appropriate. Juwan Hamm MD
[2017-02-04] MEDS ORDERED: Magnesium Sulfate 1 gm in D5W 1 GM/100 ML BAG IVPB ONE (17:20)
[2017-02-04 18:17] LABS: UFH SRA RESULT Negative (Negative)
--- NOTE | 2017-02-04 19:24 | PN ---
DATE: SUBJECTIVE: The patient is 81 years old. Was extubated yesterday. Seems to be confused, repeating herself. PHYSICAL EXAMINATION: VITAL SIGNS: She is afebrile, pulse 82, respirations 37, and blood pressure 99/50. LUNGS: Bilateral soft crackle. HEART: S1 and S2 audible. Tachycardic at times. EXTREMITIES: Bilateral leg +[address] She has a resolving bruise in the left leg. LABORATORY DATA: WBC 35.3, hemoglobin 11, hematocrit 33, and platelets 223. PT is 54.5. Chemistry sodium 145, potassium 3.7, chloride 108, CO2 36, BUN 41, creatinine 0.7, blood sugar of 150, AST 137, ALT is 758. Repeat blood cultures and urine cultures are negative. She had x-ray chest done that shows interval improvement in the left mid to upper lung zone, decreased left pleural effusion, and persistent bilateral venous congestion. ASSESSMENT: 1. Status post urosepsis. 2. Escherichia coli urinary tract infection. 3. Status post ureteral stent placement. 4. Respiratory failure. 5. Pulmonary edema. 6. Metabolic encephalopathy. 7. Leukocytosis, etiology unknown. 8. Stool for Clostridium difficile is pending since she did not produce any stool. PLAN: The patient has been restarted on amiodarone drip. We will continue on aspirin, we will give her 81.25 q.6 p.r.n. Empirically, she has been started on Flagyl. Her hepatitis panel is negative, so argatroban has been discontinued. The electrolytes will be monitored. She is currently on meropenem and Protonix. She is getting vancomycin q.12, nebulizer treatment. Discussed with the patient's family, they do not want aggressive measure including any intubation or with CPR, but want to continue on medical treatment. Magali Snyder MD
--- NOTE | 2017-02-04 23:18 | CP.PCM.PN ---
Subjective - Date & Time of Evaluation Date of Evaluation: 02/04/17 Time of Evaluation: 11:00 - Subjective Subjective: She is agitated. Thrombocytopenia improved. KEANU assay, serotonin assay negative. She is asking family to take her home. No bleeding from any site. She is off levophed. Extubated. Objective - Vital Signs/Intake and Output Vital Signs (last 24 hours): Temp Pulse Resp BP Pulse Ox 99.6 F 77 38 H 105/76 91 L 02/04/17 16:00 02/04/17 22:18 02/04/17 18:00 02/04/17 22:18 02/04/17 18:00 Intake and Output: 02/04/17 02/05/17 18:59 06:59 Intake Total 1090 100 Output Total 475 Balance 615 100 - Medications Medications: Current Medications Acetaminophen (Tylenol 325mg Tab) 650 mg PO Q6H PRN PRN Reason: Fever >100.4 F Last Admin: 02/01/17 22:44 Dose: 650 mg Acetylcysteine (Acetylcysteine 20%) 4 ml IH [id number] [facility] Last Admin: 02/04/17 20:50 Dose: 4 ml Aspirin (Aspirin Chewable) 81 mg PO DAILY [facility] Last Admin: 02/04/17 09:52 Dose: Not Given Budesonide (Pulmicort Respules) 0.5 mg IH [id number] [facility] Last Admin: 02/04/17 20:50 Dose: 0.5 mg Clopidogrel Bisulfate (Plavix) 75 mg PO DAILY [facility] Last Admin: 01/31/17 09:57 Dose: 75 mg Fluticasone Propionate (Flonase) 1 actuation NS DAILY [facility] Last Admin: 02/04/17 09:55 Dose: Not Given Furosemide (Lasix) 40 mg IVP DAILY [facility] Last Admin: 02/04/17 10:56 Dose: Not Given Dexmedetomidine HCl (Precedex 4 Mcg/Ml (100 Ml)) 400 mcg in 100 mls @ 3.391 mls /hr IV .Q24H PRN; Protocol; 0.2 MCG/KG/HR PRN Reason: Anxiety Last Titration: 02/02/17 14:30 Dose: 0 mcg/kg/hr, 0 mls/hr Meropenem 1g/NS 100mL IVPB (Meropenem 1g/Ns 100ml Ivpb) 1 gm in 100 mls @ 100 mls/hr IVPB Q8 NO PRN Reason: Protocol Stop: 02/09/17 14:01 Last Admin: 02/04/17 22:17 Dose: 100 mls/hr Amiodarone HCl/Dextrose (Nexterone 360 Mg In D5w 200 Ml (Premix)) 360 mg in 200 mls @ 16.667 mls/hr IV .Q12H NO; 0.5 MG/MIN PRN Reason: Protocol Last Admin: 02/04/17 10:45 Dose: 16.667 mls/hr Vancomycin HCl (Vancomycin 1gm) 1 gm in 250 mls @ 167 mls/hr IVPB Q12H NO PRN Reason: Protocol Last Admin: 02/04/17 22:22 Dose: 167 mls/hr diltiaZEM IVPB 100mg in NS (Cardizem 100mg In Ns) 100 mls @ 5 mls/hr IV .Q20H PRN; Protocol; 5 MG/HR PRN Reason: TITRATE PER MD ORDER Last Admin: 02/04/17 22:18 Dose: 15 mg/hr, 15 mls/hr Levalbuterol HCl (Xopenex) 0.63 mg IH [id number] NO Last Admin: 02/04/17 20:50 Dose: 0.63 mg Levalbuterol HCl (Xopenex) 0.63 mg IH Q2H PRN PRN Reason: Shortness of Breath Metoprolol Tartrate (Lopressor) 5 mg IVP Q6H NO Last Admin: 02/04/17 18:31 Dose: Not Given Folic Acid [Folic Acid] 400 Mcg (Home Med) 400 mcg PO DAILY NO Last Admin: 02/04/17 09:55 Dose: Not Given Pantoprazole Sodium (Protonix Inj) 40 mg IVP DAILY NO Last Admin: 02/04/17 09:59 Dose: 40 mg Verapamil HCl (Verapamil Inj) 2.5 mg IVP Q6H PRN PRN Reason: for herat rate >140 Last Admin: 02/03/17 21:40 Dose: 2.5 mg Vitamin A (Vitamin A & D Oint Ud Foilpak) 1 ea TOP Q8H PRN PRN Reason: Dry skin - Labs Labs: 02/04/17 06:49 02/04/17 06:49 PT 15.3 Seconds (9.9-11.8) H 01/29/17 05:30 INR 1.42 (0.93-1.08) H 01/29/17 05:30 APTT 54.5 Seconds (23.7-30.8) H 02/04/17 06:49 - Constitutional Appears: Chronically Ill - Head Exam Head Exam: NORMAL INSPECTION, NORMOCEPHALIC - Eye Exam Eye Exam: Normal appearance - ENT Exam ENT Exam: Mucous Membranes Moist - Neck Exam Neck Exam: Normal Inspection - Respiratory Exam Respiratory Exam: Accessory Muscle Use, Respiratory Distress - Cardiovascular Exam Cardiovascular Exam: Tachycardia, +S1, +S2 - GI/Abdominal Exam GI & Abdominal Exam: Soft - Extremities Exam Extremities Exam: Normal Inspection - Neurological Exam Neurological Exam: Altered - Skin Skin Exam: Normal Color, Warm Assessment and Plan - Assessment and Plan (Free Text) Assessment: 1. thrombocytopenia : HIT assay negative. DC Argatroban. Prophylactic anticoagualtion to be started. Arixtra 2.5 mg Q daily will be a better option instead heparin. Arixtra is non formulary. prescription given to daughter to procure from out pt. pharmacy. If not able to get, heparin 5000 BID . 2. sepsis : ID following. 3. CV : off pressors. 4. Resp : extubated. Mild distress. Thank you Dr. Snyder for allowing us to participate in her care.
[2017-02-05] MEDS: Metoprolol 1 mg/ml Inj IVP SCH ×4 (00:02→18:00)
[2017-02-05] MEDS: Amiodarone 360 mg/D5W 200 ml 360 MG/200 ML BAG IV SCH ×3 (00:02→21:21)
[2017-02-05] MEDS: Levalbuterol 0.63 MG/3 ML Inhal Soln UD IH SCH ×4 (02:50→21:16)
[2017-02-05] MEDS: Acetylcysteine 20% Inhal Soln (4ml) IH SCH ×4 (02:50→21:16)
[2017-02-05] MEDS: Meropenem 1g/NS 100mL IVPB 1 GM/100 ML PIGGYBACK IVPB SCH ×3 (05:41→23:08)
[2017-02-05 06:52] LABS: ARTERIAL BLOOD GAS HCO3 34.1 mmol/L (21-28); ARTERIAL BLOOD GAS O2 CAPACITY 16.2 mL/dl (16-24); ARTERIAL BLOOD GAS O2 CONTENT 14.6 ML/dl (15-23); ARTERIAL BLOOD GAS PH 7.55 (7.35-7.45); ARTERIAL BLOOD HGB O2 SAT 86.6 % (95.0-98.0); CARBOXYHEMOGLOBIN 2.5 % (0.5-1.5); HHB 9.7 % (0-5); METHEMOGLOBIN 1.2 % (0.0-3.0)
[2017-02-05 07:17] LABS: BASO # 0.05 K/mm3 (0.0-2.0); BASO % 0.2 % (0.0-3.0); GRAN # 28.53 (1.4-6.5); GRAN % 92.1 % (50.0-68.0); HEMATOCRIT 31.1 % (36.0-48.0); LYMPH # 1.1 (1.2-3.4); LYMPH % 3.5 % (22.0-35.0); MEAN CELL VOLUME 92.6 fl (80.0-105.0); MEAN CORPUSCULAR HEMOGLOBIN 29.8 pg (25.0-35.0); MEAN CORPUSCULAR HGB CONC 32.2 g/dl (31.0-37.0); MEAN PLATELET VOLUME 10.4 fl (7.0-11.0); MONO # 1.3 (0.1-0.6); MONO % 4.2 % (1.0-6.0); RED CELL DISTRIBUTION WIDTH 16.7 % (11.5-14.5)
[2017-02-05 07:24] LABS: ALKALINE PHOSPHATASE 121 U/L (38-126); ALT/SGPT 499 U/L (7-56); AST/SGOT 98 U/L (14-36); BILIRUBIN,TOTAL 0.9 mg/dL (0.2-1.3); BLOOD UREA NITROGEN 39 mg/dL (7-21); CALCIUM 7.1 mg/dL (8.4-10.5); CARBON DIOXIDE 35 mmol/L (21-33); CHLORIDE 110 mmol/L (98-107); GFR AFRICAN-AMERICAN > 60; GLUCOSE,RANDOM 132 mg/dL (70-110); MAGNESIUM 1.9 mg/dL (1.7-2.2); PHOSPHOROUS 2.3 mg/dL (2.5-4.5); SODIUM 151 mmol/L (132-148); TOTAL PROTEIN 4.5 g/dL (5.8-8.3)
[2017-02-05 07:42] LABS: POTASSIUM 2.9 mmol/L (3.6-5.0)
[2017-02-05] MEDS: Budesonide 0.5 mg/2 ml Inhal Susp UD IH SCH ×2 (07:48→21:15)
--- NOTE | 2017-02-05 08:12 | CP.PCM.PN ---
Subjective - Date & Time of Evaluation Date of Evaluation: 02/05/17 Time of Evaluation: 07:00 - Subjective Subjective: Stable in ICU. Awake but not very responsive this AM No CP or SOB. V/S noted. RSR PE: Lungs:rhonchi Cor.: S1S2 Abd.: soft Ext.: no edema Neuro.: awake but minimal responsiveness I/O= 2085/625 Labs noted: WBC= 31,000, Pl Ct. = 269,000, K+= 2.9, Na+= 151 BC x2 NG at 5 days CXR today pending. Looks unchanged. Objective - Vital Signs/Intake and Output Vital Signs (last 24 hours): Temp Pulse Resp BP Pulse Ox 98.2 F 75 31 H 102/41 L 86 L 02/04/17 20:00 02/05/17 06:00 02/05/17 06:00 02/05/17 07:00 02/05/17 06:00 Intake and Output: 02/05/17 02/05/17 06:59 18:59 Intake Total 995 Output Total 150 Balance 845 - Medications Medications: Current Medications Acetaminophen (Tylenol 325mg Tab) 650 mg PO Q6H PRN PRN Reason: Fever >100.4 F Last Admin: 02/01/17 22:44 Dose: 650 mg Acetylcysteine (Acetylcysteine 20%) 4 ml IH [id number] [facility] Last Admin: 02/05/17 07:48 Dose: 4 ml Aspirin (Aspirin Chewable) 81 mg PO DAILY [facility] Last Admin: 02/04/17 09:52 Dose: Not Given Budesonide (Pulmicort Respules) 0.5 mg IH [id number] [facility] Last Admin: 02/05/17 07:48 Dose: 0.5 mg Clopidogrel Bisulfate (Plavix) 75 mg PO DAILY [facility] Last Admin: 01/31/17 09:57 Dose: 75 mg Fluticasone Propionate (Flonase) 1 actuation NS DAILY [facility] Last Admin: 02/04/17 09:55 Dose: Not Given Furosemide (Lasix) 40 mg IVP DAILY [facility] Last Admin: 02/04/17 10:56 Dose: Not Given Dexmedetomidine HCl (Precedex 4 Mcg/Ml (100 Ml)) 400 mcg in 100 mls @ 3.391 mls /hr IV .Q24H PRN; Protocol; 0.2 MCG/KG/HR PRN Reason: Anxiety Last Titration: 02/02/17 14:30 Dose: 0 mcg/kg/hr, 0 mls/hr Meropenem 1g/NS 100mL IVPB (Meropenem 1g/Ns 100ml Ivpb) 1 gm in 100 mls @ 100 mls/hr IVPB Q8 NO PRN Reason: Protocol Stop: 02/09/17 14:01 Last Admin: 02/05/17 05:41 Dose: 100 mls/hr Amiodarone HCl/Dextrose (Nexterone 360 Mg In D5w 200 Ml (Premix)) 360 mg in 200 mls @ 16.667 mls/hr IV .Q12H NO; 0.5 MG/MIN PRN Reason: Protocol Last Admin: 02/05/17 00:02 Dose: 16.667 mls/hr Vancomycin HCl (Vancomycin 1gm) 1 gm in 250 mls @ 167 mls/hr IVPB Q12H NO PRN Reason: Protocol Last Admin: 02/04/17 22:22 Dose: 167 mls/hr diltiaZEM IVPB 100mg in NS (Cardizem 100mg In Ns) 100 mls @ 5 mls/hr IV .Q20H PRN; Protocol; 5 MG/HR PRN Reason: TITRATE PER MD ORDER Last Titration: 02/05/17 02:00 Dose: 5 mg/hr, 5 mls/hr Levalbuterol HCl (Xopenex) 0.63 mg IH [id number] NO Last Admin: 02/05/17 07:49 Dose: 0.63 mg Levalbuterol HCl (Xopenex) 0.63 mg IH Q2H PRN PRN Reason: Shortness of Breath Metoprolol Tartrate (Lopressor) 5 mg IVP Q6H [facility] Last Admin: 02/05/17 05:40 Dose: Not Given Folic Acid [Folic Acid] 400 Mcg (Home Med) 400 mcg PO DAILY [facility] Last Admin: 02/04/17 09:55 Dose: Not Given Pantoprazole Sodium (Protonix Inj) 40 mg IVP DAILY [facility] Last Admin: 02/04/17 09:59 Dose: 40 mg Vitamin A (Vitamin A & D Oint Ud Foilpak) 1 ea TOP Q8H PRN PRN Reason: Dry skin - Labs Labs: 02/05/17 06:00 10/12/17 06:00 PT 15.3 Seconds (9.9-11.8) H 01/29/17 05:30 INR 1.42 (0.93-1.08) H 01/29/17 05:30 APTT 26.5 Seconds (23.7-30.8) 02/05/17 06:00 Assessment and Plan - Assessment and Plan (Free Text) Assessment: Mechanical Fall at home with acute rhabdo and uro sepsis on presentation Respiratory failure with venous congestion and pl. effusions on current CXR Hyponatremia and hypokalemia PAF HIT AMS CAD/Remote KS/Possible recent NSTEMI COPD/Former Smoker HLD PAD DNR/DNI Plan: Renal f/u with free water administration and vigorous K+ replacement Diuresis > neg. balance daily Continue IV amio and IV metoprolol D/C IV diltiazem As per Renal, ID, Pulmonary, Intensivists and Dr. Snyder Monitor: labs, sats., I/O, cultures, ABG's etc. Will follow.
--- NOTE | 2017-02-05 08:16 | RAD ---
HISTORY: f/u COMPARISON: 02/04/2017 FINDINGS: LUNGS: Bilateral infiltrates and effusions are unchanged. Severe vascular congestion unchanged PLEURA: No significant pleural effusion identified, no pneumothorax apparent. CARDIOVASCULAR: Normal. OSSEOUS STRUCTURES: No significant abnormalities. VISUALIZED UPPER ABDOMEN: Normal. OTHER FINDINGS: None. IMPRESSION: Bilateral infiltrates and effusions are unchanged. Severe vascular congestion unchanged
--- NOTE | 2017-02-05 08:19 | PN ---
DATE: 02/04/2017 REASON FOR DICTATION: Last night Dr. Snyder called the patient's family wanted consult and cardiology care with Dr. Hamm and Dr. Fleming, so we will sign off and transfer cardiology care to Dr. Fleming and Dr. Hamm. Thank you Dr. Snyder for providing me the opportunity in taking care of the Ronna Rosenbaum. We will sign off care as mentioned above. Moraima Childers MD
[2017-02-05] MEDS: Fluticasone Nasal 50 mcg/Spray NS SCH (10:53)
[2017-02-05] MEDS: FOLIC ACID 400 MCG PO SCH (11:00)
[2017-02-05] MEDS: Vancomycin 1gm in NS 250ml 1 GM/250 ML BAG IVPB SCH (11:05)
[2017-02-05] MEDS ORDERED: Magnesium Sulfate 2 GM in Sodium Chloride 0.9% 100 ML IVPB ONE (11:47)
--- NOTE | 2017-02-05 12:03 | PN ---
PULMONARY NOTE DATE: 02/05/2017(715am--805am) SUBJECTIVE: The patient remains moderately short of breath. She is lethargic, but arousable. OBJECTIVE: VITAL SIGNS: Temperature is 98.2, pulse 86, respiratory rate 32, and blood pressure 102/41. Oxygen saturation on high-flow delivery is 91%. HEENT: Normocephalic and atraumatic. NECK: No JVD. CARDIOVASCULAR: Systolic ejection murmur at the lower left sternal border. Questionable S3 gallop. LUNGS: Decreased breath sounds with crackles at the bases. Bilateral rhonchi. No wheezing. EXTREMITIES: Mild edema. No cyanosis. No clubbing. Calves are nontender to palpation. GASTROINTESTINAL: Abdomen is soft, nontender, and nondistended. Bowel sounds are positive. SKIN: No acute rash. NEUROLOGIC: Limited at the present time. PERTINENT LABORATORY DATA: Chest x-ray was done this morning and reviewed. The chest x-ray this morning is consistent with severe pulmonary edema and bilateral pleural effusions. The left lung atelectasis - seen yesterday - has resolved. Arterial blood gas was done on high-flow delivery. Results are: PH of 7.55, pCO2 of 39, and pO2 of 48. IMPRESSION: 1. Respiratory failure. 2. Urosepsis. 3. Status post ureteral stent for obstructive stone. 4. Volume overload. 5. Chronic obstructive pulmonary disease. 6. Non-ST elevation myocardial infarction. 7. Cardiac arrhythmias. 8. Atelectasis - left lung - resolved. PLAN: The patient remains in the ICU. She is moderately short of breath. She is lethargic, but easily arousable. I did discuss the case with the night nurse at length. The night nurse stated that the patient continues to do poorly overall. I have also reviewed the chest x-ray. The x-ray is consistent with severe pulmonary edema and bilateral pleural effusions. As above, the left lung atelectasis has resolved. I will continue with the current nebulizer treatments and pulmonary toilet. I have also reviewed the arterial blood gas. A mixed disorder, with a significant increase in the alveolar-arterial gradient is noted. The patient is currently on high-flow delivery. She is also a DNR/DNI status. I would continue with the antibiotic coverage as per Infectious Disease. Input by Dr. Boghossian is noted. Inputs by Renal and Cardiology are also noted. The patient remains critically ill with very poor prognosis. I did discuss the case with Dr. Snyder yesterday. I will discuss the above with her today in addition. I will also discuss the above with the entire ICU team in the next few moments. Shalom Guerin MD MTDD
--- NOTE | 2017-02-05 13:52 | CP.PCM.PN ---
Subjective - Date & Time of Evaluation Date of Evaluation: 02/05/17 Time of Evaluation: 08:00 - Subjective Subjective: Patient is currently on high flow O2, remains lethargic but arousable, on high flow 90% saturation 97% Denies any major complaints Objective - Vital Signs/Intake and Output Vital Signs (last 24 hours): Temp Pulse Resp BP Pulse Ox 99.1 F 75 31 H 101/70 92 L 02/05/17 08:00 02/05/17 08:00 02/05/17 08:00 02/05/17 09:24 02/05/17 08:00 Intake and Output: 02/05/17 02/05/17 06:59 18:59 Intake Total 995 30 Output Total 150 Balance 845 30 - Medications Medications: Current Medications Acetaminophen (Tylenol 325mg Tab) 650 mg PO Q6H PRN PRN Reason: Fever >100.4 F Last Admin: 02/01/17 22:44 Dose: 650 mg Acetylcysteine (Acetylcysteine 20%) [id number] [facility] Last Admin: 02/05/17 13:08 Dose: 4 ml Aspirin (Aspirin Chewable) [address] [facility] Last Admin: 02/04/17 09:52 Dose: Not Given Budesonide (Pulmicort Respules) 0.[id number] [facility] Last Admin: 02/05/17 07:48 Dose: 0.5 mg Clopidogrel Bisulfate (Plavix) [address] [facility] Last Admin: 01/31/17 09:57 Dose: 75 mg Fluticasone Propionate (Flonase) [address] [facility] Last Admin: 02/04/17 09:55 Dose: Not Given Dexmedetomidine HCl (Precedex 4 Mcg/Ml (100 Ml)) 400 mcg in 100 mls @ 3.391 mls /hr IV .Q24H PRN; Protocol; 0.2 MCG/KG/HR PRN Reason: Anxiety Last Titration: 02/02/17 14:30 Dose: 0 mcg/kg/hr, 0 mls/hr Meropenem 1g/NS 100mL IVPB (Meropenem 1g/Ns 100ml Ivpb) 1 gm in 100 mls @ 100 mls/hr IVPB Q8 NO PRN Reason: Protocol Stop: 02/09/17 14:01 Last Admin: 02/05/17 05:41 Dose: 100 mls/hr Amiodarone HCl/Dextrose (Nexterone 360 Mg In D5w 200 Ml (Premix)) 360 mg in 200 mls @ 16.667 mls/hr IV .Q12H NO; 0.5 MG/MIN PRN Reason: Protocol Last Admin: 02/05/17 11:30 Dose: 16.667 mls/hr Vancomycin HCl (Vancomycin 1gm) 1 gm in 250 mls @ 167 mls/hr IVPB Q12H NO PRN Reason: Protocol Last Admin: 02/05/17 11:05 Dose: 167 mls/hr diltiaZEM IVPB 100mg in NS (Cardizem 100mg In Ns) 100 mls @ 5 mls/hr IV .Q20H PRN; Protocol; 5 MG/HR PRN Reason: TITRATE PER MD ORDER Last Titration: 02/05/17 08:15 Dose: 0 mg/hr, 0 mls/hr Levalbuterol HCl (Xopenex) 0.63 mg IH [id number] NO Last Admin: 02/05/17 13:09 Dose: 0.63 mg Levalbuterol HCl (Xopenex) 0.63 mg IH Q2H PRN PRN Reason: Shortness of Breath Metoprolol Tartrate (Lopressor) [address] [facility] Last Admin: 02/05/17 11:00 Dose: Not Given Folic Acid [Folic Acid] 400 Mcg (Home Med) [address] [facility] Last Admin: 02/05/17 11:00 Dose: Not Given Pantoprazole Sodium (Protonix Inj) [address] [facility] Last Admin: 02/05/17 09:24 Dose: 40 mg Vitamin A (Vitamin A & D Oint Ud Foilpak) 1 ea TOP Q8H PRN PRN Reason: Dry skin - Labs Labs: 02/05/17 06:00 02/05/17 06:00 PT 15.3 Seconds (9.9-11.8) H 01/29/17 05:30 INR 1.42 (0.93-1.08) H 01/29/17 05:30 APTT 26.5 Seconds (23.7-30.8) 02/05/17 06:00 - Constitutional Appears: No Acute Distress, Chronically Ill - Eye Exam Eye Exam: EOMI - ENT Exam ENT Exam: Mucous Membranes Dry - Respiratory Exam Respiratory Exam: Decreased Breath Sounds Additional comments: increased work of breathing, decreased breath sounds at bases b/l - Cardiovascular Exam Cardiovascular Exam: REGULAR RHYTHM, RRR, +S1, +S2 - GI/Abdominal Exam GI & Abdominal Exam: Soft, Normal Bowel Sounds - Extremities Exam Additional comments: 1+ edema - Neurological Exam Additional comments: lethargic but is arousable Assessment and Plan - Assessment and Plan (Free Text) Assessment: 81yo female a/w septic shock 2/2 gram neg bacteremia, with acute renal failure due to probably due to obstructing right ureteral stone with pyelonephritis S/P ureteral stent placement Septic Shock, resolved Gram Negative Bacteremia, resolved Renal Failure Volume overload Afib - currently afebrile, HD stable, off pressors, MAP ranging 70-95 - patient remains on high flow, sat 97% on high flow O2 90%, 60LPM - CXR with pulm vasc congesiton - ABG with metabolic alkalosis - clinically volume overloaded Recommend: - cont with high flow O2, patient is DNR/DNI - cont with broad spectrum abx as per ID - follow up ID - Decrease SoluCortef dose 50mg q12hr IV - follow up heme onc - follow up cardiology - follow up ID - replete Calcium, K, Mg - DC lasix - Diamox 250mg IV x 1 - GI ppx - DVT ppx, Arixtra - patient remains critical - speech swallow eval - DC a line, Central line - patient is DNR/DNI - poor prognosis - follow up palliative care
[2017-02-05] MEDS ORDERED: ARIXTRA SC SCH (14:00)
--- NOTE | 2017-02-05 14:26 | PN ---
SUBJECTIVE: The patient is in bed in no acute distress; however, chronically ill, debilitated, end stage on exam. PHYSICAL EXAMINATION: VITAL SIGNS: Temperature is 99, blood pressure is 103/40, respiratory rate of 32, heart rate of 75. HEENT: Unremarkable. NECK: Supple. LUNGS: Decreased breath sounds. HEART: Normal S1 and S2. ABDOMEN: Soft. LABORATORY EXAMINATION: Reveals a white count of 31,000, hemoglobin of 10, platelets of 269. BUN of 39, creatinine of 0.7. LFTs are noted. Urinalysis is noted. Initial blood cultures had E. coli in the blood and in the urine. The patient is currently on meropenem. THE PATIENT IS ALLERGIC TO AMOXICILLIN, limited options of antibiotics. Dr. Guerin's note is reviewed from this morning. The patient had a chest x-ray from this morning, was read by Dr. Chucky Dhaliwal, reveals bilateral infiltrates and effusions are unchanged. ASSESSMENT AND PLAN: An 81-year-old female seen early this morning in [facility], bed 3, appears end-stage and with septic shock, cardiogenic shock, sepsis with acute renal failure, Escherichia coli bacteremia, Escherichia coli in the urine, obstructing right ureteral stone, and pyelonephritis. The patient is on meropenem with ALLERGIES TO AMOXICILLIN. Dr. Snyder's note is appreciated. We will follow with you. Richard Dobbins MD
[2017-02-05] MEDS ORDERED: FONDAPARINUX 2.5 MG/0.5 ML SC STA (17:19)
--- NOTE | 2017-02-05 18:22 | PN ---
DATE: SUBJECTIVE: The patient is 81 years old, seen and examined, awake and alert, mumbling. States "I want oatmeal, I want oatmeal." She has swallowing evaluation and did not do that well. PHYSICAL EXAMINATION: VITAL SIGNS: Temperature 99.4, pulse 79, respirations 32 and blood pressure 111/44. LUNGS: Bilateral fair airflow, few soft crackles in lower lung region. HEART: S1 and S2 audible. ABDOMEN: Soft and nontender. No rebound. No guarding. EXTREMITIES: Bilateral leg with +2 edema. NEUROLOGIC: She is awake and alert, confused and disoriented. LABORATORY DATA: WBC 31.0, hemoglobin 10, hematocrit 31, platelets 269 and PTT is 26.5. Chemistry; sodium 151, potassium 2.9, chloride 110, CO2 35, BUN 39, creatinine 0.7, phosphorus 2.7 and glucose is 145. She had x-ray of chest done that shows bilateral infiltrate and effusion and severe vascular congestion. ASSESSMENT: 1. Status post respiratory failure. Now, the patient has respiratory insufficiency. 2. Bilateral infiltrate. 3. Pleural effusion. 4. Status post septic and cardiogenic shock. 5. [id number]-[id number] myocardial infarction. 6. Escherichia coli bacteremia. 7. Status post right ureteral stent placement. PLAN: Currently, the patient is on amiodarone drip. I will continue her on aspirin. She is on diltiazem. She has been empirically started on Flagyl . She is on meropenem. She is also on argatroban. Potassium has been supplemented. She is on Protonix IV and Xopenex nebulizer. The patient is DNR/DNI, but family want all other medical treatment. Magali Snyder MD
[2017-02-06] MEDS: Metoprolol 1 mg/ml Inj IVP SCH ×5 (00:05→22:05)
[2017-02-06] MEDS: Levalbuterol 0.63 MG/3 ML Inhal Soln UD IH SCH ×4 (01:17→19:54)
[2017-02-06] MEDS: Acetylcysteine 20% Inhal Soln (4ml) IH SCH ×4 (01:17→19:53)
[2017-02-06 01:20] LABS: BLOOD UREA NITROGEN 32 mg/dL (7-21); CALCIUM 7.2 mg/dL (8.4-10.5); CARBON DIOXIDE 35 mmol/L (21-33); CHLORIDE 113 mmol/L (95-110); GFR AFRICAN-AMERICAN > 60; GLUCOSE,RANDOM 125 mg/dL (70-110); POTASSIUM 3.4 mmol/L (3.6-5.0); SODIUM 153 mmol/L (132-148)
[2017-02-06] MEDS: Meropenem 1g/NS 100mL IVPB 1 GM/100 ML PIGGYBACK IVPB SCH ×3 (05:00→22:00)
[2017-02-06 05:55] LABS: ARTERIAL BLOOD GAS HCO3 35.7 mmol/L (21-28); ARTERIAL BLOOD GAS O2 CAPACITY 16.9 mL/dl (16-24); ARTERIAL BLOOD GAS O2 CONTENT 15.3 ML/dl (15-23); ARTERIAL BLOOD GAS PH 7.47 (7.35-7.45); ARTERIAL BLOOD HGB O2 SAT 87.3 % (95.0-98.0); CARBOXYHEMOGLOBIN 2.4 % (0.5-1.5); HHB 9.2 % (0-5); METHEMOGLOBIN 1.1 % (0.0-3.0)
[2017-02-06 06:37] LABS: BASO # 0.03 K/mm3 (0.0-2.0); BASO % 0.1 % (0.0-3.0); EOS % 0.1 % (1.5-5.0); GRAN # 28.83 (1.4-6.5); GRAN % 94.4 % (50.0-68.0); HEMATOCRIT 30.9 % (36.0-48.0); LYMPH # 0.7 (1.2-3.4); LYMPH % 2.4 % (22.0-35.0); MEAN CORPUSCULAR HEMOGLOBIN 30.1 pg (25.0-35.0); MEAN CORPUSCULAR HGB CONC 31.4 g/dl (31.0-37.0); MONO # 0.9 (0.1-0.6); RED CELL DISTRIBUTION WIDTH 17.6 % (11.5-14.5)
--- NOTE | 2017-02-06 06:43 | CP.CCUPN ---
<Nathanael Palomino - Last Filed: 02/06/17 13:08> CCU Subjective - Physician Review Subjective (Free Text): 02/06/17 06:39 Patient seen and evaluated at bedside in the ICU. S/p Extubation day 4. Mentation has improved, but not back to baseline mentation exhibited on admission. Following simple commands, answering yes/no questions appropriately. Still remains very lethargic, failed Swallow eval again yesterday. No acute events overnight reported. Unable to verbalize well for ROS, but shakes head no when asked if in pain, when asked if has chest pain, and nods yes when asked if short of breath. CCU Objective - Vital Signs / Intake & Output Vital Signs (Last 4 hours): Vital Signs Temp Pulse Resp BP Pulse Ox 02/06/17 04:52 77 101/49 L 02/06/17 04:00 98.7 F 79 35 H 101/46 L 94 L 02/06/17 03:00 80 38 H 104/44 L 88 L Intake and Output (Last 8hrs): Intake & Output 02/05/17 02/05/17 02/06/17 14:59 22:59 06:59 Intake Total 30 679 Output Total 1550 Balance 30 -871 Intake: IV 30 679 Right Internal Jugular 679 Output: Urine 1550 2-way Urethral 1550 - Physical Exam Head: Positive for: Atraumatic, Normocephalic Pupils: Positive for: PERRL Extroacular Muscles: Positive for: EOMI (intermittently following commands for EOMI testing, but able to track staff and family in room fully). Negative for: Gaze Palsy Conjunctiva: Positive for: Normal. Negative for: Injected, Icteric Mouth: Positive for: Moist Mucous Membranes, Normal Lips, Normal Tounge. Negative for: Drooling Nose (External): Positive for: Atraumatic. Negative for: Abrasion, Contusion, Laceration Neck: Negative for: Normal Range of Motion (moving head minimally to track throughout room, not actively moving head otherwise, passive ROM intact and appropriate) Respiratory/Chest: Positive for: Clear to Auscultation, Decreased Breath Sounds (mild-moderate decreased breath sounds in all auscultated brady), Rhonchi ( diffuse monderate ronchi in all brady) Cardiovascular: Positive for: Other (Fluctuates between AFib RVR up to 140's on to 70's-80's NSR, intially irreg irreg on exam but rapidly corrected to NSR after IV lopressor push) Abdomen: Negative for: Tenderness, Distention Upper Extremity: Positive for: Edema (non pitting but grossly edematous in bilateral hands extending to mid forearm, improved as compared to prior days), Swelling, Temperature Abnormalties (hands cool to palpation). Negative for: Cyanosis (bruising from diffuse swelling and blood draws, dusky-appearing hands , but not grossly cyanotic), NORMAL PULSES (weakly palpable radial pulses likely 2/2 edema), Erythema (no erythema, scatter echymoses likely 2/2 being on anticoagulant), Deformity Lower Extremity: Positive for: Edema (+2 pitting edema in bilateral feet and ankles, +1 from top of SCDs to knees, no joint swelling), Tenderness, Swelling ( (+)ecchymosis, right lower leg), Temperature Abnormalties (feet/ankles cold to palpation). Negative for: NORMAL PULSES (unable to palpate bilateral dorsalis pedis or posterior tibials), Cyanosis, Erythema, Deformity Neurological: Positive for: Other (spontaneous movement of hands and feet, but minimal (moving toes, twitching fingers), no gross motor activity noted). Negative for: GCS=15 (GCS 12 (E4 V4 M4)), CN II-XII Intact (unable to fully assess due to not following commands, occular CN appear intact, CN VII appears intact), Speech Normal (minimal speech today, able to quietly say few words, mostly relying on nodding/shaking head to yes/no questions), Motor Func Grossly Intact (weak motor strength present in bilateral UE, minimal LE motor function likely 2/2 deconditioning) Skin: Positive for: Warm (except at distal extremities, as noted in extremities exam), Dry, Normal Color (except as noted in upper extremities exam) Psychiatric: Positive for: Other (awake and intermittently alert, no apparent orientation, repetitively counting down numbers, not following most commands; likely delirious) - Medications Active Medications: Active Medications Generic Name Dose Route Start Last Admin Trade Name Freq PRN Reason Stop Dose Admin Acetaminophen 650 mg 01/28/17 21:29 02/01/17 22:44 Tylenol 325mg Tab PO 650 mg Q6H PRN Administration Fever >100.4 F Acetylcysteine 4 ml 02/04/17 08:00 02/06/17 01:17 Acetylcysteine 20% IH 4 ml [id number] Administration Aspirin 81 mg 01/29/17 10:00 02/05/17 16:19 Aspirin Chewable PO Not Given DAILY NO Budesonide 0.5 mg 01/29/17 08:00 02/05/17 21:15 Pulmicort Respules IH 0.5 mg [id number] NO Administration Clopidogrel Bisulfate 75 mg 01/29/17 10:00 01/31/17 09:57 Plavix PO 75 mg DAILY NO Administration Fluticasone Propionate 1 actuation 01/29/17 10:00 02/05/17 10:53 Flonase NS Not Given DAILY [facility] Home Med 2.5 unit 02/05/17 14:48 Home Med SC DAILY [facility] Dexmedetomidine HCl 400 mcg in 100 mls @ 3.391 mls/hr 01/29/17 12:01 14:30 Precedex 4 Mcg/Ml (100 Ml) IV 0 mcg/kg/hr .Q24H PRN 0 mls/hr Anxiety Titration Protocol 0.2 MCG/KG/HR Meropenem 1g/NS 100mL IVPB 1 gm in 100 mls @ 100 mls/hr 01/31/17 14:00 05:00 Meropenem 1g/Ns 100ml Ivpb IVPB 02/09/17 14:01 100 mls/hr Q8 NO Administration Protocol Amiodarone HCl/Dextrose 360 mg in 200 mls @ 16.667 mls/hr 02/02/17 00:15 04/12 21:21 Nexterone 360 Mg In D5w 200 Ml (Premix) IV 16.667 mls/hr .Q12H NO Administration Protocol 0.5 MG/MIN Vancomycin HCl 1 gm in 250 mls @ 167 mls/hr 02/03/17 11:15 02/05/17 11:05 Vancomycin 1gm IVPB 167 mls/hr Q12H NO Administration Protocol diltiaZEM IVPB 100mg in NS 100 mls @ 5 mls/hr 02/04/17 09:35 02/05/17 08:15 Cardizem 100mg In Ns IV 0 mg/hr .Q20H PRN 0 mls/hr TITRATE PER MD ORDER Titration Protocol 5 MG/HR Levalbuterol HCl 0.63 mg 02/04/17 14:00 02/06/17 01:17 Xopenex IH 0.63 mg Q2COBID NO Administration Levalbuterol HCl 0.63 mg 02/04/17 08:21 Xopenex IH Q2H PRN Shortness of Breath Metoprolol Tartrate 5 mg 02/03/17 11:00 02/06/17 04:52 Lopressor IVP 5 mg Q6H NO Administration Pantoprazole Sodium 40 mg 01/30/17 10:00 02/05/17 09:24 Protonix Inj IVP 40 mg DAILY NO Administration Vitamin A 1 ea 02/04/17 11:44 Vitamin A & D Oint Ud Foilpak TOP Q8H PRN Dry skin - Patient Studies Lab Studies: Lab Studies 02/06/17 02/06/17 02/06/17 Range/Units 05:50 01:00 01:00 WBC (4.5-11.0) 10^3/ul RBC (3.5-6.1) 10^6/uL Hgb (12.0-16.0) g/dL Hct (36.0-48.0) % MCV (80.0-105.0) fl MCH (25.0-35.0) pg MCHC (31.0-37.0) g/dl RDW (11.5-14.5) % Plt Count (120.0-450.0) 10^3/uL MPV (7.0-11.0) fl Gran % (50.0-68.0) % Lymph % (Auto) (22.0-35.0) % [place] % (Auto) (1.0-6.0) % Eos % (Auto) (1.5-5.0) % Baso % (Auto) (0.0-3.0) % Gran # (1.4-6.5) Lymph # (1.2-3.4) [place] # (0.1-0.6) Eos # (0.0-0.7) Baso # (0.0-2.0) K/mm3 APTT (23.7-30.8) Seconds pCO2 49 H (35-45) mm/Hg pO2 50.0 L (80-100) mm/Hg HCO3 35.7 H (21-28) mmol/L ABG pH 7.47 H (7.35-7.45) ABG Total CO2 37.2 H (22-28) mmol.L ABG O2 Saturation 90.5 L (95-98) % ABG O2 Content 15.3 (15-23) ML/dl ABG Base Excess 10.5 H (-2.0-3.0) mmol/L ABG Hemoglobin 12.5 (11.7-17.4) g/dL ABG Carboxyhemoglobin 2.4 H (0.5-1.5) % POC ABG HHb (Measured) 9.2 H (0-5) % ABG Methemoglobin 1.1 (0.0-3.0) % ABG O2 Capacity 16.9 (16-24) mL/dl Hgb O2 Saturation 87.3 L (95.0-98.0) % FiO2 84.0 % Sodium 153 H (132-148) mmol/L Potassium 3.4 L (3.6-5.0) mmol/L Chloride 113 H (98-107) mmol/L Carbon Dioxide 35 H (21-33) mmol/L Anion Gap 8 L (10-20) BUN 32 H (7-21) mg/dL Creatinine 0.8 (0.7-1.2) mg/dL Est GFR ( Amer) > 60 Est GFR (Non-Af Amer) > 60 POC Glucose (mg/dL) (65-110) mg/dL Random Glucose 125 H (70-110) mg/dL Calcium 7.2 L (8.4-10.5) mg/dL Phosphorus (2.5-4.5) mg/dL Magnesium (1.7-2.2) mg/dL Total Bilirubin (0.2-1.3) mg/dL AST (14-36) U/L ALT (7-56) U/L Alkaline Phosphatase (38-126) U/L Total Protein (5.8-8.3) g/dL Albumin (3.0-4.8) g/dL Globulin gm/dL Albumin/Globulin Ratio (1.1-1.8) Vancomycin Trough 16.1 H* (5.0-10.0) ug/mL 10/12/17 10/12/17 10/12/17 Range/Units 22:18 16:19 11:27 WBC (4.5-11.0) 10^3/ul RBC (3.5-6.1) 10^6/uL Hgb (12.0-16.0) g/dL Hct (36.0-48.0) % MCV (80.0-105.0) fl MCH (25.0-35.0) pg MCHC (31.0-37.0) g/dl RDW (11.5-14.5) % Plt Count (120.0-450.0) 10^3/uL MPV (7.0-11.0) fl Gran % (50.0-68.0) % Lymph % (Auto) (22.0-35.0) % [place] % (Auto) (1.0-6.0) % Eos % (Auto) (1.5-5.0) % Baso % (Auto) (0.0-3.0) % Gran # (1.4-6.5) Lymph # (1.2-3.4) [place] # (0.1-0.6) Eos # (0.0-0.7) Baso # (0.0-2.0) K/mm3 APTT (23.7-30.8) Seconds pCO2 (35-45) mm/Hg pO2 (80-100) mm/Hg HCO3 (21-28) mmol/L ABG pH (7.35-7.45) ABG Total CO2 (22-28) mmol.L ABG O2 Saturation (95-98) % ABG O2 Content (15-23) ML/dl ABG Base Excess (-2.0-3.0) mmol/L ABG Hemoglobin (11.7-17.4) g/dL ABG Carboxyhemoglobin (0.5-1.5) % POC ABG HHb (Measured) (0-5) % ABG Methemoglobin (0.0-3.0) % ABG O2 Capacity (16-24) mL/dl Hgb O2 Saturation (95.0-98.0) % FiO2 % Sodium (132-148) mmol/L Potassium (3.6-5.0) mmol/L Chloride (98-107) mmol/L Carbon Dioxide (21-33) mmol/L Anion Gap (10-20) BUN (7-21) mg/dL Creatinine (0.7-1.2) mg/dL Est GFR ( Amer) Est GFR (Non-Af Amer) POC Glucose (mg/dL) 139 H 146 H 145 H (65-110) mg/dL Random Glucose (70-110) mg/dL Calcium (8.4-10.5) mg/dL Phosphorus (2.5-4.5) mg/dL Magnesium (1.7-2.2) mg/dL Total Bilirubin (0.2-1.3) mg/dL AST (14-36) U/L ALT (7-56) U/L Alkaline Phosphatase (38-126) U/L Total Protein (5.8-8.3) g/dL Albumin (3.0-4.8) g/dL Globulin gm/dL Albumin/Globulin Ratio (1.1-1.8) Vancomycin Trough (5.0-10.0) ug/mL 02/05/17 02/05/17 02/05/17 Range/Units 07:50 06:00 06:00 WBC (4.5-11.0) 10^3/ul RBC (3.5-6.1) 10^6/uL Hgb (12.0-16.0) g/dL Hct (36.0-48.0) % MCV (80.0-105.0) fl MCH (25.0-35.0) pg MCHC (31.0-37.0) g/dl RDW (11.5-14.5) % Plt Count (120.0-450.0) 10^3/uL MPV (7.0-11.0) fl Gran % (50.0-68.0) % Lymph % (Auto) (22.0-35.0) % [place] % (Auto) (1.0-6.0) % Eos % (Auto) (1.5-5.0) % Baso % (Auto) (0.0-3.0) % Gran # (1.4-6.5) Lymph # (1.2-3.4) [place] # (0.1-0.6) Eos # (0.0-0.7) Baso # (0.0-2.0) K/mm3 APTT 26.5 (23.7-30.8) Seconds pCO2 (35-45) mm/Hg pO2 (80-100) mm/Hg HCO3 (21-28) mmol/L ABG pH (7.35-7.45) ABG Total CO2 (22-28) mmol.L ABG O2 Saturation (95-98) % ABG O2 Content (15-23) ML/dl ABG Base Excess (-2.0-3.0) mmol/L ABG Hemoglobin (11.7-17.4) g/dL ABG Carboxyhemoglobin (0.5-1.5) % POC ABG HHb (Measured) (0-5) % ABG Methemoglobin (0.0-3.0) % ABG O2 Capacity (16-24) mL/dl Hgb O2 Saturation (95.0-98.0) % FiO2 % Sodium 151 H (132-148) mmol/L Potassium 2.9 L* D (3.6-5.0) mmol/L Chloride 110 H (98-107) mmol/L Carbon Dioxide 35 H (21-33) mmol/L Anion Gap 9 L (10-20) BUN 39 H (7-21) mg/dL Creatinine 0.7 (0.7-1.2) mg/dL Est GFR ( Amer) > 60 Est GFR (Non-Af Amer) > 60 POC Glucose (mg/dL) 147 H (65-110) mg/dL Random Glucose 132 H (70-110) mg/dL Calcium 7.1 L (8.4-10.5) mg/dL Phosphorus 2.3 L (2.5-4.5) mg/dL Magnesium 1.9 (1.7-2.2) mg/dL Total Bilirubin 0.9 (0.2-1.3) mg/dL AST 98 H D (14-36) U/L ALT 499 H (7-56) U/L Alkaline Phosphatase 121 (38-126) U/L Total Protein 4.5 L (5.8-8.3) g/dL Albumin 2.2 L (3.0-4.8) g/dL Globulin 2.3 gm/dL Albumin/Globulin Ratio 1.0 L (1.1-1.8) Vancomycin Trough (5.0-10.0) ug/mL 02/05/17 02/05/17 Range/Units 06:00 06:00 WBC 31.0 H* (4.5-11.0) 10^3/ul RBC 3.36 L (3.5-6.1) 10^6/uL Hgb 10.0 L (12.0-16.0) g/dL Hct 31.1 L (36.0-48.0) % MCV 92.6 (80.0-105.0) fl MCH 29.8 (25.0-35.0) pg MCHC 32.2 (31.0-37.0) g/dl RDW 16.7 H (11.5-14.5) % Plt Count 269 (120.0-450.0) 10^3/uL MPV 10.4 (7.0-11.0) fl Gran % 92.1 H (50.0-68.0) % Lymph % (Auto) 3.5 L (22.0-35.0) % [place] % (Auto) 4.2 (1.0-6.0) % Eos % (Auto) 0.0 L (1.5-5.0) % Baso % (Auto) 0.2 (0.0-3.0) % Gran # 28.53 H (1.4-6.5) Lymph # 1.1 L (1.2-3.4) [place] # 1.3 H (0.1-0.6) Eos # 0.0 (0.0-0.7) Baso # 0.05 (0.0-2.0) K/mm3 APTT (23.7-30.8) Seconds pCO2 39 (35-45) mm/Hg pO2 48.0 L (80-100) mm/Hg HCO3 34.1 H (21-28) mmol/L ABG pH 7.55 H (7.35-7.45) ABG Total CO2 35.3 H (22-28) mmol.L ABG O2 Saturation 89.9 L (95-98) % ABG O2 Content 14.6 L (15-23) ML/dl ABG Base Excess 10.8 H (-2.0-3.0) mmol/L ABG Hemoglobin 12.0 (11.7-17.4) g/dL ABG Carboxyhemoglobin 2.5 H (0.5-1.5) % POC ABG HHb (Measured) 9.7 H (0-5) % ABG Methemoglobin 1.2 (0.0-3.0) % ABG O2 Capacity 16.2 (16-24) mL/dl Hgb O2 Saturation 86.6 L (95.0-98.0) % FiO2 94.0 % Sodium (132-148) mmol/L Potassium (3.6-5.0) mmol/L Chloride (98-107) mmol/L Carbon Dioxide (21-33) mmol/L Anion Gap (10-20) BUN (7-21) mg/dL Creatinine (0.7-1.2) mg/dL Est GFR ( Amer) Est GFR (Non-Af Amer) POC Glucose (mg/dL) (65-110) mg/dL Random Glucose (70-110) mg/dL Calcium (8.4-10.5) mg/dL Phosphorus (2.5-4.5) mg/dL Magnesium (1.7-2.2) mg/dL Total Bilirubin (0.2-1.3) mg/dL AST (14-36) U/L ALT (7-56) U/L Alkaline Phosphatase (38-126) U/L Total Protein (5.8-8.3) g/dL Albumin (3.0-4.8) g/dL Globulin gm/dL Albumin/Globulin Ratio (1.1-1.8) Vancomycin Trough (5.0-10.0) ug/mL Laboratory Results - last 24 hr 02/05/17 02/05/17 02/05/17 06:00 06:00 06:00 WBC 31.0 H* RBC 3.36 L Hgb 10.0 L Hct 31.1 L MCV 92.6 MCH 29.8 MCHC 32.2 RDW 16.7 H Plt Count 269 MPV 10.4 Gran % 92.1 H Lymph % (Auto) 3.5 L [place] % (Auto) 4.2 Eos % (Auto) 0.0 L Baso % (Auto) 0.2 Gran # 28.53 H Lymph # 1.1 L [place] # 1.3 H Eos # 0.0 Baso # 0.05 APTT pCO2 39 pO2 48.0 L HCO3 34.1 H ABG pH 7.55 H ABG Total CO2 35.3 H ABG O2 Saturation 89.9 L ABG O2 Content 14.6 L ABG Base Excess 10.8 H ABG Hemoglobin 12.0 ABG Carboxyhemoglobin 2.5 H POC ABG HHb (Measured) 9.7 H ABG Methemoglobin 1.2 ABG O2 Capacity 16.2 Hgb O2 Saturation 86.6 L FiO2 94.0 Sodium 151 H Potassium 2.9 L* D Chloride 110 H Carbon Dioxide 35 H Anion Gap 9 L BUN 39 H Creatinine 0.7 Est GFR ( Amer) > 60 Est GFR (Non-Af Amer) > 60 POC Glucose (mg/dL) Random Glucose 132 H Calcium 7.1 L Phosphorus 2.3 L Magnesium 1.9 Total Bilirubin 0.9 AST 98 H D ALT 499 H Alkaline Phosphatase 121 Total Protein 4.5 L Albumin 2.2 L Globulin 2.3 Albumin/Globulin Ratio 1.0 L Vancomycin Trough 02/05/17 02/05/17 02/05/17 06:00 07:50 11:27 WBC RBC Hgb Hct MCV MCH MCHC RDW Plt Count MPV Gran % Lymph % (Auto) [place] % (Auto) Eos % (Auto) Baso % (Auto) Gran # Lymph # [place] # Eos # Baso # APTT 26.5 pCO2 pO2 HCO3 ABG pH ABG Total CO2 ABG O2 Saturation ABG O2 Content ABG Base Excess ABG Hemoglobin ABG Carboxyhemoglobin POC ABG HHb (Measured) ABG Methemoglobin ABG O2 Capacity Hgb O2 Saturation FiO2 Sodium Potassium Chloride Carbon Dioxide Anion Gap BUN Creatinine Est GFR ( Amer) Est GFR (Non-Af Amer) POC Glucose (mg/dL) 147 H 145 H Random Glucose Calcium Phosphorus Magnesium Total Bilirubin AST ALT Alkaline Phosphatase Total Protein Albumin Globulin Albumin/Globulin Ratio Vancomycin Trough 02/05/17 02/05/17 02/06/17 16:19 22:18 01:00 WBC RBC Hgb Hct MCV MCH MCHC RDW Plt Count MPV Gran % Lymph % (Auto) [place] % (Auto) Eos % (Auto) Baso % (Auto) Gran # Lymph # [place] # Eos # Baso # APTT pCO2 pO2 HCO3 ABG pH ABG Total CO2 ABG O2 Saturation ABG O2 Content ABG Base Excess ABG Hemoglobin ABG Carboxyhemoglobin POC ABG HHb (Measured) ABG Methemoglobin ABG O2 Capacity Hgb O2 Saturation FiO2 Sodium 153 H Potassium 3.4 L Chloride 113 H Carbon Dioxide 35 H Anion Gap 8 L BUN 32 H Creatinine 0.8 Est GFR ( Amer) > 60 Est GFR (Non-Af Amer) > 60 POC Glucose (mg/dL) 146 H 139 H Random Glucose 125 H Calcium 7.2 L Phosphorus Magnesium Total Bilirubin AST ALT Alkaline Phosphatase Total Protein Albumin Globulin Albumin/Globulin Ratio Vancomycin Trough 02/06/17 02/06/17 01:00 05:50 WBC RBC Hgb Hct MCV MCH MCHC RDW Plt Count MPV Gran % Lymph % (Auto) [place] % (Auto) Eos % (Auto) Baso % (Auto) Gran # Lymph # [place] # Eos # Baso # APTT pCO2 49 H pO2 50.0 L HCO3 35.7 H ABG pH 7.47 H ABG Total CO2 37.2 H ABG O2 Saturation 90.5 L ABG O2 Content 15.3 ABG Base Excess 10.5 H ABG Hemoglobin 12.5 ABG Carboxyhemoglobin 2.4 H POC ABG HHb (Measured) 9.2 H ABG Methemoglobin 1.1 ABG O2 Capacity 16.9 Hgb O2 Saturation 87.3 L FiO2 84.0 Sodium Potassium Chloride Carbon Dioxide Anion Gap BUN Creatinine Est GFR ( Amer) Est GFR (Non-Af Amer) POC Glucose (mg/dL) Random Glucose Calcium Phosphorus Magnesium Total Bilirubin AST ALT Alkaline Phosphatase Total Protein Albumin Globulin Albumin/Globulin Ratio Vancomycin Trough 16.1 H* Fingerstick Blood Sugar Results: 222 Review of Systems - Review of Systems Systems not reviewed;Unavailable: Other (primarily non-verbal, but able to appropriately answer yes/no questions) Critical Care Progress Note - Nutrition Nutrition: Nutrition Category Date Time Status NPO Diet [DIET] Diets 02/01/17 Breakfast Ordered Assessment/Plan - Assessment and Plan (Free Text) Assessment: This is an 81 yo F with PMH of HTN, HLD, 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 She was determined to be in urosepsis, and was found on CT abd to have a 5mm R-ureteral stone with R hydronephrosis. S/p R ureter stenting and pus drainage, then went into Septic shock requiring pressor support and hypoxic respiratory failure/ARDS requiring intubation. S/p extubation 4 days prior, off vasopressor support, but still requires maxed out high-flow nasal canula, and has now failed Swallow eval x2. Plan: Neuro: -AAOx4 on admission, became confused/obtunded 2/2 septic shock and respiratory failure; mentation improved today -no sided neurological deficit or sensory abnormality on exam on initial exam, CT head negative for acute findings -maintain normothermia, Tmax 104.5F, no reported fevers overnight; Tylenol PRN for fevers -Syncopal episode prior to presentation, likely 2/2 hypotension from urosepsis Pulm: -Hx COPD, likely 2/2 prolonged tobacco abuse (~80 pack years) -s/p extubation 4 days prior, intubated initially for hypoxic respiratory failure and airway protection 2/2 worsening mental status -AM ABG reviewed, slightly improved metabolic alkalosis; at risk for worsening metabolic alkalosis due to contraction alkalosis from diuresis, continue to monitor; s/p diamox yesterday, another dose today, will re-evaluate tomorrow -Continue Mucomyst, Budesonide, and Xopenex -Improved R lung base on CXR today as compared to yesterday -Pulm (Dr. Guerin) following, appreciate all recs Cardio: -resolving septic shock, remains off all pressors -continue to monitor, target MAP >= 65 -still appears overloaded, but in setting of alkalosis, will diurese with Diamox to prevent causing contraction alkalosis with diuresis -NSR but intermittently becomes afib with RVR up to 160's, now on Amio drip 0.5mg and IVP Lopressor; becomes hypotensive when in AFib RVR -Was on agatrobran drip for elevated trop (peaked at 1.95, last was 0.45) and dropping platelets in setting over Lovenox use concerning for HIT; HIT panel and SFA assay negative, agatroban stopped, now on Arixtra as per Heme-onc -hx of R ICA 100% stenosis/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 Childers) following, appreciate all recs, Dr. Hamm consulted for second opinion as per family's wishes GI: -Protonix for GI ppx -NPO due to failed swallow studies, unable to tolerate Dobhoff placement Renal: -Cr. 0.7, BUN 32 -ALEX resolved, likely 2/2 dehydration vs hypoperfusion 2/2 urosepsis with shock -CT pelvis notable for 5mm stone in R ureter with R hydroureteronephrosis; as per Urology stent placed and pus drained, but unable to remove stone -Monitor and replete electrolytes as necessary -Maintain euglycemia (BG 140-180) -repeat UA on 01/30 notable for trace leuk esterase (unchanged), TNTC RBCs and Large blood (worse by comparison), 1-3 WBCs (improved), Few bacteria (improved) , and trace granular casts (new finding) -Appears fluid overloaded, so actively diuresing as BP will tolerate, received Diamox yesterday, again today ID: -improved leukocytosis -afebrile since admission, Tmax 104.5F in ED -On Merrem, Vanco stopped by ID -ID following, appreciate all recs Heme: -Hgb 11.0, was 11.5 -acute drop in platelets while on Lovenox, from 171 to 51, concerning for HIT; stopped lovenox, started on Agatroban drip as per Heme-onc, HIT panel and Serrotonin assay negative, so Agatroban drip stopped -SCDs for DVT ppx Dispo: ICU, s/p extubation 4 days prior, on Amio persistent recurring AFib with RVR causing hypotension, on HF NC for O2 supplemental FEN: NPO Access: Peripheral IV, TLC R neck, R-femoral Arterial Line removed Consults: Urology, Cardio x2 (Alvarado initially, Hansel for 2nd opinion), Heme- onc, Pulm, Nephro, ID, Palliative Ppx: Protonix for GI, Heparin SC q12 for DVT ppx when cleared by Urology ( holding AC now due to pending procedure, avoid SCDs due to RLE injury Patient seen, reviewed, and case discussed with attending, Dr. Carlos <Indio Carlos - Last Filed: 02/06/17 13:54> CCU Objective - Vital Signs / Intake & Output Vital Signs (Last 4 hours): Vital Signs Pulse Resp BP Pulse Ox 02/06/17 12:01 77 41 H 95/76 L 97 02/06/17 12:00 78 52 H 98 02/06/17 11:27 109/54 L 02/06/17 11:00 76 32 H 109/54 L 98 02/06/17 10:01 75 27 H 114/47 L 99 02/06/17 10:00 75 27 H 100 Intake and Output (Last 8hrs): Intake & Output 02/05/17 02/06/17 02/06/17 22:59 06:59 14:59 Intake Total 679 392 Output Total 1550 750 Balance -871 -358 Intake: IV 679 192 Right Internal Jugular 679 192 Other 200 Output: Urine 1550 750 2-way Urethral 1550 750 - Medications Active Medications: Active Medications Generic Name Dose Route Start Last Admin Trade Name Freq PRN Reason Stop Dose Admin Acetaminophen 650 mg 01/28/17 21:29 02/01/17 22:44 Tylenol 325mg Tab PO 650 mg Q6H PRN Administration Fever >100.4 F Acetylcysteine 4 ml 02/04/17 08:00 02/06/17 13:43 Acetylcysteine 20% IH 4 ml [id number] NO Administration Aspirin 81 mg 01/29/17 10:00 02/06/17 09:38 Aspirin Chewable PO Not Given DAILY NO Budesonide 0.5 mg 01/29/17 08:00 02/06/17 07:51 Pulmicort Respules IH 0.5 mg [id number] NO Administration Clopidogrel Bisulfate 75 mg 01/29/17 10:00 01/31/17 09:57 Plavix PO 75 mg DAILY NO Administration Fluticasone Propionate 1 actuation 01/29/17 10:00 02/06/17 11:33 Flonase NS Not Given DAILY NO Home Med 2.5 unit 02/05/17 14:48 02/06/17 09:42 Home Med SC 2.5 unit DAILY NO Administration Meropenem 1g/NS 100mL IVPB 1 gm in 100 mls @ 100 mls/hr 01/31/17 14:00 05:00 Meropenem 1g/Ns 100ml Ivpb IVPB 02/09/17 14:01 100 mls/hr Q8 NO Administration Protocol Amiodarone HCl/Dextrose 360 mg in 200 mls @ 16.667 mls/hr 02/02/17 00:15 12:49 Nexterone 360 Mg In D5w 200 Ml (Premix) IV Not Given .Q12H NO Protocol 0.5 MG/MIN Potassium Chloride 20 meq in 100 mls @ 50 mls/hr 02/06/17 11:15 02/06/17 11: 27 Potassium Chloride 20 Meq/100 Ml IVPB 02/06/17 15:14 50 mls/hr Q2H NO Administration Sodium Chloride 1,000 mls @ 100 mls/hr 02/06/17 11:15 02/06/17 11:25 Sodium Chloride 0.45% IV 100 mls/hr .Q10H NO Administration Levalbuterol HCl 0.63 mg 02/04/17 14:00 02/06/17 13:43 Xopenex IH 0.63 mg [id number] NO Administration Levalbuterol HCl 0.63 mg 02/04/17 08:21 Xopenex IH Q2H PRN Shortness of Breath Metoprolol Tartrate 5 mg 02/03/17 11:00 02/06/17 11:27 Lopressor IVP Not Given Q6H NO Pantoprazole Sodium 40 mg 01/30/17 10:00 02/06/17 09:42 Protonix Inj IVP 40 mg DAILY NO Administration Vitamin A 1 ea 02/04/17 11:44 Vitamin A & D Oint Ud Foilpak TOP Q8H PRN Dry skin - Patient Studies Lab Studies: Lab Studies 02/06/17 02/06/17 02/06/17 Range/Units 11:38 08:20 05:50 WBC (4.5-11.0) 10^3/ul RBC (3.5-6.1) 10^6/uL Hgb (12.0-16.0) g/dL Hct (36.0-48.0) % MCV (80.0-105.0) fl MCH (25.0-35.0) pg MCHC (31.0-37.0) g/dl RDW (11.5-14.5) % Plt Count (120.0-450.0) 10^3/uL MPV (7.0-11.0) fl Gran % (50.0-68.0) % Lymph % (Auto) (22.0-35.0) % [place] % (Auto) (1.0-6.0) % Eos % (Auto) (1.5-5.0) % Baso % (Auto) (0.0-3.0) % Gran # (1.4-6.5) Lymph # (1.2-3.4) [place] # (0.1-0.6) Eos # (0.0-0.7) Baso # (0.0-2.0) K/mm3 pCO2 49 H (35-45) mm/Hg pO2 50.0 L (80-100) mm/Hg HCO3 35.7 H (21-28) mmol/L ABG pH 7.47 H (7.35-7.45) ABG Total CO2 37.2 H (22-28) mmol.L ABG O2 Saturation 90.5 L (95-98) % ABG O2 Content 15.3 (15-23) ML/dl ABG Base Excess 10.5 H (-2.0-3.0) mmol/L ABG Hemoglobin 12.5 (11.7-17.4) g/dL ABG Carboxyhemoglobin 2.4 H (0.5-1.5) % POC ABG HHb (Measured) 9.2 H (0-5) % ABG Methemoglobin 1.1 (0.0-3.0) % ABG O2 Capacity 16.9 (16-24) mL/dl Hgb O2 Saturation 87.3 L (95.0-98.0) % FiO2 84.0 % Sodium (132-148) mmol/L Potassium (3.6-5.0) mmol/L Chloride (95-110) mmol/L Carbon Dioxide (21-33) mmol/L Anion Gap (10-20) BUN (7-21) mg/dL Creatinine (0.7-1.2) mg/dL Est GFR ( Amer) Est GFR (Non-Af Amer) POC Glucose (mg/dL) 126 H 148 H (65-110) mg/dL Random Glucose (70-110) mg/dL Calcium (8.4-10.5) mg/dL Phosphorus (2.5-4.5) mg/dL Magnesium (1.7-2.2) mg/dL Total Bilirubin (0.2-1.3) mg/dL AST (14-36) U/L ALT (7-56) U/L Alkaline Phosphatase (38-126) U/L Total Protein (5.8-8.3) g/dL Albumin (3.0-4.8) g/dL Globulin gm/dL Albumin/Globulin Ratio (1.1-1.8) Vancomycin Trough (5.0-10.0) ug/mL 02/06/17 02/06/17 02/06/17 Range/Units 05:30 05:30 01:00 WBC 30.5 H* (4.5-11.0) 10^3/ul RBC 3.22 L (3.5-6.1) 10^6/uL Hgb 9.7 L (12.0-16.0) g/dL Hct 30.9 L (36.0-48.0) % MCV 96.0 D (80.0-105.0) fl MCH 30.1 (25.0-35.0) pg MCHC 31.4 (31.0-37.0) g/dl RDW 17.6 H (11.5-14.5) % Plt Count 297 (120.0-450.0) 10^3/uL MPV 10.0 (7.0-11.0) fl Gran % 94.4 H (50.0-68.0) % Lymph % (Auto) 2.4 L (22.0-35.0) % [place] % (Auto) 3.0 (1.0-6.0) % Eos % (Auto) 0.1 L (1.5-5.0) % Baso % (Auto) 0.1 (0.0-3.0) % Gran # 28.83 H (1.4-6.5) Lymph # 0.7 L (1.2-3.4) [place] # 0.9 H (0.1-0.6) Eos # 0.0 (0.0-0.7) Baso # 0.03 (0.0-2.0) K/mm3 pCO2 (35-45) mm/Hg pO2 (80-100) mm/Hg HCO3 (21-28) mmol/L ABG pH (7.35-7.45) ABG Total CO2 (22-28) mmol.L ABG O2 Saturation (95-98) % ABG O2 Content (15-23) ML/dl ABG Base Excess (-2.0-3.0) mmol/L ABG Hemoglobin (11.7-17.4) g/dL ABG Carboxyhemoglobin (0.5-1.5) % POC ABG HHb (Measured) (0-5) % ABG Methemoglobin (0.0-3.0) % ABG O2 Capacity (16-24) mL/dl Hgb O2 Saturation (95.0-98.0) % FiO2 % Sodium 154 H (132-148) mmol/L Potassium 3.1 L (3.6-5.0) mmol/L Chloride 113 H (95-110) mmol/L Carbon Dioxide 34 H (21-33) mmol/L Anion Gap 10 (10-20) BUN 32 H (7-21) mg/dL Creatinine 0.7 (0.7-1.2) mg/dL Est GFR ( Amer) > 60 Est GFR (Non-Af Amer) > 60 POC Glucose (mg/dL) (65-110) mg/dL Random Glucose 122 H (70-110) mg/dL Calcium 7.0 L (8.4-10.5) mg/dL Phosphorus 2.8 (2.5-4.5) mg/dL Magnesium 2.1 (1.7-2.2) mg/dL Total Bilirubin 0.8 (0.2-1.3) mg/dL AST 75 H D (14-36) U/L ALT 361 H (7-56) U/L Alkaline Phosphatase 101 (38-126) U/L Total Protein 4.5 L (5.8-8.3) g/dL Albumin 2.2 L (3.0-4.8) g/dL Globulin 2.4 gm/dL Albumin/Globulin Ratio 0.9 L (1.1-1.8) Vancomycin Trough 16.1 H* (5.0-10.0) ug/mL 02/06/17 02/05/17 02/05/17 Range/Units 01:00 22:18 16:19 WBC (4.5-11.0) 10^3/ul RBC (3.5-6.1) 10^6/uL Hgb (12.0-16.0) g/dL Hct (36.0-48.0) % MCV (80.0-105.0) fl MCH (25.0-35.0) pg MCHC (31.0-37.0) g/dl RDW (11.5-14.5) % Plt Count (120.0-450.0) 10^3/uL MPV (7.0-11.0) fl Gran % (50.0-68.0) % Lymph % (Auto) (22.0-35.0) % [place] % (Auto) (1.0-6.0) % Eos % (Auto) (1.5-5.0) % Baso % (Auto) (0.0-3.0) % Gran # (1.4-6.5) Lymph # (1.2-3.4) [place] # (0.1-0.6) Eos # (0.0-0.7) Baso # (0.0-2.0) K/mm3 pCO2 (35-45) mm/Hg pO2 (80-100) mm/Hg HCO3 (21-28) mmol/L ABG pH (7.35-7.45) ABG Total CO2 (22-28) mmol.L ABG O2 Saturation (95-98) % ABG O2 Content (15-23) ML/dl ABG Base Excess (-2.0-3.0) mmol/L ABG Hemoglobin (11.7-17.4) g/dL ABG Carboxyhemoglobin (0.5-1.5) % POC ABG HHb (Measured) (0-5) % ABG Methemoglobin (0.0-3.0) % ABG O2 Capacity (16-24) mL/dl Hgb O2 Saturation (95.0-98.0) % FiO2 % Sodium 153 H (132-148) mmol/L Potassium 3.4 L (3.6-5.0) mmol/L Chloride 113 H (95-110) mmol/L Carbon Dioxide 35 H (21-33) mmol/L Anion Gap 8 L (10-20) BUN 32 H (7-21) mg/dL Creatinine 0.8 (0.7-1.2) mg/dL Est GFR ( Amer) > 60 Est GFR (Non-Af Amer) > 60 POC Glucose (mg/dL) 139 H 146 H (65-110) mg/dL Random Glucose 125 H (70-110) mg/dL Calcium 7.2 L (8.4-10.5) mg/dL Phosphorus (2.5-4.5) mg/dL Magnesium (1.7-2.2) mg/dL Total Bilirubin (0.2-1.3) mg/dL AST (14-36) U/L ALT (7-56) U/L Alkaline Phosphatase (38-126) U/L Total Protein (5.8-8.3) g/dL Albumin (3.0-4.8) g/dL Globulin gm/dL Albumin/Globulin Ratio (1.1-1.8) Vancomycin Trough (5.0-10.0) ug/mL 02/05/17 02/05/17 Range/Units 11:27 07:50 WBC (4.5-11.0) 10^3/ul RBC (3.5-6.1) 10^6/uL Hgb (12.0-16.0) g/dL Hct (36.0-48.0) % MCV (80.0-105.0) fl MCH (25.0-35.0) pg MCHC (31.0-37.0) g/dl RDW (11.5-14.5) % Plt Count (120.0-450.0) 10^3/uL MPV (7.0-11.0) fl Gran % (50.0-68.0) % Lymph % (Auto) (22.0-35.0) % [place] % (Auto) (1.0-6.0) % Eos % (Auto) (1.5-5.0) % Baso % (Auto) (0.0-3.0) % Gran # (1.4-6.5) Lymph # (1.2-3.4) [place] # (0.1-0.6) Eos # (0.0-0.7) Baso # (0.0-2.0) K/mm3 pCO2 (35-45) mm/Hg pO2 (80-100) mm/Hg HCO3 (21-28) mmol/L ABG pH (7.35-7.45) ABG Total CO2 (22-28) mmol.L ABG O2 Saturation (95-98) % ABG O2 Content (15-23) ML/dl ABG Base Excess (-2.0-3.0) mmol/L ABG Hemoglobin (11.7-17.4) g/dL ABG Carboxyhemoglobin (0.5-1.5) % POC ABG HHb (Measured) (0-5) % ABG Methemoglobin (0.0-3.0) % ABG O2 Capacity (16-24) mL/dl Hgb O2 Saturation (95.0-98.0) % FiO2 % Sodium (132-148) mmol/L Potassium (3.6-5.0) mmol/L Chloride (95-110) mmol/L Carbon Dioxide (21-33) mmol/L Anion Gap (10-20) BUN (7-21) mg/dL Creatinine (0.7-1.2) mg/dL Est GFR ( Amer) Est GFR (Non-Af Amer) POC Glucose (mg/dL) 145 H 147 H (65-110) mg/dL Random Glucose (70-110) mg/dL Calcium (8.4-10.5) mg/dL Phosphorus (2.5-4.5) mg/dL Magnesium (1.7-2.2) mg/dL Total Bilirubin (0.2-1.3) mg/dL AST (14-36) U/L ALT (7-56) U/L Alkaline Phosphatase (38-126) U/L Total Protein (5.8-8.3) g/dL Albumin (3.0-4.8) g/dL Globulin gm/dL Albumin/Globulin Ratio (1.1-1.8) Vancomycin Trough (5.0-10.0) ug/mL Laboratory Results - last 24 hr 02/05/17 02/05/17 02/05/17 07:50 11:27 16:19 WBC RBC Hgb Hct MCV MCH MCHC RDW Plt Count MPV Gran % Lymph % (Auto) [place] % (Auto) Eos % (Auto) Baso % (Auto) Gran # Lymph # [place] # Eos # Baso # pCO2 pO2 HCO3 ABG pH ABG Total CO2 ABG O2 Saturation ABG O2 Content ABG Base Excess ABG Hemoglobin ABG Carboxyhemoglobin POC ABG HHb (Measured) ABG Methemoglobin ABG O2 Capacity Hgb O2 Saturation FiO2 Sodium Potassium Chloride Carbon Dioxide Anion Gap BUN Creatinine Est GFR ( Amer) Est GFR (Non-Af Amer) POC Glucose (mg/dL) 147 H 145 H 146 H Random Glucose Calcium Phosphorus Magnesium Total Bilirubin AST ALT Alkaline Phosphatase Total Protein Albumin Globulin Albumin/Globulin Ratio Vancomycin Trough 02/05/17 02/06/17 02/06/17 22:18 01:00 01:00 WBC RBC Hgb Hct MCV MCH MCHC RDW Plt Count MPV Gran % Lymph % (Auto) [place] % (Auto) Eos % (Auto) Baso % (Auto) Gran # Lymph # [place] # Eos # Baso # pCO2 pO2 HCO3 ABG pH ABG Total CO2 ABG O2 Saturation ABG O2 Content ABG Base Excess ABG Hemoglobin ABG Carboxyhemoglobin POC ABG HHb (Measured) ABG Methemoglobin ABG O2 Capacity Hgb O2 Saturation FiO2 Sodium 153 H Potassium 3.4 L Chloride 113 H Carbon Dioxide 35 H Anion Gap 8 L BUN 32 H Creatinine 0.8 Est GFR ( Amer) > 60 Est GFR (Non-Af Amer) > 60 POC Glucose (mg/dL) 139 H Random Glucose 125 H Calcium 7.2 L Phosphorus Magnesium Total Bilirubin AST ALT Alkaline Phosphatase Total Protein Albumin Globulin Albumin/Globulin Ratio Vancomycin Trough 16.1 H* 02/06/17 02/06/17 02/06/17 05:30 05:30 05:50 WBC 30.5 H* RBC 3.22 L Hgb 9.7 L Hct 30.9 L MCV 96.0 D MCH 30.1 MCHC 31.4 RDW 17.6 H Plt Count 297 MPV 10.0 Gran % 94.4 H Lymph % (Auto) 2.4 L [place] % (Auto) 3.0 Eos % (Auto) 0.1 L Baso % (Auto) 0.1 Gran # 28.83 H Lymph # 0.7 L [place] # 0.9 H Eos # 0.0 Baso # 0.03 pCO2 49 H pO2 50.0 L HCO3 35.7 H ABG pH 7.47 H ABG Total CO2 37.2 H ABG O2 Saturation 90.5 L ABG O2 Content 15.3 ABG Base Excess 10.5 H ABG Hemoglobin 12.5 ABG Carboxyhemoglobin 2.4 H POC ABG HHb (Measured) 9.2 H ABG Methemoglobin 1.1 ABG O2 Capacity 16.9 Hgb O2 Saturation 87.3 L FiO2 84.0 Sodium 154 H Potassium 3.1 L Chloride 113 H Carbon Dioxide 34 H Anion Gap 10 BUN 32 H Creatinine 0.7 Est GFR ( Amer) > 60 Est GFR (Non-Af Amer) > 60 POC Glucose (mg/dL) Random Glucose 122 H Calcium 7.0 L Phosphorus 2.8 Magnesium 2.1 Total Bilirubin 0.8 AST 75 H D ALT 361 H Alkaline Phosphatase 101 Total Protein 4.5 L Albumin 2.2 L Globulin 2.4 Albumin/Globulin Ratio 0.9 L Vancomycin Trough 02/06/17 02/06/17 08:20 11:38 WBC RBC Hgb Hct MCV MCH MCHC RDW Plt Count MPV Gran % Lymph % (Auto) [place] % (Auto) Eos % (Auto) Baso % (Auto) Gran # Lymph # [place] # Eos # Baso # pCO2 pO2 HCO3 ABG pH ABG Total CO2 ABG O2 Saturation ABG O2 Content ABG Base Excess ABG Hemoglobin ABG Carboxyhemoglobin POC ABG HHb (Measured) ABG Methemoglobin ABG O2 Capacity Hgb O2 Saturation FiO2 Sodium Potassium Chloride Carbon Dioxide Anion Gap BUN Creatinine Est GFR ( Amer) Est GFR (Non-Af Amer) POC Glucose (mg/dL) 148 H 126 H Random Glucose Calcium Phosphorus Magnesium Total Bilirubin AST ALT Alkaline Phosphatase Total Protein Albumin Globulin Albumin/Globulin Ratio Vancomycin Trough Critical Care Progress Note - Nutrition Nutrition: Nutrition Category Date Time Status NPO Diet [DIET] Diets 02/01/17 Breakfast Ordered Assessment/Plan - Assessment and Plan (Free Text) Plan: 81yo female a/w septic shock 2/2 gram neg bacteremia, with acute renal failure due to probably due to obstructing right ureteral stone with pyelonephritis S/P ureteral stent placement , respiratory failure s/p extubation Septic Shock, resolved Gram Negative Bacteremia, resolved Renal Failure Volume overload Afib - currently afebrile, HD stable, off pressors - patient remains on high flow, sat 97% on high flow O2 80%, 60LPM - CXR with pulm vasc congesiton, on exam has bilateral crackles - clinically volume overloaded Recommend: - cont with high flow O2, patient is DNR/DNI - cont with broad spectrum abx as per ID - follow up ID - Amio drip as per cardiology - Decrease SoluCortef dose 50mg q24hr IV - follow up heme onc - follow up cardiology - follow up ID - replete Calcium, K, Mg - Diamox 250mg IV x 1 - GI ppx - DVT ppx, Arixtra - patient remains critical - speech swallow eval - patient is DNR/DNI - overall extremely poor prognosis - follow up palliative care
[2017-02-06 06:48] LABS: WHITE BLOOD COUNT 30.5 10^3/ul (4.5-11.0)
[2017-02-06 07:02] LABS: ALB/GLOB RATIO 0.9 (1.1-1.8); ALKALINE PHOSPHATASE 101 U/L (38-126); ALT/SGPT 361 U/L (7-56); AST/SGOT 75 U/L (14-36); BILIRUBIN,TOTAL 0.8 mg/dL (0.2-1.3); BLOOD UREA NITROGEN 32 mg/dL (7-21); CARBON DIOXIDE 34 mmol/L (21-33); CHLORIDE 113 mmol/L (98-107); GFR AFRICAN-AMERICAN > 60; GLUCOSE,RANDOM 122 mg/dL (70-110); MAGNESIUM 2.1 mg/dL (1.7-2.2); PHOSPHOROUS 2.8 mg/dL (2.5-4.5); POTASSIUM 3.1 mmol/L (3.6-5.0); SODIUM 154 mmol/L (132-148); TOTAL PROTEIN 4.5 g/dL (5.8-8.3)
[2017-02-06] MEDS: Budesonide 0.5 mg/2 ml Inhal Susp UD IH SCH ×2 (07:51→19:53)
--- NOTE | 2017-02-06 09:07 | CP.PCM.PN ---
Subjective - Date & Time of Evaluation Date of Evaluation: 02/06/17 Time of Evaluation: 07:00 - Subjective Subjective: Stable in ICU. Awake but not very responsive this AM No CP or SOB. V/S noted. RSR PE: Lungs:rhonchi Cor.: S1S2 Abd.: soft Ext.: no edema Neuro.: no change I/O= 1101/2300 Labs noted: WBC= 30,500, H/H=9.7/30.9 K+= 3.1, MG.++= 2.1, Na+= 154 BC x2 NG at 5 days 02/06 CXR pending Objective - Vital Signs/Intake and Output Vital Signs (last 24 hours): Temp Pulse Resp BP Pulse Ox 98.7 F 74 32 H 102/35 L 89 L 02/06/17 04:00 02/06/17 08:00 02/06/17 08:00 02/06/17 08:00 02/06/17 08:00 Intake and Output: 02/06/17 02/06/17 06:59 18:59 Intake Total 392 Output Total 750 Balance -358 - Medications Medications: Current Medications Acetaminophen (Tylenol 325mg Tab) 650 mg PO Q6H PRN PRN Reason: Fever >100.4 F Last Admin: 02/01/17 22:44 Dose: 650 mg Acetylcysteine (Acetylcysteine 20%) 4 ml IH [id number] [facility] Last Admin: 02/06/17 07:51 Dose: 4 ml Aspirin (Aspirin Chewable) 81 mg PO DAILY [facility] Last Admin: 02/05/17 16:19 Dose: Not Given Budesonide (Pulmicort Respules) 0.5 mg IH [id number] [facility] Last Admin: 02/06/17 07:51 Dose: 0.5 mg Clopidogrel Bisulfate (Plavix) 75 mg PO DAILY [facility] Last Admin: 01/31/17 09:57 Dose: 75 mg Fluticasone Propionate (Flonase) 1 actuation NS DAILY [facility] Last Admin: 02/05/17 10:53 Dose: Not Given Home Med (Home Med) 2.5 unit SC DAILY [facility] Dexmedetomidine HCl (Precedex 4 Mcg/Ml (100 Ml)) 400 mcg in 100 mls @ 3.391 mls /hr IV .Q24H PRN; Protocol; 0.2 MCG/KG/HR PRN Reason: Anxiety Last Titration: 02/02/17 14:30 Dose: 0 mcg/kg/hr, 0 mls/hr Meropenem 1g/NS 100mL IVPB (Meropenem 1g/Ns 100ml Ivpb) 1 gm in 100 mls @ 100 mls/hr IVPB Q8 NO PRN Reason: Protocol Stop: 02/09/17 14:01 Last Admin: 02/06/17 05:00 Dose: 100 mls/hr Amiodarone HCl/Dextrose (Nexterone 360 Mg In D5w 200 Ml (Premix)) 360 mg in 200 mls @ 16.667 mls/hr IV .Q12H NO; 0.5 MG/MIN PRN Reason: Protocol Last Admin: 02/05/17 21:21 Dose: 16.667 mls/hr diltiaZEM IVPB 100mg in NS (Cardizem 100mg In Ns) 100 mls @ 5 mls/hr IV .Q20H PRN; Protocol; 5 MG/HR PRN Reason: TITRATE PER MD ORDER Last Titration: 02/05/17 08:15 Dose: 0 mg/hr, 0 mls/hr Levalbuterol HCl (Xopenex) 0.63 mg IH [id number] NO Last Admin: 02/06/17 07:52 Dose: 0.63 mg Levalbuterol HCl (Xopenex) 0.63 mg IH Q2H PRN PRN Reason: Shortness of Breath Metoprolol Tartrate (Lopressor) 5 mg IVP Q6H NO Last Admin: 02/06/17 04:52 Dose: 5 mg Pantoprazole Sodium (Protonix Inj) 40 mg IVP DAILY [facility] Last Admin: 02/05/17 09:24 Dose: 40 mg Vitamin A (Vitamin A & D Oint Ud Foilpak) 1 ea TOP Q8H PRN PRN Reason: Dry skin - Labs Labs: 02/06/17 05:30 02/06/17 05:30 PT 15.3 Seconds (9.9-11.8) H 01/29/17 05:30 INR 1.42 (0.93-1.08) H 01/29/17 05:30 APTT 26.5 Seconds (23.7-30.8) 02/05/17 06:00 Assessment and Plan - Assessment and Plan (Free Text) Assessment: Mechanical Fall at home with acute rhabdo and uro sepsis on presentation Respiratory failure with venous congestion and pl. effusions on current CXR Hypernatremia and hypokalemia PAF HIT AMS CAD/Remote UT/Possible recent NSTEMI COPD/Former Smoker HLD PAD DNR/DNI Plan: Renal f/u with free water administration and vigorous K+ replacement Diuresis > neg. balance daily Continue IV amio and IV metoprolol D/C IV diltiazem AB As per Renal, ID, Pulmonary, Intensivists and Dr. Snyder Monitor: labs, sats., I/O, cultures, ABG's etc. Will follow.
[2017-02-06] MEDS: FONDAPARINUX 2.5 MG/0.5 ML SC SCH (09:42)
[2017-02-06] MEDS: Amiodarone 360 mg/D5W 200 ml 360 MG/200 ML BAG IV SCH ×2 (09:43→12:49)
--- NOTE | 2017-02-06 09:50 | CP.PCM.PN ---
Subjective - Date & Time of Evaluation Date of Evaluation: 02/05/17 Time of Evaluation: 11:30 - Subjective Subjective: Patient more alert today per family; says she's hungry and would like oatmeal; Objective - Vital Signs/Intake and Output Vital Signs (last 24 hours): Temp Pulse Resp BP Pulse Ox 99 F 74 27 H 102/35 L 100 02/06/17 08:00 02/06/17 09:00 02/06/17 09:00 02/06/17 08:00 02/06/17 09:00 Intake and Output: 02/06/17 02/06/17 06:59 18:59 Intake Total 392 Output Total 750 Balance -358 - Medications Medications: Current Medications Acetaminophen (Tylenol 325mg Tab) 650 mg PO Q6H PRN PRN Reason: Fever >100.4 F Last Admin: 02/01/17 22:44 Dose: 650 mg Acetylcysteine (Acetylcysteine 20%) 4 ml IH [id number] [facility] Last Admin: 02/06/17 07:51 Dose: 4 ml Aspirin (Aspirin Chewable) 81 mg PO DAILY [facility] Last Admin: 02/06/17 09:38 Dose: Not Given Budesonide (Pulmicort Respules) 0.5 mg IH [id number] [facility] Last Admin: 02/06/17 07:51 Dose: 0.5 mg Clopidogrel Bisulfate (Plavix) 75 mg PO DAILY [facility] Last Admin: 01/31/17 09:57 Dose: 75 mg Fluticasone Propionate (Flonase) 1 actuation NS DAILY [facility] Last Admin: 02/05/17 10:53 Dose: Not Given Home Med (Home Med) 2.5 unit SC DAILY [facility] Dexmedetomidine HCl (Precedex 4 Mcg/Ml (100 Ml)) 400 mcg in 100 mls @ 3.391 mls /hr IV .Q24H PRN; Protocol; 0.2 MCG/KG/HR PRN Reason: Anxiety Last Titration: 02/02/17 14:30 Dose: 0 mcg/kg/hr, 0 mls/hr Meropenem 1g/NS 100mL IVPB (Meropenem 1g/Ns 100ml Ivpb) 1 gm in 100 mls @ 100 mls/hr IVPB Q8 NO PRN Reason: Protocol Stop: 02/09/17 14:01 Last Admin: 02/06/17 05:00 Dose: 100 mls/hr Amiodarone HCl/Dextrose (Nexterone 360 Mg In D5w 200 Ml (Premix)) 360 mg in 200 mls @ 16.667 mls/hr IV .Q12H NO; 0.5 MG/MIN PRN Reason: Protocol Last Admin: 02/05/17 21:21 Dose: 16.667 mls/hr diltiaZEM IVPB 100mg in NS (Cardizem 100mg In Ns) 100 mls @ 5 mls/hr IV .Q20H PRN; Protocol; 5 MG/HR PRN Reason: TITRATE PER MD ORDER Last Titration: 02/05/17 08:15 Dose: 0 mg/hr, 0 mls/hr Dextrose (Dextrose 5% In Water 1000 Ml) 1,000 mls @ 75 mls/hr IV .[id number] NO Levalbuterol HCl (Xopenex) 0.63 mg IH [id number] NO Last Admin: 02/06/17 07:52 Dose: 0.63 mg Levalbuterol HCl (Xopenex) 0.63 mg IH Q2H PRN PRN Reason: Shortness of Breath Metoprolol Tartrate (Lopressor) 5 mg IVP Q6H NO Last Admin: 02/06/17 04:52 Dose: 5 mg Pantoprazole Sodium (Protonix Inj) 40 mg IVP DAILY [facility] Last Admin: 02/05/17 09:24 Dose: 40 mg Vitamin A (Vitamin A & D Oint Ud Foilpak) 1 ea TOP Q8H PRN PRN Reason: Dry skin - Labs Labs: 02/06/17 05:30 02/06/17 05:30 PT 15.3 Seconds (9.9-11.8) H 01/29/17 05:30 INR 1.42 (0.93-1.08) H 01/29/17 05:30 APTT 26.5 Seconds (23.7-30.8) 02/05/17 06:00 - Constitutional Appears: No Acute Distress - Eye Exam Eye Exam: Normal appearance - ENT Exam ENT Exam: Mucous Membranes Moist - Respiratory Exam Respiratory Exam: Clear to Ausculation Bilateral. absent: Rales, Rhonchi - Cardiovascular Exam Cardiovascular Exam: REGULAR RHYTHM, +S1, +S2 - GI/Abdominal Exam GI & Abdominal Exam: Distended, Soft - Extremities Exam Additional comments: moderately edematous; - Neurological Exam Neurological Exam: Alert, Awake - Psychiatric Exam Psychiatric exam: Normal Affect, Normal Mood - Skin Skin Exam: Warm. absent: Cyanosis Assessment and Plan (1) Metabolic alkalosis Assessment & Plan: Contraction alkalosis in the setting of aggressive loop diuretics; improved after holding lasix; agree with starting diamox but need to monitor electrolytes (bmp in pm); Status: Acute (2) Acute hypoxemic respiratory failure Assessment & Plan: Acute decompensated CHF w/ preserved EF; agree with diuretics to aid respiratory status despite overall intravascular volume contraction; Status: Acute (3) Sepsis Assessment & Plan: On vanco 1g q12h, will check vanco trough tonight; Status: Acute (4) Ureteral calculus, right Status: Acute (5) Electrolyte imbalance Assessment & Plan: Hypernatremia due to lack of PO free water intake and with losses worsened by loop diuretics; diamox may help in this regard but need to monitor for hypokalemia; Status: Acute
--- NOTE | 2017-02-06 10:39 | RAD ---
HISTORY: s/p intubation, appears fluid overloaded, f/u COMPARISON: 02/05/2017 FINDINGS: LUNGS: No change in bilateral infiltrates and effusions. There is no evidence of an endotracheal tube. Right IJ line in the right atrium PLEURA: No significant pleural effusion identified, no pneumothorax apparent. CARDIOVASCULAR: Normal. OSSEOUS STRUCTURES: No significant abnormalities. VISUALIZED UPPER ABDOMEN: Normal. OTHER FINDINGS: None. IMPRESSION: No change in bilateral infiltrates and effusions
--- NOTE | 2017-02-06 10:40 | PN ---
DATE: 02/06/2017(650am-740am) PULMONARY NOTE SUBJECTIVE: The patient appears somewhat less short of breath this morning. She remains lethargic, but arousable. PHYSICAL EXAMINATION: VITAL SIGNS: Temperature is 98.7, pulse is 78, respirations 26/28, blood pressure 106/54. Oxygen saturation on high-flow delivery is 90%. HEENT: Normocephalic, atraumatic. NECK: No JVD. CARDIOVASCULAR: Systolic ejection murmur at the lower left sternal border. Questionable S3 gallop. LUNGS: Decreased breath sounds at the bases with crackles. Less rhonchi. No wheezing. EXTREMITIES: Mild edema. No cyanosis, no clubbing. Calves are nontender to palpation. GASTROINTESTINAL: Abdomen is soft, nontender and nondistended. Bowel sounds are positive. SKIN: No acute rash. NEUROLOGIC: Exam limited at the present time. PERTINENT LABORATORY DATA: Chest x-ray was done this morning and reviewed. The chest x-ray is mildly improved-- with a decrease in the pulmonary edema, and probable decrease in the bilateral pleural effusions. Arterial blood gas was done on high-flow delivery(80%). Results are: PH 7.47, pCO2 of 49, pO2 of 50. IMPRESSION: 1. Respiratory failure. 2. Urosepsis. 3. Status post ureteral stent for obstructive stone. 4. Volume overload. 5. Chronic obstructive pulmonary disease. 6. Non-ST elevation myocardial infarction. 7. Cardiac arrhythmias. PLAN: The patient remains in the ICU. She appears less short of breath this morning. She remains lethargic, but easily arousable. I did discuss the case with the night nurse at length. The night nurse stated that the patient continues to do poorly overall. I have also reviewed the chest x-ray. The chest x-ray this morning is mildly improved-- with a decrease in the pulmonary edema. I would continue with the diuretics if possible. On physical exam, there is less bronchospasm noted. I will continue the current nebulizer treatments and inhaled steroids for now. I have also reviewed the arterial blood gas. A significant alveolar-arterial gradient is noted. The high-flow delivery has been increased to 100%. I did discuss the plan with Respiratory therapy. Cardiology and Infectious Disease evaluations are also noted. The patient remains critically ill, with overall poor prognosis. I will discuss the above with the entire ICU team in the next few moments. I will discuss the above with the attending physician later this morning. Shalom Guerin MD [email or web address]
[2017-02-06] MEDS ORDERED: Sodium Chloride 0.45% 1,000 ML IV SCH (11:15)
[2017-02-06] MEDS: Fluticasone Nasal 50 mcg/Spray NS SCH (11:33)
--- NOTE | 2017-02-06 14:09 | PN ---
DATE: 02/06/2017 SUBJECTIVE: The patient is in room 123, bed 9. Overall, in poor condition. Continues to be afebrile. PHYSICAL EXAMINATION: VITAL SIGNS: Temperature is 98.0, blood pressure is 106/50, respiratory rate of 20, heart rate of 76. HEENT: Examination of HEENT is unremarkable. NECK: Supple. LUNGS: Decreased breath sounds. HEART: Exam is normal S1 and S2. ABDOMEN: Soft and nontender. No organomegaly. No rebound or guarding. LABORATORY EXAMINATION: Reveals a white count of 30,000, hemoglobin of 9, platelets of 297. Coagulation reveals a BUN of 32, creatinine of 0.7. Urinalysis is noted. Vancomycin trough of 16.1. Influenza serology is negative. Microbiology reveals E. coli in the blood, E. coli in the urine. Repeat blood cultures are negative. Review of orders reveals the patient to be on meropenem and vancomycin.. The patient had a chest x-ray this morning. The results are pending. progress note is reviewed. Dr. Dr. Indio Carlos's note is reviewed. from yesterday, 02/05/2017 is reviewed as urinary catheter was note is reviewed.. ASSESSMENT AND PLAN: This is an 81-year-old female who was seen early this morning at room # 129, bed 3, end-stage with septic shock and cardiogenic shock with sepsis with acute renal failure with E. coli bacteremia and E. coli in the urine, obstructing right ureteral stone, and pyelonephritis, on meropenem and the patient is allergic to AMOXICILLIN. We will discontinue the vancomycin and currently on meropenem, day #9, with complete 10 days of meropenem for pyelonephritis. Richard Dobbins MD
--- NOTE | 2017-02-06 16:55 | CP.PCM.PN ---
Subjective - Date & Time of Evaluation Date of Evaluation: 02/06/17 Time of Evaluation: 11:00 - Subjective Subjective: Patient is reportedly less responsive today; able to achieve net neg fluid balance; Objective - Vital Signs/Intake and Output Vital Signs (last 24 hours): Temp Pulse Resp BP Pulse Ox 98.2 F 74 34 H 111/54 L 100 02/06/17 12:00 02/06/17 15:00 02/06/17 15:00 02/06/17 15:00 02/06/17 15:00 Intake and Output: 02/06/17 02/06/17 06:59 18:59 Intake Total 392 Output Total 750 Balance -358 - Medications Medications: Current Medications Acetaminophen (Tylenol 325mg Tab) 650 mg PO Q6H PRN PRN Reason: Fever >100.4 F Last Admin: 02/01/17 22:44 Dose: 650 mg Acetylcysteine (Acetylcysteine 20%) 4 ml IH [id number] NO Last Admin: 02/06/17 13:43 Dose: 4 ml Aspirin (Aspirin Chewable) 81 mg PO DAILY NO Last Admin: 02/06/17 09:38 Dose: Not Given Budesonide (Pulmicort Respules) 0.5 mg IH [id number] NO Last Admin: 02/06/17 07:51 Dose: 0.5 mg Clopidogrel Bisulfate (Plavix) 75 mg PO DAILY NO Last Admin: 01/31/17 09:57 Dose: 75 mg Fluticasone Propionate (Flonase) 1 actuation NS DAILY NO Last Admin: 02/06/17 11:33 Dose: Not Given Home Med (Home Med) 2.5 unit SC DAILY NO Last Admin: 02/06/17 09:42 Dose: 2.5 unit Meropenem 1g/NS 100mL IVPB (Meropenem 1g/Ns 100ml Ivpb) 1 gm in 100 mls @ 100 mls/hr IVPB Q8 NO PRN Reason: Protocol Stop: 02/09/17 14:01 Last Admin: 02/06/17 15:04 Dose: 100 mls/hr Amiodarone HCl/Dextrose (Nexterone 360 Mg In D5w 200 Ml (Premix)) 360 mg in 200 mls @ 16.667 mls/hr IV .Q12H NO; 0.5 MG/MIN PRN Reason: Protocol Last Admin: 02/06/17 12:49 Dose: Not Given Sodium Chloride (Sodium Chloride 0.45%) 1,000 mls @ 100 mls/hr IV .Q10H [facility] Last Admin: 02/06/17 11:25 Dose: 100 mls/hr Levalbuterol HCl (Xopenex) 0.63 mg IH [id number] [facility] Last Admin: 02/06/17 13:43 Dose: 0.63 mg Levalbuterol HCl (Xopenex) 0.63 mg IH Q2H PRN PRN Reason: Shortness of Breath Metoprolol Tartrate (Lopressor) 5 mg IVP Q6H [facility] Last Admin: 02/06/17 11:27 Dose: Not Given Pantoprazole Sodium (Protonix Inj) 40 mg IVP DAILY [facility] Last Admin: 02/06/17 09:42 Dose: 40 mg Vitamin A (Vitamin A & D Oint Ud Foilpak) 1 ea TOP Q8H PRN PRN Reason: Dry skin - Labs Labs: 02/06/17 05:30 02/06/17 05:30 PT 15.3 Seconds (9.9-11.8) H 01/29/17 05:30 INR 1.42 (0.93-1.08) H 01/29/17 05:30 APTT 26.5 Seconds (23.7-30.8) 02/05/17 06:00 - Constitutional Appears: In Acute Distress - Eye Exam Eye Exam: absent: Scleral icterus - ENT Exam ENT Exam: Mucous Membranes Moist - Respiratory Exam Respiratory Exam: Clear to Ausculation Bilateral Additional comments: tachypneic - Cardiovascular Exam Cardiovascular Exam: REGULAR RHYTHM, +S1, +S2 - GI/Abdominal Exam GI & Abdominal Exam: Distended, Soft - Exam Additional comments: no bladder distention; - Extremities Exam Additional comments: moderately edematous legs; - Skin Skin Exam: Pallor. absent: Cyanosis Assessment and Plan (1) Metabolic alkalosis Assessment & Plan: Secondary to volume contraction in the setting of loop diuretics; ideally needs volume replenishment but in the setting of decompensated CHF need to diurese further; alkalosis improved after holding lasix; received dose of diamox yesterday, another dose given this morning; -Repeat bmp this afternoon to monitor electrolytes; then give another dose of diamox 250 mg in pm; Status: Acute (2) Acute hypoxemic respiratory failure Assessment & Plan: Secondary to acute decompensated CHF w/ diastolic dysfunction; continue diuretics as above; Status: Acute (3) Sepsis Assessment & Plan: On meropenem with profound leukocytosis still persisting; however, BP stable, therefore should continue diuresis in patient with hypoxemic resp failure; Status: Acute (4) Ureteral calculus, right Status: Acute (5) Electrolyte imbalance Assessment & Plan: Worsening hypernatremia; well over 3L free water deficit and ongoing losses; starting D5W at 100 cc/hr; replenish K aggressively in setting of arrhythmia; Status: Acute
[2017-02-06 18:21] LABS: BLOOD UREA NITROGEN 29 mg/dL (7-21); CALCIUM 7.2 mg/dL (8.4-10.5); CARBON DIOXIDE 34 mmol/L (21-33); CHLORIDE 115 mmol/L (98-107); GFR AFRICAN-AMERICAN > 60; GLUCOSE,RANDOM 125 mg/dL (70-110); POTASSIUM 3.5 mmol/L (3.6-5.0); SODIUM 153 mmol/L (132-148)
--- NOTE | 2017-02-07 00:42 | PN ---
DATE OF EVALUATION: 02/06/2017 TIME: 12 noon. HISTORY OF PRESENT ILLNESS: Ms. Rosenbaum is an 81-year-old female. She is extubated now on day 4. Sensorium has improved. She is following verbal commands, but she is still lethargic and arousable. Failed the swallow evaluation. No bleeding. Denies any chest pain. Still tachycardic and tachypneic. REVIEW OF SYSTEMS: Could not be obtained. PHYSICAL EXAMINATION: GENERAL: Lethargic and arousable. VITAL SIGNS: Temperature 98.7, heart rate 80 per minute, respiratory rate 30 per minute, blood pressure 104/44, and pulse ox is 88% on oxygen on room air. HEENT: Oral mucosa is dry. NECK: No lymphadenopathy. CHEST: Air entry present bilaterally. CARDIOVASCULAR: Tachycardia present. ABDOMEN: Soft and nontender. EXTREMITIES: Bilateral edema present. CENTRAL NERVOUS SYSTEM: Moving all limbs. No focal sensory or motor deficit. MEDICATIONS: Tylenol 650 q.6 hours p.r.n., aspirin 81 mg daily, Pulmicort inhalation, Plavix 75 mg daily, Arixtra 2.5 mg daily, meropenem, amiodarone, vancomycin, diltiazem, Xopenex, metoprolol, and Protonix. LABORATORY DATA: White count 30,000, hemoglobin 9.7, hematocrit 30.9, and platelet count 297. Sodium 153, potassium 3.5, and creatinine 0.7. ASSESSMENT: 1. Leukocytosis. 2. Thrombocytopenia - resolved. 3. Respiratory failure. 4. Urosepsis. 5. Circulatory failure. 6. Acute kidney injury that has resolved. PLAN: 1. She has leukocytosis, likely due to sepsis. White count is increasing over the past few days. We will continue to monitor. If white count continues to increase,we will send a flow cytometry and peripheral blood. She has thrombocytopenia, resolved now. HIT assay was negative. Argatroban was stopped. She is on DVT prophylaxis with Arixtra 2.5 mg subcutaneously daily. Arixtra was obtained from outside pharmacy. Continue Arixtra at prophylactic dose. 2. Sepsis. ID following. 3. Circulatory failure, improving. 4. Respiratory failure, extubated, still tachycardic, tachypneic. 5. Acute renal failure, improved. Condition remained critical. Jeanette Tariq MD [facility] # [id number]
[2017-02-07] MEDS: Acetylcysteine 20% Inhal Soln (4ml) IH SCH ×4 (01:49→20:40)
[2017-02-07] MEDS: Levalbuterol 0.63 MG/3 ML Inhal Soln UD IH SCH ×4 (01:55→20:40)
[2017-02-07] MEDS: Metoprolol 1 mg/ml Inj IVP SCH ×4 (05:07→22:13)
[2017-02-07] MEDS: Meropenem 1g/NS 100mL IVPB 1 GM/100 ML PIGGYBACK IVPB SCH ×3 (05:10→21:45)
[2017-02-07 05:22] LABS: ARTERIAL BLOOD GAS HCO3 31.6 mmol/L (21-28); ARTERIAL BLOOD GAS O2 CAPACITY 11.8 mL/dl (16-24); ARTERIAL BLOOD GAS O2 CONTENT 11.8 ML/dl (15-23); ARTERIAL BLOOD GAS PH 7.33 (7.35-7.45); ARTERIAL BLOOD HGB O2 SAT 96.3 % (95.0-98.0); CARBOXYHEMOGLOBIN 2.6 % (0.5-1.5); HHB -0.1 % (0-5); METHEMOGLOBIN 1.2 % (0.0-3.0)
[2017-02-07 07:07] LABS: BASO # 0.01 K/mm3 (0.0-2.0); EOS # 0.1 (0.0-0.7); EOS % 0.4 % (1.5-5.0); GRAN # 21.35 (1.4-6.5); GRAN % 93.8 % (50.0-68.0); HEMATOCRIT 30.1 % (36.0-48.0); LYMPH # 0.4 (1.2-3.4); LYMPH % 1.5 % (22.0-35.0); MEAN CORPUSCULAR HEMOGLOBIN 30.3 pg (25.0-35.0); MEAN CORPUSCULAR HGB CONC 30.6 g/dl (31.0-37.0); MONO % 4.3 % (1.0-6.0); PLATELET COUNT 325 10^3/uL (120.0-450.0); RED CELL DISTRIBUTION WIDTH 17.5 % (11.5-14.5); WHITE BLOOD COUNT 22.8 10^3/ul (4.5-11.0)
[2017-02-07 07:09] LABS: ALB/GLOB RATIO 0.9 (1.1-1.8); ALKALINE PHOSPHATASE 88 U/L (38-126); ALT/SGPT 269 U/L (7-56); AST/SGOT 58 U/L (14-36); BILIRUBIN,TOTAL 0.5 mg/dL (0.2-1.3); BLOOD UREA NITROGEN 26 mg/dL (7-21); CALCIUM 7.1 mg/dL (8.4-10.5); CARBON DIOXIDE 34 mmol/L (21-33); CHLORIDE 112 mmol/L (98-107); GFR AFRICAN-AMERICAN > 60; GLUCOSE,RANDOM 174 mg/dL (70-110); MAGNESIUM 2.1 mg/dL (1.7-2.2); PHOSPHOROUS 2.7 mg/dL (2.5-4.5); POTASSIUM 3.6 mmol/L (3.6-5.0); SODIUM 150 mmol/L (132-148); TOTAL PROTEIN 4.4 g/dL (5.8-8.3)
[2017-02-07] MEDS: Budesonide 0.5 mg/2 ml Inhal Susp UD IH SCH ×2 (07:11→20:40)
--- NOTE | 2017-02-07 07:24 | CP.PCM.PN ---
Subjective - Date & Time of Evaluation Date of Evaluation: 02/07/17 Time of Evaluation: 07:00 - Subjective Subjective: Stable in ICU. Awake but not very responsive this AM No CP or SOB. Volume overloaded. V/S noted. RSR PE: Lungs:rhonchi Cor.: S1S2 Abd.: soft Ext.: + edema Neuro.: no change I/O= 2634/1400 Labs 02/06 noted. Today's labs pending. BC x2 NG at 5 days 02/07 CXR pending ABG's noted: improved. Objective - Vital Signs/Intake and Output Vital Signs (last 24 hours): Temp Pulse Resp BP Pulse Ox 98.4 F 77 24 107/37 L 84 L 02/07/17 05:00 02/07/17 06:00 02/07/17 07:15 02/07/17 06:00 02/07/17 06:00 Intake and Output: 02/07/17 02/07/17 06:59 18:59 Intake Total 1500 Output Total 600 Balance 900 - Medications Medications: Current Medications Acetaminophen (Tylenol 325mg Tab) 650 mg PO Q6H PRN PRN Reason: Fever >100.4 F Last Admin: 02/01/17 22:44 Dose: 650 mg Acetylcysteine (Acetylcysteine 20%) 4 ml IH [id number] [facility] Last Admin: 02/07/17 07:11 Dose: 4 ml Aspirin (Aspirin Chewable) 81 mg PO DAILY [facility] Last Admin: 02/06/17 09:38 Dose: Not Given Budesonide (Pulmicort Respules) 0.5 mg IH [id number] [facility] Last Admin: 02/07/17 07:11 Dose: 0.5 mg Clopidogrel Bisulfate (Plavix) 75 mg PO DAILY [facility] Last Admin: 01/31/17 09:57 Dose: 75 mg Fluticasone Propionate (Flonase) 1 actuation NS DAILY [facility] Last Admin: 02/06/17 11:33 Dose: Not Given Home Med (Home Med) 2.5 unit SC DAILY [facility] Last Admin: 02/06/17 09:42 Dose: 2.5 unit Meropenem 1g/NS 100mL IVPB (Meropenem 1g/Ns 100ml Ivpb) 1 gm in 100 mls @ 100 mls/hr IVPB Q8 NO PRN Reason: Protocol Stop: 02/09/17 14:01 Last Admin: 02/07/17 05:10 Dose: 100 mls/hr Amiodarone HCl/Dextrose (Nexterone 360 Mg In D5w 200 Ml (Premix)) 360 mg in 200 mls @ 16.667 mls/hr IV .Q12H NO; 0.5 MG/MIN PRN Reason: Protocol Last Admin: 02/07/17 00:00 Dose: 16.667 mls/hr Dextrose (Dextrose 5% In Water 1000 Ml) 1,000 mls @ 125 mls/hr IV .Q8H NO Last Admin: 02/07/17 05:07 Dose: 125 mls/hr Levalbuterol HCl (Xopenex) 0.63 mg IH Q6HAAFO NO Last Admin: 02/07/17 07:11 Dose: 0.63 mg Levalbuterol HCl (Xopenex) 0.63 mg IH Q2H PRN PRN Reason: Shortness of Breath Metoprolol Tartrate (Lopressor) 5 mg IVP Q6H NO Last Admin: 02/07/17 05:07 Dose: Not Given Pantoprazole Sodium (Protonix Inj) 40 mg IVP DAILY [facility] Last Admin: 02/06/17 09:42 Dose: 40 mg Vitamin A (Vitamin A & D Oint Ud Foilpak) 1 ea TOP Q8H PRN PRN Reason: Dry skin - Labs Labs: 02/06/17 05:30 02/07/17 06:00 PT 15.3 Seconds (9.9-11.8) H 01/29/17 05:30 INR 1.42 (0.93-1.08) H 01/29/17 05:30 APTT 26.5 Seconds (23.7-30.8) 02/05/17 06:00 Assessment and Plan - Assessment and Plan (Free Text) Assessment: Mechanical Fall at home with acute rhabdo and uro sepsis on presentation Respiratory failure with venous congestion and pl. effusions on current CXR Hypernatremia and hypokalemia PAF AMS CAD/Remote DE/Possible recent NSTEMI COPD/Former Smoker HLD PAD DNR/DNI Plan: Renal f/u with free water administration and vigorous K+ replacement Diuresis > neg. balance daily. Resume Lasix to get neg balance, as per renal Continue IV amio and IV metoprolol D/C IV diltiazem AB As per Renal, ID, Pulmonary, Intensivists and Dr. Snyder Monitor: labs, sats., I/O, cultures, ABG's etc. Will follow.
[2017-02-07] MEDS: Amiodarone 360 mg/D5W 200 ml 360 MG/200 ML BAG IV SCH ×3 (07:58→19:40)
[2017-02-07 08:29] LABS: ANISOCYTOSIS 1+; HYPOCHROMIA 1+; NEUTROPHIL 93 % (50.0-70.0); PLATELET ESTIMATE NORMAL (NORMAL); POLYCHROMASIA SLIGHT
[2017-02-07] MEDS: Fluticasone Nasal 50 mcg/Spray NS SCH (09:18)
[2017-02-07] MEDS: FONDAPARINUX 2.5 MG/0.5 ML SC SCH (09:19)
--- NOTE | 2017-02-07 10:10 | RAD ---
HISTORY: s/p intubation, appears fluid overloaded, f/u. COMPARISON: Comparison chest 02/06/2017 FINDINGS: Study is limited due to patient rotation to the right side. No change right central venous line with tip in the SVC/RA junction LUNGS: Diffuse bilateral infiltrates consistent with pulmonary edema/ CHF with bilateral lower lobe alveolar-type infiltrates and bilateral effusions. PLEURA: No significant pleural effusion identified, no pneumothorax apparent. CARDIOVASCULAR: Normal. OSSEOUS STRUCTURES: No significant abnormalities. VISUALIZED UPPER ABDOMEN: Normal. OTHER FINDINGS: None. IMPRESSION: Diffuse bilateral infiltrates consistent with pulmonary edema/ CHF with bilateral lower lobe alveolar-type infiltrates and bilateral effusions.
--- NOTE | 2017-02-07 11:46 | PN ---
SUBJECTIVE: The patient is in bed, in no acute distress, nontoxic. PHYSICAL EXAMINATION: VITAL SIGNS: Temperature is 98, blood pressure is 107/30, respiratory rate of 18. HEENT: Unremarkable. NECK: Supple. LUNGS: Decreased breath sounds. HEART: Normal S1 and S2. ABDOMEN: Soft and nontender. LABORATORY EXAMINATION: Reveals a white count of 22,000; hemoglobin of 9; platelets of 325. BUN of 26, creatinine of 0.7 and urinalysis is noted and vancomycin trough of 16 and serology is negative for influenza. ASSESSMENT AND PLAN: This is an 81-year-old female who was seen early this morning in the ICU, CCU #[id number], bed #3 with end stage and admitted with septic shock, cardiogenic shock and sepsis, acute renal failure, Escherichia coli bacteremia, Escherichia coli in the urine and obstructing right ureteral stone and pyelonephritis. Today is day #10 of meropenem. Overall prognosis is quite poor for this patient who has end stage. Review of the order reveals meropenem to be active, would complete 10 to 14 days. Richard Dobbins MD
--- NOTE | 2017-02-07 12:38 | CP.CCUPN ---
CCU Subjective - Physician Review Events Since Last Encounter (Free Text): 02/07/17 12:33 Remains on HFNC , altered and combative with oxygen. Remains in the icu due to increased nursing care. CCU Objective - Vital Signs / Intake & Output Vital Signs (Last 4 hours): Vital Signs Pulse Resp BP Pulse Ox 02/07/17 12:00 66 27 H 100/39 L 100 02/07/17 11:00 67 30 H 102/54 L 97 02/07/17 10:00 68 26 H 117/48 L 100 02/07/17 09:00 78 29 H 117/51 L 90 L Intake and Output (Last 8hrs): Intake & Output 02/06/17 02/07/17 02/07/17 22:59 06:59 14:59 Intake Total 1500 Output Total 600 Balance 900 Weight 188 lb 188 lb Intake: IV 1500 Right Internal Jugular 1500 Output: Urine 600 2-way Urethral 600 - Physical Exam Physical Exam Limitations: Positive for: Altered Mental Status Head: Positive for: Atraumatic, Normocephalic Pupils: Positive for: PERRL Extroacular Muscles: Positive for: EOMI (intermittently following commands for EOMI testing, but able to track staff and family in room fully). Negative for: Gaze Palsy Conjunctiva: Positive for: Normal. Negative for: Injected, Icteric Ears: Positive for: Normal Mouth: Positive for: Moist Mucous Membranes, Dry, Normal Lips, Normal Tounge. Negative for: Drooling Pharnyx: Positive for: Normal Nose (External): Positive for: Atraumatic. Negative for: Abrasion, Contusion, Laceration Nose (Internal): Positive for: Normal Inspection Neck: Negative for: Normal Range of Motion (moving head minimally to track throughout room, not actively moving head otherwise, passive ROM intact and appropriate) Respiratory/Chest: Positive for: Respiratory Distress, Decreased Breath Sounds ( mild-moderate decreased breath sounds in all auscultated brayd), Rhonchi ( diffuse monderate ronchi in all brady) Cardiovascular: Positive for: Irregular Rhythm Abdomen: Negative for: Tenderness, Distention Upper Extremity: Positive for: Normal Inspection, Edema (non pitting but grossly edematous in bilateral hands extending to mid forearm, improved as compared to prior days), Swelling, Temperature Abnormalties (hands cool to palpation). Negative for: Cyanosis (bruising from diffuse swelling and blood draws, dusky-appearing hands, but not grossly cyanotic), NORMAL PULSES (weakly palpable radial pulses likely 2/2 edema), Erythema (no erythema, scatter echymoses likely 2/2 being on anticoagulant), Deformity Lower Extremity: Positive for: Edema (+2 pitting edema in bilateral feet and ankles, +1 from top of SCDs to knees, no joint swelling), Tenderness, Swelling ( (+)ecchymosis, right lower leg), Temperature Abnormalties (feet/ankles cold to palpation). Negative for: NORMAL PULSES (unable to palpate bilateral dorsalis pedis or posterior tibials), Cyanosis, Erythema, Deformity Neurological: Positive for: Other (follows some commands.). Negative for: GCS= 15 (GCS 12 (E4 V4 M4)), CN II-XII Intact (unable to fully assess due to not following commands, occular CN appear intact, CN VII appears intact), Speech Normal (minimal speech today, able to quietly say few words, mostly relying on nodding/shaking head to yes/no questions), Motor Func Grossly Intact (weak motor strength present in bilateral UE, minimal LE motor function likely 2/2 deconditioning) Skin: Positive for: Warm (except at distal extremities, as noted in extremities exam), Dry, Normal Color (except as noted in upper extremities exam) Psychiatric: Positive for: Other (awake and intermittently alert, no apparent orientation, repetitively counting down numbers, not following most commands; likely delirious) - Medications Active Medications: Active Medications Generic Name Dose Route Start Last Admin Trade Name Freq PRN Reason Stop Dose Admin Acetaminophen 650 mg 01/28/17 21:29 02/01/17 22:44 Tylenol 325mg Tab PO 650 mg Q6H PRN Administration Fever >100.4 F Acetylcysteine 4 ml 02/04/17 08:00 02/07/17 07:11 Acetylcysteine 20% IH 4 ml [id number] NO Administration Aspirin 81 mg 01/29/17 10:00 02/07/17 09:18 Aspirin Chewable PO Not Given DAILY NO Budesonide 0.5 mg 01/29/17 08:00 02/07/17 07:11 Pulmicort Respules IH 0.5 mg [id number] NO Administration Clopidogrel Bisulfate 75 mg 01/29/17 10:00 01/31/17 09:57 Plavix PO 75 mg DAILY NO Administration Fluticasone Propionate 1 actuation 01/29/17 10:00 02/07/17 09:18 Flonase NS 1 spr DAILY NO Administration Home Med 2.5 unit 02/05/17 14:48 02/07/17 09:19 Home Med SC 2.5 unit DAILY NO Administration Meropenem 1g/NS 100mL IVPB 1 gm in 100 mls @ 100 mls/hr 01/31/17 14:00 05:10 Meropenem 1g/Ns 100ml Ivpb IVPB 02/09/17 14:01 100 mls/hr Q8 NO Administration Protocol Amiodarone HCl/Dextrose 360 mg in 200 mls @ 16.667 mls/hr 02/02/17 00:15 07:58 Nexterone 360 Mg In D5w 200 Ml (Premix) IV 16.667 mls/hr .Q12H NO Administration Protocol 0.5 MG/MIN Dextrose 1,000 mls @ 125 mls/hr 02/06/17 20:09 02/07/17 05:07 Dextrose 5% In Water 1000 Ml IV 125 mls/hr .Q8H NO Administration Levalbuterol HCl 0.63 mg 02/04/17 14:00 02/07/17 07:11 Xopenex IH 0.63 mg [id number] NO Administration Levalbuterol HCl 0.63 mg 02/04/17 08:21 Xopenex IH Q2H PRN Shortness of Breath Metoprolol Tartrate 5 mg 02/03/17 11:00 02/07/17 05:07 Lopressor IVP Not Given Q6H NO Pantoprazole Sodium 40 mg 01/30/17 10:00 02/07/17 09:18 Protonix Inj IVP 40 mg DAILY NO Administration Vitamin A 1 ea 02/04/17 11:44 Vitamin A & D Oint Ud Foilpak TOP Q8H PRN Dry skin - Patient Studies Lab Studies: Lab Studies 02/07/17 02/07/17 02/07/17 Range/Units 11:30 06:00 06:00 WBC 22.8 H D (4.5-11.0) 10^3/ul RBC 3.04 L (3.5-6.1) 10^6/uL Hgb 9.2 L (12.0-16.0) g/dL Hct 30.1 L (36.0-48.0) % MCV 99.0 D (80.0-105.0) fl MCH 30.3 (25.0-35.0) pg MCHC 30.6 L (31.0-37.0) g/dl RDW 17.5 H (11.5-14.5) % Plt Count 325 (120.0-450.0) 10^3/uL MPV 10.0 (7.0-11.0) fl Gran % 93.8 H (50.0-68.0) % Lymph % (Auto) 1.5 L (22.0-35.0) % Traverse % (Auto) 4.3 (1.0-6.0) % Eos % (Auto) 0.4 L (1.5-5.0) % Baso % (Auto) 0.0 (0.0-3.0) % Gran # 21.35 H (1.4-6.5) Lymph # 0.4 L (1.2-3.4) Traverse # 1.0 H (0.1-0.6) Eos # 0.1 (0.0-0.7) Baso # 0.01 (0.0-2.0) K/mm3 Neutrophils % (Manual) 93 H (50.0-70.0) % Lymphocytes % (Manual) 5 L (22.0-35.0) % Monocytes % (Manual) 2 (1.0-6.0) % Platelet Evaluation Normal (NORMAL) Polychromasia Slight Hypochromasia 1+ Anisocytosis (manual) 1+ pCO2 (35-45) mm/Hg pO2 (80-100) mm/Hg HCO3 (21-28) mmol/L ABG pH (7.35-7.45) ABG Total CO2 (22-28) mmol.L ABG O2 Saturation (95-98) % ABG O2 Content (15-23) ML/dl ABG Base Excess (-2.0-3.0) mmol/L ABG Hemoglobin (11.7-17.4) g/dL ABG Carboxyhemoglobin (0.5-1.5) % POC ABG HHb (Measured) (0-5) % ABG Methemoglobin (0.0-3.0) % ABG O2 Capacity (16-24) mL/dl Hgb O2 Saturation (95.0-98.0) % FiO2 % Sodium 150 H (132-148) mmol/L Potassium 3.6 (3.6-5.0) mmol/L Chloride 112 H (98-107) mmol/L Carbon Dioxide 34 H (21-33) mmol/L Anion Gap 8 L (10-20) BUN 26 H (7-21) mg/dL Creatinine 0.7 (0.7-1.2) mg/dL Est GFR ( Amer) > 60 Est GFR (Non-Af Amer) > 60 POC Glucose (mg/dL) 194 H (65-110) mg/dL Random Glucose 174 H (70-110) mg/dL Calcium 7.1 L (8.4-10.5) mg/dL Phosphorus 2.7 (2.5-4.5) mg/dL Magnesium 2.1 (1.7-2.2) mg/dL Total Bilirubin 0.5 (0.2-1.3) mg/dL AST 58 H D (14-36) U/L ALT 269 H (7-56) U/L Alkaline Phosphatase 88 (38-126) U/L Total Protein 4.4 L (5.8-8.3) g/dL Albumin 2.1 L (3.0-4.8) g/dL Globulin 2.4 gm/dL Albumin/Globulin Ratio 0.9 L (1.1-1.8) 02/07/17 02/06/17 02/06/17 Range/Units 05:00 21:58 17:55 WBC (4.5-11.0) 10^3/ul RBC (3.5-6.1) 10^6/uL Hgb (12.0-16.0) g/dL Hct (36.0-48.0) % MCV (80.0-105.0) fl MCH (25.0-35.0) pg MCHC (31.0-37.0) g/dl RDW (11.5-14.5) % Plt Count (120.0-450.0) 10^3/uL MPV (7.0-11.0) fl Gran % (50.0-68.0) % Lymph % (Auto) (22.0-35.0) % Traverse % (Auto) (1.0-6.0) % Eos % (Auto) (1.5-5.0) % Baso % (Auto) (0.0-3.0) % Gran # (1.4-6.5) Lymph # (1.2-3.4) Traverse # (0.1-0.6) Eos # (0.0-0.7) Baso # (0.0-2.0) K/mm3 Neutrophils % (Manual) (50.0-70.0) % Lymphocytes % (Manual) (22.0-35.0) % Monocytes % (Manual) (1.0-6.0) % Platelet Evaluation (NORMAL) Polychromasia Hypochromasia Anisocytosis (manual) pCO2 60 H (35-45) mm/Hg pO2 147.0 H (80-100) mm/Hg HCO3 31.6 H (21-28) mmol/L ABG pH 7.33 L (7.35-7.45) ABG Total CO2 33.4 H (22-28) mmol.L ABG O2 Saturation 100.1 H (95-98) % ABG O2 Content 11.8 L (15-23) ML/dl ABG Base Excess 4.8 H (-2.0-3.0) mmol/L ABG Hemoglobin 8.5 L (11.7-17.4) g/dL ABG Carboxyhemoglobin 2.6 H (0.5-1.5) % POC ABG HHb (Measured) -0.1 L (0-5) % ABG Methemoglobin 1.2 (0.0-3.0) % ABG O2 Capacity 11.8 L (16-24) mL/dl Hgb O2 Saturation 96.3 (95.0-98.0) % FiO2 100.0 % Sodium 153 H (132-148) mmol/L Potassium 3.5 L (3.6-5.0) mmol/L Chloride 115 H (98-107) mmol/L Carbon Dioxide 34 H (21-33) mmol/L Anion Gap 8 L (10-20) BUN 29 H (7-21) mg/dL Creatinine 0.7 (0.7-1.2) mg/dL Est GFR ( Amer) > 60 Est GFR (Non-Af Amer) > 60 POC Glucose (mg/dL) 160 H (65-110) mg/dL Random Glucose 125 H (70-110) mg/dL Calcium 7.2 L (8.4-10.5) mg/dL Phosphorus (2.5-4.5) mg/dL Magnesium (1.7-2.2) mg/dL Total Bilirubin (0.2-1.3) mg/dL AST (14-36) U/L ALT (7-56) U/L Alkaline Phosphatase (38-126) U/L Total Protein (5.8-8.3) g/dL Albumin (3.0-4.8) g/dL Globulin gm/dL Albumin/Globulin Ratio (1.1-1.8) 10/13/17 Range/Units 15:57 WBC (4.5-11.0) 10^3/ul RBC (3.5-6.1) 10^6/uL Hgb (12.0-16.0) g/dL Hct (36.0-48.0) % MCV (80.0-105.0) fl MCH (25.0-35.0) pg MCHC (31.0-37.0) g/dl RDW (11.5-14.5) % Plt Count (120.0-450.0) 10^3/uL MPV (7.0-11.0) fl Gran % (50.0-68.0) % Lymph % (Auto) (22.0-35.0) % Traverse % (Auto) (1.0-6.0) % Eos % (Auto) (1.5-5.0) % Baso % (Auto) (0.0-3.0) % Gran # (1.4-6.5) Lymph # (1.2-3.4) Traverse # (0.1-0.6) Eos # (0.0-0.7) Baso # (0.0-2.0) K/mm3 Neutrophils % (Manual) (50.0-70.0) % Lymphocytes % (Manual) (22.0-35.0) % Monocytes % (Manual) (1.0-6.0) % Platelet Evaluation (NORMAL) Polychromasia Hypochromasia Anisocytosis (manual) pCO2 (35-45) mm/Hg pO2 (80-100) mm/Hg HCO3 (21-28) mmol/L ABG pH (7.35-7.45) ABG Total CO2 (22-28) mmol.L ABG O2 Saturation (95-98) % ABG O2 Content (15-23) ML/dl ABG Base Excess (-2.0-3.0) mmol/L ABG Hemoglobin (11.7-17.4) g/dL ABG Carboxyhemoglobin (0.5-1.5) % POC ABG HHb (Measured) (0-5) % ABG Methemoglobin (0.0-3.0) % ABG O2 Capacity (16-24) mL/dl Hgb O2 Saturation (95.0-98.0) % FiO2 % Sodium (132-148) mmol/L Potassium (3.6-5.0) mmol/L Chloride (98-107) mmol/L Carbon Dioxide (21-33) mmol/L Anion Gap (10-20) BUN (7-21) mg/dL Creatinine (0.7-1.2) mg/dL Est GFR ( Amer) Est GFR (Non-Af Amer) POC Glucose (mg/dL) 142 H (65-110) mg/dL Random Glucose (70-110) mg/dL Calcium (8.4-10.5) mg/dL Phosphorus (2.5-4.5) mg/dL Magnesium (1.7-2.2) mg/dL Total Bilirubin (0.2-1.3) mg/dL AST (14-36) U/L ALT (7-56) U/L Alkaline Phosphatase (38-126) U/L Total Protein (5.8-8.3) g/dL Albumin (3.0-4.8) g/dL Globulin gm/dL Albumin/Globulin Ratio (1.1-1.8) Laboratory Results - last 24 hr 02/06/17 02/06/17 02/06/17 15:57 17:55 21:58 WBC RBC Hgb Hct MCV MCH MCHC RDW Plt Count MPV Gran % Lymph % (Auto) Traverse % (Auto) Eos % (Auto) Baso % (Auto) Gran # Lymph # Traverse # Eos # Baso # Neutrophils % (Manual) Lymphocytes % (Manual) Monocytes % (Manual) Platelet Evaluation Polychromasia Hypochromasia Anisocytosis (manual) pCO2 pO2 HCO3 ABG pH ABG Total CO2 ABG O2 Saturation ABG O2 Content ABG Base Excess ABG Hemoglobin ABG Carboxyhemoglobin POC ABG HHb (Measured) ABG Methemoglobin ABG O2 Capacity Hgb O2 Saturation FiO2 Sodium 153 H Potassium 3.5 L Chloride 115 H Carbon Dioxide 34 H Anion Gap 8 L BUN 29 H Creatinine 0.7 Est GFR ( Amer) > 60 Est GFR (Non-Af Amer) > 60 POC Glucose (mg/dL) 142 H 160 H Random Glucose 125 H Calcium 7.2 L Phosphorus Magnesium Total Bilirubin AST ALT Alkaline Phosphatase Total Protein Albumin Globulin Albumin/Globulin Ratio 02/07/17 02/07/17 02/07/17 05:00 06:00 06:00 WBC 22.8 H D RBC 3.04 L Hgb 9.2 L Hct 30.1 L MCV 99.0 D MCH 30.3 MCHC 30.6 L RDW 17.5 H Plt Count 325 MPV 10.0 Gran % 93.8 H Lymph % (Auto) 1.5 L Traverse % (Auto) 4.3 Eos % (Auto) 0.4 L Baso % (Auto) 0.0 Gran # 21.35 H Lymph # 0.4 L Traverse # 1.0 H Eos # 0.1 Baso # 0.01 Neutrophils % (Manual) 93 H Lymphocytes % (Manual) 5 L Monocytes % (Manual) 2 Platelet Evaluation Normal Polychromasia Slight Hypochromasia 1+ Anisocytosis (manual) 1+ pCO2 60 H pO2 147.0 H HCO3 31.6 H ABG pH 7.33 L ABG Total CO2 33.4 H ABG O2 Saturation 100.1 H ABG O2 Content 11.8 L ABG Base Excess 4.8 H ABG Hemoglobin 8.5 L ABG Carboxyhemoglobin 2.6 H POC ABG HHb (Measured) -0.1 L ABG Methemoglobin 1.2 ABG O2 Capacity 11.8 L Hgb O2 Saturation 96.3 FiO2 100.0 Sodium 150 H Potassium 3.6 Chloride 112 H Carbon Dioxide 34 H Anion Gap 8 L BUN 26 H Creatinine 0.7 Est GFR ( Amer) > 60 Est GFR (Non-Af Amer) > 60 POC Glucose (mg/dL) Random Glucose 174 H Calcium 7.1 L Phosphorus 2.7 Magnesium 2.1 Total Bilirubin 0.5 AST 58 H D ALT 269 H Alkaline Phosphatase 88 Total Protein 4.4 L Albumin 2.1 L Globulin 2.4 Albumin/Globulin Ratio 0.9 L 02/07/17 11:30 WBC RBC Hgb Hct MCV MCH MCHC RDW Plt Count MPV Gran % Lymph % (Auto) Traverse % (Auto) Eos % (Auto) Baso % (Auto) Gran # Lymph # Traverse # Eos # Baso # Neutrophils % (Manual) Lymphocytes % (Manual) Monocytes % (Manual) Platelet Evaluation Polychromasia Hypochromasia Anisocytosis (manual) pCO2 pO2 HCO3 ABG pH ABG Total CO2 ABG O2 Saturation ABG O2 Content ABG Base Excess ABG Hemoglobin ABG Carboxyhemoglobin POC ABG HHb (Measured) ABG Methemoglobin ABG O2 Capacity Hgb O2 Saturation FiO2 Sodium Potassium Chloride Carbon Dioxide Anion Gap BUN Creatinine Est GFR ( Amer) Est GFR (Non-Af Amer) POC Glucose (mg/dL) 194 H Random Glucose Calcium Phosphorus Magnesium Total Bilirubin AST ALT Alkaline Phosphatase Total Protein Albumin Globulin Albumin/Globulin Ratio Fingerstick Blood Sugar Results: 182 Review of Systems - Review of Systems Systems not reviewed;Unavailable: Altered Mental Status Critical Care Progress Note - Ventilator Checklist Daily Assessment of Readiness to Wean: Yes Daily Spontaneous Breathing Trial: Yes PUD Prophalyxis: Yes DVT Prophylaxis: Yes Oral Care with Chlorhexidine Gluconate {CHG}: Yes - Nutrition Nutrition: Nutrition Category Date Time Status NPO Diet [DIET] Diets 02/01/17 Breakfast Ordered Assessment/Plan - Assessment and Plan (Free Text) Assessment: 81 y/o F w/ resolving septic shock, respiratory failure Shock resolved, ATn resolving, Urine output improving. Diuretics given daily . Keep net negative. ON HFNC to keep pao2> 60 . ABG shows increased PCO2 on morning ABG. Currently pt breathing 20-30 BPM. Will not tolerate BIPAP Finishing ABX course 14 days per ID. Ecoli bacteremia Feeding tube would help the patietn with Hypernatremia and medications. Will d/ w family . DNR/DNI dvt P A fib on amiodarone and cardizem / B blockers prn. cc time 45 min
[2017-02-07 21:34] LABS: BLOOD UREA NITROGEN 22 mg/dL (7-21); CALCIUM 7.1 mg/dL (8.4-10.5); CARBON DIOXIDE 35 mmol/L (21-33); GFR AFRICAN-AMERICAN > 60; GLUCOSE,RANDOM 156 mg/dL (70-110); SODIUM 147 mmol/L (132-148)
[2017-02-07 21:46] LABS: CHLORIDE 108 mmol/L (98-107)
[2017-02-07 22:19] LABS: POTASSIUM 2.7 mmol/L (3.6-5.0)
[2017-02-07 23:23] LABS: VENOUS BLOOD GAS BASE EXCESS 10.7 mmol/L (0.0-2.0); VENOUS BLOOD PH 7.43 (7.32-7.43)
--- NOTE | 2017-02-07 23:25 | PN ---
DATE: SUBJECTIVE: The patient is an 81-year-old, seen and examined, lying in bed, seems to be okay. She is still on high flow oxygen. Discussed have been done it was attempted to pass Dobbhoff tube, but she did not cooperate desaturated, so it was not inserted. I discussed with the patient's daughter yesterday morning and they agreed for Dobhoff tube, but the patient was unable to tolerate, so she is still on IV fluids. PHYSICAL EXAMINATION: VITAL SIGNS: She is afebrile. Pulse 70, respirations , blood pressure 107/43. LUNGS: Bilateral fair airflow, but soft crackles bilaterally, anteriorly, and posteriorly. HEART: S1 and S2 audible. Tachycardic at times. ABDOMEN: Soft, nontender. No mass palpable. EXTREMITIES: Bilateral leg +1 edema. LABORATORY DATA: WBC 22.8, hemoglobin 9.2, hematocrit 30, platelets 325. Chemistries; sodium 150, potassium 3.6, chloride 112, CO2 of 34, BUN 26, creatinine 0.7, blood sugar of 191. X-ray chest today shows diffuse bilateral infiltrates consistent with pulmonary edema, CHF with bilateral lower lobe alveolar type infiltrate. ASSESSMENT: 1. Status post urosepsis. 2. Nephrolithiasis and hydronephrosis, status post stent placement. 3. Respiratory insufficiency. 4. Failed swallowing evaluation. 5. Paroxysmal atrial fibrillation. 6. Hypernatremia. 7. Hypokalemia. 8. Bilateral infiltrates. 9. Pulmonary edema. 10. ST elevation myocardial infarction. PLAN: At this point would be I will discussed with the family if they are willing to about PEG tube, we will proceed for that, otherwise is hard to give her any kind of enteral feeding without passing Dobhoff tube. I will hold of her parenteral nutrition for now until discuss with the family. Continue on IV fluids, IV antibiotics and nebulizer treatment. Magali Snyder MD
[2017-02-08] MEDS: Levalbuterol 0.63 MG/3 ML Inhal Soln UD IH SCH ×3 (02:51→12:59)
[2017-02-08] MEDS: Acetylcysteine 20% Inhal Soln (4ml) IH SCH ×3 (02:51→12:59)
[2017-02-08] MEDS: Metoprolol 1 mg/ml Inj IVP SCH ×3 (05:42→17:01)
[2017-02-08] MEDS: Meropenem 1g/NS 100mL IVPB 1 GM/100 ML PIGGYBACK IVPB SCH ×2 (06:00→13:08)
[2017-02-08 06:12] LABS: BASO # 0.01 K/mm3 (0.0-2.0); BASO % 0.1 % (0.0-3.0); EOS # 0.1 (0.0-0.7); EOS % 0.5 % (1.5-5.0); GRAN # 18.03 (1.4-6.5); GRAN % 92.7 % (50.0-68.0); HEMATOCRIT 29.3 % (36.0-48.0); LYMPH # 0.4 (1.2-3.4); LYMPH % 2.3 % (22.0-35.0); MEAN CELL VOLUME 96.1 fl (80.0-105.0); MEAN CORPUSCULAR HEMOGLOBIN 29.8 pg (25.0-35.0); MEAN CORPUSCULAR HGB CONC 31.1 g/dl (31.0-37.0); MEAN PLATELET VOLUME 9.8 fl (7.0-11.0); MONO # 0.9 (0.1-0.6); MONO % 4.4 % (1.0-6.0); RED CELL DISTRIBUTION WIDTH 16.8 % (11.5-14.5); WHITE BLOOD COUNT 19.4 10^3/ul (4.5-11.0)
[2017-02-08] MEDS: Amiodarone 360 mg/D5W 200 ml 360 MG/200 ML BAG IV SCH (06:15)
[2017-02-08 06:23] LABS: ALB/GLOB RATIO 0.8 (1.1-1.8); ALKALINE PHOSPHATASE 79 U/L (38-126); ALT/SGPT 220 U/L (7-56); AST/SGOT 92 U/L (14-36); BILIRUBIN,TOTAL 0.6 mg/dL (0.2-1.3); BLOOD UREA NITROGEN 23 mg/dL (7-21); CARBON DIOXIDE 35 mmol/L (21-33); CHLORIDE 108 mmol/L (98-107); GFR AFRICAN-AMERICAN > 60; GLUCOSE,RANDOM 142 mg/dL (70-110); MAGNESIUM 1.8 mg/dL (1.7-2.2); POTASSIUM 3.8 mmol/L (3.6-5.0); SODIUM 145 mmol/L (132-148); TOTAL PROTEIN 4.6 g/dL (5.8-8.3)
[2017-02-08 06:47] LABS: ARTERIAL BLOOD GAS HCO3 31.9 mmol/L (21-28); ARTERIAL BLOOD GAS O2 CAPACITY 11.2 mL/dl (16-24); ARTERIAL BLOOD GAS O2 CONTENT 10.1 ML/dl (15-23); ARTERIAL BLOOD GAS PH 7.38 (7.35-7.45); ARTERIAL BLOOD HGB O2 SAT 87.3 % (95.0-98.0); CARBOXYHEMOGLOBIN 2.5 % (0.5-1.5); HHB 9.3 % (0-5)
[2017-02-08] MEDS: Budesonide 0.5 mg/2 ml Inhal Susp UD IH SCH (06:59)
--- NOTE | 2017-02-08 07:38 | CP.PCM.PN ---
Subjective - Date & Time of Evaluation Date of Evaluation: 02/08/17 Time of Evaluation: 07:00 - Subjective Subjective: Stable in ICU. Awake but not very responsive this AM No CP or SOB. Volume overloaded. V/S noted. RSR PE: Lungs: rhonchi Cor.: S1S2 Abd.: soft Ext.: + edema Neuro.: no change I/O= 2979/3800 Labs noted. WBC= 19,500, Na+= 145, K+= 3.8 BC x2 NG at 5 days 02/08 CXR pending ABG's noted. Objective - Vital Signs/Intake and Output Vital Signs (last 24 hours): Temp Pulse Resp BP Pulse Ox 98.3 F 83 28 H 89/39 L 87 L 02/08/17 04:00 02/08/17 07:00 02/08/17 07:03 02/08/17 07:00 02/08/17 07:00 Intake and Output: 02/08/17 02/08/17 06:59 18:59 Intake Total 1287 Output Total 2100 Balance -813 - Medications Medications: Current Medications Acetaminophen (Tylenol 325mg Tab) 650 mg PO Q6H PRN PRN Reason: Fever >100.4 F Last Admin: 02/01/17 22:44 Dose: 650 mg Acetylcysteine (Acetylcysteine 20%) 4 ml IH [id number] [facility] Last Admin: 02/08/17 06:59 Dose: 4 ml Aspirin (Aspirin Chewable) 81 mg PO DAILY [facility] Last Admin: 02/07/17 09:18 Dose: Not Given Budesonide (Pulmicort Respules) 0.5 mg IH [id number] [facility] Last Admin: 02/08/17 06:59 Dose: 0.5 mg Clopidogrel Bisulfate (Plavix) 75 mg PO DAILY [facility] Last Admin: 01/31/17 09:57 Dose: 75 mg Fluticasone Propionate (Flonase) 1 actuation NS DAILY [facility] Last Admin: 02/07/17 09:18 Dose: 1 spr Home Med (Home Med) 2.5 unit SC DAILY [facility] Last Admin: 02/07/17 09:19 Dose: 2.5 unit Meropenem 1g/NS 100mL IVPB (Meropenem 1g/Ns 100ml Ivpb) 1 gm in 100 mls @ 100 mls/hr IVPB Q8 NO PRN Reason: Protocol Stop: 02/09/17 14:01 Last Admin: 02/08/17 06:00 Dose: 100 mls/hr Amiodarone HCl/Dextrose (Nexterone 360 Mg In D5w 200 Ml (Premix)) 360 mg in 200 mls @ 16.667 mls/hr IV .Q12H NO; 0.5 MG/MIN PRN Reason: Protocol Last Admin: 02/08/17 06:15 Dose: 16.667 mls/hr Dextrose (Dextrose 5% In Water 1000 Ml) 1,000 mls @ 125 mls/hr IV .Q8H NO Last Admin: 02/08/17 04:00 Dose: 125 mls/hr Levalbuterol HCl (Xopenex) 0.63 mg IH [id number] NO Last Admin: 02/08/17 06:59 Dose: 0.63 mg Levalbuterol HCl (Xopenex) 0.63 mg IH Q2H PRN PRN Reason: Shortness of Breath Metoprolol Tartrate (Lopressor) 5 mg IVP Q6H NO Last Admin: 02/08/17 05:42 Dose: Not Given Pantoprazole Sodium (Protonix Inj) 40 mg IVP DAILY NO Last Admin: 02/07/17 09:18 Dose: 40 mg Vitamin A (Vitamin A & D Oint Ud Foilpak) 1 ea TOP Q8H PRN PRN Reason: Dry skin - Labs Labs: 02/08/17 05:45 02/08/17 05:45 PT 15.3 Seconds (9.9-11.8) H 01/29/17 05:30 INR 1.42 (0.93-1.08) H 01/29/17 05:30 APTT 26.5 Seconds (23.7-30.8) 02/05/17 06:00 Assessment and Plan - Assessment and Plan (Free Text) Assessment: Mechanical Fall at home with acute rhabdo and uro sepsis on presentation Respiratory failure with venous congestion and pl. effusions on current CXR Hypernatremia and hypokalemia PAF AMS CAD/Remote OR/Possible recent NSTEMI COPD/Former Smoker HLD PAD DNR/DNI Plan: Renal f/u with free water administration and vigorous K+ replacement Diuresis > neg. balance daily. Resume Lasix to get neg balance, as per renal Continue IV amio and IV metoprolol D/C IV diltiazem AB As per Renal, ID, Pulmonary, Intensivists and Dr. Snyder Monitor: labs, sats., I/O, cultures, ABG's etc. Will follow.
--- NOTE | 2017-02-08 07:38 | CP.CCUPN ---
<Nathanael Palomino - Last Filed: 02/08/17 10:04> CCU Subjective - Physician Review Subjective (Free Text): 02/08/17 07:34 Patient seen and evaluated at bedside in the ICU. S/p Extubation day 6. Abruptly this AM, patient became acute hypoxic with agonal breathing, bradycardic, and hypotensive to 50's systolic. Carotid pulse faint but palpable , femoral pulse confirmed with bedside doppler. AM CXR reviewed, appeared to be acutely mucous plugged. RT suctioned, patient repositioned, and amiodarone drip paused, patient's sats improved mildly and BP improved to 80's/30's. Family notified of patient's critical condition over the phone, encouraged to return to the hospital immediately. Patient's sats later improved to 90's, BP improved to 90's systolic, and HR improved to 80's, but with several PVCs. Repeat CXR was obtained, showing improved aeration of previously plugged area. Pt then went back into afib with RVR, rate up to 160's, so amio drip restarted. Condition poor; family aware of severity of condition. CCU Objective - Vital Signs / Intake & Output Vital Signs (Last 4 hours): Vital Signs Temp Pulse Resp BP Pulse Ox 02/08/17 07:03 28 H 02/08/17 07:00 83 90 H 89/39 L 87 L 02/08/17 06:27 80 52 H 93/40 L 88 L 02/08/17 06:00 80 37 H 88/30 L 91 L 02/08/17 05:42 79 91/50 L 02/08/17 05:00 80 58 H 91/31 L 88 L 02/08/17 04:00 98.3 F 82 47 H 81/34 L 87 L Intake and Output (Last 8hrs): Intake & Output 02/07/17 02/08/17 02/08/17 22:59 06:59 14:59 Intake Total 1692 1287 Output Total 1700 2100 Balance -8 -813 Weight 84.113 kg Intake: IV 1692 1087 AMIODARONE 187 Right Internal Jugular 1692 900 Oral 0 Other 200 Output: Urine 1700 2100 2-way Urethral 1700 2100 Other: # Bowel Movements 0 - Physical Exam Head: Positive for: Atraumatic, Normocephalic Pupils: Positive for: Pinpoint Extroacular Muscles: Positive for: Other (Eyes closed, not opening to stimuli, when openned, no spontaneous movement noted) Conjunctiva: Positive for: Normal. Negative for: Injected, Icteric Mouth: Positive for: Moist Mucous Membranes, Normal Lips, Normal Tounge. Negative for: Drooling Nose (External): Positive for: Atraumatic. Negative for: Abrasion, Contusion, Laceration Neck: Positive for: Trachea Midline. Negative for: Normal Range of Motion (no active ROM, but passive ROM appears intact), JVD Respiratory/Chest: Positive for: Respiratory Distress (agonal and shallow breathing on high flow nasal canula, gasping, but not cyanotic), Accessory Muscle Use, Decreased Breath Sounds (mild-moderate decreased breath sounds in all auscultated brady), Rhonchi (diffuse monderate ronchi in all brady, unchanged from prior exams), Tachypneic. Negative for: Clear to Auscultation, Good Air Exchange, Wheezes, Rales Cardiovascular: Positive for: Other (Initially bradycardic to 40's, amio drip stopped and pt improved to 70's, then after suctioning and reopening of lung ( as seen on CXR) became afib RVR up to 160's, now back in NSR on amio drip) Abdomen: Negative for: Distention, Normal Bowel Sounds (decreased BS), Peritoneal Signs, Guarding Upper Extremity: Positive for: Edema (non-pitting but grossly edematous in bilateral hands extending to mid forearm), Swelling, Temperature Abnormalties ( hands cool to palpation). Negative for: Normal Inspection, Cyanosis (bruising from diffuse swelling and blood draws, dusky-appearing hands, but not grossly cyanotic), NORMAL PULSES (weakly palpable radial pulses likely 2/2 edema), Erythema (no erythema, scatter echymoses likely 2/2 being on anticoagulant), Deformity Lower Extremity: Positive for: Edema (+2 pitting edema in bilateral feet and ankles, +1 from top of SCDs to knees, no joint swelling), Tenderness, Swelling ( (+)ecchymosis, right lower leg), Temperature Abnormalties (feet/ankles cold to palpation). Negative for: Normal Inspection, NORMAL PULSES (unable to palpate bilateral dorsalis pedis or posterior tibials), Cyanosis, Erythema, Deformity Neurological: Positive for: Other (obtunded/non-responsive). Negative for: GCS= 15 (GCS 3 (E1 V1 M1)), CN II-XII Intact (not following commands, non-responsive , unable to assess fully), Speech Normal (non-verbal, non-responsvie), Motor Func Grossly Intact (non-responsive, not retracting from noxious physical stimuli) Skin: Positive for: Warm (except at distal extremities, as noted in extremities exam), Dry, Normal Color (except as noted in upper extremities exam) Psychiatric: Positive for: Other (unreponsive). Negative for: Alert, Oriented x 3, Normal Insight, Normal Concentration, Normal Affect, Normal Mood - Medications Active Medications: Active Medications Generic Name Dose Route Start Last Admin Trade Name Freq PRN Reason Stop Dose Admin Acetaminophen 650 mg 01/28/17 21:29 02/01/17 22:44 Tylenol 325mg Tab PO 650 mg Q6H PRN Administration Fever >100.4 F Acetylcysteine 4 ml 02/04/17 08:00 02/08/17 06:59 Acetylcysteine 20% IH 4 ml [id number] NO Administration Aspirin 81 mg 01/29/17 10:00 02/07/17 09:18 Aspirin Chewable PO Not Given DAILY NO Budesonide 0.5 mg 01/29/17 08:00 02/08/17 06:59 Pulmicort Respules IH 0.5 mg [id number] NO Administration Clopidogrel Bisulfate 75 mg 01/29/17 10:00 01/31/17 09:57 Plavix PO 75 mg DAILY NO Administration Fluticasone Propionate 1 actuation 01/29/17 10:00 02/07/17 09:18 Flonase NS 1 spr DAILY NO Administration Home Med 2.5 unit 02/05/17 14:48 02/07/17 09:19 Home Med SC 2.5 unit DAILY NO Administration Meropenem 1g/NS 100mL IVPB 1 gm in 100 mls @ 100 mls/hr 01/31/17 14:00 06:00 Meropenem 1g/Ns 100ml Ivpb IVPB 02/09/17 14:01 100 mls/hr Q8 NO Administration Protocol Amiodarone HCl/Dextrose 360 mg in 200 mls @ 16.667 mls/hr 02/02/17 00:15 06:15 Nexterone 360 Mg In D5w 200 Ml (Premix) IV 16.667 mls/hr .Q12H NO Administration Protocol 0.5 MG/MIN Dextrose 1,000 mls @ 125 mls/hr 02/06/17 20:09 02/08/17 04:00 Dextrose 5% In Water 1000 Ml IV 125 mls/hr .Q8H NO Administration Levalbuterol HCl 0.63 mg 02/04/17 14:00 02/08/17 06:59 Xopenex IH 0.63 mg [id number] NO Administration Levalbuterol HCl 0.63 mg 02/04/17 08:21 Xopenex IH Q2H PRN Shortness of Breath Metoprolol Tartrate 5 mg 02/03/17 11:00 02/08/17 05:42 Lopressor IVP Not Given Q6H NO Pantoprazole Sodium 40 mg 01/30/17 10:00 02/07/17 09:18 Protonix Inj IVP 40 mg DAILY NO Administration Vitamin A 1 ea 02/04/17 11:44 Vitamin A & D Oint Ud Foilpak TOP Q8H PRN Dry skin - Patient Studies Lab Studies: Lab Studies 02/08/17 02/08/17 02/08/17 Range/Units 06:30 05:45 05:45 WBC 19.4 H (4.5-11.0) 10^3/ul RBC 3.05 L (3.5-6.1) 10^6/uL Hgb 9.1 L (12.0-16.0) g/dL Hct 29.3 L (36.0-48.0) % MCV 96.1 (80.0-105.0) fl MCH 29.8 (25.0-35.0) pg MCHC 31.1 (31.0-37.0) g/dl RDW 16.8 H (11.5-14.5) % Plt Count 362 (120.0-450.0) 10^3/uL MPV 9.8 (7.0-11.0) fl Gran % 92.7 H (50.0-68.0) % Lymph % (Auto) 2.3 L (22.0-35.0) % [place] % (Auto) 4.4 (1.0-6.0) % Eos % (Auto) 0.5 L (1.5-5.0) % Baso % (Auto) 0.1 (0.0-3.0) % Gran # 18.03 H (1.4-6.5) Lymph # 0.4 L (1.2-3.4) [place] # 0.9 H (0.1-0.6) Eos # 0.1 (0.0-0.7) Baso # 0.01 (0.0-2.0) K/mm3 Neutrophils % (Manual) (50.0-70.0) % Lymphocytes % (Manual) (22.0-35.0) % Monocytes % (Manual) (1.0-6.0) % Platelet Evaluation (NORMAL) Polychromasia Hypochromasia Anisocytosis (manual) pCO2 54 H (35-45) mm/Hg pO2 49.0 L (30-55) mm/Hg HCO3 31.9 H (21-28) mmol/L ABG pH 7.38 (7.35-7.45) ABG Total CO2 33.6 H (22-28) mmol.L ABG O2 Saturation 90.4 L (95-98) % ABG O2 Content 10.1 L (15-23) ML/dl ABG Base Excess 5.9 H (-2.0-3.0) mmol/L ABG Hemoglobin 8.2 L (11.7-17.4) g/dL ABG Carboxyhemoglobin 2.5 H (0.5-1.5) % POC ABG HHb (Measured) 9.3 H (0-5) % ABG Methemoglobin 1.0 (0.0-3.0) % ABG O2 Capacity 11.2 L (16-24) mL/dl VBG pH (7.32-7.43) VBG pCO2 (40-60) VBG HCO3 (21-28) mmol/l VBG Total CO2 (22-28) mmol.L VBG O2 Sat (Calc) (40-65) % VBG Base Excess (0.0-2.0) mmol/L VBG Potassium (3.6-5.2) mmol/L Hgb O2 Saturation 87.3 L (95.0-98.0) % Glucose (65-105) mg/dl Lactate (0.7-2.1) mmol/L FiO2 98.0 % Sodium 145 (132-148) mmol/L Potassium 3.8 (3.6-5.0) mmol/L Chloride 108 H (98-107) mmol/L Carbon Dioxide 35 H (21-33) mmol/L Anion Gap 6 L (10-20) BUN 23 H (7-21) mg/dL Creatinine 0.6 L (0.7-1.2) mg/dL Est GFR ( Amer) > 60 Est GFR (Non-Af Amer) > 60 POC Glucose (mg/dL) (65-110) mg/dL Random Glucose 142 H (70-110) mg/dL Calcium 7.0 L (8.4-10.5) mg/dL Phosphorus 2.0 L (2.5-4.5) mg/dL Magnesium 1.8 (1.7-2.2) mg/dL Total Bilirubin 0.6 (0.2-1.3) mg/dL AST 92 H D (14-36) U/L ALT 220 H (7-56) U/L Alkaline Phosphatase 79 (38-126) U/L Total Protein 4.6 L (5.8-8.3) g/dL Albumin 2.0 L (3.0-4.8) g/dL Globulin 2.5 gm/dL Albumin/Globulin Ratio 0.8 L (1.1-1.8) Venous Blood Potassium (3.6-5.2) mmol/L 02/07/17 02/07/17 02/07/17 Range/Units 23:00 21:40 21:07 WBC (4.5-11.0) 10^3/ul RBC (3.5-6.1) 10^6/uL Hgb (12.0-16.0) g/dL Hct (36.0-48.0) % MCV (80.0-105.0) fl MCH (25.0-35.0) pg MCHC (31.0-37.0) g/dl RDW (11.5-14.5) % Plt Count (120.0-450.0) 10^3/uL MPV (7.0-11.0) fl Gran % (50.0-68.0) % Lymph % (Auto) (22.0-35.0) % [place] % (Auto) (1.0-6.0) % Eos % (Auto) (1.5-5.0) % Baso % (Auto) (0.0-3.0) % Gran # (1.4-6.5) Lymph # (1.2-3.4) [place] # (0.1-0.6) Eos # (0.0-0.7) Baso # (0.0-2.0) K/mm3 Neutrophils % (Manual) (50.0-70.0) % Lymphocytes % (Manual) (22.0-35.0) % Monocytes % (Manual) (1.0-6.0) % Platelet Evaluation (NORMAL) Polychromasia Hypochromasia Anisocytosis (manual) pCO2 (35-45) mm/Hg pO2 23 L (30-55) mm/Hg HCO3 (21-28) mmol/L ABG pH (7.35-7.45) ABG Total CO2 (22-28) mmol.L ABG O2 Saturation (95-98) % ABG O2 Content (15-23) ML/dl ABG Base Excess (-2.0-3.0) mmol/L ABG Hemoglobin (11.7-17.4) g/dL ABG Carboxyhemoglobin (0.5-1.5) % POC ABG HHb (Measured) (0-5) % ABG Methemoglobin (0.0-3.0) % ABG O2 Capacity (16-24) mL/dl VBG pH 7.43 (7.32-7.43) VBG pCO2 56.0 (40-60) VBG HCO3 37.2 H (21-28) mmol/l VBG Total CO2 38.9 H (22-28) mmol.L VBG O2 Sat (Calc) 55.1 (40-65) % VBG Base Excess 10.7 H (0.0-2.0) mmol/L VBG Potassium 2.8 L (3.6-5.2) mmol/L Hgb O2 Saturation (95.0-98.0) % Glucose 160 H (65-105) mg/dl Lactate 1.7 (0.7-2.1) mmol/L FiO2 21.0 % Sodium 147.0 147 (132-148) mmol/L Potassium 2.7 L* D (3.6-5.0) mmol/L Chloride 111.0 H 108 H (98-107) mmol/L Carbon Dioxide 35 H (21-33) mmol/L Anion Gap 7 L (10-20) BUN 22 H (7-21) mg/dL Creatinine 0.7 (0.7-1.2) mg/dL Est GFR ( Amer) > 60 Est GFR (Non-Af Amer) > 60 POC Glucose (mg/dL) 174 H (65-110) mg/dL Random Glucose 156 H (70-110) mg/dL Calcium 7.1 L (8.4-10.5) mg/dL Phosphorus (2.5-4.5) mg/dL Magnesium (1.7-2.2) mg/dL Total Bilirubin (0.2-1.3) mg/dL AST (14-36) U/L ALT (7-56) U/L Alkaline Phosphatase (38-126) U/L Total Protein (5.8-8.3) g/dL Albumin (3.0-4.8) g/dL Globulin gm/dL Albumin/Globulin Ratio (1.1-1.8) Venous Blood Potassium 2.8 L (3.6-5.2) mmol/L 02/07/17 02/07/17 02/07/17 Range/Units 16:08 11:30 06:00 WBC (4.5-11.0) 10^3/ul RBC (3.5-6.1) 10^6/uL Hgb (12.0-16.0) g/dL Hct (36.0-48.0) % MCV (80.0-105.0) fl MCH (25.0-35.0) pg MCHC (31.0-37.0) g/dl RDW (11.5-14.5) % Plt Count (120.0-450.0) 10^3/uL MPV (7.0-11.0) fl Gran % (50.0-68.0) % Lymph % (Auto) (22.0-35.0) % [place] % (Auto) (1.0-6.0) % Eos % (Auto) (1.5-5.0) % Baso % (Auto) (0.0-3.0) % Gran # (1.4-6.5) Lymph # (1.2-3.4) [place] # (0.1-0.6) Eos # (0.0-0.7) Baso # (0.0-2.0) K/mm3 Neutrophils % (Manual) 93 H (50.0-70.0) % Lymphocytes % (Manual) 5 L (22.0-35.0) % Monocytes % (Manual) 2 (1.0-6.0) % Platelet Evaluation Normal (NORMAL) Polychromasia Slight Hypochromasia 1+ Anisocytosis (manual) 1+ pCO2 (35-45) mm/Hg pO2 (30-55) mm/Hg HCO3 (21-28) mmol/L ABG pH (7.35-7.45) ABG Total CO2 (22-28) mmol.L ABG O2 Saturation (95-98) % ABG O2 Content (15-23) ML/dl ABG Base Excess (-2.0-3.0) mmol/L ABG Hemoglobin (11.7-17.4) g/dL ABG Carboxyhemoglobin (0.5-1.5) % POC ABG HHb (Measured) (0-5) % ABG Methemoglobin (0.0-3.0) % ABG O2 Capacity (16-24) mL/dl VBG pH (7.32-7.43) VBG pCO2 (40-60) VBG HCO3 (21-28) mmol/l VBG Total CO2 (22-28) mmol.L VBG O2 Sat (Calc) (40-65) % VBG Base Excess (0.0-2.0) mmol/L VBG Potassium (3.6-5.2) mmol/L Hgb O2 Saturation (95.0-98.0) % Glucose (65-105) mg/dl Lactate (0.7-2.1) mmol/L FiO2 % Sodium (132-148) mmol/L Potassium (3.6-5.0) mmol/L Chloride (98-107) mmol/L Carbon Dioxide (21-33) mmol/L Anion Gap (10-20) BUN (7-21) mg/dL Creatinine (0.7-1.2) mg/dL Est GFR ( Amer) Est GFR (Non-Af Amer) POC Glucose (mg/dL) 191 H 194 H (65-110) mg/dL Random Glucose (70-110) mg/dL Calcium (8.4-10.5) mg/dL Phosphorus (2.5-4.5) mg/dL Magnesium (1.7-2.2) mg/dL Total Bilirubin (0.2-1.3) mg/dL AST (14-36) U/L ALT (7-56) U/L Alkaline Phosphatase (38-126) U/L Total Protein (5.8-8.3) g/dL Albumin (3.0-4.8) g/dL Globulin gm/dL Albumin/Globulin Ratio (1.1-1.8) Venous Blood Potassium (3.6-5.2) mmol/L Laboratory Results - last 24 hr 02/07/17 02/07/17 02/07/17 06:00 11:30 16:08 WBC RBC Hgb Hct MCV MCH MCHC RDW Plt Count MPV Gran % Lymph % (Auto) [place] % (Auto) Eos % (Auto) Baso % (Auto) Gran # Lymph # [place] # Eos # Baso # Neutrophils % (Manual) 93 H Lymphocytes % (Manual) 5 L Monocytes % (Manual) 2 Platelet Evaluation Normal Polychromasia Slight Hypochromasia 1+ Anisocytosis (manual) 1+ pCO2 pO2 HCO3 ABG pH ABG Total CO2 ABG O2 Saturation ABG O2 Content ABG Base Excess ABG Hemoglobin ABG Carboxyhemoglobin POC ABG HHb (Measured) ABG Methemoglobin ABG O2 Capacity VBG pH VBG pCO2 VBG HCO3 VBG Total CO2 VBG O2 Sat (Calc) VBG Base Excess VBG Potassium Hgb O2 Saturation Glucose Lactate FiO2 Sodium Potassium Chloride Carbon Dioxide Anion Gap BUN Creatinine Est GFR ( Amer) Est GFR (Non-Af Amer) POC Glucose (mg/dL) 194 H 191 H Random Glucose Calcium Phosphorus Magnesium Total Bilirubin AST ALT Alkaline Phosphatase Total Protein Albumin Globulin Albumin/Globulin Ratio Venous Blood Potassium 02/07/17 02/07/17 02/07/17 21:07 21:40 23:00 WBC RBC Hgb Hct MCV MCH MCHC RDW Plt Count MPV Gran % Lymph % (Auto) [place] % (Auto) Eos % (Auto) Baso % (Auto) Gran # Lymph # [place] # Eos # Baso # Neutrophils % (Manual) Lymphocytes % (Manual) Monocytes % (Manual) Platelet Evaluation Polychromasia Hypochromasia Anisocytosis (manual) pCO2 pO2 23 L HCO3 ABG pH ABG Total CO2 ABG O2 Saturation ABG O2 Content ABG Base Excess ABG Hemoglobin ABG Carboxyhemoglobin POC ABG HHb (Measured) ABG Methemoglobin ABG O2 Capacity VBG pH 7.43 VBG pCO2 56.0 VBG HCO3 37.2 H VBG Total CO2 38.9 H VBG O2 Sat (Calc) 55.1 VBG Base Excess 10.7 H VBG Potassium 2.8 L Hgb O2 Saturation Glucose 160 H Lactate 1.7 FiO2 21.0 Sodium 147 147.0 Potassium 2.7 L* D Chloride 108 H 111.0 H Carbon Dioxide 35 H Anion Gap 7 L BUN 22 H Creatinine 0.7 Est GFR ( Amer) > 60 Est GFR (Non-Af Amer) > 60 POC Glucose (mg/dL) 174 H Random Glucose 156 H Calcium 7.1 L Phosphorus Magnesium Total Bilirubin AST ALT Alkaline Phosphatase Total Protein Albumin Globulin Albumin/Globulin Ratio Venous Blood Potassium 2.8 L 02/08/17 02/08/17 02/08/17 05:45 05:45 06:30 WBC 19.4 H RBC 3.05 L Hgb 9.1 L Hct 29.3 L MCV 96.1 MCH 29.8 MCHC 31.1 RDW 16.8 H Plt Count 362 MPV 9.8 Gran % 92.7 H Lymph % (Auto) 2.3 L [place] % (Auto) 4.4 Eos % (Auto) 0.5 L Baso % (Auto) 0.1 Gran # 18.03 H Lymph # 0.4 L [place] # 0.9 H Eos # 0.1 Baso # 0.01 Neutrophils % (Manual) Lymphocytes % (Manual) Monocytes % (Manual) Platelet Evaluation Polychromasia Hypochromasia Anisocytosis (manual) pCO2 54 H pO2 49.0 L HCO3 31.9 H ABG pH 7.38 ABG Total CO2 33.6 H ABG O2 Saturation 90.4 L ABG O2 Content 10.1 L ABG Base Excess 5.9 H ABG Hemoglobin 8.2 L ABG Carboxyhemoglobin 2.5 H POC ABG HHb (Measured) 9.3 H ABG Methemoglobin 1.0 ABG O2 Capacity 11.2 L VBG pH VBG pCO2 VBG HCO3 VBG Total CO2 VBG O2 Sat (Calc) VBG Base Excess VBG Potassium Hgb O2 Saturation 87.3 L Glucose Lactate FiO2 98.0 Sodium 145 Potassium 3.8 Chloride 108 H Carbon Dioxide 35 H Anion Gap 6 L BUN 23 H Creatinine 0.6 L Est GFR ( Amer) > 60 Est GFR (Non-Af Amer) > 60 POC Glucose (mg/dL) Random Glucose 142 H Calcium 7.0 L Phosphorus 2.0 L Magnesium 1.8 Total Bilirubin 0.6 AST 92 H D ALT 220 H Alkaline Phosphatase 79 Total Protein 4.6 L Albumin 2.0 L Globulin 2.5 Albumin/Globulin Ratio 0.8 L Venous Blood Potassium Fingerstick Blood Sugar Results: 174 Review of Systems - Review of Systems Systems not reviewed;Unavailable: Altered Mental Status (unresponsive) Critical Care Progress Note - Nutrition Nutrition: Nutrition Category Date Time Status NPO Diet [DIET] Diets 02/01/17 Breakfast Ordered Assessment/Plan - Assessment and Plan (Free Text) Assessment: This is an 81 yo F with PMH of HTN, HLD, 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 She was determined to be in urosepsis, and was found on CT abd to have a 5mm R-ureteral stone with R hydronephrosis. S/p R ureter stenting and pus drainage, then went into Septic shock requiring pressor support and hypoxic respiratory failure/ARDS requiring intubation. S/p extubation 6 days prior, off vasopressor support, but still requires high-flow nasal canula, and has now failed Swallow eval x3. Acutely became hypoxic/ hypotensive/bradycardic and unresponsive, now stabilized but in poor state; family aware. Plan: Neuro: -AAOx4 on admission, became confused/obtunded 2/2 septic shock and respiratory failure; acutely became unresponsive this AM, not following commands -no sided neurological deficit or sensory abnormality on exam on initial exam, CT head negative for acute findings -maintain normothermia, fever overnight of 101.6F; No PO access for now so will need to use Ofirmev for further fevers -Syncopal episode prior to presentation, likely 2/2 hypotension from urosepsis Pulm: -Hx COPD, likely 2/2 prolonged tobacco abuse (~80 pack years) -s/p extubation 7 days prior, intubated initially for hypoxic respiratory failure and airway protection 2/2 worsening mental status -AM ABG reviewed, worsening hypoxia (Po2 49, was 144), and persisting CO2 retention (Pco2 54, was 60, previous 20's-30's), concerning but patient remains DNI -Continue Mucomyst, Budesonide, and Xopenex -CXR this AM concerning for possible mucous plugging, improved with suctioning, but patient remains agonal breathing and unresponsive -Pulm (Dr. Guerin) following, appreciate all recs Cardio: -resolving septic shock, remains off all pressors -continue to monitor, target MAP >= 65 -still appears overloaded; metabolic alkalosis resolved, now back on Lasix for tx -Was bradycardic to 40's, off amio drip improved to 70's, then afib with RVR up to 160's, back on amio drip and HR 80's. -Hypotensive to 50's, now improved to 90's systolic. -Was on agatrobran drip for elevated trop (peaked at 1.95, last was 0.45) and dropping platelets in setting over Lovenox use concerning for HIT; HIT panel and SFA assay negative, agatroban stopped, now on Arixtra as per Heme-onc, platelets also improved -hx of R ICA 100% stenosis/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 Childers) following, appreciate all recs, Dr. Hamm consulted for second opinion as per family's wishes GI: -Protonix for GI ppx -NPO due to failed swallow studies, unable to tolerate Dobhoff placement -Family was discussing possibility of feeding tube, discussion on hold given current acute condition Renal: -Cr. 0.6, BUN 23 -ALEX resolved, likely 2/2 dehydration vs hypoperfusion 2/2 urosepsis with shock -CT pelvis notable for 5mm stone in R ureter with R hydroureteronephrosis; as per Urology stent placed and pus drained, but unable to remove stone -Monitor and replete electrolytes as necessary -Maintain euglycemia (BG 140-180) -repeat UA on 01/30 notable for trace leuk esterase (unchanged), TNTC RBCs and Large blood (worse by comparison), 1-3 WBCs (improved), Few bacteria (improved) , and trace granular casts (new finding) ID: -improved leukocytosis, 19.4 today -Fever overnight, 101.6F -On Merrem, Vanco stopped by ID -ID following, appreciate all recs Heme: -Hgb 9.1 -acute drop in platelets while on Lovenox, from 171 to 51, concerning for HIT; stopped lovenox, started on Agatroban drip as per Heme-onc, HIT panel and Serrotonin assay negative, so Agatroban drip stopped, platelets recovered (now 365) -As per Heme-onc, Arixtra for AC Dispo: ICU, s/p extubation 6 days prior, on Amio persistent recurring AFib with RVR causing hypotension; acutely worsened this AM as described above, prognosis poor FEN: NPO, D5W 75cc/hr Access: Peripheral IV, TLC R neck Consults: Urology, Cardio x2 (Alvarado initially, Hansel for 2nd opinion), Heme- onc, Pulm, Nephro, ID, Palliative Ppx: Protonix for GI, Arixtra for DVT ppx Patient seen, reviewed, and case discussed with attending, Dr. Garcia <Jose VELASQUEZ,[facility] H - Last Filed: 02/08/17 11:19> CCU Objective - Vital Signs / Intake & Output Vital Signs (Last 4 hours): Vital Signs Temp Pulse Resp BP Pulse Ox 02/08/17 09:15 79 31 H 99/35 L 94 L 02/08/17 09:00 107 H 28 H 104/41 L 95 02/08/17 08:45 102 H 30 H 97/33 L 93 L 02/08/17 08:30 84 50 H 103/38 L 94 L 02/08/17 08:19 78 33 H 88/38 L 92 L 02/08/17 08:13 78 37 H 83/32 L 92 L 02/08/17 08:07 73 33 H 43/18 L 58 L 02/08/17 08:02 73 23 50/17 L 58 L 02/08/17 08:00 101.6 F H 71 24 51/21 L 49 L Intake and Output (Last 8hrs): Intake & Output 02/07/17 02/08/17 02/08/17 22:59 06:59 14:59 Intake Total 1692 1287 Output Total 1700 2100 Balance -8 -813 Weight 185 lb 7 oz Intake: IV 1692 1087 AMIODARONE 187 Right Internal Jugular 1692 900 Oral 0 Other 200 Output: Urine 1700 2100 2-way Urethral 1700 2100 Other: # Bowel Movements 0 - Medications Active Medications: Active Medications Generic Name Dose Route Start Last Admin Trade Name Freq PRN Reason Stop Dose Admin Acetaminophen 650 mg 01/28/17 21:29 02/01/17 22:44 Tylenol 325mg Tab PO 650 mg Q6H PRN Administration Fever >100.4 F Acetylcysteine 4 ml 02/04/17 08:00 02/08/17 06:59 Acetylcysteine 20% IH 4 ml [id number] NO Administration Aspirin 81 mg 01/29/17 10:00 02/08/17 09:45 Aspirin Chewable PO Not Given DAILY NO Budesonide 0.5 mg 01/29/17 08:00 02/08/17 06:59 Pulmicort Respules IH 0.5 mg [id number] NO Administration Clopidogrel Bisulfate 75 mg 01/29/17 10:00 01/31/17 09:57 Plavix PO 75 mg DAILY NO Administration Fluticasone Propionate 1 actuation 01/29/17 10:00 02/07/17 09:18 Flonase NS 1 spr DAILY NO Administration Home Med 2.5 unit 02/05/17 14:48 02/08/17 09:41 Home Med SC 2.5 unit DAILY NO Administration Meropenem 1g/NS 100mL IVPB 1 gm in 100 mls @ 100 mls/hr 01/31/17 14:00 06:00 Meropenem 1g/Ns 100ml Ivpb IVPB 02/09/17 14:01 100 mls/hr Q8 NO Administration Protocol Amiodarone HCl/Dextrose 360 mg in 200 mls @ 16.667 mls/hr 02/02/17 00:15 06:15 Nexterone 360 Mg In D5w 200 Ml (Premix) IV 16.667 mls/hr .Q12H NO Administration Protocol 0.5 MG/MIN Dextrose 1,000 mls @ 75 mls/hr 02/08/17 07:53 Dextrose 5% In Water 1000 Ml IV .[id number] NO Magnesium Sulfate 2 gm/ Sodium 104 mls @ 102 mls/hr 02/08/17 10:19 Chloride IVPB 02/08/17 11:20 ONCE ONE Potassium Phosphate 15 mmole/ 255 mls @ 42.5 mls/hr 02/08/17 11:11 Dextrose IVPB 02/08/17 17:10 ONCE ONE Levalbuterol HCl 0.63 mg 02/04/17 14:00 02/08/17 06:59 Xopenex IH 0.63 mg [id number] NO Administration Levalbuterol HCl 0.63 mg 02/04/17 08:21 Xopenex IH Q2H PRN Shortness of Breath Metoprolol Tartrate 5 mg 02/03/17 11:00 02/08/17 05:42 Lopressor IVP Not Given Q6H NO Pantoprazole Sodium 40 mg 01/30/17 10:00 02/08/17 09:48 Protonix Inj IVP 40 mg DAILY NO Administration Vitamin A 1 ea 02/04/17 11:44 Vitamin A & D Oint Ud Foilpak TOP Q8H PRN Dry skin - Patient Studies Lab Studies: Lab Studies 02/08/17 02/08/17 02/08/17 Range/Units 08:22 06:30 05:45 WBC (4.5-11.0) 10^3/ul RBC (3.5-6.1) 10^6/uL Hgb (12.0-16.0) g/dL Hct (36.0-48.0) % MCV (80.0-105.0) fl MCH (25.0-35.0) pg MCHC (31.0-37.0) g/dl RDW (11.5-14.5) % Plt Count (120.0-450.0) 10^3/uL MPV (7.0-11.0) fl Gran % (50.0-68.0) % Lymph % (Auto) (22.0-35.0) % [place] % (Auto) (1.0-6.0) % Eos % (Auto) (1.5-5.0) % Baso % (Auto) (0.0-3.0) % Gran # (1.4-6.5) Lymph # (1.2-3.4) [place] # (0.1-0.6) Eos # (0.0-0.7) Baso # (0.0-2.0) K/mm3 pCO2 54 H (35-45) mm/Hg pO2 49.0 L (30-55) mm/Hg HCO3 31.9 H (21-28) mmol/L ABG pH 7.38 (7.35-7.45) ABG Total CO2 33.6 H (22-28) mmol.L ABG O2 Saturation 90.4 L (95-98) % ABG O2 Content 10.1 L (15-23) ML/dl ABG Base Excess 5.9 H (-2.0-3.0) mmol/L ABG Hemoglobin 8.2 L (11.7-17.4) g/dL ABG Carboxyhemoglobin 2.5 H (0.5-1.5) % POC ABG HHb (Measured) 9.3 H (0-5) % ABG Methemoglobin 1.0 (0.0-3.0) % ABG O2 Capacity 11.2 L (16-24) mL/dl VBG pH (7.32-7.43) VBG pCO2 (40-60) VBG HCO3 (21-28) mmol/l VBG Total CO2 (22-28) mmol.L VBG O2 Sat (Calc) (40-65) % VBG Base Excess (0.0-2.0) mmol/L VBG Potassium (3.6-5.2) mmol/L Hgb O2 Saturation 87.3 L (95.0-98.0) % Glucose (65-105) mg/dl Lactate (0.7-2.1) mmol/L FiO2 98.0 % Sodium 145 (132-148) mmol/L Potassium 3.8 (3.6-5.0) mmol/L Chloride 108 H (98-107) mmol/L Carbon Dioxide 35 H (21-33) mmol/L Anion Gap 6 L (10-20) BUN 23 H (7-21) mg/dL Creatinine 0.6 L (0.7-1.2) mg/dL Est GFR ( Amer) > 60 Est GFR (Non-Af Amer) > 60 POC Glucose (mg/dL) 152 H (65-110) mg/dL Random Glucose 142 H (70-110) mg/dL Calcium 7.0 L (8.4-10.5) mg/dL Phosphorus 2.0 L (2.5-4.5) mg/dL Magnesium 1.8 (1.7-2.2) mg/dL Total Bilirubin 0.6 (0.2-1.3) mg/dL AST 92 H D (14-36) U/L ALT 220 H (7-56) U/L Alkaline Phosphatase 79 (38-126) U/L Total Protein 4.6 L (5.8-8.3) g/dL Albumin 2.0 L (3.0-4.8) g/dL Globulin 2.5 gm/dL Albumin/Globulin Ratio 0.8 L (1.1-1.8) Venous Blood Potassium (3.6-5.2) mmol/L 02/08/17 02/07/17 02/07/17 Range/Units 05:45 23:00 21:40 WBC 19.4 H (4.5-11.0) 10^3/ul RBC 3.05 L (3.5-6.1) 10^6/uL Hgb 9.1 L (12.0-16.0) g/dL Hct 29.3 L (36.0-48.0) % MCV 96.1 (80.0-105.0) fl MCH 29.8 (25.0-35.0) pg MCHC 31.1 (31.0-37.0) g/dl RDW 16.8 H (11.5-14.5) % Plt Count 362 (120.0-450.0) 10^3/uL MPV 9.8 (7.0-11.0) fl Gran % 92.7 H (50.0-68.0) % Lymph % (Auto) 2.3 L (22.0-35.0) % [place] % (Auto) 4.4 (1.0-6.0) % Eos % (Auto) 0.5 L (1.5-5.0) % Baso % (Auto) 0.1 (0.0-3.0) % Gran # 18.03 H (1.4-6.5) Lymph # 0.4 L (1.2-3.4) [place] # 0.9 H (0.1-0.6) Eos # 0.1 (0.0-0.7) Baso # 0.01 (0.0-2.0) K/mm3 pCO2 (35-45) mm/Hg pO2 23 L (30-55) mm/Hg HCO3 (21-28) mmol/L ABG pH (7.35-7.45) ABG Total CO2 (22-28) mmol.L ABG O2 Saturation (95-98) % ABG O2 Content (15-23) ML/dl ABG Base Excess (-2.0-3.0) mmol/L ABG Hemoglobin (11.7-17.4) g/dL ABG Carboxyhemoglobin (0.5-1.5) % POC ABG HHb (Measured) (0-5) % ABG Methemoglobin (0.0-3.0) % ABG O2 Capacity (16-24) mL/dl VBG pH 7.43 (7.32-7.43) VBG pCO2 56.0 (40-60) VBG HCO3 37.2 H (21-28) mmol/l VBG Total CO2 38.9 H (22-28) mmol.L VBG O2 Sat (Calc) 55.1 (40-65) % VBG Base Excess 10.7 H (0.0-2.0) mmol/L VBG Potassium 2.8 L (3.6-5.2) mmol/L Hgb O2 Saturation (95.0-98.0) % Glucose 160 H (65-105) mg/dl Lactate 1.7 (0.7-2.1) mmol/L FiO2 21.0 % Sodium 147.0 (132-148) mmol/L Potassium (3.6-5.0) mmol/L Chloride 111.0 H (98-107) mmol/L Carbon Dioxide (21-33) mmol/L Anion Gap (10-20) BUN (7-21) mg/dL Creatinine (0.7-1.2) mg/dL Est GFR ( Amer) Est GFR (Non-Af Amer) POC Glucose (mg/dL) 174 H (65-110) mg/dL Random Glucose (70-110) mg/dL Calcium (8.4-10.5) mg/dL Phosphorus (2.5-4.5) mg/dL Magnesium (1.7-2.2) mg/dL Total Bilirubin (0.2-1.3) mg/dL AST (14-36) U/L ALT (7-56) U/L Alkaline Phosphatase (38-126) U/L Total Protein (5.8-8.3) g/dL Albumin (3.0-4.8) g/dL Globulin gm/dL Albumin/Globulin Ratio (1.1-1.8) Venous Blood Potassium 2.8 L (3.6-5.2) mmol/L 02/07/17 02/07/17 02/07/17 Range/Units 21:07 16:08 11:30 WBC (4.5-11.0) 10^3/ul RBC (3.5-6.1) 10^6/uL Hgb (12.0-16.0) g/dL Hct (36.0-48.0) % MCV (80.0-105.0) fl MCH (25.0-35.0) pg MCHC (31.0-37.0) g/dl RDW (11.5-14.5) % Plt Count (120.0-450.0) 10^3/uL MPV (7.0-11.0) fl Gran % (50.0-68.0) % Lymph % (Auto) (22.0-35.0) % [place] % (Auto) (1.0-6.0) % Eos % (Auto) (1.5-5.0) % Baso % (Auto) (0.0-3.0) % Gran # (1.4-6.5) Lymph # (1.2-3.4) [place] # (0.1-0.6) Eos # (0.0-0.7) Baso # (0.0-2.0) K/mm3 pCO2 (35-45) mm/Hg pO2 (30-55) mm/Hg HCO3 (21-28) mmol/L ABG pH (7.35-7.45) ABG Total CO2 (22-28) mmol.L ABG O2 Saturation (95-98) % ABG O2 Content (15-23) ML/dl ABG Base Excess (-2.0-3.0) mmol/L ABG Hemoglobin (11.7-17.4) g/dL ABG Carboxyhemoglobin (0.5-1.5) % POC ABG HHb (Measured) (0-5) % ABG Methemoglobin (0.0-3.0) % ABG O2 Capacity (16-24) mL/dl VBG pH (7.32-7.43) VBG pCO2 (40-60) VBG HCO3 (21-28) mmol/l VBG Total CO2 (22-28) mmol.L VBG O2 Sat (Calc) (40-65) % VBG Base Excess (0.0-2.0) mmol/L VBG Potassium (3.6-5.2) mmol/L Hgb O2 Saturation (95.0-98.0) % Glucose (65-105) mg/dl Lactate (0.7-2.1) mmol/L FiO2 % Sodium 147 (132-148) mmol/L Potassium 2.7 L* D (3.6-5.0) mmol/L Chloride 108 H (98-107) mmol/L Carbon Dioxide 35 H (21-33) mmol/L Anion Gap 7 L (10-20) BUN 22 H (7-21) mg/dL Creatinine 0.7 (0.7-1.2) mg/dL Est GFR ( Amer) > 60 Est GFR (Non-Af Amer) > 60 POC Glucose (mg/dL) 191 H 194 H (65-110) mg/dL Random Glucose 156 H (70-110) mg/dL Calcium 7.1 L (8.4-10.5) mg/dL Phosphorus (2.5-4.5) mg/dL Magnesium (1.7-2.2) mg/dL Total Bilirubin (0.2-1.3) mg/dL AST (14-36) U/L ALT (7-56) U/L Alkaline Phosphatase (38-126) U/L Total Protein (5.8-8.3) g/dL Albumin (3.0-4.8) g/dL Globulin gm/dL Albumin/Globulin Ratio (1.1-1.8) Venous Blood Potassium (3.6-5.2) mmol/L Laboratory Results - last 24 hr 02/07/17 02/07/17 02/07/17 11:30 16:08 21:07 WBC RBC Hgb Hct MCV MCH MCHC RDW Plt Count MPV Gran % Lymph % (Auto) [place] % (Auto) Eos % (Auto) Baso % (Auto) Gran # Lymph # [place] # Eos # Baso # pCO2 pO2 HCO3 ABG pH ABG Total CO2 ABG O2 Saturation ABG O2 Content ABG Base Excess ABG Hemoglobin ABG Carboxyhemoglobin POC ABG HHb (Measured) ABG Methemoglobin ABG O2 Capacity VBG pH VBG pCO2 VBG HCO3 VBG Total CO2 VBG O2 Sat (Calc) VBG Base Excess VBG Potassium Hgb O2 Saturation Glucose Lactate FiO2 Sodium 147 Potassium 2.7 L* D Chloride 108 H Carbon Dioxide 35 H Anion Gap 7 L BUN 22 H Creatinine 0.7 Est GFR ( Amer) > 60 Est GFR (Non-Af Amer) > 60 POC Glucose (mg/dL) 194 H 191 H Random Glucose 156 H Calcium 7.1 L Phosphorus Magnesium Total Bilirubin AST ALT Alkaline Phosphatase Total Protein Albumin Globulin Albumin/Globulin Ratio Venous Blood Potassium 02/07/17 02/07/17 02/08/17 21:40 23:00 05:45 WBC 19.4 H RBC 3.05 L Hgb 9.1 L Hct 29.3 L MCV 96.1 MCH 29.8 MCHC 31.1 RDW 16.8 H Plt Count 362 MPV 9.8 Gran % 92.7 H Lymph % (Auto) 2.3 L [place] % (Auto) 4.4 Eos % (Auto) 0.5 L Baso % (Auto) 0.1 Gran # 18.03 H Lymph # 0.4 L [place] # 0.9 H Eos # 0.1 Baso # 0.01 pCO2 pO2 23 L HCO3 ABG pH ABG Total CO2 ABG O2 Saturation ABG O2 Content ABG Base Excess ABG Hemoglobin ABG Carboxyhemoglobin POC ABG HHb (Measured) ABG Methemoglobin ABG O2 Capacity VBG pH 7.43 VBG pCO2 56.0 VBG HCO3 37.2 H VBG Total CO2 38.9 H VBG O2 Sat (Calc) 55.1 VBG Base Excess 10.7 H VBG Potassium 2.8 L Hgb O2 Saturation Glucose 160 H Lactate 1.7 FiO2 21.0 Sodium 147.0 Potassium Chloride 111.0 H Carbon Dioxide Anion Gap BUN Creatinine Est GFR ( Amer) Est GFR (Non-Af Amer) POC Glucose (mg/dL) 174 H Random Glucose Calcium Phosphorus Magnesium Total Bilirubin AST ALT Alkaline Phosphatase Total Protein Albumin Globulin Albumin/Globulin Ratio Venous Blood Potassium 2.8 L 02/08/17 02/08/17 02/08/17 05:45 06:30 08:22 WBC RBC Hgb Hct MCV MCH MCHC RDW Plt Count MPV Gran % Lymph % (Auto) [place] % (Auto) Eos % (Auto) Baso % (Auto) Gran # Lymph # [place] # Eos # Baso # pCO2 54 H pO2 49.0 L HCO3 31.9 H ABG pH 7.38 ABG Total CO2 33.6 H ABG O2 Saturation 90.4 L ABG O2 Content 10.1 L ABG Base Excess 5.9 H ABG Hemoglobin 8.2 L ABG Carboxyhemoglobin 2.5 H POC ABG HHb (Measured) 9.3 H ABG Methemoglobin 1.0 ABG O2 Capacity 11.2 L VBG pH VBG pCO2 VBG HCO3 VBG Total CO2 VBG O2 Sat (Calc) VBG Base Excess VBG Potassium Hgb O2 Saturation 87.3 L Glucose Lactate FiO2 98.0 Sodium 145 Potassium 3.8 Chloride 108 H Carbon Dioxide 35 H Anion Gap 6 L BUN 23 H Creatinine 0.6 L Est GFR ( Amer) > 60 Est GFR (Non-Af Amer) > 60 POC Glucose (mg/dL) 152 H Random Glucose 142 H Calcium 7.0 L Phosphorus 2.0 L Magnesium 1.8 Total Bilirubin 0.6 AST 92 H D ALT 220 H Alkaline Phosphatase 79 Total Protein 4.6 L Albumin 2.0 L Globulin 2.5 Albumin/Globulin Ratio 0.8 L Venous Blood Potassium Critical Care Progress Note - Nutrition Nutrition: Nutrition Category Date Time Status NPO Diet [DIET] Diets 02/01/17 Breakfast Ordered Attending/Attestation - Attestation I have personally seen and examined this patient.: Yes I have fully participated in the care of the patient.: Yes I have reviewed all pertinent clinical information: Yes Notes (Text): 02/08/17 11:16 81 y/o F w/ resolved septic shock and respiratory failure On HFNC 80-100% w/o improvement with diuresis Multiple mucous plugs noted. Suctioning done, nebs and chest PT. CXR improved. Earlier this morning was found to have hypotenstion related to hypoxia and agonal breathing. Improved after intervention. Family at bedside and understand the ultimate prognosis . Remains DNR.DNI Awaiting decision for feeding tube. A fib continued on Amiodarone . cc time 55 min
--- NOTE | 2017-02-08 07:58 | CP.PCM.PN ---
Subjective - Date & Time of Evaluation Date of Evaluation: 02/07/17 Time of Evaluation: 11:30 - Subjective Subjective: Patient reports being tired; more alert today; Objective - Vital Signs/Intake and Output Vital Signs (last 24 hours): Temp Pulse Resp BP Pulse Ox 98.3 F 83 28 H 89/39 L 87 L 02/08/17 04:00 02/08/17 07:00 02/08/17 07:03 02/08/17 07:00 02/08/17 07:00 Intake and Output: 02/08/17 02/08/17 06:59 18:59 Intake Total 1287 Output Total 2100 Balance -813 - Medications Medications: Current Medications Acetaminophen (Tylenol 325mg Tab) 650 mg PO Q6H PRN PRN Reason: Fever >100.4 F Last Admin: 02/01/17 22:44 Dose: 650 mg Acetylcysteine (Acetylcysteine 20%) 4 ml IH [id number] NO Last Admin: 02/08/17 06:59 Dose: 4 ml Aspirin (Aspirin Chewable) 81 mg PO DAILY [facility] Last Admin: 02/07/17 09:18 Dose: Not Given Budesonide (Pulmicort Respules) 0.5 mg IH [id number] NO Last Admin: 02/08/17 06:59 Dose: 0.5 mg Clopidogrel Bisulfate (Plavix) 75 mg PO DAILY NO Last Admin: 01/31/17 09:57 Dose: 75 mg Fluticasone Propionate (Flonase) 1 actuation NS DAILY [facility] Last Admin: 02/07/17 09:18 Dose: 1 spr Home Med (Home Med) 2.5 unit SC DAILY NO Last Admin: 02/07/17 09:19 Dose: 2.5 unit Meropenem 1g/NS 100mL IVPB (Meropenem 1g/Ns 100ml Ivpb) 1 gm in 100 mls @ 100 mls/hr IVPB Q8 NO PRN Reason: Protocol Stop: 02/09/17 14:01 Last Admin: 02/08/17 06:00 Dose: 100 mls/hr Amiodarone HCl/Dextrose (Nexterone 360 Mg In D5w 200 Ml (Premix)) 360 mg in 200 mls @ 16.667 mls/hr IV .Q12H NO; 0.5 MG/MIN PRN Reason: Protocol Last Admin: 02/08/17 06:15 Dose: 16.667 mls/hr Dextrose (Dextrose 5% In Water 1000 Ml) 1,000 mls @ 75 mls/hr IV .[id number] [facility] Levalbuterol HCl (Xopenex) 0.63 mg IH [id number] [facility] Last Admin: 02/08/17 06:59 Dose: 0.63 mg Levalbuterol HCl (Xopenex) 0.63 mg IH Q2H PRN PRN Reason: Shortness of Breath Metoprolol Tartrate (Lopressor) 5 mg IVP Q6H [facility] Last Admin: 02/08/17 05:42 Dose: Not Given Pantoprazole Sodium (Protonix Inj) 40 mg IVP DAILY [facility] Last Admin: 02/07/17 09:18 Dose: 40 mg Vitamin A (Vitamin A & D Oint Ud Foilpak) 1 ea TOP Q8H PRN PRN Reason: Dry skin - Labs Labs: 02/08/17 05:45 02/08/17 05:45 PT 15.3 Seconds (9.9-11.8) H 01/29/17 05:30 INR 1.42 (0.93-1.08) H 01/29/17 05:30 APTT 26.5 Seconds (23.7-30.8) 02/05/17 06:00 - Constitutional Appears: No Acute Distress - Head Exam Head Exam: NORMAL INSPECTION - Eye Exam Eye Exam: Normal appearance. absent: Scleral icterus - ENT Exam ENT Exam: Mucous Membranes Moist - Respiratory Exam Additional comments: Tachypneic, decreased breath sounds at bilateral bases; - Cardiovascular Exam Cardiovascular Exam: RRR, +S1, +S2 - GI/Abdominal Exam GI & Abdominal Exam: Distended, Soft. absent: Tenderness - Extremities Exam Additional comments: moderately edematous ext; - Neurological Exam Neurological Exam: Alert, Awake - Skin Skin Exam: absent: Cyanosis Assessment and Plan (1) Metabolic alkalosis Assessment & Plan: Improved with diamox; however, now with hypercapnea and resp acidosis; likely getting resp fatigue but is DNI and had not tolerated BIPAP previously; will resume IV lasix; Status: Acute (2) Acute hypoxemic respiratory failure Assessment & Plan: Due to acute severely decompensated CHF w/ diastolic dysfunction; question of pleural effusions; will resume aggressive diuresis with lasix IV 40 mg twice daily; Status: Acute (3) Sepsis Status: Acute (4) Ureteral calculus, right Status: Acute (5) Electrolyte imbalance Assessment & Plan: Hypernatremia improving with D5W, continue at 125 cc/hr; hypokalemia due to diuretics and secondary aldosteronism from volume contraction; replenish K aggressively; Status: Acute
--- NOTE | 2017-02-08 09:05 | PN ---
DATE: 02/08/2017 SUBJECTIVE: The patient is in bed, no acute distress, nontoxic. PHYSICAL EXAMINATION: VITAL SIGNS: Temperature is 98.0, blood pressure is 93/40, respiratory rate of 18. HEENT: Unremarkable. NECK: Supple. LUNGS: Decreased breath sounds. HEART: Normal S1 and S2. ABDOMEN: Soft and nontender. LABORATORY EXAMINATION Reveals the patient's white count is down to 19,500; it was as high as 35,000, hemoglobin of 9, platelets of 362. Chemistries reveals a BUN of 23, creatinine of 0.6. Urinalysis is noted and vancomycin trough is noted to be 16 and serology is negative. Microbiology reveals E. coli in the blood, E. coli in the urine. Repeat blood cultures are negative. Review of orders reveals the patient to be on meropenem. ASSESSMENT/PLAN: An 81-year-old female who was seen in the Critical Care Unit 129, bed 3 this morning, what appears end-stage, admitted with septic shock and cardiogenic shock and sepsis and acute renal failure with Escherichia coli bacteremia with Escherichia coli in her urine, obstructing right ureteral stone, and pyelonephritis, today is day #11 of meropenem, would complete 10 to 14 days. Overall prognosis quite poor. Richard Dobbins MD
[2017-02-08] MEDS: Fluticasone Nasal 50 mcg/Spray NS SCH ×2 (09:39→11:07)
[2017-02-08] MEDS: FONDAPARINUX 2.5 MG/0.5 ML SC SCH (09:41)
[2017-02-08] MEDS ORDERED: Magnesium Sulfate 2 GM in Sodium Chloride 0.9% 100 ML IVPB ONE (10:19)
[2017-02-08] MEDS ORDERED: Potassium Phosphate 15 MMOLE in Dextrose 5% In Water 250 ML IVPB ONE (11:11)
--- NOTE | 2017-02-08 11:39 | PN ---
SUBJECTIVE: The patient had been doing better yesterday and was awake and alert asking for, mouthing requests, for various things. During the course of the evening she had a major deterioration that appears to be respiratory in origin. She had subsequent hypotension with severe rales and rhonchi. She was hypoxic. She underwent rigorous suction by respiratory therapy and she improved dramatically. This morning she is back awake and alert. She appears to understand our questions. She is close to what she was yesterday, but she told me with some rest after that, that have improved last night. Her overall status remains poor. I have spent much time talking to two of the family members at the bedside. They understand the nature of the illness and poor prognosis, but want continued rigorous attention other than the known DNI as previously stated. PHYSICAL EXAMINATION: GENERAL: The patient is resting, appears appropriate. VITAL SIGNS: Temperature 98.6, pulse 80, respiratory rate 22, blood pressure 110/70, O2 saturation 98% this morning. HEENT: Normocephalic, atraumatic. NECK: Supple. No JVD. No lymphadenopathy. CARDIOVASCULAR: Regular rhythm. S1 and S2. Systolic ejection murmur throughout the sternal bladder. LUNGS: Global findings of rales and rhonchi. No wheezes are appreciated. No additional findings noted. ABDOMEN: Soft. Bowel sounds normoactive without mass, guarding, rebound or organomegaly. EXTREMITIES: Reveal no clubbing, cyanosis, or edema. There is no Homans sign. Skin is soft with no rash or excoriation. NEUROLOGIC: Exam is limited at the present time, but she appears to understand commands and appears to be trying to answer questions. FINDINGS TODAY: Include a chest x-ray that does not show significant changes. The lungs are expanded with some opacification noted which may be related to pulmonary vascular congestion. Arterial blood gas has been done at this moment and is not available yet. Her a.m. labs are not available at this time. IMPRESSION: 1. Status post acute event of respiratory distress probably due to mucous plugging. 2. Respiratory failure. 3. Urosepsis. 4. Status post ureteral stone. 5. Volume overload. 6. Chronic obstructive pulmonary disease. 7. Non-ST myocardial infarction. 8. Arrhythmias. 9. Plugging out malnutrition. PLAN: As discussed with the family, we will do all that we can do to take care of their mother. We will attempt to increase nutrition, support respiratory and hemodynamic status. Attempt some bedside therapy. Doing some oxygen when possible. She needs to get her strength before doing any further change of plans. We will discuss the remainder with the physician this morning and decide on the need for further intervention. Thank you for the opportunity to look at this lady. We will be available if any problems develop and she needs additional therapy. Rajesh Medeiros MD
--- NOTE | 2017-02-08 14:11 | CP.PCM.PN ---
Subjective - Date & Time of Evaluation Date of Evaluation: 02/08/17 Time of Evaluation: 12:00 - Subjective Subjective: Patient not alert today; BP dropped precipitously this morning before spontaneously rebounding; Objective - Vital Signs/Intake and Output Vital Signs (last 24 hours): Temp Pulse Resp BP Pulse Ox 97.9 F 68 32 H 104/39 L 94 L 02/08/17 12:00 02/08/17 13:00 02/08/17 13:00 02/08/17 12:45 02/08/17 13:00 Intake and Output: 02/08/17 02/08/17 06:59 18:59 Intake Total 1287 Output Total 2100 Balance -813 - Medications Medications: Current Medications Acetaminophen (Tylenol 325mg Tab) 650 mg PO Q6H PRN PRN Reason: Fever >100.4 F Last Admin: 02/01/17 22:44 Dose: 650 mg Acetylcysteine (Acetylcysteine 20%) 4 ml IH [id number] NO Last Admin: 02/08/17 12:59 Dose: 4 ml Aspirin (Aspirin Chewable) 81 mg PO DAILY [facility] Last Admin: 02/08/17 09:45 Dose: Not Given Budesonide (Pulmicort Respules) 0.5 mg IH [id number] NO Last Admin: 02/08/17 06:59 Dose: 0.5 mg Clopidogrel Bisulfate (Plavix) 75 mg PO DAILY NO Last Admin: 01/31/17 09:57 Dose: 75 mg Fluticasone Propionate (Flonase) 1 actuation NS DAILY NO Last Admin: 02/08/17 11:07 Dose: Not Given Home Med (Home Med) 2.5 unit SC DAILY NO Last Admin: 02/08/17 09:41 Dose: 2.5 unit Meropenem 1g/NS 100mL IVPB (Meropenem 1g/Ns 100ml Ivpb) 1 gm in 100 mls @ 100 mls/hr IVPB Q8 NO PRN Reason: Protocol Stop: 02/09/17 14:01 Last Admin: 02/08/17 13:08 Dose: 100 mls/hr Amiodarone HCl/Dextrose (Nexterone 360 Mg In D5w 200 Ml (Premix)) 360 mg in 200 mls @ 16.667 mls/hr IV .Q12H NO; 0.5 MG/MIN PRN Reason: Protocol Last Admin: 02/08/17 06:15 Dose: 16.667 mls/hr Dextrose (Dextrose 5% In Water 1000 Ml) 1,000 mls @ 75 mls/hr IV .[id number] [facility] Potassium Phosphate 15 mmole/ (Dextrose) 255 mls @ 42.5 mls/hr IVPB ONCE ONE Stop: 02/08/17 17:10 Last Admin: 02/08/17 11:47 Dose: 42.5 mls/hr Levalbuterol HCl (Xopenex) 0.63 mg IH [id number] [facility] Last Admin: 02/08/17 12:59 Dose: 0.63 mg Levalbuterol HCl (Xopenex) 0.63 mg IH Q2H PRN PRN Reason: Shortness of Breath Metoprolol Tartrate (Lopressor) 5 mg IVP Q6H [facility] Last Admin: 02/08/17 11:08 Dose: 5 mg Pantoprazole Sodium (Protonix Inj) 40 mg IVP DAILY [facility] Last Admin: 02/08/17 09:48 Dose: 40 mg Vitamin A (Vitamin A & D Oint Ud Foilpak) 1 ea TOP Q8H PRN PRN Reason: Dry skin - Labs Labs: 02/08/17 05:45 02/08/17 05:45 PT 15.3 Seconds (9.9-11.8) H 01/29/17 05:30 INR 1.42 (0.93-1.08) H 01/29/17 05:30 APTT 26.5 Seconds (23.7-30.8) 02/05/17 06:00 - Constitutional Appears: No Acute Distress - Eye Exam Eye Exam: absent: Scleral icterus - ENT Exam ENT Exam: Mucous Membranes Moist - Respiratory Exam Additional comments: Tachypneic; decreased breath sounds as bases; - Cardiovascular Exam Cardiovascular Exam: RRR, +S1, +S2 - GI/Abdominal Exam GI & Abdominal Exam: Distended, Soft - Extremities Exam Additional comments: markedly edematous ext; - Neurological Exam Neurological Exam: absent: Alert, Awake Additional comments: not responding to verbal stimuli; - Skin Skin Exam: absent: Cyanosis Assessment and Plan (1) Metabolic alkalosis Assessment & Plan: Previously secondary to volume contraction but now with hypercapnea; will continue to give IV lasix as tolerated despite alkalosis; Status: Acute (2) Acute hypoxemic respiratory failure Assessment & Plan: Secondary to acute decompensated CHF w/ diastolic dysfunction; still requiring high flow O2; will continue to diurese with IV lasix as BP tolerates; Status: Acute (3) Sepsis Status: Acute (4) Ureteral calculus, right Status: Acute (5) Electrolyte imbalance Assessment & Plan: Hypernatremia improving with D5W, decreasing to 75 cc/hr; continue to replenish K prn; Status: Acute
--- NOTE | 2017-02-08 15:04 | RAD ---
HISTORY: atelectasis repeat film COMPARISON: Comparison made with prior study 02/08/2017 at 06:11 a.m. FINDINGS: Right-sided central venous line again noted with tip in the SVC/RA junction. LUNGS: Note that the medial lung apices are partially obscured by overlying facial soft tissue and mandible artifact. Diffuse bilateral on infiltrates consistent with pulmonary edema due to fluid overload or CHF. Bilateral effusions. PLEURA: No significant pleural effusion identified, no pneumothorax apparent. CARDIOVASCULAR: Normal. OSSEOUS STRUCTURES: No significant abnormalities. VISUALIZED UPPER ABDOMEN: Normal. OTHER FINDINGS: None. IMPRESSION: Limited study due to partial obscure a coffey of the medial lung apices as above. Diffuse bilateral infiltrates consistent with pulmonary edema due to fluid overload or CHF. Bilateral effusions.
--- NOTE | 2017-02-08 15:16 | RAD ---
HISTORY: s/p intubation, appears fluid overloaded, f/u COMPARISON: Comparison made with prior chest radiograph 0647 hours. Note that the current study is somewhat limited due to partial obscuration of the right lung apex to overlying mandible and facial soft tissue artifact. FINDINGS: Right-sided central line with tip in the SVC/RA junction again noted. . No evidence of endotracheal tube is identified LUNGS: Diffuse pulmonary edema possibly due to fluid overload and/or CHF with large bilateral effusions and bilateral lower lobe alveolar-type infiltrates PLEURA: No significant pleural effusion identified, no pneumothorax apparent. CARDIOVASCULAR: Normal. OSSEOUS STRUCTURES: No significant abnormalities. VISUALIZED UPPER ABDOMEN: . Apparent in situ ureteral stent OTHER FINDINGS: None. IMPRESSION: Diffuse pulmonary edema with bilateral alveolar-type infiltrates and bilateral effusions; rule out fluid overload or and or CHF.
[2017-02-08 16:36] VITALS: TEMP 100.9
[2017-02-08 18:24] VITALS: RESP 33
--- NOTE | 2017-02-08 19:55 | PN ---
DATE: SUBJECTIVE: The patient is 81 years old, seen and examined. Case discussed with nurse and record label internship. The patient had episode of hypoxia and extreme shortness of breath late this morning, but with aggressive suction her respiratory status improved currently. PHYSICAL EXAMINATION: GENERAL: She is lethargic, opens eyes on verbal commands. She is still on high flow oxygen. VITAL SIGNS: She is afebrile, pulse 71, respirations 28, blood pressure 92/33. LUNGS: Bilateral soft crackles throughout both lung brady. HEART: S1 and S2 audible. ABDOMEN: Soft, nontender. Bowel sounds are positive. NEUROLOGIC: She is lethargic. LABORATORY DATA: WBC is 19.4, hemoglobin 9.1, hematocrit 29.3, platelets 362. Chemistry: Sodium 145, potassium 3.8, chloride 108, CO2 of 35, BUN 23, creatinine 0.6, blood sugar 102. AST 92, ALT 220. ASSESSMENT AND PLAN: 1. Respiratory insufficiency. 2. Bilateral pulmonary infiltrate and venous congestion. 3. Status post episode of supraventricular tachycardia. 4. Lethargy. 5. Nephrolithiasis status post right ureteral stent placement. 6. Electrolyte imbalance. 7. Hyponatremia. 8. Hypokalemia. PLAN: Initial plan was to have PEG placed, but in this recent episode family is not sure. We will reassess in a.m. If the patient improved, we will might consider putting PEG, if overnight her condition deteriorated, they might think about hospice, but at this point all family members who are surrounding the patient are not sure which way to go. We will reassess in a.m. I will request Dr. Horn to evaluate her for PEG placement. Magali Snyder MD
--- NOTE | 2017-02-08 20:04 | CP.PCM.PRO ---
Pronouncement of Note - Clinical Findings Physical Exam: No Response Verbal/Painful Stimuli, Absent Peripheral Pulses{ Carotid & Femoral}, Absent Heart & Breath Sounds, No Pupillary Light Reflex, No Corneal Reflex, Pupils Fixed & Dilated, Absence of Vital Signs - Pronouncement Time Time of Pronouncement of : 19:48 - Notifications Pronouncement Notifications: Family Notified, Atending Notified [employer]er Notified: No - Autopsy Autopsy Requested: No - [place] [id number] Additional Comments: EDRS case started to be completed by attending physician. Attending physician notified.
[2017-02-08 21:34] VITALS: BP 52/22; PULSE 62; O2SAT 95
--- NOTE | 2017-02-09 10:02 | PN ---
DATE: 02/06/2017 SUBJECTIVE: The patient is an 81-year-old seen and examined, seems to comfortable, still confused, disoriented, repeating herself, has been on high-flow oxygen, getting nebulizer treatment. PHYSICAL EXAMINATION: VITAL SIGNS: She is afebrile, pulse 71, respiration 29 and blood pressure 96/49. LUNGS: Bilateral fair airflow. Subclavicular bases. HEART: S1 and S2, audible. Rate controlled. ABDOMEN: Soft and nontender. No rebound. No guarding. NEUROLOGIC: She is confused and disoriented. EXTREMITIES: Bilateral leg, +2 edema. LABORATORY DATA: WBC , hemoglobin 9.7, hematocrit 30.9 and platelet 297. Chemistry: Sodium 153, potassium 3.5, chloride 115, CO2 of 34, BUN 29, creatinine 0.7, blood sugar of 125 and calcium is 7.2. AST 75. Blood culture and urine cultures are negative. She has repeat x-ray of chest done today, it shows no change in bilateral infiltrate and effusion. ASSESSMENT: 1. Status post respiratory failure. 2. Status post urosepsis. 3. Status post Escherichia coli sepsis. 4. Dysphagia. 5. Electrolyte imbalance. 6. Hypernatremia. 7. Hypokalemia. 8. Status post right ureteral stent placement. PLAN: Since the patient has decompensated congestive heart failure, we discuss with the patient's daughter at length. We will Dobhoff. We will give her free water. We will try to reduce her IV fluids. In the setting of congestive heart failure, it would be better to give her through the gut. Continue her on amiodarone. She is still on IV fluid. She is on meropenem, Plavix and Protonix. We will start her on Dobhoff feeding and we will follow up her electrolyte in a.m. Magali Snyder MD
--- NOTE | 2017-02-09 10:07 | PN ---
PULMONARY PROGRESS NOTE DATE: 02/07/2017 SUBJECTIVE: The patient remains on vent in the intensive care unit. I have had a long discussion with medical team on-call. The patient is DNR/DNI. There is no PEG. The patient does have worsening electrolyte and fluid balance problems in the last 3 days, and would benefit from Lasix. She appears to have low sodium and cannot take further diuretics, I strongly suggest close management by ICU team and I asked Renal to further evaluate these problems. From pulmonary point of review, the patient remains with assistance. She is breathing better than in the past. The overall condition, however, is less than Rajesh Medeiros MD MTDD
--- NOTE | 2017-02-10 04:38 | DS ---
ADDENDUM HISTORY OF PRESENT ILLNESS: The patient was admitted with urosepsis, she ended up respiratory failure, did have stent placed, but she was intubated, hypoxic. She has intermittent AFib and episode of SVTs. She also went into acute renal failure that was treated. The patient has been on IV antibiotics. Her overall condition was poor because of sepsis. She also had altered mental status because of her metabolic encephalopathy. Family made her DNR and DNI. Her condition deteriorated in the afternoon yesterday since she was DNR. She was not intubated or resuscitated. ASSESSMENT AND PLAN: 1. Sepsis secondary to urinary tract infection. 2. Respiratory failure. 3. History of hypertension. 4. Acute renal failure. Magali Snyder MD
== END 2017-02-08 19:48 | DRG 870 ==
LOC: ED 17:11 → ERH 21:04 → CCU 01-29 01:11
PROVIDERS: ADMIT Internal Medicine; ATTEND Internal Medicine
PROC: 5A1955Z Respiratory Ventilation, Greater than 96 Consecutive Hours (ICD-10-PCS; principal; 2017-01-29)
PROC: 0T768DZ Dilation of Right Ureter with Intraluminal Device, Via Natural or Artificial Opening Endoscopic (ICD-10-PCS; 2017-01-29)
PROC: 0BH17EZ Insertion of Endotracheal Airway into Trachea, Via Natural or Artificial Opening (ICD-10-PCS; 2017-01-29)
DX: A41.51 Sepsis due to Escherichia coli [E. coli] (principal); J96.01 Acute respiratory failure with hypoxia; K72.00 Acute and subacute hepatic failure without coma; I21.4 Non-ST elevation (NSTEMI) myocardial infarction; G93.41 Metabolic encephalopathy; R65.21 Severe sepsis with septic shock; R57.0 Cardiogenic shock; I50.33 Acute on chronic diastolic (congestive) heart failure; R64 Cachexia; I48.92 Unspecified atrial flutter; I48.0 Paroxysmal atrial fibrillation; E46 Unspecified protein-calorie malnutrition; R13.10 Dysphagia, unspecified; M62.82 Rhabdomyolysis; I47.1 Supraventricular tachycardia; N17.9 Acute kidney failure, unspecified; E87.0 Hyperosmolality and hypernatremia; J98.11 Atelectasis; E87.4 Mixed disorder of acid-base balance; N13.6 Pyonephrosis; N39.0 Urinary tract infection, site not specified; W18.30XA Fall on same level, unspecified, initial encounter; D75.82 Heparin induced thrombocytopenia (HIT); E83.39 Other disorders of phosphorus metabolism; I27.20 Pulmonary hypertension, unspecified; I49.3 Ventricular premature depolarization; I25.2 Old myocardial infarction; I67.9 Cerebrovascular disease, unspecified; I65.21 Occlusion and stenosis of right carotid artery; I73.9 Peripheral vascular disease, unspecified; J44.9 Chronic obstructive pulmonary disease, unspecified; M41.9 Scoliosis, unspecified; D64.9 Anemia, unspecified; E78.00 Pure hypercholesterolemia, unspecified; E78.5 Hyperlipidemia, unspecified; E87.6 Hypokalemia; F03.90 Unspecified dementia, unspecified severity, without behavioral disturbance, psychotic disturbance, mood disturbance, and anxiety; H66.90 Otitis media, unspecified, unspecified ear; H70.12 Chronic mastoiditis, left ear; I11.0 Hypertensive heart disease with heart failure; I25.10 Atherosclerotic heart disease of native coronary artery without angina pectoris; Y92.009 Unspecified place in unspecified non-institutional (private) residence as the place of occurrence of the external cause; Z66 Do not resuscitate; Z79.02 Long term (current) use of antithrombotics/antiplatelets; Z79.899 Other long term (current) drug therapy; Z87.440 Personal history of urinary (tract) infections; Z87.442 Personal history of urinary calculi; Z87.891 Personal history of nicotine dependence; Z88.0 Allergy status to penicillin; Z95.5 Presence of coronary angioplasty implant and graft; R40.2412 Glasgow coma scale score 13-15, at arrival to emergency department; E87.70 Fluid overload, unspecified; Z88.8 Allergy status to other drugs, medicaments and biological substances